=== PATIENT | female | born 1945 | race Caucasian/White ===

== ENCOUNTER → 2017-08-16 | Outpatient (CLI) | payer MEDICARE ==
--- NOTE | 2017-08-16 16:10 | RADIOLOGY REPORT (SQ) ---
EXAM DESCRIPTION: HIP LEFT AP/LATERAL COMPLETED DATE/TIME: 08/16/2017 2:58 pm REASON FOR STUDY: LEFT HIP PAIN COMPARISON: None. NUMBER OF VIEWS: Two views. TECHNIQUE: AP pelvis and additional frog-leg view of the left hip. LIMITATIONS: None. FINDINGS: MINERALIZATION: Normal. LEFT HIP: Total hip arthroplasty in good position. RIGHT HIP: Mild superior joint space narrowing. PUBIS AND ISCHIUM: No fracture. PELVIS: No fracture. SACRUM: No fracture or dislocation. No worrisome bone lesions. LOWER LUMBAR SPINE: No fracture or dislocation. No worrisome bone lesions. No significant disc disea se. SOFT TISSUES: No findings. OTHER: No other significant finding. IMPRESSION: Left total hip arthroplasty. Mild degenerative joint changes in the right hip. TECHNICAL DOCUMENTATION: JOB ID: [id number] [employer]- All Rights Reserved Reading location - IP/workstation name: [email or web address]
== END ==
LOC: OD 14:10
PROVIDERS: ATTEND Family Medicine
DX: M25.552 Pain in left hip (principal); Z96.642 Presence of left artificial hip joint

== ENCOUNTER 2018-02-26 13:58 | Emergency (ER) | payer MEDICARE ==
[2018-02-26] MEDS ORDERED: IBUPROFEN 600 MG TABLET PO ONE (14:15)
--- NOTE | 2018-02-26 14:16 | ER Document Report ---
ED Medical Screen (RME) - General Chief Complaint: Fall Stated Complaint: FALL Time Seen by Provider: 02/26/18 14:14 Mode of Arrival: Wheelchair Information source: Patient TRAVEL OUTSIDE OF THE [place] IN LAST 30 DAYS: No - HPI Patient complains to provider of: fall Onset: Other - pt. states she fell 2 days ago -- with injury to R lumbar spine - Related Data Allergies/Adverse Reactions: No Known Allergies Allergy (Verified 02/26/18 13:58) Past Medical History - Social History Chew tobacco use (# tins/day): No Frequency of alcohol use: Rare Drug Abuse: None - Past Medical History Cardiac Medical History: Reports: Hx Atrial Fibrillation, Hx Hypercholesterolemia, Hx Hypertension - contr w/ meds Denies: Hx Heart Attack Pulmonary Medical History: Reports: Hx Asthma, Hx COPD Neurological Medical History: Denies: Hx Cerebrovascular Accident, Hx Seizures Renal/ Medical History: Denies: Hx Peritoneal Dialysis GI Medical History: Denies: Hx Hepatitis, Hx Hiatal Hernia, Hx Ulcer Musculoskeltal Medical History: Psychiatric Medical History: Reports: Hx Depression - anxiety Infectious Medical History: Denies: Hx Hepatitis Past Surgical History: Reports: Hx Breast Surgery - bilateral lumpectomy, Hx Hysterectomy. Denies: Hx Mastectomy, Hx Open Heart Surgery, Hx Pacemaker - Immunizations Hx Diphtheria, Pertussis, Tetanus Vaccination: No Physical Exam - Vital signs Vitals: Temp Pulse Resp BP Pulse Ox 99.1 F 58 L 16 85/58 L 95 02/26/18 14:08 02/26/18 14:08 02/26/18 14:08 02/26/18 14:08 02/26/18 14:08 Course - Vital Signs Vital signs: Temp Pulse Resp BP Pulse Ox 99.1 F 58 L 16 85/58 L 95 02/26/18 14:08 02/26/18 14:08 02/26/18 14:08 02/26/18 14:08 02/26/18 14:08 Doctor's Discharge - Discharge Referrals: EULALIA CHASE DO [Primary Care Provider] - Follow up as needed
[2018-02-26 15:06] LABS: APPEARANCE,URINE CLOUDY; BILIRUBIN,URINE NEGATIVE (NEGATIVE); GLUCOSE, URINE NEGATIVE (NEGATIVE); KETONES,URINE NEGATIVE (NEGATIVE); LEUKOCYTE ESTERASE,URINE SMALL (NEGATIVE); NITRITE,URINE POSITIVE (NEGATIVE); PROTEIN,URINE NEGATIVE (NEGATIVE); URINE SPECIFIC GRAVITY 1.023
[2018-02-26 15:07] LABS: COLOR,URINE YELLOW
--- NOTE | 2018-02-26 15:42 | RADIOLOGY REPORT (SQ) ---
EXAM DESCRIPTION: L SPINE WHOLE COMPLETED DATE/TIME: 02/26/2018 3:22 pm REASON FOR STUDY: fall COMPARISON: None. NUMBER OF VIEWS: Four views including obliques. TECHNIQUE: AP, lateral, oblique, and sacral radiographic images acquired of the lumbar spine. LIMITATIONS: None. FINDINGS: MINERALIZATION: Normal. SEGMENTATION: Normal. No transitional anatomy. ALIGNMENT: Normal. VERTEBRAE: Maintained height. No fracture or worrisome bone lesion. DISCS: Preserved height. No significant osteophytes or end plate irregularity. POSTERIOR ELEMENTS: Pedicles and facets are intact. No pars defect or posterior arch defects. HARDWARE: None in the spine. PARASPINAL SOFT TISSUES: Normal. PELVIS: Intact as visualized. No fractures or worrisome bone lesions. SI joints intact. Status post left hip total arthroplasty, partially imaged. OTHER: Large burden of stool in the colon. Calcification of the abdominal aorta and branch vessels. IMPRESSION: No fracture or dislocation of the lumbar spine. Disc spaces and vertebral body heights are well preserved. TECHNICAL DOCUMENTATION: JOB ID: [id number] [employer]- All Rights Reserved Reading location - IP/workstation name: [email or web address]
[2018-02-26] MEDS ORDERED: NORMAL SALINE 1000 ML 500 ML IV ONE (15:49)
--- NOTE | 2018-02-26 16:16 | ER Document Report ---
ED Fall - General Chief Complaint: Fall Stated Complaint: FALL Time Seen by Provider: 02/26/18 14:14 Mode of Arrival: Wheelchair Information source: Patient Notes: Patient is a 72-year-old female who presents to the emergency department with complaints of right flank pain and shortness of breath after she fell 2 days ago. Patient reports she tripped and fell when trying to get out of her bed. She states that she has a large bruise over her kidney area. Patient reports history of a left-sided hip replacement, states no issues with this no pain in either hip. Patient denies striking her head, denies any loss of consciousness or any vomiting after the fall. Patient reports her primary care provider is Dr. [place]. She states that she takes hydrocodone for chronic pain. TRAVEL OUTSIDE OF THE [place] IN LAST 30 DAYS: No - Related data Allergies/Adverse Reactions: No Known Allergies Allergy (Verified 02/26/18 13:58) Past Medical History - General Information source: Patient - Social History Smoking Status: Current Every Day Smoker Chew tobacco use (# tins/day): No Frequency of alcohol use: Rare Drug Abuse: None Family History: Reviewed & Not Pertinent Patient has suicidal ideation: No Patient has homicidal ideation: No - Past Medical History Cardiac Medical History: Reports: Hx Atrial Fibrillation, Hx Hyperch olesterolemia, Hx Hypertension - contr w/ meds Denies: Hx Heart Attack Pulmonary Medical History: Reports: Hx Asthma, Hx COPD Neurological Medical History: Denies: Hx Cerebrovascular Accident, Hx Seizures Renal/ Medical History: Denies: Hx Peritoneal Dialysis GI Medical History: Denies: Hx Hepatitis, Hx Hiatal Hernia, Hx Ulcer Musculoskeletal Medical History: Psychiatric Medical History: Reports: Hx Depression - anxiety Infectious Medical History: Denies: Hx Hepatitis Past Surgical History: Reports: Hx Breast Surgery - bilateral lumpectomy, Hx Hysterectomy. Denies: Hx Mastectomy, Hx Open Heart Surgery, Hx Pacemaker - Immunizations Hx Diphtheria, Pertussis, Tetanus Vaccination: No Review of Systems - Review of Systems Respiratory: Hurts to breathe, Short of breath Musculoskeletal: See HPI -: Yes All other systems reviewed and negative Physical Exam - Vital signs Vitals: Temp Pulse Resp BP Pulse Ox 99.1 F 58 L 16 85/58 L 95 02/26/18 14:08 02/26/18 14:08 02/26/18 14:08 02/26/18 14:08 02/26/18 14:08 - Notes Notes: PHYSICAL EXAMINATION: GENERAL: Well-appearing, well-nourished and in no moderate distress. HEAD: Atraumatic, normocephalic. EYES: Pupils equal round and reactive to light, extraocular movements intact, c onjunctiva are normal. ENT: Nares patent, oropharynx clear without exudates. Moist mucous membranes. NECK: Normal range of motion, supple without lymphadenopathy LUNGS: Breath sounds clear to auscultation bilaterally and equal. No wheezes rales or rhonchi. HEART: Regular rate and rhythm without murmurs ABDOMEN: Soft, nontender, nondistended abdomen. No guarding, no rebound. No masses appreciated. Female : No CVA tenderness Musculoskeletal: Normal range of motion, no pitting or edema. No cyanosis. Ecchymosis noted from right flank noted extending from right flank to right scapula. No crepitus. NEUROLOGICAL: Cranial nerves grossly intact. Normal speech, normal gait. Normal sensory, motor exams PSYCH: Normal mood, normal affect. SKIN: Warm, Dry, normal turgor, no rashes or lesions noted. Course - Re-evaluation Re-evalutation: At the time of my initial assessment patient has Jasson been seen by provider in triage. CBC and comprehensive metabolic panel are unremarkable. Urinalysis shows positive nitrates, hematuria and small leukocyte esterase. Patient denies any urinary symptoms. Patient has large amount of ecchymosis to her right flank that extends up to the right scapula. Upon reviewing patient's vital signs patient was hypotensive at the time of check-in. This has now resolved. I did give patient some IV fluids as well as pain medication. X-rays are pending. X-ray of the thoracic spine as well as x-ray of the right ribs with chest are all unremarkable. Patient does have clear and equal lung sounds bilaterally. Patient is reporting she feels much better after taking a dose of hydrocodone which she usually takes at home for her chronic pain. Patient will be given an incentive spirometer due to the area of her injury although there are no rib fractures noted on x-ray. I will also place patient on antibiotics for the urinary tract infection and will place an order for urine culture. Patient's family members are at bedside to take patient home and patient is stable for discharge. - Vital Signs Vital signs: Temp Pulse Resp BP Pulse Ox 97.5 F 96 18 150/60 H 96 02/26/18 19:09 02/26/18 19:09 02/26/18 19:09 02/26/18 19:09 02/26/18 19:09 - Laboratory Result Diagrams: 02/26/18 16:57 02/26/18 16:57 Laboratory results interpreted by me: 02/26/18 02/26/18 02/26/18 14:34 16:57 16:57 RDW 14.5 H Carbon Dioxide 31 H Est GFR (Non-Af Amer) 52 L Urine Blood SMALL H Urine Nitrite POSITIVE H Urine Urobilinogen 4.0 H Ur Leukocyte Esterase SMALL H Discharge - Discharge Clinical Impression: Fall Qualifiers: Encounter type: initial encounter Qualified Code(s): W19.XXXA - Unspecified fall, initial encounter UTI (urinary tract infection) Qualifiers: Urinary tract infection type: site unspecified Hematuria presence: without hematuria Qualified Code(s): N39.0 - Urinary tract infection, site not specified Condition: Stable Disposition: HOME, SELF-CARE Additional Instructions: URINARY TRACT INFECTION: Your evaluation indicates that you have a urinary tract infection. This is due to germs growing in the bladder. This is a common problem. This infection usually responds quickly to antibiotics. Your antibiotic should be taken exactly as prescribed. Drink plenty of fluids -- three to four quarts a day. Occasionally, a bladder anesthetic will be prescribed to help stop the feeling of urgency until the antibiotic has a chance to clear the infection. This may cause your urine to be dark orange. Certain urine infections require a culture. If the doctor obtained a culture, the results will be back in two days. You should call to see if a change in treatment is needed. A repeat urinalysis after you finish treatment is often recommended. The physician will let you know if further testing is required. Call the doctor if you develop fever, chills, flank pain, inability to urinate, or blood in the urine. ANTIBIOTIC THERAPY: You have been given an antibiotic prescription. It's important that you take all the medication, unless instructed otherwise by your physician. Failure to complete the entire course can result in relapse of your condition. Common side effects of antibiotics include nausea, intestinal cramping, or diarrhea. Women may develop vaginal yeast infections, and babies can get yeast (thrush) in the mouth following the use of antibiotics. Contact your physician if you develop significant side effects from this medication. Allergy to this antibiotic can result in hives, wheezing, faintness, or itching. If symptoms of allergy occur, stop the medication and call the doctor. CEPHALEXIN: The antibiotic you've been prescribed is a member of the cephalosporin class. This type of antibiotic covers a wide variety of infections, including those of the skin, lungs, and urinary tract. It's useful for staph infections. This antibiotic is slightly similar to the penicillin family. In rare cases, a person who is allergic to penicillin will also be allergic to this medication. If you have had a severe allergic reaction to penicillin, and have not taken this antibiotic since that time, notify your doctor. Antibiotics which cover many germs ("broad spectrum" antibiotics) are more likely to cause diarrhea or "yeast" infections. Women prone to vaginal yeast problems may suffer an attack after taking this antibiotic. In infants, oral thrush (white spots "stuck" on the cheek) or yeast diaper rash may result. See your doctor if these problems occur. Call at once if you develop itching, hives, shortness of breath, or lightheadedness. Contusion Your injury has resulted in a contusion -- a crushing of the deep tissues. No injury to important structures was detected during the physician's exam. Contusions vary in the amount of pain they cause, and in the length of time required for healing. Typically, the area will become bruised, and will remain painful to touch for two or three weeks. However, most patients are back to working and playing within a few days. After the initial period of rest and cold-packs, your symptoms (together with the doctor's recommendations) will determine how rapidly you can get back to full activity. Usually this means "do what feels okay, but don't do things that hurt." If re-examination was recommended, it's important to follow up as instructed. Call the doctor or return any time if pain increases, if swelling becomes severe, if you develop numbness or weakness in an injured extremity, or if any other alarming symptoms occur. Ice Packs Apply ice packs frequently against the painful area. Many different schedules are recommended, such as "20 minutes on, 20 minutes off" or "one hour ice, two hours rest." If you need to work, you may need to go longer between ice treatments. You should plan to have the area ice packed AT LEAST one fourth of the time. The ice should be applied over the wrap, tape, or splint, or over a layer of cloth -- not directly against the skin. Some ice bags have a built-in cloth and can be put directly on the skin. FOLLOW-UP CARE: If you have been referred to a physician for follow-up care, call the physicians office for an appointment as you were instructed or within the next two days. If you experience worsening or a significant change in your symptoms, notify the physician immediately or return to the Emergency Department at any time for re-evaluation. Your your blood work today was normal. It appears that you have urinary tract infection based upon your urinalysis today. This will be sent for a culture, someone will call you in the next 48-72 hours if there are any abnormalities. I have prescribed you Keflex, take as directed, complete the entire course of antibiotics even if you are feeling better. Take ibuprofen 600 mg every 6 hours for the pain to your side. The imaging studies done of your ribs, chest and back are all normal. There are no fractures or dislocations. All of the your bruising is being caused by contusions. You may apply ice to these areas as directed above. Use the incentive spirometer exactly as the nurse showed you how. Try to use this 10 times every hour that you are awake. It is very important to make sure you are taking nice big deep breaths to allow for full lung expansion. Please follow-up with your primary care provider for a follow-up, call them to schedule an appointment. Return to the emergency department if you experience any worsening symptoms such as shortness of breath or development of fever. We will be happy to reevaluate you at any time. Prescriptions: Cephalexin [Cephalexin 500 MG Tablet] 500 mg PO Q6H #28 tablet Referrals: EULALIA MONTANA, [Primary Care Provider] - Follow up as needed
--- NOTE | 2018-02-26 16:41 | RADIOLOGY REPORT (SQ) ---
EXAM DESCRIPTION: RIBS RIGHT W/PA CHEST COMPLETED DATE/TIME: 02/26/2018 4:13 pm REASON FOR STUDY: fall, posterior rib pain with bruising COMPARISON: 03/19/2012 TECHNIQUE: Frontal view of the chest and additional views of the right ribs acquired. NUMBER OF VIEWS: Four view. LIMITATIONS: None. FINDINGS: FRONTAL CXR: No pneumothorax. No pleural effusion. No atelectasis or infiltrates. RIBS: No displaced rib fractures. No lytic or blastic bony lesions. OTHER: No other significant finding. IMPRESSION: No displaced rib fracture. No pneumothorax or pleural effusion. COMMENT: SITE OF TRAUMA/COMPLAINT MARKED/STAMP COMPLETED: YES. TECHNICAL DOCUMENTATION: JOB ID: [id number] [employer]- All Rights Reserved Reading location - IP/workstation name: [email or web address]
[2018-02-26 17:43] LABS: ABSOLUTE EOSINOPHILS # (AUTO) 0.1 10^3/uL (0.0-0.6); ABSOLUTE LYMPHOCYTES (AUTO) 1.4 10^3/uL (0.5-4.7); ABSOLUTE MONOCYTES (AUTO) 0.5 10^3/uL (0.1-1.4); ABSOLUTE NEUT (AUTO) 4.9 10^3/uL (1.7-8.2); BASOPHILS % (AUTO) 0.5 % (0-2); EOSINOPHILS % (AUTO) 1.2 % (0-6); HEMATOCRIT 38.4 % (36.0-47.0); HEMOGLOBIN 12.7 g/dL (12.0-15.5); LYMPHOCYTES % (AUTO) 19.8 % (13-45); MEAN CORPUSCULAR HEMOGLOBIN 29.1 pg (27.0-33.4); MEAN CORPUSCULAR HGB CONC 33.1 g/dL (32.0-36.0); MEAN CORPUSCULAR VOLUME 88 fl (80-97); MONOCYTES % (AUTO) 7.8 % (3-13); PLATELET COUNT 177 10^3/uL (150-450); RED BLOOD COUNT 4.37 10^6/uL (3.72-5.28); RED CELL DISTRIBUTION WIDTH 14.5 % (11.5-14.0); SEGMENTED NEUTROPHILS % (AUTO) 70.7 % (42-78); TOTAL CELLS COUNTED % (AUTO) 100 %; WHITE BLOOD COUNT 6.9 10^3/uL (4.0-10.5)
[2018-02-26] MEDS ORDERED: HYDROCODONE/ACETAMINOPHEN 5-325 MG TABLET PO ONE (17:53)
[2018-02-26 17:54] LABS: ALANINE AMINOTRANSFERASE 22 U/L (9-52); ALBUMIN 4.2 g/dL (3.5-5.0); ALKALINE PHOSPHATASE 82 U/L (38-126); ANION GAP 9 (5-19); ASPARTATE AMINO TRANSFERASE 22 U/L (14-36); BILIRUBIN,DIRECT 0.4 mg/dL (0.0-0.4); BILIRUBIN,TOTAL 0.7 mg/dL (0.2-1.3); BLOOD UREA NITROGEN 13 mg/dL (7-20); CALCIUM 9.4 mg/dL (8.4-10.2); CARBON DIOXIDE 31 mmol/L (22-30); CHLORIDE 101 mmol/L (98-107); GLUCOSE 102 mg/dL (75-110); POTASSIUM 3.9 mmol/L (3.6-5.0); SODIUM 141.4 mmol/L (137-145); TOTAL PROTEIN 7.1 g/dL (6.3-8.2)
[2018-02-26] MEDS ORDERED: HYDROCODONE/ACETAMINOPHEN 5-325 MG (6 TAB/ER DISP) PO PRN (18:29)
[2018-02-26] MEDS ORDERED: CEPHALEXIN 500 MG CAPSULE PO ONE (18:29)
[2018-02-26 19:10] VITALS: BP 150/60
== END 2018-02-26 20:11 | disposition home or self-care (01) ==
LOC: ER 13:58
DX: N39.0 Urinary tract infection, site not specified (principal); R10.9 Unspecified abdominal pain; F17.200 Nicotine dependence, unspecified, uncomplicated; W01.0XXA Fall on same level from slipping, tripping and stumbling without subsequent striking against object, initial encounter; I48.91 Unspecified atrial fibrillation; E78.00 Pure hypercholesterolemia, unspecified; I10 Essential (primary) hypertension; J44.9 Chronic obstructive pulmonary disease, unspecified; Z90.710 Acquired absence of both cervix and uterus
CPT/HCPCS: 99284; 96360; 36415; 87086; 85025; 87088; 80053; 81001; 87186; 72110; 71101; A9270 ×3; J7030

== ENCOUNTER 2018-03-08 17:30 | Inpatient (IN) | payer MEDICARE ==
--- NOTE | 2018-03-08 19:50 | ER Document Report ---
ED Medical Screen (RME) - General Chief Complaint: Breathing Difficulty Stated Complaint: TROUBLE BREATHING Time Seen by Provider: 03/08/18 19:47 Notes: Patient says that she is having difficulty breathing for the past couple of days. She was seen here on February 26, after a fall in which a pipe was sticking out and she fell against it with her right posterior thoracic rib cage. When seen here, patient had rib x-rays and a chest x-ray which were negative. She has residual bruising and tenderness in that area. Patient says she is now having difficulty breathing with an O2 sat in the low 90s and now she is coughing up lots of phlegm, but no blood seen.. Patient does continue to smoke occasionally. TRAVEL OUTSIDE OF THE [place] IN LAST 30 DAYS: No - Related Data Allergies/Adverse Reactions: No Known Allergies Allergy (Verified 02/26/18 13:58) Past Medical History - Social History Chew tobacco use (# tins/day): No Frequency of alcohol use: None Drug Abuse: None - Past Medical History Cardiac Medical History: Reports: Hx Atrial Fibrillation, Hx Hypercholesterolemia, Hx Hypertension - contr w/ meds Denies: Hx Heart Attack Pulmonary Medical History: Reports: Hx Asthma, Hx COPD Neurological Medical History: Denies: Hx Cerebrovascular Accident, Hx Seizures Renal/ Medical History: Denies: Hx Peritoneal Dialysis GI Medical History: Denies: Hx Hepatitis, Hx Hiatal Hernia, Hx Ulcer Musculoskeltal Medical History: Psychiatric Medical History: Reports: Hx Depression - anxiety Infectious Medical History: Denies: Hx Hepatitis Past Surgical History: Reports: Hx Breast Surgery - bilateral lumpectomy, Hx Hysterectomy. Denies: Hx Mastectomy, Hx Open Heart Surgery, Hx Pacemaker - Immunizations Hx Diphtheria, Pertussis, Tetanus Vaccination: No Physical Exam - Vital signs Vitals: Temp Pulse Resp BP Pulse Ox 98.9 F 69 21 H 144/54 H 92 03/08/18 18:09 03/08/18 18:03/08/18 18:03/08/18 18:03/08/18 18:09 Course - Vital Signs Vital signs: Temp Pulse Resp BP Pulse Ox 98.9 F 69 21 H 144/54 H 92 03/08/18 18:09 03/08/18 18:09 03/08/18 18:09 03/08/18 18:09 03/08/18 18:09 Doctor's Discharge - Discharge Referrals: EULALIA CHASE DO [Primary Care Provider] - Follow up as needed
--- NOTE | 2018-03-08 21:11 | RADIOLOGY REPORT (SQ) ---
XR CHEST 2 VIEWS HISTORY: Cough, congestion and phlegm production, rib co. COMPARISON: None. FINDINGS: The cardiomediastinal silhouette is unremarkable. The lungs are clear. No pleural effusion or pneumothorax is identified. The lungs are hyperexpanded consistent with emphysema. IMPRESSION: No acute cardiopulmonary abnormality. Emphysema.
--- NOTE | 2018-03-08 21:27 | ER Document Report ---
ED Respiratory Problem - General Chief Complaint: Breathing Difficulty Stated Complaint: TROUBLE BREATHING Time Seen by Provider: 03/08/18 19:47 Mode of Arrival: Wheelchair Information source: Patient Notes: Patient is a 72-year-old female with a history of COPD, hyperlipidemia, and hypertension who presents with several days of chest pain that radiates to the back and to the right lower ribs. Patient reports having a mechanical fall approximately 9 or 10 days ago, fell against a metal pole onto the right side of her back and lateral rib cage, presented to the emergency department where x- rays were negative for acute injury. Patient continues to have pain and now the pain is spreading to the chest and the back. She also is exhibiting shortness of breath and a mildly productive cough of brown sputum above her normal baseline. Patient has had intermittent nausea but no vomiting, denies fevers or chills, does report being very anxious and upset and repeatedly requests to "stay in the hospital." TRAVEL OUTSIDE OF THE [place] IN LAST 30 DAYS: No - HPI Patient complains to provider of: Chest pain, Cough, Hurts to breath Onset: Last week Duration: Worse/persistent Initiating Event: Other - Fall Quality of pain: Achy, Fullness Severity: Moderate Pain Level: 4 Context: Hx CHF, Hx COPD, Smoker Short of Breath: Moderate Chest pain/discomfort: Center, Radiates to back, Right Cough: Productive Sputum amount: Small Sputum color: Brown Associated symptoms: Anxiety, Cough, Hurts to breathe, Short of breath Similar symptoms previously: No Recently seen / treated by doctor: Yes - Related Data Allergies/Adverse Reactions: No Known Allergies Allergy (Verified 02/26/18 13:58) Past Medical History - General Information source: Patient - Social History Smoking Status: Current Every Day Smoker Chew tobacco use (# tins/day): No Frequency of alcohol use: None Drug Abuse: None Lives with: Alone Family History: Reviewed & Not Pertinent Patient has suicidal ideation: No Patient has homicidal ideation: No - Past Medical History Cardiac Medical History: Reports: Hx Atrial Fibrillation, Hx Hypercholesterolemia, Hx Hypertension - contr w/ meds Denies: Hx Heart Attack Pulmonary Medical History: Reports: Hx Asthma, Hx COPD EENT Medical History: Reports: None Neurological Medical History: Denies: Hx Cerebrovascular Accident, Hx Seizures Endocrine Medical History: Reports: None Renal/ Medical History: Reports: None. Denies: Hx Peritoneal Dialysis Malignancy Medical History: Reports: None GI Medical History: Reports: None. Denies: Hx Hepatitis, Hx Hiatal Hernia, Hx Ulcer Musculoskeletal Medical History: Reports None Skin Medical History: Reports None Psychiatric Medical History: Reports: Hx Depression - anxiety Traumatic Medical History: Reports: None Infectious Medical History: Reports: None. Denies: Hx Hepatitis Past Surgical History: Reports: Hx Breast Surgery - bilateral lumpectomy, Hx Hysterectomy. Denies: Hx Mastectomy, Hx Open Heart Surgery, Hx Pacemaker - Immunizations Immunizations up to date: Yes Hx Diphtheria, Pertussis, Tetanus Vaccination: No History of Influenza Vaccine for 12/2016 - 05/2017 Season: Unknown Review of Systems - Review of Systems Constitutional: See HPI, Weakness EENT: No symptoms reported Cardiovascular: See HPI, Chest pain, Dyspnea. denies: Palpitations Respiratory: See HPI, Cough, Hurts to breathe, Short of breath, Sputum Gastrointestinal: No symptoms reported Genitourinary: No symptoms reported Female Genitourinary: No symptoms reported Musculoskeletal: No symptoms reported Skin: No symptoms reported Hematologic/Lymphatic: No symptoms reported Neurological/Psychological: No symptoms reported -: Yes All other systems reviewed and negative Physical Exam - Vital signs Vitals: Temp Pulse Resp BP Pulse Ox 98.9 F 69 21 H 144/54 H 92 03/08/18 18:09 03/08/18 18:09 03/08/18 18:09 03/08/18 18:09 03/08/18 18:09 Interpretation: Normal - Notes Notes: Patient is frail-appearing and no acute distress - General General appearance: Appears well, Alert - HEENT Head: Normocephalic, Atraumatic Eyes: Normal Pupils: PERRL - Respiratory Respiratory status: No respiratory distress Chest status: Tender - Mild to moderate pain along the right lateral and inferior rib cage, no deformity, no crepitance, no flail segments, Pain on movement, Pain with cough, Pain with deep breathing, Splinting Breath sounds: Normal Chest palpation: Normal - Cardiovascular Rhythm: Regular Heart sounds: Normal auscultation Murmur: No - Abdominal Inspection: Normal Distension: No distension Bowel sounds: Normal Tenderness: Nontender Organomegaly: No organomegaly - Rectal Notes: Deferred - Genitourinary Notes: Deferred - Back Back: Normal, Nontender - Extremities General upper extremity: Normal inspection, Nontender, Normal color, Normal ROM, Normal temperature General lower extremity: Normal inspection, Nontender, Normal color, Normal ROM, Normal temperature, Normal weight bearing. No: Tanya's sign - Neurological Neuro grossly intact: Yes Cognition: Normal Orientation: AAOx4 Luis Carlos Coma Scale Eye Opening: Spontaneous Luis [place] Coma Scale Verbal: Oriented Luis [place] Coma Scale Motor: Obeys Commands Luis Carlos Coma Scale Total: 15 Speech: Normal Motor strength normal: LUE, RUE, LLE, RLE Sensory: Normal - Psychological Associated symptoms: Normal affect, Normal mood - Skin Skin Temperature: Warm Skin Moisture: Dry Skin Color: Normal Course - Re-evaluation Re-evalutation: 03/08/18 22:51 Despite negative x-ray findings from her initial fall, patient could have an underlying occult fracture resulting in splinting and decreased inspiratory volumes which could predispose her to pulmonary infections such as pneumonia. Could also be cardiac in etiology despite no personal history, however patient is at increased risk given her other medical conditions. Will obtain labs including troponin, obtain chest x-ray, and likely admit to the hospital. 03/09/18 02:55 Chest x-ray does not show evidence of acute consolidation, however given her presenting symptoms and the presence of hypoxia and rhonchi on physical exam, patient will be empirically treated for pneumonia with Azithromycin and Ceftriaxone. She is admitted to the hospitalist. - Vital Signs Vital signs: Temp Pulse Resp BP Pulse Ox 98.5 F 69 20 161/64 H 95 03/08/18 22:09 03/08/18 18:09 03/08/18 22:06 03/09/18 01:32 03/09/18 01:32 - Laboratory Result Diagrams: 03/08/18 22:00 03/09/18 01:10 Laboratory results interpreted by me: 03/08/18 03/08/18 03/08/18 22:00 23:18 23:47 RDW 14.6 H ABG pH 7.51 H ABG pO2 55.2 L ABG HCO3 27.8 H ABG Total CO2 28.9 H ABG O2 Saturation 91.6 L Urine Ketones TRACE H Urine Blood SMALL H Ur Leukocyte Esterase LARGE H - Diagnostic Test Radiology reviewed: Reports reviewed - EKG Interpretation by Me EKG shows normal: Sinus rhythm Rate: Normal Rhythm: NSR Matthews/QRS: No: Right axis deviation, Left axis deviation, RBBB, LBBB, IVCD, LAHB/LAFB, LPHB/LPFB, Bifasicular block P Waves: No: TYREE, LAE, Absent, AV Dissociation, Other Heart block present: No: 1st Degree, Mobitz 1, Mobitz 2, CHB (3rd degree block) When compared to previous EKG there are: No significant change - Consults Dr. Linda Time consulted: 02:41 - will admit Consulted provider: will come to ER Discharge - Discharge Clinical Impression: Hypoxemia, Shortness of breath Chest pain Qualifiers: Chest pain type: unspecified Qualified Code(s): R07.9 - Chest pain, unspecified Community acquired pneumonia Qualifiers: Laterality: unspecified laterality Qualified Code(s): J18.9 - Pneumonia, unspecified organism Condition: Stable Disposition: ADMITTED INPATIENT Admitting Provider: Hospitalist Unit Admitted: Telemetry Referrals: EULALIA CHASE DO [Primary Care Provider] - Follow up as needed
[2018-03-08 22:11] LABS: ABSOLUTE BASOPHILS # (AUTO) 0.1 10^3/uL (0.0-0.2); ABSOLUTE LYMPHOCYTES (AUTO) 1.9 10^3/uL (0.5-4.7); ABSOLUTE MONOCYTES (AUTO) 0.6 10^3/uL (0.1-1.4); ABSOLUTE NEUT (AUTO) 4.3 10^3/uL (1.7-8.2); BASOPHILS % (AUTO) 0.9 % (0-2); EOSINOPHILS % (AUTO) 0.6 % (0-6); HEMATOCRIT 40.3 % (36.0-47.0); HEMOGLOBIN 13.6 g/dL (12.0-15.5); MEAN CORPUSCULAR HEMOGLOBIN 29.3 pg (27.0-33.4); MEAN CORPUSCULAR HGB CONC 33.8 g/dL (32.0-36.0); MEAN CORPUSCULAR VOLUME 87 fl (80-97); MONOCYTES % (AUTO) 8.3 % (3-13); PLATELET COUNT 184 10^3/uL (150-450); RED BLOOD COUNT 4.65 10^6/uL (3.72-5.28); RED CELL DISTRIBUTION WIDTH 14.6 % (11.5-14.0); SEGMENTED NEUTROPHILS % (AUTO) 63.2 % (42-78); TOTAL CELLS COUNTED % (AUTO) 100 %; WHITE BLOOD COUNT 6.9 10^3/uL (4.0-10.5)
[2018-03-08] MEDS ORDERED: MORPHINE SULFATE 10 MG/ML INJ IV ONE (22:45)
[2018-03-08 23:27] LABS: ARTERIAL BLOOD BASE EXCESS 4.8 mmol/L; ARTERIAL BLOOD H2CO3 1.07 mmol/L (1.05-1.35); ARTERIAL BLOOD HCO3 27.8 mmol/L (20-24); ARTERIAL BLOOD O2 SATURATION 91.6 % (94-98); ARTERIAL BLOOD PCO2 35.6 mmHg (35-45); ARTERIAL BLOOD PH 7.51 (7.35-7.45); ARTERIAL BLOOD PO2 55.2 mmHg (80-100); ARTERIAL BLOOD TOTAL CO2 28.9 mmol/L (21-25)
[2018-03-08 23:32] LABS: ARTERIAL BLOOD FIO2 ROOM AIR
[2018-03-09 00:02] LABS: APPEARANCE,URINE SLIGHTLY-CLOUDY; BILIRUBIN,URINE NEGATIVE (NEGATIVE); COLOR,URINE YELLOW; GLUCOSE, URINE NEGATIVE (NEGATIVE); KETONES,URINE TRACE mg/dL (NEGATIVE); LEUKOCYTE ESTERASE,URINE LARGE (NEGATIVE); NITRITE,URINE NEGATIVE (NEGATIVE); PROTEIN,URINE NEGATIVE (NEGATIVE); UROBILINOGEN,URINE NEGATIVE mg/dL (<2.0)
[2018-03-09] MEDS ORDERED: LORAZEPAM INJ 2 MG/1 ML VIAL IV ONE (00:54)
[2018-03-09] MEDS ORDERED: AZITHROMYCIN INJ 500 MG VIAL IV ONE (01:30)
[2018-03-09] MEDS ORDERED: CEFTRIAXONE 1 GM/D5W RTU 1 GM/50 ML RTUPB IV ONE (01:30)
[2018-03-09 01:37] LABS: ALANINE AMINOTRANSFERASE 23 U/L (9-52); ALBUMIN 3.8 g/dL (3.5-5.0); ALKALINE PHOSPHATASE 84 U/L (38-126); ANION GAP 6 (5-19); ASPARTATE AMINO TRANSFERASE 24 U/L (14-36); BILIRUBIN,DIRECT 0.3 mg/dL (0.0-0.4); BILIRUBIN,TOTAL 0.7 mg/dL (0.2-1.3); BLOOD UREA NITROGEN 11 mg/dL (7-20); CALCIUM 8.8 mg/dL (8.4-10.2); CARBON DIOXIDE 30 mmol/L (22-30); CHLORIDE 103 mmol/L (98-107); GLUCOSE 91 mg/dL (75-110); POTASSIUM 3.6 mmol/L (3.6-5.0); SODIUM 138.8 mmol/L (137-145); TOTAL PROTEIN 6.4 g/dL (6.3-8.2)
[2018-03-09] MEDS ORDERED: ALPRAZOLAM 0.5 MG TABLET PO PRN (02:52)
[2018-03-09] MEDS ORDERED: IPRATROPIUM/ALBUTEROL 0.5-2.5 MG/3 ML AMPUL NEB PRN (02:53)
[2018-03-09] MEDS ORDERED: CHLORPHENIRAMINE MALEATE 4 MG TABLET PO ONE (02:53)
[2018-03-09] MEDS ORDERED: GUAIFENESIN SYRP 200 MG/10 ML UDC PO PRN (02:53)
[2018-03-09] MEDS ORDERED: SPIRONOLACTONE 25 MG TABLET PO ONE (03:30)
[2018-03-09] MEDS ORDERED: ATENOLOL 50 MG TABLET PO ONE (03:30)
[2018-03-09] MEDS ORDERED: FLUTICASONE NASAL SPRAY 50 MCG/SPRY 120 SPRAY/16 GM NASL ONE (03:30)
[2018-03-09] MEDS ORDERED: ALPRAZOLAM 0.5 MG TABLET PO ONE (04:07)
[2018-03-09] MEDS ORDERED: CHLORPHENIRAMINE MALEATE 4 MG TABLET ONE (04:28)
[2018-03-09] MEDS ORDERED: FLUTICASONE NASAL SPRAY 50 MCG/SPRY 120 SPRAY/16 GM ONE (04:29)
[2018-03-09] MEDS ORDERED: HEPARIN SOD (PORCINE) 5,000 UNIT/ML 1 ML SYRINGE SUBCUT SCH (06:00)
[2018-03-09] MEDS: ACETAMINOPHEN 325 MG TABLET PO PRN (06:29)
[2018-03-09] MEDS: ALPRAZOLAM 0.5 MG TABLET PO PRN ×3 (06:31→23:59)
--- NOTE | 2018-03-09 06:41 | PDOC H&P ---
History of Present Illness Admission Date/PCP: 03/09/18 03:02 EULALIA CHASE DO Patient complains of: Shortness of breath History of Present Illness: FADI LYNN is a 72 year old female with a past medical history of COPD, hypertension, dyslipidemia and anxiety. She presents with 1 week of rhinorrhea and nonproductive cough with shortness of breath and pleuritic chest pain prompting evaluation in the emergency room where she is found to have audible rhonchi but without infiltrate on chest x-ray. In the emergency room she also complains of uncontrolled anxiety and chest pain to the right side of her back and lateral rib cage after a fall 10 days ago. Imaging is negative for fracture. She started on Ativan and empiric antibiotics then referred to the hospitalist for admission. She is awake and alert, anxious pacing in the emergency department. She states her and daughter are both sick in the hospital and that she is home alone. She denies recent change of medications Past Medical History Cardiac Medical History: Reports: Atrial Fibrillation, Hyperlipidema, Hypertension - contr w/ meds Denies: Myocardial Infarction Pulmonary Medical History: Reports: Asthma, Chronic Obstructive Pulmonary Disease (COPD) EENT Medical History: Reports: None Neurological Medical History: Denies: Seizures Endocrine Medical History: Reports: None Renal/ Medical History: Reports: None Malignancy Medical History: Reports: None GI Medical History: Reports: None Denies: Hepatitis, Hiatal Hernia Musculoskeltal Medical History: Reports: None Skin Medical History: Reports: None Psychiatric Medical History: Reports: Depression - anxiety Traumatic Medical History: Reports: None Hematology: Reports: Anemia - hx during preg Denies: Sickle Cell Disease Infectious Medical History: Reports: None Past Surgical History Past Surgical History: Reports: Hysterectomy Denies: Amputation, Mastectomy, Pacemaker Social History Information Source: Patient, Emergency Med Personnel, [facility] Records Lives with: Family Smoking Status: Current Some Day Smoker Cigarettes Packs Per Day: 0.5 Frequency of Alcohol Use: None Hx Recreational Drug Use: No - Advance Directive Resuscitation Status: Full Code Family History Family History: COPD, Hypertension Parental Family History Reviewed: Yes Children Family History Reviewed: Yes Sibling(s) Family History Reviewed.: Yes Medication/Allergy Home Medications: Alprazolam [Alprazolam Odt] 2 mg PO TID 01/08/12 Atenolol [Tenormin 25 mg Tablet] 25 mg PO BID 01/08/12 Hydrocodone Bit/Acetaminophen [Hydrocodon-Acetaminophn 10-325] 1 each PO ASDIR PRN 01/08/12 Levalbuterol HCl [Xopenex Neb 0.63 mg/3 ml Ampul] 0.63 mg NEB TID 01/08/12 Simvastatin [Zocor 20 mg Tablet] 20 mg PO QHS 01/08/12 Spironolactone [Aldactone] 25 mg PO DAILY 01/08/12 Alprazolam [Xanax 2 mg Tablet] 2 mg PO TID PRN #15 tablet 03/19/12 Cephalexin [Cephalexin 500 MG Tablet] 500 mg PO Q6H #28 tablet 02/26/18 Allergies/Adverse Reactions: No Known Allergies Allergy (Verified 02/26/18 13:58) Review of Systems Constitutional: PRESENT: as per HPI, fatigue, weakness. ABSENT: fever(s), headache(s), night sweats Eyes: ABSENT: visual disturbances Ears: ABSENT: hearing changes Cardiovascular: ABSENT: chest pain, dyspnea on exertion, edema, orthropnea, palpitations Respiratory: PRESENT: as per HPI, cough, dyspnea. ABSENT: sputum Gastrointestinal: ABSENT: abdominal pain, constipation, diarrhea, hematemesis, hematochezia, nausea, vomiting Genitourinary: ABSENT: dysuria, hematuria Musculoskeletal: PRESENT: as per HPI, back pain. ABSENT: joint swelling Integumentary: ABSENT: rash, wounds Neurological: ABSENT: abnormal gait, abnormal speech, confusion, dizziness, focal weakness, syncope Psychiatric: PRESENT: anxiety, depression Endocrine: ABSENT: cold intolerance, heat intolerance, polydipsia, polyuria Hematologic/Lymphatic: ABSENT: easy bleeding, easy bruising Physical Exam Vital Signs: Temp Pulse Resp BP Pulse Ox 97.3 F 58 L 20 167/55 H 93 03/09/18 03:52 03/09/18 03:52 03/09/18 03:52 03/09/18 03:52 03/09/18 04:03 Intake & Output 03/07/18 03/08/18 03/09/18 11:59 11:59 11:59 Intake Total 50 Balance 50 Weight 77.3 kg General appearance: PRESENT: cooperative, disheveled, mild distress. ABSENT: obese, severe distress Head exam: PRESENT: atraumatic, normocephalic Eye exam: PRESENT: conjunctiva pink, EOMI, PERRLA. ABSENT: scleral icterus Ear exam: PRESENT: normal external ear exam Mouth exam: PRESENT: moist, tongue midline Neck exam: ABSENT: carotid bruit, JVD, lymphadenopathy, thyromegaly Respiratory exam: PRESENT: crackles, rhonchi, symmetrical, tachypnea Cardiovascular exam: PRESENT: RRR. ABSENT: diastolic murmur, rubs, systolic murmur Pulses: PRESENT: normal dorsalis pedis pul Vascular exam: PRESENT: normal capillary refill GI/Abdominal exam: PRESENT: normal bowel sounds, soft. ABSENT: distended, guarding, mass, organolmegaly, rebound, tenderness Rectal exam: PRESENT: deferred Extremities exam: PRESENT: full ROM. ABSENT: calf tenderness, clubbing, pedal edema Neurological exam: PRESENT: alert, awake, oriented to person, oriented to place, oriented to time, oriented to situation, CN II-XII grossly intact. ABSENT: motor sensory deficit Psychiatric exam: PRESENT: anxious, depressed Skin exam: PRESENT: dry, intact, warm. ABSENT: cyanosis, rash Results Laboratory Results: 03/08/18 22:00 03/09/18 01:10 03/08/18 03/08/18 03/08/18 20:38 22:00 22:00 WBC 6.9 RBC 4.65 Hgb 13.6 Hct 40.3 MCV 87 MCH 29.3 MCHC 33.8 RDW 14.6 H Plt Count 184 Seg Neutrophils % 63.2 Lymphocytes % 27.0 Monocytes % 8.3 Eosinophils % 0.6 Basophils % 0.9 Absolute Neutrophils 4.3 Absolute Lymphocytes 1.9 Absolute Monocytes 0.6 Absolute Eosinophils 0.0 Absolute Basophils 0.1 Carbonic Acid HCO3/H2CO3 Ratio ABG pH ABG pCO2 ABG pO2 ABG HCO3 ABG O2 Saturation ABG Base Excess FiO2 Sodium Cancelled Potassium Cancelled Chloride Cancelled Carbon Dioxide Cancelled Anion Gap Cancelled BUN Cancelled Creatinine Cancelled Est GFR ( Amer) Cancelled Est GFR (Non-Af Amer) Cancelled Glucose Cancelled Calcium Cancelled Total Bilirubin Cancelled AST Cancelled ALT Cancelled Alkaline Phosphatase Cancelled Total Protein Cancelled Albumin Cancelled Urine Color Cancelled Urine Appearance Cancelled Urine pH Cancelled Ur Specific [place] Cancelled Urine Protein Cancelled Urine Glucose (UA) Cancelled Urine Ketones Cancelled Urine Blood Cancelled Urine Nitrite Cancelled Ur Leukocyte Esterase Cancelled Urine WBC (Auto) Cancelled Urine RBC (Auto) Cancelled 03/08/18 03/08/18 03/09/18 23:18 23:47 00:21 WBC RBC Hgb Hct MCV MCH MCHC RDW Plt Count Seg Neutrophils % Lymphocytes % Monocytes % Eosinophils % Basophils % Absolute Neutrophils Absolute Lymphocytes Absolute Monocytes Absolute Eosinophils Absolute Basophils Carbonic Acid 1.07 HCO3/H2CO3 Ratio 25:1 ABG pH 7.51 H ABG pCO2 35.6 ABG pO2 55.2 L ABG HCO3 27.8 H ABG O2 Saturation 91.6 L ABG Base Excess 4.8 FiO2 ROOM AIR Sodium Cancelled Potassium Cancelled Chloride Cancelled Carbon Dioxide Cancelled Anion Gap Cancelled BUN Cancelled Creatinine Cancelled Est GFR ( Amer) Cancelled Est GFR (Non-Af Amer) Cancelled Glucose Cancelled Calcium Cancelled Total Bilirubin Cancelled AST Cancelled ALT Cancelled Alkaline Phosphatase Cancelled Total Protein Cancelled Albumin Cancelled Urine Color YELLOW Urine Appearance SLIGHTLY-CLOUDY Urine pH 7.0 Ur Specific [place] 1.010 Urine Protein NEGATIVE Urine Glucose (UA) NEGATIVE Urine Ketones TRACE H Urine Blood SMALL H Urine Nitrite NEGATIVE Ur Leukocyte Esterase LARGE H Urine WBC (Auto) 30 Urine RBC (Auto) 4 03/09/18 01:10 WBC RBC Hgb Hct MCV MCH MCHC RDW Plt Count Seg Neutrophils % Lymphocytes % Monocytes % Eosinophils % Basophils % Absolute Neutrophils Absolute Lymphocytes Absolute Monocytes Absolute Eosinophils Absolute Basophils Carbonic Acid HCO3/H2CO3 Ratio ABG pH ABG pCO2 ABG pO2 ABG HCO3 ABG O2 Saturation ABG Base Excess FiO2 Sodium 138.8 Potassium 3.6 Chloride 103 Carbon Dioxide 30 Anion Gap 6 BUN 11 Creatinine 0.76 Est GFR ( Amer) > 60 Est GFR (Non-Af Amer) > 60 Glucose 91 Calcium 8.8 Total Bilirubin 0.7 AST 24 ALT 23 Alkaline Phosphatase 84 Total Protein 6.4 Albumin 3.8 Urine Color Urine Appearance Urine pH Ur Specific [place] Urine Protein Urine Glucose (UA) Urine Ketones Urine Blood Urine Nitrite Ur Leukocyte Esterase Urine WBC (Auto) Urine RBC (Auto) 03/08/18 03/09/18 22:00 01:10 Troponin I < 0.012 NT-Pro-B Natriuret Pep 713 Impressions: Chest X-Ray 03/08/18 19:52 IMPRESSION: No acute cardiopulmonary abnormality. Emphysema. Assessment & Plan - Diagnosis (1) Upper respiratory infection Is this a current diagnosis for this admission?: Yes Plan: Maxillary sinusitis with bronchitis. Flutter valve, empiric antibiotics, Flonase and chlorpheniramine. (2) COPD with exacerbation Is this a current diagnosis for this admission?: Yes Plan: Supplemental oxygen, incentive spirometry, albuterol and Atrovent. (3) Anxiety Is this a current diagnosis for this admission?: Yes Plan: Follow-up medication reconciliation, consider benzodiazepine weaning. Trazodone ordered (4) Chest pain Qualifiers: Chest pain type: unspecified Qualified Code(s): R07.9 - Chest pain, unspecified Is this a current diagnosis for this admission?: Yes Plan: Muscle skeletal secondary to fall, optimize pain management to avoid splinting. Incentive spirometry ordered - Time Time Spent: 30 to 50 Minutes
[2018-03-09] MEDS ORDERED: TRAZODONE HCL 50 MG TABLET PO ONE ×2 (07:00→10:00)
[2018-03-09] MEDS ORDERED: METOPROLOL TARTRATE PF/INJ 5 MG/5 ML SDV IV ONE (07:58)
[2018-03-09] MEDS: IPRATROPIUM/ALBUTEROL 0.5-2.5 MG/3 ML AMPUL NEB SCH ×2 (08:30→15:31)
[2018-03-09] MEDS ORDERED: METOPROLOL TARTRATE PF/INJ 5 MG/5 ML SDV IV PRN (08:45)
[2018-03-09] MEDS ORDERED: MORPHINE SULFATE 10 MG/ML INJ IV PRN (08:54)
[2018-03-09] MEDS ORDERED: NITROGLYCERIN 0.4 MG/TAB 25 TAB/BOTTLE SL PRN (08:54)
--- NOTE | 2018-03-09 08:55 | PDOC PROGRESS REPORT ---
Subjective Progress Note for:: 03/09/17 Subjective:: 72-year-old female of COPD hypertension dyslipidemia anxiety admitted for COPD exacerbation, upper respiratory tract infection anxiety and chest pain. Nurse called me around 8:00 today to notify me that patient heart rate is in atrial fibrillation heart rate in the 120s requested to give her metoprolol 5 mg IV 1 dose went to see the patient heart rate is around 100 comfortably in the bed patient complaining of tightness of the chest during this atrial flutter episode patient still in atrial fibrillation. No complaints of chest pain now no complaints of shortness of breath patient denies any previous history of atrial fibrillation. 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 Echo and cardiology consult was requested. Reason For Visit: COPD EXACERBATION PNEUMONIA Physical Exam Vital Signs: Temp Pulse Resp BP Pulse Ox 97.3 F 124 H 18 167/55 H 96 03/09/18 03:52 03/09/18 07:00 03/09/18 06:54 03/09/18 03:52 03/09/18 06:54 Intake & Output 03/08/18 03/09/18 03/10/18 06:59 06:59 06:59 Intake Total 50 Output Total 0 Balance 50 Weight 77.3 kg General appearance: PRESENT: no acute distress Head exam: PRESENT: atraumatic Eye exam: PRESENT: PERRLA Mouth exam: PRESENT: moist Neck exam: ABSENT: carotid bruit, JVD, lymphadenopathy, thyromegaly Respiratory exam: PRESENT: decreased breath sounds, rhonchi, wheezes GI/Abdominal exam: PRESENT: normal bowel sounds, soft. ABSENT: distended, guarding, mass, organolmegaly, rebound, tenderness Neurological exam: PRESENT: alert, awake, oriented to person, oriented to place, oriented to time, oriented to situation, CN II-XII grossly intact. ABSENT: motor sensory deficit Psychiatric exam: PRESENT: appropriate affect, normal mood. ABSENT: homicidal ideation, suicidal ideation Results Laboratory Results: 03/08/18 22:00 03/09/18 01:10 03/08/18 03/08/18 03/08/18 20:38 22:00 22:00 WBC 6.9 RBC 4.65 Hgb 13.6 Hct 40.3 MCV 87 MCH 29.3 MCHC 33.8 RDW 14.6 H Plt Count 184 Seg Neutrophils % 63.2 Lymphocytes % 27.0 Monocytes % 8.3 Eosinophils % 0.6 Basophils % 0.9 Absolute Neutrophils 4.3 Absolute Lymphocytes 1.9 Absolute Monocytes 0.6 Absolute Eosinophils 0.0 Absolute Basophils 0.1 Carbonic Acid HCO3/H2CO3 Ratio ABG pH ABG pCO2 ABG pO2 ABG HCO3 ABG O2 Saturation ABG Base Excess FiO2 Sodium Cancelled Potassium Cancelled Chloride Cancelled Carbon Dioxide Cancelled Anion Gap Cancelled BUN Cancelled Creatinine Cancelled Est GFR ( Amer) Cancelled Est GFR (Non-Af Amer) Cancelled Glucose Cancelled Calcium Cancelled Total Bilirubin Cancelled AST Cancelled ALT Cancelled Alkaline Phosphatase Cancelled Total Protein Cancelled Albumin Cancelled Urine Color Cancelled Urine Appearance Cancelled Urine pH Cancelled Ur Specific [place] Cancelled Urine Protein Cancelled Urine Glucose (UA) Cancelled Urine Ketones Cancelled Urine Blood Cancelled Urine Nitrite Cancelled Ur Leukocyte Esterase Cancelled Urine WBC (Auto) Cancelled Urine RBC (Auto) Cancelled 03/08/18 03/08/18 03/09/18 23:18 23:47 00:21 WBC RBC Hgb Hct MCV MCH MCHC RDW Plt Count Seg Neutrophils % Lymphocytes % Monocytes % Eosinophils % Basophils % Absolute Neutrophils Absolute Lymphocytes Absolute Monocytes Absolute Eosinophils Absolute Basophils Carbonic Acid 1.07 HCO3/H2CO3 Ratio 25:1 ABG pH 7.51 H ABG pCO2 35.6 ABG pO2 55.2 L ABG HCO3 27.8 H ABG O2 Saturation 91.6 L ABG Base Excess 4.8 FiO2 ROOM AIR Sodium Cancelled Potassium Cancelled Chloride Cancelled Carbon Dioxide Cancelled Anion Gap Cancelled BUN Cancelled Creatinine Cancelled Est GFR ( Amer) Cancelled Est GFR (Non-Af Amer) Cancelled Glucose Cancelled Calcium Cancelled Total Bilirubin Cancelled AST Cancelled ALT Cancelled Alkaline Phosphatase Cancelled Total Protein Cancelled Albumin Cancelled Urine Color YELLOW Urine Appearance SLIGHTLY-CLOUDY Urine pH 7.0 Ur Specific [place] 1.010 Urine Protein NEGATIVE Urine Glucose (UA) NEGATIVE Urine Ketones TRACE H Urine Blood SMALL H Urine Nitrite NEGATIVE Ur Leukocyte Esterase LARGE H Urine WBC (Auto) 30 Urine RBC (Auto) 4 03/09/18 01:10 WBC RBC Hgb Hct MCV MCH MCHC RDW Plt Count Seg Neutrophils % Lymphocytes % Monocytes % Eosinophils % Basophils % Absolute Neutrophils Absolute Lymphocytes Absolute Monocytes Absolute Eosinophils Absolute Basophils Carbonic Acid HCO3/H2CO3 Ratio ABG pH ABG pCO2 ABG pO2 ABG HCO3 ABG O2 Saturation ABG Base Excess FiO2 Sodium 138.8 Potassium 3.6 Chloride 103 Carbon Dioxide 30 Anion Gap 6 BUN 11 Creatinine 0.76 Est GFR ( Amer) > 60 Est GFR (Non-Af Amer) > 60 Glucose 91 Calcium 8.8 Total Bilirubin 0.7 AST 24 ALT 23 Alkaline Phosphatase 84 Total Protein 6.4 Albumin 3.8 Urine Color Urine Appearance Urine pH Ur Specific [place] Urine Protein Urine Glucose (UA) Urine Ketones Urine Blood Urine Nitrite Ur Leukocyte Esterase Urine WBC (Auto) Urine RBC (Auto) 03/08/18 03/09/18 22:00 01:10 Troponin I < 0.012 NT-Pro-B Natriuret Pep 713 Impressions: Chest X-Ray 03/08/18 19:52 IMPRESSION: No acute cardiopulmonary abnormality. Emphysema. Assessment & Plan - Diagnosis (1) COPD with exacerbation Is this a current diagnosis for this admission?: Yes Plan: 03/09/2017 on examination chest bilateral entry was decreased bilateral wheezing is present patient says she is not on home oxygen plan is to put her on oxygen 2 L nasal cannula she is already on incentive spirometry albuterol and Intal nebulizations started on IV Solu-Medrol 40 mg every 8 hours. Patient is on azithromycin and ceftriaxone. Sputum cultures were requested. (2) Atrial fibrillation Qualifiers: Atrial fibrillation type: paroxysmal Qualified Code(s): I48.0 - Paroxysmal atrial fibrillation Is this a current diagnosis for this admission?: Yes Plan: 03/09/2017-patient has patient is in atrial fibrillation at this moment. He initially heart rate is in the 120s after giving metoprolol 5 mg IV 1 dose heart rate is 100. TSH and magnesium levels were requested. Echocardiogram was requested cardiology consult was requested. Patient is also complaining of nonspecific chest pain at the time of irregular heartbeat and cardiac enzymes x3 were requested. I am going to repeat the EKG again. Patient is on heparin 5000 units subcu every 8 hours started on aspirin 81 mg p.o. daily going to follow her closely. Toprol 5 mg IV every 6 as needed was requested for heart rate of more than 120. (3) Chest pain Qualifiers: Chest pain type: unspecified Qualified Code(s): R07.9 - Chest pain, unspecified Is this a current diagnosis for this admission?: Yes Plan: 03/09/2017-admission troponin is less than 0.012 cardiac enzymes x3 was requested. I am going to do the twelve-lead EKG now. Going to put her on morphine 2 mg IV as needed for chest pain. - Time Time Spent with patient: 15-24 minutes Medications reviewed and adjusted accordingly: Yes Anticipated discharge: Home
[2018-03-09] MEDS ORDERED: DILTIAZEM HCL/D5W 125 MG/125 ML RTUINJ IV PRN (09:31)
[2018-03-09] MEDS ORDERED: DIGOXIN INJ 0.5 MG/2 ML AMPULE ONE (09:40)
[2018-03-09] MEDS ORDERED: ALPRAZOLAM 0.5 MG TABLET PO SCH (10:00)
[2018-03-09] MEDS: ASPIRIN 81 MG TABLET, CHEWABLE PO SCH (10:27)
[2018-03-09] MEDS: TRAZODONE HCL 50 MG TABLET PO SCH ×2 (10:28→22:20)
[2018-03-09] MEDS: LEVALBUTEROL HCL NEB 0.63 MG/3 ML AMPUL NEB SCH ×3 (11:33→19:57)
[2018-03-09 11:49] LABS: CREATINE KINASE MB 1.44 ng/mL (<4.55); TROPONIN I 0.043 ng/mL
[2018-03-09] MEDS: METHYLPREDNISOLONE INJ 40 MG/1 ML SDV IV SCH ×2 (16:12→22:20)
[2018-03-09] MEDS: ENOXAPARIN SODIUM INJ 80 MG/0.8 ML DISP.SYRIN SUBCUT SCH ×2 (16:14→21:34)
--- NOTE | 2018-03-09 17:25 | EKG REPORT ---
SEVERITY:- ABNORMAL ECG - ATRIAL FIBRILLATION BORDERLINE REPOL ABNORMALITY, DIFFUSE LEADS : Confirmed by: Lindsey Meng MD 09-Mar-2018 17:24:18
--- NOTE | 2018-03-09 17:25 | EKG REPORT ---
SEVERITY:- NORMAL ECG - SINUS RHYTHM : Confirmed by: Lindsey Meng MD 09-Mar-2018 17:24:21
[2018-03-09 17:47] LABS: CREATINE KINASE MB 1.72 ng/mL (<4.55); TROPONIN I 0.09 ng/mL
[2018-03-09] MEDS ORDERED: TRAZODONE HCL 50 MG TABLET PO SCH (18:00)
[2018-03-09] MEDS ORDERED: ATENOLOL 50 MG TABLET PO SCH (18:00)
[2018-03-09] MEDS: CEFTRIAXONE 1 GM/D5W RTU 1 GM/50 ML RTUPB IV SCH (18:17)
[2018-03-09] MEDS: HYDROCODONE/ACETAMINOPHEN 10-325 MG TABLET PO PRN (20:25)
[2018-03-09] MEDS: FLUTICASONE NASAL SPRAY 50 MCG/SPRY 120 SPRAY/16 GM NASL SCH (22:19)
[2018-03-09] MEDS: AZITHROMYCIN 500 MG in DEXTROSE 5%-WATER 250 ML IV SCH (22:21)
[2018-03-09] MEDS: SIMVASTATIN 10 MG TABLET PO SCH (22:21)
--- NOTE | 2018-03-09 22:56 | PDOC CONSULTATION ---
Consultation-Blank Consultation: CARDIOLOGY CONSULTATION by Dr. Lindsey Meng on 03/09/2018. Patient seen at 9 AM on 03/09/2018. Note 60 minutes spent on this patient with more than 50% time spent on direct patient care. REASON FOR CONSULTATION: New onset atrial fibrillation the patient is a history of paroxysmal atrial fibrillation. HISTORY OF PRESENT ILLNESS: Patient is 72-year-old female with known history of COPD, is a smoker also, who also has a history of diet-controlled hypertension, and severe anxiety, and depression,` states that since a few days she has been having flulike symptoms. She also has been having cough with wheezing. Her home medications show that she has been started on Tamiflu. She came to the emergency room where she was found to have audible rhonchi and wheezing and admitted for further treatment. She also admits that she has been having some cough with scanty sputum production which is dark brown in color. There is no hemoptysis or pleuritic chest paiN. Her initial EKG shows sinus rhythm. But this morning the patient went into atrial fibrillation with fast ventricular response with a borderline blood pressure. She was given metoprolol 5 mg IV push, with no with the heart rate coming down a little bit, but her blood pressure went down to 83 systolic, but with the patient with no symptoms of hemodynamic compromise. The patient does state that she has a history of paroxysmal atrial fibrillation.. She states about 9 days ago had a mechanical fall and complains of pain in the right side of the rib cage where she hit herself. Clinically there is no fractures. She also complains of increasing shortness of breath with wheezing, but with no PND orthopnea or leg edema. Ther e is no anginal symptoms chest pains. The patient does complain of palpitations. There is no syncope or near syncope or dizziness. PAST MEDICAL HISTORY: She has a history of asthma and COPD, and is admitted with the acute exacerbation of COPD and acute wheezing. She does have a history of diet-controlled hypertension. History of severe anxiety. History of paroxysmal atrial fibrillation, not on any chronic anticoagulation therapy. No history of diabetes mellitus no history of congestive heart failure. No history of coronary artery disease [place] or anginal symptoms. No history of syncope. No history of diabetes mellitus or thyroid disease. No history of chronic kidney disease. No history of TIA CVA. PAST SURGICAL HISTORY: Bilateral lumpectomy which was benign. She has right eye surgery. 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 FAMILY HISTORY: Is positive for COPD and hypertension negative for coronary artery disease or cardiac arrhythmia. ALLERGIES: The patient has no known allergies. SOCIAL HISTORY: The patient is a smoker. There is no history of EtOH abuse. DISPOSITION: The patient is a full code. She states her and her daught er are her surrogate healthcare decision maker. Of note the is admitted to [facility] at present, and the daughter is a patient here. REVIEW SYSTEMS: CONSTITUTIONAL: Denies any fever chills or rigors. Complains of generalized fatigue and weakness. HEAD: Denies headaches or head injury. EYES: No history of amblyopia diplopia. No history of amaurosis fugax. EARS: No history of hearing loss. No history of tinnitus. No vertigo. NOSE: No history of nosebleeds. No history of nose nasal polyps. No history of hayfever. MOUTH: No history of altered taste sensation. No ulcers in the mouth. No bleeding from the gums. THROAT: No odynophagia or dysphagia. No recurrent sore throats. SKIN: No pruritus. No yellowish discoloration of the skin. No psoria sis. No history of skin cancer. NECK: No complaints of neck pain. No swelling in the neck. No goiter. LUNGS: Patient with audible rhonchi and wheezing. Recent symptoms suggestive of acute exacerbation of COPD. She does have a history of asthma and cysts and COPD. The patient is a smoker. There is no history of pulmonary embolism. She has cough which is productive of scanty dark colored sputum. There is no hemoptysis. There is no pleuritic chest pain. She is has right rib cage pain due to fall about 9 days ago. There was no loss of consciousness during the fall. It was an accidental fall. She has no history of pulmonary embolism. No history of sleep apnea. CARDIAC: Past history of paroxysmal atrial fibrillation. Patient not on chronic anticoagulation therapy. History of diet-controlled hypertension. No history of congestive heart failure. No history of coronary artery disease. History of palpitations present. No history of PND orthopnea or leg edema. No syncope. ENDOCRINE: No history of thyroid disease. No history of diabetes mellitus. No polydipsia polyuria. No history of heat or cold intolerance. No excessive sweating. No hirsutism. METABOLIC: Denies history of hyperlipidemia or gout. There is no obesity. RENAL: No history of chronic kidney disease. No symptoms a UTI. No hematuria or pyuria or dysuria. MUSCULOSKELETAL: Denies arthritis or collagen vascular disease. GI: No history of GERD. No history of peptic ulcer disease. No history of GI bleed. No history of fatty food intolerance. No history of hepatitis or jaundice. No abdominal pain. No history of altered bowel movements. PLANNING COORDINATOR: No history of TIA CVA. No history of headaches migraines or seizures. No gait imbalance. PSYCHIATRIC: History of severe anxiety and depression. No history of suicidal ideation. No history of homicidal ideation. HEMATOLOGICAL: She states she was anemic when she was which was a long time ago. There is no bleeding diathesis. There is no clotting disorders. VASCULAR: There is no history of calf or buttock claudication. There is no history of DVT. CORRECTED Beryl vASC 2 score: Is 3. Hence would recommend chronic anticoagula tion therapy in this patient. The patient has no bleeding contraindications for chronic anticoagulation. The risks benefits and alternative therapeutic options have been discussed with the patient the risk of bleeding with the Eliquis has been discussed with the patient. Also I have stressed the fact that if the patient should bleed bleed there is only supportive care that can be given, since there is no antidote to Eliquis. PHYSICAL EXAMINATION: The patient is mildly obese. She is well-groomed. She is in distress due to severe anxiety. There is no accessory muscle respiration in use. 03/09/18 03/09/18 03/09/18 08:19 09:00 10:00 Temperature 98.5 F Temperature Oral Source Pulse Rate 65 117 H Respiratory 20 Rate Respiratory Exertional SOB Effort Respiratory Normal Pattern Blood Pressure 110/54 L 83/48 L BP Location Right Arm BP Position Supine Oxygen Delivery Nasal Cannula Method ( includes room air) Oxygen Flow 3.00 5 Rate HEAD: Head is atraumatic and normocephalic. EYES: Pupils are equal round regular reactive to light accommodation. Extraocular movements are normal, there is no conjunctival pallor, and no scleral icterus. EARS: Tympanic membranes are intact external auditory canals are clear. NOSE: There is no inflammation of the nasal mucous membrane there is no deviated nasal septum. MOUTH: Mucous membranes of mouth and tongue are moist, there is no ulcers in the mouth or tongue, and no bleeding from the gums. THROAT: There is no redness of the oropharynx, no exudate seen. SKIN: There is no petechia or ecchymosis. There is no rashes or lesions. NECK: Supple. There is no JVD. Carotids are equal there is no bruit. There is no lymphadenopathy. There is no goiter. Trachea central. There is no accessory muscles of respiration in use. LUNGS: There is diminished air entry and prolonged expiration. There is bilateral rhonchi and bilateral wheezing present. There is some chest wall tenderness on pressing the right rib cag. On percussion there is hyperresonance. HEART: S1 and S2 are heard. S1 is of variable intensity, there is no S3 or S4 gallops. There is a systolic murmur the left sternal border and the apex. There is no rub. ABDOMEN: Normoactive bowel sounds, soft, nontender, no masses, no rebound, no guarding. There is no hepatosplenomegaly. EXTREMITIES: Femorals are slightly diminished. There is no femoral bruits. Leg pulses are diminished. There is no pedal edema. There is no DVT or cellulitis. There is no cyanosis or clubbing. There is no calf tenderness. NEUROLOGICAL the patient is awake alert oriented 3 with no focal deficits. PSYCHIATRIC: Although the patient is severely anxious, yet the patient's judgment and insight are intact his affect is normal. 03/08/18 03/08/18 03/09/18 22:00 23:18 01:10 WBC 6.9 RBC 4.65 Hgb 13.6 Hct 40.3 MCV 87 MCH 29.3 MCHC 33.8 RDW 14.6 H Plt Count 184 Seg Neutrophils % 63.2 Carbonic Acid 1.07 HCO3/H2CO3 Ratio 25:1 ABG pH 7.51 H ABG pCO2 35.6 ABG pO2 55.2 L ABG HCO3 27.8 H ABG Total CO2 28.9 H ABG O2 Saturation 91.6 L ABG Base Excess 4.8 FiO2 ROOM AIR Sodium 138.8 Potassium 3.6 Chloride 103 Carbon Dioxide 30 Anion Gap 6 BUN 11 Creatinine 0.76 Est GFR (Non-Af Amer) > 60 Glucose 91 Calcium 8.8 Total Bilirubin 0.7 Direct Bilirubin 0.3 Neonat Total Bilirubin Not Reportable Neonat Direct Bilirubin Not Reportable Neonat Indirect Bili Not Reportable AST 24 ALT 23 Alkaline Phosphatase 84 Creatine Kinase CK-MB (CK-2) Troponin I NT-Pro-B Natriuret Pep Total Protein 6.4 Albumin 3.8 03/09/18 03/09/18 03/09/18 01:10 10:44 10:44 WBC RBC Hgb Hct MCV MCH MCHC RDW Plt Count Seg Neutrophils % Carbonic Acid HCO3/H2CO3 Ratio ABG pH ABG pCO2 ABG pO2 ABG HCO3 ABG Total CO2 ABG O2 Saturation ABG Base Excess FiO2 Sodium Potassium Chloride Carbon Dioxide Anion Gap BUN Creatinine Est GFR (Non-Af Amer) Glucose Calcium Total Bilirubin Direct Bilirubin Neonat Total Bilirubin Neonat Direct Bilirubin Neonat Indirect Bili AST ALT Alkaline Phosphatase Creatine Kinase 28 L CK-MB (CK-2) 1.44 Troponin I 0.043 NT-Pro-B Natriuret Pep 713 Total Protein Albumin 03/09/18 03/09/18 17:00 17:00 WBC RBC Hgb Hct MCV MCH MCHC RDW Plt Count Seg Neutrophils % Carbonic Acid HCO3/H2CO3 Ratio ABG pH ABG pCO2 ABG pO2 ABG HCO3 ABG Total CO2 ABG O2 Saturation ABG Base Excess FiO2 Sodium Potassium Chloride Carbon Dioxide Anion Gap BUN Creatinine Est GFR (Non-Af Amer) Glucose Calcium Total Bilirubin Direct Bilirubin Neonat Total Bilirubin Neonat Direct Bilirubin Neonat Indirect Bili AST ALT Alkaline Phosphatase Creatine Kinase 25 L CK-MB (CK-2) 1.72 Troponin I 0.090 NT-Pro-B Natriuret Pep Total Protein Albumin Home Meds Table Hydrocodone Bit/Acetaminophen [Hydrocodon-Acetaminophn 10-325] 1 each PO Q6HP PRN 01/08/12 Cephalexin [Cephalexin 500 MG Tablet] 500 mg PO Q6H #28 tablet 02/26/18 Alprazolam [Xanax] 1 mg PO TIDP PRN 03/09/18 Oseltamivir Phosphate [Tamiflu 75 mg Capsule] 75 mg PO BID 03/09/18 Prednisone [Deltasone] 40 mg PO DAILY 03/09/18 Trazodone HCl 150 mg PO QHS 03/09/18 03/08/18 22:45 Morphine Sulfate [Morphine 10 mg/ml Inj] 2 mg IV NOW ONE 03/09/18 00:54 Lorazepam [Ativan Inj 2 mg/1 ml Vial] 2 mg IV NOW ONE 03/09/18 01:30 Azithromycin [Zithromax Inj 500 mg Vial] 500 mg IV IVBAG (ED) ONE Ceftriaxone 1 gm/D5w RTU [Rocephin RTU 1 gm/D5w 50 ml Premix] 1 gm in 50 ml IV NOW 03/09/18 02:53 Acetaminophen [Tylenol 325 mg Tablet] 650 mg PO Q4HP PRN Chlorpheniramine Maleate [Chlor-Trimeton 4 mg Tablet] 4 mg PO NOW ONE Guaifenesin [Robitussin Syrup 200 mg/10 ml Ud Cup] 200 mg PO QIDP PRN Ipratropium/Albuterol Sulfate [Duoneb 3 ml Ampul] 3 ml NEB [id number] PRN 03/09/18 03:30 Atenolol [Tenormin 50 mg Tablet] 25 mg PO NOW ONE Fluticasone Propionate [Flonase Nasal [place] 50 Mcg/[place] 16 gm] 2 spray NASL NOW ONE Spironolactone [Aldactone 25 mg Tablet] 25 mg PO NOW ONE 03/09/18 04:07 Alprazolam [Xanax 0.5 mg Tablet] 1 mg PO NOW ONE 03/09/18 04:28 Chlorpheniramine Maleate [Chlor-Trimeton 4 mg Tablet] 4 mg .ROUTE .STK-MED ONE 03/09/18 04:29 Fluticasone Propionate [Flonase Nasal [place] 50 Mcg/[place] 16 gm] 120 spray .ROUTE .STK-MED ONE 03/09/18 06:00 Normal Saline [Saline Flush 2.5 ml Monoject Prefil Syrin] 2.5 ml IV Q8 03/09/18 06:40 Flu Vacc [id number](6Mos Up)/Pf [Fluarix Adlt Quad Vac 0.5 ml Syr] 0.5 ml IM .DISCHARGE PRN 03/09/18 07:00 Trazodone HCl [Desyrel 50 mg Tablet] 25 mg PO NOW ONE 03/09/18 07:58 Metoprolol Tartrate [Lopressor Inj/Pf 5 mg/5 ml Sdv] 5 mg IV .STK-MED ONE 03/09/18 08:00 Ipratropium/Albuterol Sulfate [Duoneb 3 ml Ampul] 3 ml NEB RTQ8 03/09/18 08:33 Hydrocodone/Acetaminophen [[place] 10-325 mg Tablet] 1 tab PO Q6HP PRN 03/09/18 08:45 Metoprolol Tartrate [Lopressor Inj/Pf 5 mg/5 ml Sdv] 5 mg IV Q6HP PRN 03/09/18 08:54 Morphine Sulfate [Morphine 10 mg/ml Inj] 2 mg IV Q4HP PRN Nitroglycerin [Nitrostat 0.4 mg (1/150 Gr) Tabs 25/Bottle] 1 tab SL Q5MP PRN 03/09/18 09:40 Digoxin Inj [Lanoxin Inj 0.5 mg/2 ml Ampule] 0.5 mg .ROUTE .STK-MED ONE 03/09/18 10:00 Aspirin [Aspirin 81 mg Chewable Tablet] 81 mg PO DAILY Levalbuterol HCl [Xopenex Neb 0.63 mg/3 ml Ampul] 0.63 mg NEB RTTID Trazodone HCl [Desyrel 50 mg Tablet] 25 mg PO Q12 03/09/18 12:00 Enoxaparin Sodium [Lovenox Inj 80 mg/0.8 ml Disp.syrin] 75 mg SUBCUT Q12 03/09/18 14:00 Methylprednisolone Sod Succ/Pf [Solu-Medrol Inj/Pf 40 mg/1 ml Sdv] 40 mg IV Q8 03/09/18 18:00 Ceftriaxone 1 gm/D5w RTU [Rocephin RTU 1 gm/D5w 50 ml Premix] 1 gm in 50 ml IV QPM 03/09/18 22:00 Azithromycin [Zithromax Inj 500 mg Vial] 500 mg Dextrose 5%-Water [D5w 250 ml IV Soln] 250 ml IV QHS Fluticasone Propionate [Flonase Nasal [place] 50 Mcg/[place] 16 gm] 2 spray NASL Q12 Simvastatin [Zocor 10 mg Tablet] 20 mg PO QHS 03/10/18 10:00 Spironolactone [Aldactone 25 mg Tablet] 25 mg PO DAILY THE patient's chest x-ray: Shows emphysema, without any acute infiltrates. The patient's EKG done yesterday shows sinus rhythm. The EKG done this morning shows atrial fibrillation with rapid ventricular response. Diffuse nonspecific ST-T T changes. IMPRESSION/RECOMMENDATION: 1. Recurrent atrial fibrillation patient with a history of proximal atrial fibrillation. In view of the patient's borderline low blood pressure, will give the patient digoxin 0.25 mg IV push and 0.125 mg IV push. Subsequently we will see if we can start the patient on Cardizem drip. We will also give the patient IV fluids. In view of the patient's acute active wheezing, would avoid beta- blockers for now. Also would recommend starting the patient on Lovenox at 1 mg/kg subcutaneously every 12 hours. Also later would recommend starting the patient on Eliquis 5 mg p.o. twice daily. The risks benefits and complications especially bleeding complications have been discussed with the patient. Would get thyroid function test in the a.m., and also lipid levels. 2. Acute exacerbation of COPD. 3. Acute asthmatic bronchitis. 4. Acute infective bronchitis. 5. History of diet-controlled hypertension. 6. Severe anxiety: Would use anti-anxiolytic agents. 7. History of depression. Medications reviewed medications adjusted. Plan management plan discussed with attending physician on the case. Medical decision making is of high complexity. 60 minutes spent on this patient with more than 50% of time spent in direct patient care. Will follow with you. Thank you.
[2018-03-10 01:40] LABS: CREATINE KINASE MB 1.11 ng/mL (<4.55); TROPONIN I 0.06 ng/mL
[2018-03-10] MEDS: IPRATROPIUM/ALBUTEROL 0.5-2.5 MG/3 ML AMPUL NEB SCH ×3 (01:42→17:37)
[2018-03-10] MEDS: METHYLPREDNISOLONE INJ 40 MG/1 ML SDV IV SCH ×3 (05:47→21:42)
[2018-03-10 05:48] LABS: APPEARANCE,URINE SLIGHTLY-CLOUDY; BILIRUBIN,URINE NEGATIVE (NEGATIVE); COLOR,URINE YELLOW; GLUCOSE, URINE 50 mg/dL (NEGATIVE); KETONES,URINE NEGATIVE (NEGATIVE); LEUKOCYTE ESTERASE,URINE SMALL (NEGATIVE); NITRITE,URINE NEGATIVE (NEGATIVE); PROTEIN,URINE NEGATIVE (NEGATIVE); UROBILINOGEN,URINE NEGATIVE mg/dL (<2.0)
[2018-03-10 06:41] LABS: ABSOLUTE LYMPHOCYTES (AUTO) 0.7 10^3/uL (0.5-4.7); ABSOLUTE MONOCYTES (AUTO) 0.1 10^3/uL (0.1-1.4); ABSOLUTE NEUT (AUTO) 5.4 10^3/uL (1.7-8.2); BASOPHILS % (AUTO) 0.7 % (0-2); HEMATOCRIT 37.8 % (36.0-47.0); HEMOGLOBIN 12.8 g/dL (12.0-15.5); LYMPHOCYTES % (AUTO) 11.5 % (13-45); MEAN CORPUSCULAR HEMOGLOBIN 29.1 pg (27.0-33.4); MEAN CORPUSCULAR HGB CONC 33.8 g/dL (32.0-36.0); MEAN CORPUSCULAR VOLUME 86 fl (80-97); PLATELET COUNT 181 10^3/uL (150-450); RED BLOOD COUNT 4.39 10^6/uL (3.72-5.28); RED CELL DISTRIBUTION WIDTH 14.6 % (11.5-14.0); SEGMENTED NEUTROPHILS % (AUTO) 85.8 % (42-78); TOTAL CELLS COUNTED % (AUTO) 100 %; WHITE BLOOD COUNT 6.3 10^3/uL (4.0-10.5)
[2018-03-10 07:09] LABS: FREE T3 2.55 pg/mL (2.77-5.27); FREE T4 (FREE THYROXINE) 1.63 ng/dL (0.78-2.19)
[2018-03-10 07:16] LABS: ALANINE AMINOTRANSFERASE 22 U/L (9-52); ALBUMIN 3.4 g/dL (3.5-5.0); ALKALINE PHOSPHATASE 85 U/L (38-126); ANION GAP 6 (5-19); ASPARTATE AMINO TRANSFERASE 17 U/L (14-36); BILIRUBIN,DIRECT 0.3 mg/dL (0.0-0.4); BILIRUBIN,TOTAL 0.4 mg/dL (0.2-1.3); BLOOD UREA NITROGEN 11 mg/dL (7-20); CALCIUM 8.6 mg/dL (8.4-10.2); CARBON DIOXIDE 29 mmol/L (22-30); CHLORIDE 103 mmol/L (98-107); CHOLESTEROL 197.03 mg/dL (0-200); GLUCOSE 173 mg/dL (75-110); POTASSIUM 3.3 mmol/L (3.6-5.0); SODIUM 138.3 mmol/L (137-145); TOTAL PROTEIN 6.1 g/dL (6.3-8.2); TRIGLYCERIDES 81 mg/dL (<150)
[2018-03-10 07:22] LABS: THYROID STIMULATING HORMONE 0.38 uIU/mL (0.47-4.68)
[2018-03-10 07:27] LABS: DIRECT LDL 101 mg/dL (<100)
[2018-03-10] MEDS: LEVALBUTEROL HCL NEB 0.63 MG/3 ML AMPUL NEB SCH ×3 (07:47→19:12)
[2018-03-10] MEDS: TRAZODONE HCL 50 MG TABLET PO SCH ×2 (10:19→21:41)
[2018-03-10] MEDS: ASPIRIN 81 MG TABLET, CHEWABLE PO SCH (10:19)
[2018-03-10] MEDS: APIXABAN 5 MG TABLET PO SCH ×2 (10:20→17:29)
[2018-03-10] MEDS: FLUTICASONE NASAL SPRAY 50 MCG/SPRY 120 SPRAY/16 GM NASL SCH ×2 (10:25→21:42)
[2018-03-10] MEDS: SPIRONOLACTONE 25 MG TABLET PO SCH (10:29)
[2018-03-10] MEDS: DILTIAZEM HCL 120 MG CAP.SR.24H PO SCH (11:30)
--- NOTE | 2018-03-10 12:38 | PDOC PROGRESS REPORT ---
Subjective Progress Note for:: 03/10/18 Subjective:: Patient is new to me. This is 72 years old female patient admitted with chief complaint of pleuritic chest pain and shortness of breath. Patient has underlying COPD, hypertension, dyslipidemia, anxiety and depression and paroxysmal atrial fibrillation. Patient gave history of rhinorrhea and nonproductive cough for 1 week. But she denied any sick contacts. Yesterday at about 8 AM patient went into A. fib with RVR. She was given metoprolol and digoxin. Today her heart rate is in the lower 60s. This morning I seen patient propped up in bed. She is awake alert and oriented. She is not in distress. Patient is under tremendous social stress that her daughter and her are sick as and outlying hospital and recently her son . Reason For Visit: COPD ATRIAL FIB Physical Exam Vital Signs: Temp Pulse Resp BP Pulse Ox 98.4 F 70 16 121/54 L 95 03/10/18 08:36 03/10/18 08:36 03/10/18 08:36 03/10/18 08:36 03/10/18 08:36 Intake & Output 03/09/18 03/10/18 03/11/18 06:59 06:59 06:59 Intake Total 50 1034 Output Total 0 650 Balance 50 384 Weight 77.3 kg 78.6 kg General appearance: PRESENT: no acute distress Eye exam: PRESENT: conjunctiva pink Mouth exam: PRESENT: moist Respiratory exam: PRESENT: rhonchi, wheezes Cardiovascular exam: PRESENT: bradycardia, RRR GI/Abdominal exam: ABSENT: ascites, diminished bowel sounds, distended, firm, guarding, hernia, hyperactive bowel sounds, hypoactive bowel sounds, mass, Best's sign, normal bowel sounds, organolmegaly, rebound, rigid, soft, tenderness, other Neurological exam: PRESENT: alert, awake, oriented to time, reflexes normal Results Laboratory Results: 03/10/18 06:03 03/10/18 06:03 03/10/18 03/10/18 03/10/18 05:25 06:03 06:03 WBC 6.3 RBC 4.39 Hgb 12.8 Hct 37.8 MCV 86 MCH 29.1 MCHC 33.8 RDW 14.6 H Plt Count 181 Seg Neutrophils % 85.8 H Lymphocytes % 11.5 L Monocytes % 2.0 L Eosinophils % 0.0 Basophils % 0.7 Absolute Neutrophils 5.4 Absolute Lymphocytes 0.7 Absolute Monocytes 0.1 Absolute Eosinophils 0.0 Absolute Basophils 0.0 Sodium Potassium Chloride Carbon Dioxide Anion Gap BUN Creatinine Est GFR ( Amer) Est GFR (Non-Af Amer) Glucose Calcium Magnesium Total Bilirubin AST ALT Alkaline Phosphatase Total Protein Albumin Triglycerides Cholesterol LDL Cholesterol Direct VLDL Cholesterol HDL Cholesterol TSH 0.38 L Free T4 1.63 Free T3 pg/mL 2.55 L Urine Color YELLOW Urine Appearance SLIGHTLY-CLOUDY Urine pH 6.0 Ur Specific [place] 1.020 Urine Protein NEGATIVE Urine Glucose (UA) 50 H Urine Ketones NEGATIVE Urine Blood NEGATIVE Urine Nitrite NEGATIVE Ur Leukocyte Esterase SMALL H Urine WBC (Auto) 3 Urine RBC (Auto) 6 03/10/18 06:03 WBC RBC Hgb Hct MCV MCH MCHC RDW Plt Count Seg Neutrophils % Lymphocytes % Monocytes % Eosinophils % Basophils % Absolute Neutrophils Absolute Lymphocytes Absolute Monocytes Absolute Eosinophils Absolute Basophils Sodium 138.3 Potassium 3.3 L Chloride 103 Carbon Dioxide 29 Anion Gap 6 BUN 11 Creatinine 0.62 Est GFR ( Amer) > 60 Est GFR (Non-Af Amer) > 60 Glucose 173 H Calcium 8.6 Magnesium 1.9 Total Bilirubin 0.4 AST 17 ALT 22 Alkaline Phosphatase 85 Total Protein 6.1 L Albumin 3.4 L Triglycerides 81 Cholesterol 197.03 LDL Cholesterol Direct 101 H VLDL Cholesterol 16.0 HDL Cholesterol 78 TSH Free T4 Free T3 pg/mL Urine Color Urine Appearance Urine pH Ur Specific [place] Urine Protein Urine Glucose (UA) Urine Ketones Urine Blood Urine Nitrite Ur Leukocyte Esterase Urine WBC (Auto) Urine RBC (Auto) 03/08/18 03/09/18 03/09/18 22:00 01:10 10:44 Creatine Kinase 28 L CK-MB (CK-2) Troponin I < 0.012 NT-Pro-B Natriuret Pep 713 03/09/18 03/09/18 03/09/18 10:44 17:00 17:00 Creatine Kinase 25 L CK-MB (CK-2) 1.44 1.72 Troponin I 0.043 0.090 NT-Pro-B Natriuret Pep 03/10/18 03/10/18 01:03 01:03 Creatine Kinase < 20 L CK-MB (CK-2) 1.11 Troponin I 0.060 NT-Pro-B Natriuret Pep Impressions: Chest X-Ray 03/08/18 19:52 IMPRESSION: No acute cardiopulmonary abnormality. Emphysema. Assessment & Plan - Diagnosis (1) Atrial fibrillation with RVR Is this a current diagnosis for this admission?: Yes Plan: No her heart rate is controlled and she is in sinus rhythm. I will continue current regimen. Patient already has been started on Eliquis by Dr. Meng. (2) COPD with exacerbation Is this a current diagnosis for this admission?: Yes Plan: Continue as needed bronchodilators and supplemental oxygen. (3) Acute bronchiolitis due to other infectious organisms Is this a current diagnosis for this admission?: Yes Plan: Patient has been already started on empiric antibiotics. (4) Pleuritic chest pain Is this a current diagnosis for this admission?: Yes Plan: Has resolved. (5) Anxiety and depression Is this a current diagnosis for this admission?: Yes Plan: Continue her home medication (6) Hypertension Qualifiers: Hypertension type: essential hypertension Qualified Code(s): I10 - Essential (primary) hypertension Is this a current diagnosis for this admission?: Yes Plan: Continue her home medication (7) Hyperlipidemia Qualifiers: Hyperlipidemia type: unspecified Qualified Code(s): E78.5 - Hyperlipidemia, unspecified Is this a current diagnosis for this admission?: Yes Plan: Continue her home medications.
[2018-03-10] MEDS: ALPRAZOLAM 0.5 MG TABLET PO PRN ×2 (13:16→19:54)
[2018-03-10] MEDS: ACETAMINOPHEN 325 MG TABLET PO PRN (13:19)
--- NOTE | 2018-03-10 13:40 | EKG REPORT ---
SEVERITY:- BORDERLINE ECG - SINUS RHYTHM BORDERLINE T ABNORMALITIES, ANT-LAT LEADS : Confirmed by: Lindsey Meng MD 10-Mar-2018 13:39:34
--- NOTE | 2018-03-10 16:55 | Progress Note ---
Provider Note Provider Note: CARDIOLOGY PROGRESS NOTE by Dr. Lindsey Meng on 03/10/2018. SUBJECTIVE: The patient is very calm, and is not in any acute distress. She denies shortness of breath or PND orthopnea. But continues to have wheezing. She denies any cough or sputum production. There is no chest pain or discomfort. The patient remains in sinus rhythm. There is no recurrence of atrial fibrillation. There is no bleeding complications on Eliquis. There is no TIA CVA symptoms. There is no PND orthopnea or leg edema. In spite of her being calm today, the patient is under significant duress due to social stress, since her son recently , and her and her daughter are both both admitted to hospital. The patient now states that her is disabled, and her daughter is too sick. Hence her son hence although she remains a full code with surrogate healthcare decision maker is a granddaughter. PHYSICAL EXAMINATION: The patient is mildly obese. At present in no acute distress. She is well-groomed 03/10/18 11:58 Temperature 98.8 F Temperature Oral Source Pulse Rate 76 Respiratory 16 Rate Blood Pressure 134/47 H Blood Pressure 76 Mean BP Location Right Arm BP Position Supine O2 Sat by Pulse 90 L Oximetry Oxygen Delivery Room Air Method HEAD: Head is atraumatic and normocephalic. EYES: Pupils are equal round regular reactive to light accommodation. Extraocular movements are normal, there is no conjunctival pallor, and no scleral icterus. EARS: Tympanic membranes are intact external auditory canals are clear. NOSE: There is no inflammation of the nasal mucous membrane there is no deviated nasal septum. MOUTH: Mucous membranes of mouth and tongue are moist, there is no ulcers in the mouth or tongue, and no bleeding from the gums. THROAT: There is no redness of the oropharynx, no exudate seen. SKIN: There is no petechia or ecchymosis. Th ere is no rashes or lesions. NECK: Supple. There is no JVD. Carotids are equal there is no bruit. There is no lymphadenopathy. There is no goiter. Trachea central. There is no accessory muscles of respiration in use. LUNGS: There is diminished air entry and prolonged expiration. There is bilateral rhonchi and bilateral wheezing present. There is some chest wall tenderness on pressing the right rib cag. On percussion there is hyperresonance. HEART: S1 and S2 are heard. S1 is o normal intensity, there is no S3 or S4 gallops. There is a systolic murmur the left sternal border and the apex. There is no rub. ABDOMEN: Normoactive bowel sounds, soft, nontender, no masses, no rebound, no guarding. There is no hepatosplenomegaly. EXTREMITIES: Femorals are slightly diminished. There is no femoral bruits. Leg pulses are diminished. There is no pedal edema. There is no DVT or cellulitis. There is no cyanosis or clubbing. There is no calf tenderness. NEUROLOGICAL the patient is awake alert oriented 3 with no focal deficits. PSYCHIATRIC: Although the patient is severely anxious, yet the patient's judgment and insight are intact his affect is normal 03/10/18 03/10/18 03/10/18 06:03 06:03 06:03 WBC 6.3 Hgb 12.8 Hct 37.8 Plt Count 181 Sodium 138.3 Potassium 3.3 L Chloride 103 Carbon Dioxide 29 BUN 11 Creatinine 0.62 Est GFR (Non-Af Amer) > 60 Glucose 173 H Calcium 8.6 Magnesium 1.9 Total Bilirubin 0.4 Direct Bilirubin 0.3 Neonat Total Bilirubin Not Reportable Neonat Direct Bilirubin Not Reportable Neonat Indirect Bili Not Reportable AST 17 ALT 22 Alkaline Phosphatase 85 Total Protein 6.1 L Albumin 3.4 L Triglycerides 81 Cholesterol 197.03 LDL Cholesterol Direct 101 H VLDL Cholesterol 16.0 HDL Cholesterol 78 TSH 0.38 L Free T4 1.63 Free T3 pg/mL 2.55 L 1. Paroxysmal atrial fibrillation. Patient is in sinus rhythm. We will stop the patient's IV Cardizem infusion. We will start the patient on Cardizem CD at 120 mg p.o. daily and increase as tolerated if need arises. Note the patient's Lovenox has been discontinued, the patient started on Eliquis 5 mg p.o. twice daily. 2. Acute exacerbation of COPD. 3. Acute asthmatic bronchitis. 4. Acute infective bronchitis. 5. History of diet-controlled hypertension. 6. Severe anxiety: Would use anti-anxiolytic agents. 7. History of depression. Medications reviewed. Discussed management plan with attending physician. Hopefully the patient's wheezing will resolve, and the patient can be sent home.
[2018-03-10] MEDS: CEFTRIAXONE 1 GM/D5W RTU 1 GM/50 ML RTUPB IV SCH (17:35)
[2018-03-10] MEDS: HYDROCODONE/ACETAMINOPHEN 10-325 MG TABLET PO PRN (21:41)
[2018-03-10] MEDS: SIMVASTATIN 10 MG TABLET PO SCH (21:42)
[2018-03-10] MEDS: AZITHROMYCIN 500 MG in DEXTROSE 5%-WATER 250 ML IV SCH (21:48)
[2018-03-11] MEDS: IPRATROPIUM/ALBUTEROL 0.5-2.5 MG/3 ML AMPUL NEB SCH ×3 (00:31→09:34)
[2018-03-11 04:57] LABS: HEMATOCRIT 35.4 % (36.0-47.0); MEAN CORPUSCULAR HEMOGLOBIN 29.2 pg (27.0-33.4); MEAN CORPUSCULAR HGB CONC 33.9 g/dL (32.0-36.0); MEAN CORPUSCULAR VOLUME 86 fl (80-97); PLATELET COUNT 201 10^3/uL (150-450); RED BLOOD COUNT 4.11 10^6/uL (3.72-5.28); RED CELL DISTRIBUTION WIDTH 14.3 % (11.5-14.0)
[2018-03-11 05:06] LABS: WHITE BLOOD COUNT 15.2 10^3/uL (4.0-10.5)
[2018-03-11] MEDS: METHYLPREDNISOLONE INJ 40 MG/1 ML SDV IV SCH (05:25)
[2018-03-11 05:48] LABS: ALANINE AMINOTRANSFERASE 22 U/L (9-52); ALBUMIN 3.3 g/dL (3.5-5.0); ALKALINE PHOSPHATASE 82 U/L (38-126); ANION GAP 9 (5-19); ASPARTATE AMINO TRANSFERASE 18 U/L (14-36); BILIRUBIN,DIRECT 0.3 mg/dL (0.0-0.4); BILIRUBIN,TOTAL 0.4 mg/dL (0.2-1.3); BLOOD UREA NITROGEN 12 mg/dL (7-20); CALCIUM 8.5 mg/dL (8.4-10.2); CARBON DIOXIDE 26 mmol/L (22-30); CHLORIDE 103 mmol/L (98-107); GLUCOSE 146 mg/dL (75-110); POTASSIUM 3.5 mmol/L (3.6-5.0); SODIUM 137.6 mmol/L (137-145)
[2018-03-11] MEDS: LEVALBUTEROL HCL NEB 0.63 MG/3 ML AMPUL NEB SCH (07:47)
[2018-03-11] MEDS ORDERED: POTASSIUM CHLORIDE 10 MEQ CAPSULE.ER PO ONE (09:00)
[2018-03-11] MEDS: ASPIRIN 81 MG TABLET, CHEWABLE PO SCH (09:06)
[2018-03-11] MEDS: TRAZODONE HCL 50 MG TABLET PO SCH ×2 (09:06→21:47)
[2018-03-11] MEDS: SPIRONOLACTONE 25 MG TABLET PO SCH (09:06)
[2018-03-11] MEDS: DILTIAZEM HCL 120 MG CAP.SR.24H PO SCH (09:06)
[2018-03-11] MEDS: APIXABAN 5 MG TABLET PO SCH ×2 (09:06→18:08)
[2018-03-11] MEDS: PREDNISONE 20 MG TABLET PO SCH (09:06)
[2018-03-11] MEDS: HYDROCODONE/ACETAMINOPHEN 10-325 MG TABLET PO PRN (09:06)
[2018-03-11] MEDS: FLUTICASONE NASAL SPRAY 50 MCG/SPRY 120 SPRAY/16 GM NASL SCH ×2 (09:07→21:44)
--- NOTE | 2018-03-11 12:39 | PDOC PROGRESS REPORT ---
Subjective Progress Note for:: 03/11/18 Subjective:: I seen patient resting in bed. She is awake alert and oriented. Her bruising is improving gradually. The only concern is that her today's blood work shows leukocytosis of 15.2 and mild hypokalemia. This might be related to the steroids that she has been getting. I have replaced her potassium. I will repeat her CBC and BMP in a.m. Reason For Visit: COPD ATRIAL FIB Physical Exam Vital Signs: Temp Pulse Resp BP Pulse Ox 98.7 F 80 16 136/54 H 93 03/11/18 08:27 03/11/18 08:27 03/11/18 08:27 03/11/18 08:27 03/11/18 08:27 Intake & Output 03/10/18 03/11/18 03/12/18 06:59 06:59 06:59 Intake Total 1034 982 Output Total 650 750 Balance 384 232 Weight 78.6 kg 79.6 kg General appearance: PRESENT: no acute distress Head exam: PRESENT: atraumatic Eye exam: PRESENT: conjunctiva pink Mouth exam: PRESENT: moist Neck exam: ABSENT: carotid bruit, JVD, lymphadenopathy, thyromegaly Respiratory exam: PRESENT: clear to auscultation ojjo. ABSENT: rales, rhonchi, wheezes Cardiovascular exam: PRESENT: RRR. ABSENT: diastolic murmur, rubs, systolic murmur GI/Abdominal exam: PRESENT: normal bowel sounds, soft. ABSENT: distended, gua rding, mass, organolmegaly, rebound, tenderness Neurological exam: PRESENT: alert, awake, oriented to time, oriented to situation Results Laboratory Results: 03/11/18 04:09 03/11/18 04:09 03/11/18 03/11/18 04:09 04:09 WBC 15.2 H D RBC 4.11 Hgb 12.0 Hct 35.4 L MCV 86 MCH 29.2 MCHC 33.9 RDW 14.3 H Plt Count 201 Sodium 137.6 Potassium 3.5 L Chloride 103 Carbon Dioxide 26 Anion Gap 9 BUN 12 Creatinine 0.65 Est GFR ( Amer) > 60 Est GFR (Non-Af Amer) > 60 Glucose 146 H Calcium 8.5 Magnesium 1.9 Total Bilirubin 0.4 AST 18 ALT 22 Alkaline Phosphatase 82 Total Protein 6.0 L Albumin 3.3 L 03/08/18 03/09/18 03/09/18 22:00 01:10 10:44 Creatine Kinase 28 L CK-MB (CK-2) Troponin I < 0.012 NT-Pro-B Natriuret Pep 713 03/09/18 03/09/18 03/09/18 10:44 17:00 17:00 Creatine Kinase 25 L CK-MB (CK-2) 1.44 1.72 Troponin I 0.043 0.090 NT-Pro-B Natriuret Pep 03/10/18 03/10/18 01:03 01:03 Creatine Kinase < 20 L CK-MB (CK-2) 1.11 Troponin I 0.060 NT-Pro-B Natriuret Pep Impressions: Chest X-Ray 03/08/18 19:52 IMPRESSION: No acute cardiopulmonary abnormality. Emphysema. Assessment & Plan - Diagnosis (1) Leukocytosis Qualifiers: Leukocytosis type: unspecified Qualified Code(s): D72.829 - Elevated white blood cell count, unspecified Is this a current diagnosis for this admission?: Yes (2) Atrial fibrillation with RVR Is this a current diagnosis for this admission?: Yes Plan: Rate controlled and continue current regimen (3) COPD with exacerbation Is this a current diagnosis for this admission?: Yes Plan: Continue as needed bronchodilators and supplemental oxygen. (4) Acute bronchiolitis due to other infectious organisms Is this a current diagnosis for this admission?: Yes Plan: Patient has been already started on empiric antibiotics. (5) Pleuritic chest pain Is this a current diagnosis for this admission?: Yes Plan: Has resolved. (6) Anxiety and depression Is this a current diagnosis for this admission?: Yes Plan: Continue her home medication (7) Hypertension Qualifiers: Hypertension type: essential hypertension Qualified Code(s): I10 - Essential (primary) hypertension Is this a current diagnosis for this admission?: Yes Plan: Continue her home medication (8) Hyperlipidemia Qualifiers: Hyperlipidemia type: unspecified Qualified Code(s): E78.5 - Hyperlipidemia, unspecified Is this a current diagnosis for this admission?: Yes Plan: Continue her home medications.
[2018-03-11] MEDS ORDERED: LEVALBUTEROL HCL NEB 0.63 MG/3 ML AMPUL NEB PRN (13:07)
[2018-03-11] MEDS: ALPRAZOLAM 0.5 MG TABLET PO PRN ×2 (13:48→21:48)
[2018-03-11] MEDS: ACETAMINOPHEN 325 MG TABLET PO PRN (13:48)
[2018-03-11] MEDS: CEFTRIAXONE 1 GM/D5W RTU 1 GM/50 ML RTUPB IV SCH (18:08)
--- NOTE | 2018-03-11 18:22 | Progress Note ---
Provider Note Provider Note: CARDIOLOGY PROGRESS NOTES by Dr. Portillo has been on 03/11/2018. SUBJECTIVE: The patient states her shortness of breath has resolved although she still on examination is very faint expiratory wheeze which is minimal. She denies any orthopnea or PND. There is no chest pain or discomfort. She remains in sinus rhythm, with no recurrence of atrial fibrillation. There is no ventricular arrhythmias on the monitor. There is no dizziness, near-syncope or syncope. There is no TIA CVA symptoms there is no bleeding on Eliquis. There is no ventricular arrhythmia seen on the monitor. She denies any cough or sputum production. PHYSICAL EXAMINATION: The patient is mildly obese. She is in no acute distress. She is well-groomed. Selected Entries 03/11/18 08:27 Temperature 98.7 F Temperature Oral Source Pulse Rate 80 Respiratory 16 Rate Blood Pressure 136/54 H Blood Pressure 81 Mean BP Location Right Arm BP Position Sitting O2 Sat by Pulse 93 Oximetry Oxygen Flow 2.00 Rate Oxygen Delivery Nasal Cannula Method HEAD: Head is atraumatic and normocephalic. EYES: Pupils are equal round regular reactive to light accommodation. Extraocular movements are normal, there is no conjunctival pallor, and no scleral icterus. EARS: Tympanic membranes are intact external auditory canals are clear. NOSE: There is no inflammation of the nasal mucous membrane there is no deviated nasal septum. MOUTH: Mucous membranes of mouth and tongue are moist, there is no ulcers in the mouth or tongue, and no bleeding from the gums. THROAT: There is no redness of the oropharynx, no exudate seen. SKIN: There is no petechia or ecchymosis. There is no rashes or lesions. NECK: Supple. There is no JVD. Carotids are equal there is no bruit. There is no lymphadenopathy. There is no goiter. Trachea central. There is no accessory muscles of respiration in use. LUNGS: There is diminished air entry and prolonged expiration. There is no rhonchi or rales. There is minimal, and occasional mild end expiratory wheeze. There is some chest wall tenderness on pressing the right rib cag. On percussion there is hyperresonance. HEART: S1 and S2 are heard. S1 is o normal intensity, there is no S3 or S4 gallops. There is a systolic murmur the left sternal border and the apex. There is no rub. ABDOMEN: Normoactive bowel sounds, soft, nontender, no masses, no rebound, no guarding. There is no hepatosplenomegaly. EXTREMITIES: Femorals are slightly diminished. There is no femoral bruits. Leg pulses are diminished. There is no pedal edema. There is no DVT or cellulitis. There is no cyanosis or clubbing. There is no calf tenderness. NEUROLOGICAL the patient is awake alert oriented 3 with no focal deficits. PSYCHIATRIC: Although the patient is severely anxious, yet the patient's judgment and insight are intact his affect is normal 03/11/18 03/11/18 04:09 04:09 WBC 15.2 H D RBC 4.11 Hgb 12.0 Hct 35.4 L MCV 86 MCH 29.2 MCHC 33.9 RDW 14.3 H Plt Count 201 Sodium 137.6 Potassium 3.5 L Chloride 103 Carbon Dioxide 26 Anion Gap 9 BUN 12 Creatinine 0.65 Est GFR (Non-Af Amer) > 60 Glucose 146 H Calcium 8.5 Magnesium 1.9 Total Bilirubin 0.4 Direct Bilirubin 0.3 Neonat Total Bilirubin Not Reportable Neonat Direct Bilirubin Not Reportable Neonat Indirect Bili Not Reportable AST 18 ALT 22 Alkaline Phosphatase 82 Total Protein 6.0 L Albumin 3.3 L IMPRESSION/RECOMMENDATION: 1. Paroxysmal atrial fibrillation. Patient is in sinus rhythm. We will stop the patient's IV Cardizem infusion. Will continue t the patient on Cardizem CD at 120 mg p.o. daily . The heart rate is well controlled with this current dosage. Continue the patient on Eliquis 5 mg p.o. twice daily. 2. Acute exacerbation of COPD. Almost resolved. 3. Acute asthmatic bronchitis. Resolved. 4. Acute infective bronchitis. Resolved 5. History of diet-controlled hypertension. Blood pressure stable, and patient tolerating Cardizem CD 120 mg p.o. daily 6. Severe anxiety: Would use anti-anxiolytic agents. The patient is much less anxious. 7. History of depression. Discussed the patient's clinical progression with the patient and the patient's son-in-law. Her medications have been reviewed. Plan of care/management plan discussed with the attending physician on the case. Note medical decision making hours of moderate complexity. Will recommend that the patient have an outpatient stress test and a echocardiogram. The patient does not want to have a IV Lexiscan Cardiolite. She states she is walked on the treadmill at home, and hence wants her exercise treadmill Cardiolite stress test.. 40 minutes spent on this patient with more than 50% time spent in direct patient care. Cardiac status is stable. Will sign off, and follow the patient as outpatient thank you
[2018-03-11] MEDS: SIMVASTATIN 10 MG TABLET PO SCH (21:47)
[2018-03-11] MEDS: AZITHROMYCIN 500 MG in DEXTROSE 5%-WATER 250 ML IV SCH (21:48)
[2018-03-12] MEDS ORDERED: ONDANSETRON HCL INJ/PF 4 MG/2 ML SDV IV PRN (08:25)
[2018-03-12] MEDS ORDERED: ONDANSETRON HCL INJ/PF 4 MG/2 ML SDV ONE (08:42)
[2018-03-12] MEDS: ALPRAZOLAM 0.5 MG TABLET PO PRN (08:57)
[2018-03-12] MEDS: HYDROCODONE/ACETAMINOPHEN 10-325 MG TABLET PO PRN (08:57)
[2018-03-12] MEDS: APIXABAN 5 MG TABLET PO SCH (08:59)
[2018-03-12] MEDS: TRAZODONE HCL 50 MG TABLET PO SCH (08:59)
[2018-03-12] MEDS: SPIRONOLACTONE 25 MG TABLET PO SCH (08:59)
[2018-03-12] MEDS: FLUTICASONE NASAL SPRAY 50 MCG/SPRY 120 SPRAY/16 GM NASL SCH (09:00)
[2018-03-12] MEDS: ASPIRIN 81 MG TABLET, CHEWABLE PO SCH (09:00)
[2018-03-12] MEDS: PREDNISONE 20 MG TABLET PO SCH (09:00)
[2018-03-12] MEDS: DILTIAZEM HCL 120 MG CAP.SR.24H PO SCH (09:00)
--- NOTE | 2018-03-12 09:34 | PDOC DISCHARGE SUMMARY ---
General - Admit/Disc Date/PCP Admission Date/Primary Care Provider: 03/09/18 08:44 EULLAIA RENA, Discharge Date: 03/12/18 - Discharge Diagnosis (1) Leukocytosis Is this a current diagnosis for this admission?: Yes (2) Atrial fibrillation with RVR Is this a current diagnosis for this admission?: Yes (3) COPD with exacerbation Is this a current diagnosis for this admission?: Yes (4) Acute bronchiolitis due to other infectious organisms Is this a current diagnosis for this admission?: Yes (5) Pleuritic chest pain Is this a current diagnosis for this admission?: Yes (6) Anxiety and depression Is this a current diagnosis for this admission?: Yes (7) Hypertension Is this a current diagnosis for this admission?: Yes (8) Hyperlipidemia Is this a current diagnosis for this admission?: Yes - Additional Information Resuscitation Status: Full Code Home Medications: Hydrocodone Bit/Acetaminophen [Hydrocodon-Acetaminophn 10-325] 1 each PO Q6HP PRN 01/08/12 Cephalexin [Cephalexin 500 MG Tablet] 500 mg PO Q6H #28 tablet 02/26/18 Alprazolam [Xanax] 1 mg PO TIDP PRN 03/09/18 Oseltamivir Phosphate [Tamiflu 75 mg Capsule] 75 mg PO BID 03/09/18 Prednisone [Deltasone] 40 mg PO DAILY 03/09/18 Trazodone HCl 150 mg PO QHS 03/09/18 History of Present Illness History of Present Illness: FADI LYNN is a 72 year old female with a past medical history of COPD, hypertension, dyslipidemia and anxiety. She presents with 1 week of rhinorrhea and nonproductive cough with shortness of breath and pleuritic chest pain prompting evaluation in the emergency room where she is found to have audible rhonchi but without infiltrate on chest x-ray. In the emergency room she also complains of uncontrolled anxiety and chest pain to the right side of her back and lateral rib cage after a fall 10 days ago. Imaging is negative for fracture. She started on Ativan and empiric antibiotics then referred to the hospitalist for admission. She is awake and alert, anxious pacing in the emergency department. She states her and daughter are both sick in the hospital and that she is home alone. She denies recent change of medications Hospital Course Hospital Course: Patient is new to me. This is 72 years old female patient admitted with chief complaint of pleuritic chest pain and shortness of breath. Patient has underlying COPD, hypertension, dyslipidemia, anxiety and depression and paroxysmal atrial fibrillation. Patient gave history of rhinorrhea and nonproductive cough for 1 week. But she denied any sick contacts. Her hospital course is complicated by A. tho with RVR which was treated with metoprolol and digoxin. Now currently patient is in sinus rhythm and her heart rates controlled. During her stay patient also managed with Klor-Con for mild hypokalemia and supplemental oxygen, prednisone and bronchodilators for her COPD. This morning I seen patient resting in bed comfortably she is not in pain or any form of distress except for some nausea which is treated with Zofran. Physical Exam Vital Signs: Temp Pulse Resp BP Pulse Ox 98.2 F 59 L 18 145/54 H 93 03/12/18 07:56 03/12/18 07:56 03/12/18 07:56 03/12/18 07:56 03/12/18 07:56 Intake & Output 03/11/18 03/12/18 03/13/18 06:59 06:59 06:59 Intake Total 982 1632 Output Total 750 650 Balance 232 982 Weight 79.6 kg 79 kg General appearance: PRESENT: no acute distress Head exam: PRESENT: atraumatic Mouth exam: PRESENT: moist Neck exam: ABSENT: carotid bruit, JVD, lymphadenopathy, thyromegaly Respiratory exam: PRESENT: clear to auscultation jojo. ABSENT: rales, rhonchi, wheezes Cardiovascular exam: PRESENT: RRR. ABSENT: diastolic murmur, rubs, systolic murmur GI/Abdominal exam: PRESENT: normal bowel sounds, soft. ABSENT: distended, guarding, mass, organolmegaly, rebound, tenderness Neurological exam: PRESENT: alert, awake, oriented to time, oriented to situation Results Laboratory Results: 03/11/18 04:09 03/11/18 04:09 03/08/18 03/09/18 03/09/18 22:00 01:10 10:44 Creatine Kinase 28 L CK-MB (CK-2) Troponin I < 0.012 NT-Pro-B Natriuret Pep 713 03/09/18 03/09/18 03/09/18 10:44 17:00 17:00 Creatine Kinase 25 L CK-MB (CK-2) 1.44 1.72 Troponin I 0.043 0.090 NT-Pro-B Natriuret Pep 03/10/18 03/10/18 01:03 01:03 Creatine Kinase < 20 L CK-MB (CK-2) 1.11 Troponin I 0.060 NT-Pro-B Natriuret Pep Impressions: Chest X-Ray 03/08/18 19:52 IMPRESSION: No acute cardiopulmonary abnormality. Emphysema. Qualifiers - * PATIENT BEING DISCHARGED WITH ANY OF THE FOLLOWING DIAGNOSIS: No
[2018-03-12 10:04] VITALS: BP 127/60
== END 2018-03-12 13:12 | disposition home or self-care (01) | DRG 192 ==
LOC: ER 17:30 → EH 03-09 03:02 → INTOOBSV 03-09 03:02 → 3W 03-09 05:00 → OBSVTOIN 03-09 08:44
PROVIDERS: ADMIT Internal Medicine; ATTEND Internal Medicine
PROC: 3E0F3GC Introduction of Other Therapeutic Substance into Respiratory Tract, Percutaneous Approach (ICD-10-PCS; principal; 2018-03-09)
DX: J44.1 Chronic obstructive pulmonary disease with (acute) exacerbation (principal); I48.0 Paroxysmal atrial fibrillation; I10 Essential (primary) hypertension; E78.5 Hyperlipidemia, unspecified; F41.8 Other specified anxiety disorders; R07.81 Pleurodynia; W19.XXXA Unspecified fall, initial encounter; F32.9 Major depressive disorder, single episode, unspecified; E66.9 Obesity, unspecified; J01.00 Acute maxillary sinusitis, unspecified; J20.8 Acute bronchitis due to other specified organisms; E87.6 Hypokalemia; D72.829 Elevated white blood cell count, unspecified; F17.200 Nicotine dependence, unspecified, uncomplicated; R11.0 Nausea; Z85.89 Personal history of malignant neoplasm of other organs and systems; Z79.52 Long term (current) use of systemic steroids; Z79.01 Long term (current) use of anticoagulants; Z82.5 Family history of asthma and other chronic lower respiratory diseases; Z82.49 Family history of ischemic heart disease and other diseases of the circulatory system; Z68.30 Body mass index [BMI] 30.0-30.9, adult
CPT/HCPCS: 36415; 36600; 71046; 80053; 80061; 81001; 82550; 82553; 82803; 83735; 83880; 84439; 84443; 84481; 84484; 85025; 85027; 87040; 93005; 93010; 94640; 94799; 96374; 96375; 99285; J0456; J0696; J1160; J1644; J1650; J2060; J2270; J2405; J2920; J3490; J7060; J7512; J7614; J7620

== ENCOUNTER 2018-03-15 16:40 | Emergency (ER) | payer MEDICARE ==
[2018-03-15] MEDS ORDERED: KETOROLAC TROMETHAMINE INJ/PF 30 MG/1 ML SDV IV ONE (17:12)
[2018-03-15 17:24] LABS: ABSOLUTE LYMPHOCYTES (AUTO) 0.7 10^3/uL (0.5-4.7); ABSOLUTE MONOCYTES (AUTO) 0.5 10^3/uL (0.1-1.4); ABSOLUTE NEUT (AUTO) 11.1 10^3/uL (1.7-8.2); BASOPHILS % (AUTO) 0.2 % (0-2); HEMATOCRIT 36.7 % (36.0-47.0); HEMOGLOBIN 12.4 g/dL (12.0-15.5); LYMPHOCYTES % (AUTO) 5.8 % (13-45); MEAN CORPUSCULAR HEMOGLOBIN 29.3 pg (27.0-33.4); MEAN CORPUSCULAR HGB CONC 33.8 g/dL (32.0-36.0); MEAN CORPUSCULAR VOLUME 87 fl (80-97); PLATELET COUNT 278 10^3/uL (150-450); RED BLOOD COUNT 4.23 10^6/uL (3.72-5.28); RED CELL DISTRIBUTION WIDTH 14.6 % (11.5-14.0); TOTAL CELLS COUNTED % (AUTO) 100 %; WHITE BLOOD COUNT 12.4 10^3/uL (4.0-10.5)
[2018-03-15 17:28] LABS: ALANINE AMINOTRANSFERASE 49 U/L (9-52); ALBUMIN 3.8 g/dL (3.5-5.0); ALKALINE PHOSPHATASE 109 U/L (38-126); ANION GAP 6 (5-19); ASPARTATE AMINO TRANSFERASE 30 U/L (14-36); BILIRUBIN,DIRECT 0.2 mg/dL (0.0-0.4); BILIRUBIN,TOTAL 0.6 mg/dL (0.2-1.3); BLOOD UREA NITROGEN 18 mg/dL (7-20); CALCIUM 8.6 mg/dL (8.4-10.2); CARBON DIOXIDE 30 mmol/L (22-30); CHLORIDE 97 mmol/L (98-107); GLUCOSE 120 mg/dL (75-110); POTASSIUM 4.1 mmol/L (3.6-5.0); SODIUM 132.7 mmol/L (137-145); TOTAL PROTEIN 6.4 g/dL (6.3-8.2)
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
[2018-03-15 18:12] LABS: APPEARANCE,URINE CLEAR; BILIRUBIN,URINE NEGATIVE (NEGATIVE); COLOR,URINE YELLOW; GLUCOSE, URINE NEGATIVE (NEGATIVE); KETONES,URINE NEGATIVE (NEGATIVE); LEUKOCYTE ESTERASE,URINE NEGATIVE (NEGATIVE); NITRITE,URINE NEGATIVE (NEGATIVE); PROTEIN,URINE NEGATIVE (NEGATIVE); URINE SPECIFIC GRAVITY 1.008; UROBILINOGEN,URINE NEGATIVE mg/dL (<2.0)
--- NOTE | 2018-03-15 18:24 | RADIOLOGY REPORT (SQ) ---
EXAM DESCRIPTION: CHEST 2 VIEWS COMPLETED DATE/TIME: 03/15/2018 6:12 pm REASON FOR STUDY: cough COMPARISON: 03/08/2018 EXAM PARAMETERS: NUMBER OF VIEWS: two views TECHNIQUE: Digital Frontal and Lateral radiographic views of the chest acquired. RADIATION DOSE: NA LIMITATIONS: none FINDINGS: LUNGS AND PLEURA: No opacities, masses or pneumothorax. No pleural effusion. There is hyp erexpansion. MEDIASTINUM AND HILAR STRUCTURES: No masses or contour abnormalities. HEART AND VASCULAR STRUCTURES: Heart normal size. No evidence for failure. BONES: No acute findings. HARDWARE: None in the chest. OTHER: No other significant finding. IMPRESSION: COPD. No acute findings. TECHNICAL DOCUMENTATION: JOB ID: [id number] [employer]- All Rights Reserved Reading location - IP/workstation name: [email or web address]
--- NOTE | 2018-03-15 18:24 | RADIOLOGY REPORT (SQ) ---
EXAM DESCRIPTION: CT ABD/PELVIS WITH IV ONLY COMPLETED DATE/TIME: 03/15/2018 6:06 pm REASON FOR STUDY: Rt flank pain, plz eval L-spine if able as well COMPARISON: None. TECHNIQUE: CT scan of the abdomen and pelvis performed using helical scanning technique with dynamic intravenous contrast injection. No oral contrast. Images reviewed with lung, soft tissue, and bone windows. Reconstructed coronal and sagittal MPR images reviewed. Delayed images for evaluation of the urinary system also acquired. All images stored on PACS. All CT scanners at this facility use dose modulation, iterative reconstruction, and/or weight based d osing when appropriate to reduce radiation dose to as low as reasonably achievable (ALARA). [facility]: Dose Right [facility]: CareDose [facility]: Dose Right [facility]: Teradose 4D [facility]: [employer] CONTRAST TYPE AND DOSE: contrast/concentration: Isovue 350.00 mg/ml; Total Contrast Delivered: 83.0 ml; Total Saline Delivered: 54.0 ml RENAL FUNCTION: BUN 18 creatinine 0.92 RADIATION DOSE: CT Rad equipment meets quality standard of care and radiation dose reduction techniq ues were employed. CTDIvol: 10.8 - 14.7 mGy. DLP: 1294 mGy-cm.. LIMITATIONS: None. FINDINGS: LOWER CHEST: No significant findings. No nodules or infiltrates. LIVER: Normal size. No masses. No dilated ducts. SPLEEN: Normal size. No focal lesions. PANCREAS: No masses. No significant calcifications. No adjacent inflammation or peripancreatic fluid collections. Pancreatic duct not dilated. GALLBLADDER: Contracted. No stones. ADRENAL GLANDS: No significant masses or asymmetry. RIGHT KIDNEY AND URETER: No solid masses. No significant calcifications. No hydronephrosis or hyd roureter. LEFT KIDNEY AND URETER: No solid masses. No significant calcifications. No hydronephrosis or hydr oureter. AORTA AND VESSELS: No aneurysm. No dissection. Renal arteries, SMA, celiac without stenosis. RETROPERITONEUM: No retroperitoneal adenopathy, hemorrhage or masses. BOWEL AND PERITONEAL CAVITY: No masses or inflammatory changes. No free fluid or peritoneal masses. APPENDIX: Not identified. PELVIS: No mass. No free fluid. Normal bladder. ABDOMINAL WALL: No masses. No hernias. BONES: Left hip arthroplasty. No obvious spinal stenosis in the lumbar spine. No obvious disc protr usion. OTHER: No other significant finding. IMPRESSION: NO SIGNIFICANT OR ACUTE FINDING IN THE ABDOMEN OR PELVIS ON CT SCAN WITH IV CONTRAST. TECHNICAL DOCUMENTATION: JOB ID: [id number] Quality ID # [id number]: Final reports with documentation of one or more dose reduction techniques (e.g., Au tomated exposure control, adjustment of the mA and/or kV according to patient size, use of iterative reconstruction technique) 2010 [employer]- All Rights Reserved Reading location - IP/workstation name: [email or web address]
[2018-03-15] MEDS ORDERED: MAGNESIUM CITRATE 296 ML BOTTLE PO ONE (18:35)
[2018-03-15] MEDS ORDERED: LIDOCAINE 5% (700 MG) TRANSDERMAL ADH..PATCH TP ONE (18:49)
[2018-03-15] MEDS ORDERED: ACETAMINOPHEN 325 MG TABLET PO ONE (18:49)
[2018-03-15 19:12] VITALS: BP 166/53
== END 2018-03-15 20:45 | disposition home or self-care (01) ==
LOC: ER 16:40
DX: K59.00 Constipation, unspecified (principal); R10.9 Unspecified abdominal pain; M54.5 Low back pain; F41.9 Anxiety disorder, unspecified; M54.9 Dorsalgia, unspecified; G89.29 Other chronic pain; Z79.899 Other long term (current) drug therapy; J44.9 Chronic obstructive pulmonary disease, unspecified; I10 Essential (primary) hypertension
CPT/HCPCS: 99285; 96374; 36415; 87086; 85025; 87088; 80053; 81001; 87186; 71046; 74177; A9270; J1885

== ENCOUNTER 2018-08-25 22:47 | Emergency (ER) | payer MEDICARE, MEDICAID ==
[2018-08-26] MEDS ORDERED: HYDROCODONE/ACETAMINOPHEN 5-325 MG TABLET PO ONE (01:44)
--- NOTE | 2018-08-26 01:47 | ER Document Report ---
ED Medical Screen (RME) - General Chief Complaint: Fall Stated Complaint: FELL Time Seen by Provider: 08/26/18 01:42 Primary Care Provider: ELUALIA CHASE DO [Primary Care Provider] - Follow up as needed Notes: 72-year-old female who is anticoagulated on Eliquis for A. fib presents tonight with some old and new skin tears to her arms. Tonight she fell and hit the right side of her forehead resulting in a large hematoma to the right frontal region. States she has been dizzy since injuring her head. No syncope. No vomiting. I have treated and performed a rapid initial assessment of this patient. A comprehensive ED assessment and evaluation of the patient, analysis of test results and completion of medical decision making process will be conducted by additional ED providers. PHYSICAL EXAMINATION: GENERAL: No acute distress LUNGS: No respiratory distress HEART: Well-perfused Head: Large tender hematoma right frontal region ABDOMEN: Soft, nondistended abdomen. No guarding, no rebound. Normal bowel sounds present. No CVA tenderness bilaterally. + mild epigastric tenderness (cannot elicit thorough abd exam w/o table, however). Extremities: No cyanosis, clubbing, or edema b/l. NEUROLOGICAL: Normal speech, normal gait. PSYCH: Normal mood, normal affect. TRAVEL OUTSIDE OF THE [place] IN LAST 30 DAYS: No - Related Data Allergies/Adverse Reactions: No Known Allergies Allergy (Verified 02/26/18 13:58) Past Medical History - Past Medical History Cardiac Medical History: Reports: Hx Atrial Fibrillation, Hx Hypercholesterolemia, Hx Hypertension - contr w/ meds Denies: Hx Heart Attack Pulmonary Medical History: Reports: Hx Asthma, Hx COPD Neurological Medical History: Denies: Hx Cerebrovascular Accident, Hx Seizures Renal/ Medical History: Denies: Hx Peritoneal Dialysis GI Medical History: Denies: Hx Hepatitis, Hx Hiatal Hernia, Hx Ulcer Musculoskeltal Medical History: Psychiatric Medical History: Reports: Hx Depression - anxiety Infectious Medical History: Denies: Hx Hepatitis Past Surgical History: Reports: Hx Breast Surgery - bilateral lumpectomy, Hx Hysterectomy. Denies: Hx Mastectomy, Hx Open Heart Surgery, Hx Pacemaker - Immunizations Immunizations up to date: Yes Hx Diphtheria, Pertussis, Tetanus Vaccination: No History of Influenza Vaccine for 12/2016 - 05/2017 Season: Unknown Physical Exam - Vital signs Vitals: Temp Pulse Resp BP Pulse Ox 98.0 F 50 L 16 122/56 L 97 08/25/18 23:51 08/25/18 23:51 08/25/18 23:51 08/25/18 23:51 08/25/18 23:51 Course - Vital Signs Vital signs: Temp Pulse Resp BP Pulse Ox 98.0 F 50 L 16 122/56 L 97 08/25/18 23:51 08/25/18 23:51 08/25/18 23:51 08/25/18 23:51 08/25/18 23:51 Doctor's Discharge - Discharge Referrals: EULALIA CHASE DO [Primary Care Provider] - Follow up as needed
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
--- NOTE | 2018-08-26 02:54 | RADIOLOGY REPORT (SQ) ---
EXAM DESCRIPTION: CT CERVICAL SPINE WITHOUT IV CONTRAST COMPLETED DATE/TME: 08/26/2018 01:43 CLINICAL HISTORY: 72 years Female, head trauma Comparison: None. Technique: No contrast. Coronal and sagittal reformat. This exam was performed according to our departmental dose-optimization program, which includes automated exposure control, adjustment of the mA and/or kV according to patient size and/or use of iterative reconstruction technique.[facility]: Dose Right [facility]: CareDose [facility]: Dose Right [facility]: Teradose 4D [facility]: [employer] LIMITATIONS: None Findings: Small C5-C6 disc bulge. Mild spondylosis. Mild left C6 foraminal stenosis. Normal alignment. Normal curvature. No fracture. Normal vertebral heights. Partially imaged nuchal soft tissues, inferior cranium, and upper thorax appear otherwise grossly intact. IMPRESSION: No acute findings.
--- NOTE | 2018-08-26 03:00 | RADIOLOGY REPORT (SQ) ---
CLINICAL HISTORY: hand injury COMPARISON: None. TECHNIQUE: XR HAND 3 OR MORE VIEWS 08/26/2018 1:44 AM CDT FINDINGS: There is no fracture. There are diffuse degenerative changes of the IP joints, base of the first metacarpal as well as the carpal joints. Soft tissues are unremarkable. IMPRESSION: No acute osseous findings.
--- NOTE | 2018-08-26 05:05 | ER Document Report ---
Entered by HERIBERTO BLEVINS SCRIBE 08/26/18 0439 Acting as scribe for:BENJAMIN RAYMOND MD ED Fall - General Chief Complaint: Fall Stated Complaint: FELL Time Seen by Provider: 08/26/18 01:42 Primary Care Provider: EULALIA MONTANA DO [Primary Care Provider] - 08/29/18 Mode of Arrival: Ambulatory Information source: Patient Notes: Patient is a 72 year old female with afib (on Eliquis), HTN, HLD, COPD presents to the emergency department complaining of skin tears and a hematoma secondary a fall. Patient states she had a mechanical trip and fall 5 days ago which resulted in skin tears to her left lateral forearm. She states she proceeded to trip and fall again 4 days ago which resulted in skin tears to her right forearm. Last night, patient states she had another mechanical trip and fall and hit her right lateral upper arm and her right forehead. She denies a loss of consciousness. Patient's PCP is Dr. [place]. TRAVEL OUTSIDE OF THE [place] IN LAST 30 DAYS: No - Related data Allergies/Adverse Reactions: No Known Allergies Allergy (Verified 02/26/18 13:58) Past Medical History - General Information source: Patient - Social History Smoking Status: Never Smoker Chew tobacco use (# tins/day): No Frequency of alcohol use: None Drug Abuse: None Family History: COPD, Hypertension Patient has suicidal ideation: No Patient has homicidal ideation: No - Past Medical History Cardiac Medical History: Reports: Hx Atrial Fibrillation, Hx Hypercholesterolemia, Hx Hypertension - contr w/ meds Pulmonary Medical History: Reports: Hx Asthma, Hx COPD Musculoskeletal Medical History: Psychiatric Medical History: Reports: Hx Depression - anxiety Past Surgical History: Reports: Hx Breast Surgery - bilateral lumpectomy, Hx Hysterectomy - Immunizations Immunizations up to date: Yes Hx Diphtheria, Pertussis, Tetanus Vaccination: No Review of Systems - Review of Systems Constitutional: No symptoms reported EENT: No symptoms reported Cardiovascular: No symptoms reported Respiratory: No symptoms reported Gastrointestinal: No symptoms reported Genitourinary: No symptoms reported Female Genitourinary: No symptoms reported Musculoskeletal: See HPI Skin: See HPI Hematologic/Lymphatic: No symptoms reported Neurological/Psychological: No symptoms reported -: Yes All other systems reviewed and negative Physical Exam - Vital signs Vitals: Temp Pulse Resp BP Pulse Ox 98.0 F 50 L 16 122/56 L 97 08/25/18 23:51 08/25/18 23:51 08/25/18 23:51 08/25/18 23:51 08/25/18 23:51 - Notes Notes: GENERAL: Alert, interacts well. No acute distress. HEAD: Normocephalic. Hematoma with bruising to the right side of the forehead, tender to palpation. EYES: Pupils equal, round, and reactive to light. Extraocular movements intact. ENT: Oral mucosa moist, tongue midline. NECK: Full range of motion. Supple. Trachea midline. LUNGS: Clear to auscultation bilaterally, no wheezes, rales, or rhonchi. No respiratory distress. HEART: Regular rate and rhythm. No murmurs, gallops, or rubs. ABDOMEN: Soft, obese, non-tender. Non-distended. Bowel sounds present in all 4 quadrants. No guarding, rigidity, or rebound. EXTREMITIES: Moves all 4 extremities spontaneously. 2+ edema to the BLE, radial and dorsalis pedis pulses 2/4 bilaterally. No cyanosis. NEUROLOGICAL: Alert and oriented x3. Normal speech. PSYCH: Normal affect, normal mood. SKIN: Warm, dry. Skin tears to the left lateral forearm, right lateral forearm and right lateral upper arm. Course - Vital Signs Vital signs: Temp Pulse Resp BP Pulse Ox 98.0 F 50 L 16 122/56 L 97 08/25/18 23:51 08/25/18 23:51 08/25/18 23:51 08/25/18 23:51 08/25/18 23:51 Discharge - Discharge Clinical Impression: Multiple falls, Skin tear of right upper extremity, Skin tear of left upper extremity Contusion of forehead Qualifiers: Encounter type: initial encounter Qualified Code(s): S00.83XA - Contusion of other part of head, initial encounter Condition: Stable Disposition: HOME, SELF-CARE Additional Instructions: Contusion: Your injury has resulted in a contusion -- a crushing of the deep tissues. No injury to important structures was detected during the physician's exam. Contusions vary in the amount of pain they cause, and in the length of time required for healing. Typically, the area will become bruised, and will remain painful to touch for two or three weeks. However, most patients are back to working and playing within a few days. After the initial period of rest and cold-packs, your symptoms (together with the doctor's recommendations) will determine how rapidly you can get back to full activity. Usually this means "do what feels okay, but don't do things that hurt." If re-examination was recommended, it's important to follow up as instructed. Call the doctor or return any time if pain increases, if swelling becomes severe, if you develop numbness or weakness in an injured extremity, or if any other alarming symptoms occur. Skin Tear: Your wound is a skin tear. These wounds are difficult and sometimes impossible to suture because the skin is so fragile that it may not hold the sutures. The skin condition can be due to aging and sometimes medications. The best care for such skin tears is sometimes to not try to suture them. Rather, it is best to position the skin as closely as possible to its original location and apply a bandage that can remain in place for several days at a time and sometimes these bandages are left in place until the wound has healed. Most skin tears will heal in about two weeks. Because they are so difficult to care for, skin tears should be expected to leave some scarring. Use ice packs to the forehead hematoma to reduce swelling. Keep the skin tears clean and dressed with non-adherent type dressings. Follow-up with your primary care provider Wednesday for recheck. RETURN TO THE EMERGENCY ROOM IF ANY NEW OR WORSENING SYMPTOMS. Referrals: EULALIA MONTANA DO [Primary Care Provider] - 08/29/18 Scribe Attestation: 08/26/18 05:12 I personally performed the services described in the documentation, reviewed and edited the documentation which was dictated to the scribe in my presence, and it accurately records my words and actions. I personally performed the services described in the documentation, reviewed and edited the documentation which was dictated to the scribe in my presence, and it accurately records my words and actions.
[2018-08-26 05:43] VITALS: BP 145/56
--- NOTE | 2018-08-26 19:20 | EKG REPORT ---
SEVERITY:- NORMAL ECG - SINUS BRADYCARDIA : Confirmed by: Lindsey Meng MD 26-Aug-2018 19:19:21
== END 2018-08-26 05:20 | disposition home or self-care (01) ==
LOC: ER 22:47
DX: S51.812A Laceration without foreign body of left forearm, initial encounter (principal); S51.811A Laceration without foreign body of right forearm, initial encounter; S41.111A Laceration without foreign body of right upper arm, initial encounter; S00.83XA Contusion of other part of head, initial encounter; W01.0XXA Fall on same level from slipping, tripping and stumbling without subsequent striking against object, initial encounter; Z91.81 History of falling; Y92.009 Unspecified place in unspecified non-institutional (private) residence as the place of occurrence of the external cause; I48.91 Unspecified atrial fibrillation; E78.00 Pure hypercholesterolemia, unspecified; I10 Essential (primary) hypertension; J44.9 Chronic obstructive pulmonary disease, unspecified; Z90.710 Acquired absence of both cervix and uterus; Z79.01 Long term (current) use of anticoagulants
CPT/HCPCS: 93005; 99284; 73130; 70450; 72125; 93010; A9270

== ENCOUNTER 2018-09-02 21:35 | Emergency (ER) | payer MEDICARE, MEDICAID ==
[2018-09-02 22:04] VITALS: BP 132/51
[2018-09-03] MEDS ORDERED: CEPHALEXIN 500 MG CAPSULE PO ONE (02:10)
--- NOTE | 2018-09-03 03:37 | ER Document Report ---
Entered by HERIBERTO BLEVINS SCRIBE 09/03/18 0215 Acting as scribe for:ANA GOOD DO ED General - General Chief Complaint: Fall Stated Complaint: FALL/HEAD AND ARM PAIN Time Seen by Provider: 09/03/18 01:44 Primary Care Provider: EULALIA CHASE DO [Primary Care Provider] - Follow up as needed Mode of Arrival: Ambulatory Information source: Patient Notes: Patient is a 72 year old female with afib (on Eliquis), HLD, COPD and a history of frequent falls presents to the emergency department complaining of a rash on her bilateral upper extremities. Patient states she received multiple skin tears secondary to multiple falls on 08/25/18 and has been applying Neosporin to the skin tears. Patient states she recently developed a red itchy rash to which she has been applying hydrocortisone. She states the rash is slightly painful to touch and that the area around the skin tear is a small. She denies any recent changes in medications or new exposures. No new falls since she was evaluated last week. TRAVEL OUTSIDE OF THE [place] IN LAST 30 DAYS: No - Related Data Allergies/Adverse Reactions: No Known Allergies Allergy (Verified 02/26/18 13:58) Past Medical History - General Information source: Patient - Social History Smoking Status: Never Smoker Cigarette use (# per day): No Chew tobacco use (# tins/day): No Family History: COPD, Hypertension Patient has suicidal ideation: No Patient has homicidal ideation: No - Past Medical History Cardiac Medical History: Reports: Hx Atrial Fibrillation, Hx Hypercholesterolemia, Hx Hypertension - contr w/ meds Pulmonary Medical History: Reports: Hx Asthma, Hx COPD Musculoskeletal Medical History: Psychiatric Medical History: Reports: Hx Depression - anxiety Past Surgical History: Reports: Hx Breast Surgery - bilateral lumpectomy, Hx Hysterectomy - Immunizations Immunizations up to date: Yes Hx Diphtheria, Pertussis, Tetanus Vaccination: No Review of Systems - Review of Systems Constitutional: No symptoms reported EENT: No symptoms reported Cardiovascular: No symptoms reported Respiratory: No symptoms reported Gastrointestinal: No symptoms reported Genitourinary: No symptoms reported Female Genitourinary: No symptoms reported Musculoskeletal: See HPI Skin: See HPI, Rash Hematologic/Lymphatic: No symptoms reported Neurological/Psychological: No symptoms reported -: Yes All other systems reviewed and negative Physical Exam - Vital signs Vitals: Temp Pulse Resp BP Pulse Ox 98.6 F 65 18 132/51 H 97 09/02/18 22:01 09/02/18 22:01 09/02/18 22:01 09/02/18 22:01 09/02/18 22:01 - Notes Notes: GENERAL: Alert, interacts well. No acute distress. HEAD: Normocephalic. Significant bruising to the right forehead and right periorbital ecchymosis. No erythema,no signs of infection. EYES: Pupils equal, round, and reactive to light. Extraocular movements intact. ENT: Oral mucosa moist, tongue midline. NECK: Full range of motion. Supple. Trachea midline. LUNGS: Clear to auscultation bilaterally, no wheezes, rales, or rhonchi. No respiratory distress. HEART: Regular rate and rhythm. No murmurs, gallops, or rubs. ABDOMEN: Soft, non-tender. Non-distended. Bowel sounds present in all 4 quadrants. No guarding, rigidity, or rebound. EXTREMITIES: Moves all 4 extremities spontaneously. NEUROLOGICAL: Alert and oriented x3. Normal speech. PSYCH: Normal affect, normal mood. SKIN: Warm, dry. Multiple skin tears and abrasions to the bilateral forearms and upper half of RUE, crusting, surrounding erythema consistent with secondary bacterial infection, but no exudate or fluctuance. Multitude of ecchymoses in various stages of healing. Course - Re-evaluation Re-evalutation: 09/03/18 02:11 No new injuries, surrounding erythema and swelling is suspicious for cellulitis, no evidence of abscess, no lymphangitic streaking that would indicate a need for admission or very least blood work. Treat with Keflex by mouth and educated on wound care. Discharged home. No new falls, no need for further investigation at this time. Had a CT scan of the head when she was here previously. No new symptoms to indicate suspicion for intracranial hemorrhage that was delayed. - Vital Signs Vital signs: Temp Pulse Resp BP Pulse Ox 98.6 F 65 18 132/51 H 97 09/02/18 22:01 09/02/18 22:01 09/02/18 22:01 09/02/18 22:01 09/02/18 22:01 Discharge - Discharge Clinical Impression: Cellulitis of right upper extremity, Cellulitis of left upper extremity, Skin tear, Infected skin tear Condition: Stable Disposition: HOME, SELF-CARE Additional Instructions: Cellulitis You have an infection of your skin and underlying soft tissues called cellulitis. This is due to bacteria, which can enter through any break in the skin, or even through an irritated hair follicle. Untreated, cellulitis will usually worsen. Antibiotics are required. We are treating you with Keflex, please take 2 tablets twice a day until they are gone. Usually, warm packs or warm soaks, and elevation of the infected area are recommended. Please wash with soap and water once a day and then apply bacitracin ointment which is available [id number] and either gauze or nonstick dressings and tape. You should start getting better within 24 to 36 hours. Most infections respond quickly to the right medication. Follow-up care is important, however, to check for abscess (boil) formation, unsuspected foreign body, or resistant infection. If you develop fever, chills, or if the area of infection is becoming rapidly more swollen or painful, call the doctor at once. Prescriptions: Bacitracin [Bacitracin Oph Oint 3.5 gm] 1 applic OP DAILY #1 tube Cephalexin Monohydrate [Keflex 500 mg Capsule] 1,000 mg PO BID 7 Days capsule Referrals: EULALIA CHASE, [Primary Care Provider] - Follow up as needed I personally performed the services described in the documentation, reviewed and edited the documentation which was dictated to the scribe in my presence, and it accurately records my words and actions.
== END 2018-09-03 03:00 | disposition home or self-care (01) ==
LOC: ER 21:35
DX: L03.114 Cellulitis of left upper limb (principal); L03.113 Cellulitis of right upper limb; R51 Headache; M79.602 Pain in left arm; M79.601 Pain in right arm; I48.91 Unspecified atrial fibrillation; J44.9 Chronic obstructive pulmonary disease, unspecified; Z79.02 Long term (current) use of antithrombotics/antiplatelets; Z91.81 History of falling; Z90.710 Acquired absence of both cervix and uterus
CPT/HCPCS: 99283; A9270

== ENCOUNTER 2018-11-23 19:17 | Inpatient (IN) | payer MEDICARE, MEDICAID ==
--- NOTE | 2018-11-23 20:26 | ER Document Report ---
ED Medical Screen (RME) - General Chief Complaint: Fall Injury Stated Complaint: FALL-RIGHT HIP AND KNEE PAIN Time Seen by Provider: 11/23/18 20:21 Primary Care Provider: EULALIA CHASE DO [Primary Care Provider] - Follow up as needed TRAVEL OUTSIDE OF THE [place] IN LAST 30 DAYS: No - HPI Notes: 11/23/18 20:22 73 year old female to the ED with C/O right knee,right hip, right rib, right neck pain that began this morning at 2 am. States she was trying to ambulate to the bathroom when she fell. Family was in the home and heard her yell out for help immediately. They were able to ambulate her to the bathroom and put her back into the bed. They have been getting her up and out of the bed several times today. Patient has had progressively worsening pain since this evening. Denies hitting her head, LOC, NV, tingling. She is on Eliquis. I performed a medical screening exam on patient. Will obtain XRs and then have her evaluated by main side provider. - Related Data Allergies/Adverse Reactions: No Known Allergies Allergy (Verified 02/26/18 13:58) Past Medical History - Past Medical History Cardiac Medical History: Reports: Hx Atrial Fibrillation, Hx Hypercholesterolemia, Hx Hypertension - contr w/ meds Denies: Hx Heart Attack Pulmonary Medical History: Reports: Hx Asthma, Hx COPD Neurological Medical History: Denies: Hx Cerebrovascular Accident, Hx Seizures Renal/ Medical History: Denies: Hx Peritoneal Dialysis GI Medical History: Denies: Hx Hepatitis, Hx Hiatal Hernia, Hx Ulcer Musculoskeltal Medical History: Psychiatric Medical History: Reports: Hx Depression - anxiety Infectious Medical History: Denies: Hx Hepatitis Past Surgical History: Reports: Hx Breast Surgery - bilateral lumpectomy, Hx Hysterectomy. Denies: Hx Mastectomy, Hx Open Heart Surgery, Hx Pacemaker - Immunizations Immunizations up to date: Yes Hx Diphtheria, Pertussis, Tetanus Vaccination: No History of Influenza Vaccine for 12/2016 - 05/2017 Season: Unknown Physical Exam - Vital signs Vitals: Temp Pulse Resp BP Pulse Ox 98.8 F 122 H 20 110/86 H 92 11/23/18 19:31 11/23/18 19:31 11/23/18 19:31 11/23/18 19:31 09/18/19 19:31 Course - Vital Signs Vital signs: Temp Pulse Resp BP Pulse Ox 98.8 F 122 H 20 110/86 H 92 11/23/18 19:31 11/23/18 19:31 11/23/18 19:31 11/23/18 19:31 11/23/18 19:31 Doctor's Discharge - Discharge Referrals: EULALIA CHASE DO [Primary Care Provider] - Follow up as needed
--- NOTE | 2018-11-23 21:11 | RADIOLOGY REPORT (SQ) ---
XR KNEE 4 OR MORE VIEWS CLINICAL STATEMENT: fall, knee, hip pain COMPARISON: None FINDINGS: Bony alignment is anatomic. There is no fracture or dislocation. The soft tissues are unremarkable. Moderate tricompartmental degenerative changes. No significant joint effusion. Bones are osteopenic. IMPRESSION: No fracture.
--- NOTE | 2018-11-23 21:14 | RADIOLOGY REPORT (SQ) ---
XR RIBS BILATERAL WITH CHEST CLINICAL STATEMENT: fall, rib pain COMPARISON: 03/15/2018 FINDINGS: Heart is borderline enlarged. Aorta is within normal limits. Lungs are clear. No pleural effusions or pneumothorax. The ribs are intact. IMPRESSION: No evidence for rib fracture.
--- NOTE | 2018-11-23 21:15 | RADIOLOGY REPORT (SQ) ---
EXAM DESCRIPTION: XR HIP 2 OR MORE VIEWS COMPLETED DATE/TME: 11/23/2018 20:21 CLINICAL HISTORY: 73 years, Female, fall, knee, hip pain COMPARISON: None. NUMBER OF VIEWS: Two TECHNIQUE: Frontal and lateral radiographs of the left hip were obtained. LIMITATIONS: None. FINDINGS: Postoperative changes of left total hip arthroplasty are noted. Visualized portions of the orthopedic hardware appear well seated and intact. Moderate right hip joint osteoarthrosis is evident, designated by joint space narrowing and marginal osteophyte summation. IMPRESSION: Moderate right hip joint osteoarthrosis. No underlying acute osseous anomaly. copyright 2010 [employer]- All Rights Reserved
--- NOTE | 2018-11-23 21:53 | ER Document Report ---
ED General - General Chief Complaint: Fall Injury Stated Complaint: FALL-RIGHT HIP AND KNEE PAIN Time Seen by Provider: 11/23/18 20:21 Primary Care Provider: EULALIA CHASE DO [Primary Care Provider] - Follow up as needed TRAVEL OUTSIDE OF THE [place] IN LAST 30 DAYS: No - HPI Notes: She presents for concern of several falls over the last several weeks. She is a cane but loses her balance. She has not had any palpitations loss of consciousness or syncopal events. She has bruising on her bilateral knees and also has some tenderness to her lower right rib cage and her right lateral pelvis. She is able to walk but they were concerned of fractures so they came to the emergency department - Related Data Allergies/Adverse Reactions: No Known Allergies Allergy (Verified 02/26/18 13:58) Past Medical History - Social History Smoking Status: Current Every Day Smoker Family History: COPD, Hypertension Patient has suicidal ideation: No Patient has homicidal ideation: No - Past Medical History Cardiac Medical History: Reports: Hx Atrial Fibrillation, Hx Hypercholesterolemia, Hx Hypertension - contr w/ meds Denies: Hx Heart Attack Pulmonary Medical History: Reports: Hx Asthma, Hx COPD Neurological Medical History: Denies: Hx Cerebrovascular Accident, Hx Seizures Renal/ Medical History: Denies: Hx Peritoneal Dialysis GI Medical History: Denies: Hx Hepatitis, Hx Hiatal Hernia, Hx Ulcer Musculoskeletal Medical History: Psychiatric Medical History: Reports: Hx Depression - anxiety Infectious Medical History: Denies: Hx Hepatitis Past Surgical History: Reports: Hx Breast Surgery - bilateral lumpectomy, Hx Hysterectomy. Denies: Hx Mastectomy, Hx Open Heart Surgery, Hx Pacemaker - Immunizations Immunizations up to date: Yes Hx Diphtheria, Pertussis, Tetanus Vaccination: No Review of Systems - Review of Systems Constitutional: No symptoms reported EENT: No symptoms reported Cardiovascular: No symptoms reported Respiratory: No symptoms reported Gastrointestinal: No symptoms reported Genitourinary: No symptoms reported Female Genitourinary: No symptoms reported Musculoskeletal: See HPI Skin: No symptoms reported Hematologic/Lymphatic: No symptoms reported Neurological/Psychological: No symptoms reported Physical Exam - Vital signs Vitals: Temp Pulse Resp BP Pulse Ox 98.8 F 122 H 20 110/86 H 92 11/23/18 19:31 11/23/18 19:31 11/23/18 19:31 11/23/18 19:31 11/23/18 19:31 - General General appearance: Appears well, Alert - HEENT Head: Normocephalic, Atraumatic Eyes: Normal Conjunctiva: Normal Cornea: Normal - Respiratory Respiratory status: No respiratory distress Chest status: Nontender Breath sounds: Normal - Cardiovascular Rhythm: Regular Heart sounds: Normal auscultation Murmur: No Notes: Mild tenderness to palpation lateral lower cage with no crepitus or bruising - Abdominal Inspection: Normal Distension: No distension - Extremities General upper extremity: Normal inspection, Normal ROM General lower extremity: Other - Bruising of her bilateral knees with full range of motion. Minor pain with range of motion of right hip - Neurological Neuro grossly intact: Yes Cognition: Normal Orientation: AAOx4 Course - Re-evaluation Re-evalutation: 11/23/18 22:39 No acute findings on imaging. Discussed the need to always use cane while walking. She found to be in A. fib RVR with no history of atrial fibrillation. Work-up in progress 11/23/18 22:51 11/24/18 00:38 admit for afib RVR - Vital Signs Vital signs: Temp Pulse Resp BP Pulse Ox 98.8 F 122 H 16 110/86 H 93 11/23/18 19:31 11/23/18 19:31 11/24/18 00:00 11/23/18 19:31 11/24/18 00:00 - Laboratory Result Diagrams: 11/23/18 23:30 11/23/18 23:30 Laboratory results interpreted by me: 11/23/18 23:30 Potassium 3.3 L Discharge - Discharge Clinical Impression: Right hip pain, Atrial fibrillation with RVR Knee contusion Qualifiers: Encounter type: initial encounter Laterality: unspecified laterality Qualified Code(s): S80.00XA - Contusion of unspecified knee, initial encounter Condition: Good Disposition: ADMITTED INPATIENT Admitting Provider: Michelle (Hospitalist) Unit Admitted: IMCU Referrals: EULALIA CHASE DO [Primary Care Provider] - Follow up as needed
--- NOTE | 2018-11-23 22:29 | RADIOLOGY REPORT (SQ) ---
EXAM DESCRIPTION: CT HEAD WITHOUT IV CONTRAST COMPLETED DATE/TME: 11/23/2018 21:50 CLINICAL HISTORY: 73 years, Female, fall This exam was performed according to our departmental dose-optimization program which includes automated exposure control, adjustment of the mA and/or kVp according to patient size and/or use of iterative reconstruction technique where applicable. FINDINGS: No acute intracranial hemorrhage, mass effect or midline shift. No extra-axial fluid collections. Ventricles and subarachnoid spaces are mildly dilated consistent with cerebral atrophy. Mild patchy hypodense areas in the periventricular white matter both cerebral hemispheres consistent with chronic small vessel ischemic changes. Visualized paranasal sinuses and the mastoid air cells are clear. The skull is intact. IMPRESSION: No acute intracranial hemorrhage. Mild chronic ischemic changes.
[2018-11-23] MEDS ORDERED: NORMAL SALINE 500 ML IV ONE (22:52)
[2018-11-23] MEDS ORDERED: DILTIAZEM HCL/D5W 125 MG/125 ML RTUINJ IV PRN (22:55)
[2018-11-23] MEDS: DILTIAZEM HCL INJ 25 MG/5 ML VIAL IV ONE ×2 (23:32→23:49)
[2018-11-23 23:55] LABS: ABSOLUTE BASOPHILS # (AUTO) 0.1 10^3/uL (0.0-0.2); ABSOLUTE EOSINOPHILS # (AUTO) 0.2 10^3/uL (0.0-0.6); ABSOLUTE LYMPHOCYTES (AUTO) 1.4 10^3/uL (0.5-4.7); ABSOLUTE MONOCYTES (AUTO) 0.9 10^3/uL (0.1-1.4); ABSOLUTE NEUT (AUTO) 7.5 10^3/uL (1.7-8.2); EOSINOPHILS % (AUTO) 2.2 % (0-6); HEMATOCRIT 37.3 % (36.0-47.0); HEMOGLOBIN 12.6 g/dL (12.0-15.5); LYMPHOCYTES % (AUTO) 14.2 % (13-45); MEAN CORPUSCULAR HEMOGLOBIN 29.3 pg (27.0-33.4); MEAN CORPUSCULAR HGB CONC 33.8 g/dL (32.0-36.0); MEAN CORPUSCULAR VOLUME 87 fl (80-97); MONOCYTES % (AUTO) 8.8 % (3-13); PLATELET COUNT 162 10^3/uL (150-450); RED BLOOD COUNT 4.31 10^6/uL (3.72-5.28); RED CELL DISTRIBUTION WIDTH 13.5 % (11.5-14.0); SEGMENTED NEUTROPHILS % (AUTO) 73.8 % (42-78); TOTAL CELLS COUNTED % (AUTO) 100 %; WHITE BLOOD COUNT 10.1 10^3/uL (4.0-10.5)
--- NOTE | 2018-11-24 00:02 | RADIOLOGY REPORT (SQ) ---
EXAM DESCRIPTION: XR CHEST 1 VIEW COMPLETED DATE/TME: 11/23/2018 22:53 CLINICAL HISTORY: 73 years, Female, afib COMPARISON: Prior study from 03/15/2018 NUMBER OF VIEWS: One TECHNIQUE: Single frontal view of the chest was obtained LIMITATIONS: None. FINDINGS: Cardiac and mediastinal contours are stable. Mild bilateral perihilar opacity with vascular indistinctness is noted along with interstitial lines about the periphery of both lung bases. No pneumothorax or pleural effusion. IMPRESSION: Findings suggest mild interstitial edema. copyright 2010 [employer]- All Rights Reserved
[2018-11-24 00:11] LABS: ALBUMIN 4.1 g/dL (3.5-5.0); ALKALINE PHOSPHATASE 94 U/L (38-126); ANION GAP 11 (5-19); ASPARTATE AMINO TRANSFERASE 33 U/L (14-36); BILIRUBIN,DIRECT 0.2 mg/dL (0.0-0.4); BILIRUBIN,TOTAL 0.8 mg/dL (0.2-1.3); BLOOD UREA NITROGEN 14 mg/dL (7-20); CALCIUM 9.1 mg/dL (8.4-10.2); CARBON DIOXIDE 26 mmol/L (22-30); CHLORIDE 101 mmol/L (98-107); GLUCOSE 104 mg/dL (75-110); POTASSIUM 3.3 mmol/L (3.6-5.0); TOTAL PROTEIN 6.9 g/dL (6.3-8.2)
[2018-11-24] MEDS ORDERED: ONDANSETRON HCL INJ/PF 4 MG/2 ML SDV IV PRN (01:47)
[2018-11-24] MEDS ORDERED: MAGNESIUM HYDROXIDE SUSP 30 ML UDCUP PO PRN (01:47)
[2018-11-24] MEDS ORDERED: LEVALBUTEROL HCL NEB 0.63 MG/3 ML AMPUL NEB PRN (01:47)
[2018-11-24] MEDS ORDERED: MAG HYDROX/AL HYDROX/SIMETH SUSP 30 ML UDCUP PO PRN (01:47)
[2018-11-24] MEDS ORDERED: ACETAMINOPHEN 325 MG TABLET PO PRN (01:52)
[2018-11-24] MEDS ORDERED: NALBUPHINE HCL INJ 10 MG/1 ML AMPULE IV PRN (01:52)
[2018-11-24] MEDS ORDERED: NICOTINE 21 MG/24 HR PATCH.TD24 TD PRN (01:52)
[2018-11-24] MEDS ORDERED: DILTIAZEM HCL 60 MG TABLET PO ONE (01:56)
[2018-11-24] MEDS ORDERED: DILTIAZEM HCL/D5W 125 MG/125 ML RTUINJ IV PRN (01:59)
[2018-11-24] MEDS: ALPRAZOLAM 0.5 MG TABLET PO PRN ×2 (02:53→17:03)
[2018-11-24 03:21] LABS: FREE T3 3.97 pg/mL (2.77-5.27); FREE T4 (FREE THYROXINE) 1.55 ng/dL (0.78-2.19)
[2018-11-24 03:34] LABS: THYROID STIMULATING HORMONE 1.58 uIU/mL (0.47-4.68)
--- NOTE | 2018-11-24 06:13 | PDOC H&P ---
History of Present Illness Admission Date/PCP: 11/24/18 00:47 Sanaz BRYANT Patient complains of: Weakness History of Present Illness: FADI LYNN is a 73 year old female who presented to the emergency room with acute weakness. Patient admitted that she got up to go to the bathroom at approximately 2 AM on 11/23/2018 when due to weakness she fell as she was ambulating. Her family quickly helped her get back to bed and had been assisting her in getting out of bed during the day however she complained of progressively worsening pain in her head, chest, pelvis and knees resulting from contusions sustained as a result of her fall. She describes the pain as moderate to severe achiness worsened by movement. She denies prior similar episodes and has not identified any aggravating or ameliorating factors for her weakness. Because of her worsening pain the family brought her to the ER for evaluation. In the ER she was found to have multiple contusions with out evidence of fracture to her skull, chest, pelvis and knees. She was also noted to have an acute rapid ventricular response to her chronic atrial fibrillation, explaining her new weakness. Patient was treated with a diltiazem infusion and subsequently admitted to the hospital for further evaluation treatment. Past Medical History Cardiac Medical History: Reports: Atrial Fibrillation, Hyperlipidema, Hypertension - contr w/ meds Denies: Myocardial Infarction Pulmonary Medical History: Reports: Asthma, Chronic Obstructive Pulmonary Disease (COPD) EENT Medical History: Denies: Cataracts, Ears - Hearing aids Neurological Medical History: Denies: Hemorrhagic CVA, Ischemic CVA, Seizures Endocrine Medical History: Denies: Diabetes Mellitus Type 1, Diabetes Mellitus Type 2, Hyperthyroidism, Hypothyroidism Renal/ Medical History: Denies: Chronic Kidney Disease, Nephrolithiasis Malignancy Medical History: Reports: None GI Medical History: Denies: Cirrhosis, Crohn's Disease, Hepatitis, Hiatal Hernia, Ulcerative Colitis Musculoskeltal Medical History: Denies: Arthritis, Fibromyalgia Skin Medical History: Denies: Eczema, Psoriasis Psychiatric Medical History: Reports: Depression - anxiety, Tobacco Dependency Denies: Alcohol Dependency, Substance Abuse Traumatic Medical History: Reports: None Hematology: Reports: Anemia - hx during Denies: Bleeding Tendencies Infectious Medical History: Reports: None Past Surgical History Past Surgical History: Reports: Hysterectomy Social History Information Source: Patient Lives with: Family Smoking Status: Current Every Day Smoker Frequency of Alcohol Use: None Hx Recreational Drug Use: No Drugs: None Hx Prescription Drug Abuse: No - Advance Directive Resuscitation Status: Full Code Surrogate healthcare decision maker:: Candelario Rivas Family History Family History: CAD, COPD, DM, Hypertension, Malignancy Parental Family History Reviewed: Yes Children Family History Reviewed: No Sibling(s) Family History Reviewed.: Yes Medication/Allergy Home Medications: Hydrocodone Bit/Acetaminophen [Hydrocodon-Acetaminophn 10-325] 1 each PO Q6HP PRN 01/08/12 Alprazolam [Xanax] 1 mg PO TIDP PRN 03/09/18 Oseltamivir Phosphate [Tamiflu 75 mg Capsule] 75 mg PO BID 03/09/18 Apixaban [Eliquis 5 mg Tablet] 5 mg PO BID 30 Days #60 tablet 03/12/18 Diltiazem HCl [Cardizem Cd 120 mg Capsule] 120 mg PO DAILY 30 Days #30 cap.sr .24h 03/12/18 Ondansetron HCl [Zofran 4 mg Tablet] 1 - 2 tab PO Q4H PRN #10 tablet 03/12/18 Prednisone [Deltasone 20 mg Tablet] 40 mg PO DAILY 5 Days #10 tablet 03/12/18 Trazodone HCl 150 mg PO QHS 30 Days #30 tablet 03/12/18 Magnesium Citrate [Citrate of Magnesia 296 ml Bottle] 296 ml PO ONCE PRN #1 bottle 03/15/18 Naproxen 500 mg PO BID #6 tablet 03/15/18 Bacitracin [Bacitracin Oph Oint 3.5 gm] 1 applic OP DAILY #1 tube 09/03/18 Cephalexin Monohydrate [Keflex 500 mg Capsule] 1,000 mg PO BID 7 Days capsule 09/03/18 Allergies/Adverse Reactions: No Known Allergies Allergy (Verified 02/26/18 13:58) Review of Systems Constitutional: ABSENT: chills, fever(s) Eyes: ABSENT: visual disturbances, other - Eye pain Ears: ABSENT: hearing changes, other - Ear pain Nose, Mouth, and Throat: ABSENT: mouth pain, sore throat Cardiovascular: ABSENT: chest pain, dyspnea on exertion, edema, orthropnea, palpitations Respiratory: ABSENT: cough, dyspnea Gastrointestinal: ABSENT: abdominal pain, constipation, diarrhea, nausea, vomiting Genitourinary: ABSENT: dysuria, hematuria Integumentary: ABSENT: pruritus, rash Neurological: ABSENT: confusion, convulsions, focal weakness, memory loss, syncope Psychiatric: ABSENT: anxiety, depression Endocrine: ABSENT: cold intolerance, heat intolerance Hematologic/Lymphatic: ABSENT: easy bleeding, easy bruising Allergic/Immunologic: ABSENT: seasonal rhinorrhea Physical Exam Vital Signs: Temp Pulse Resp BP Pulse Ox 98.8 F 122 H 26 H 111/56 L 94 11/23/18 19:31 11/23/18 19:31 11/24/18 01:01 11/24/18 01:00 11/24/18 01:00 Intake & Output 11/22/18 11/23/18 11/24/18 23:59 23:59 23:59 Intake Total 508 Balance 508 Weight 74.2 kg General appearance: PRESENT: no acute distress, cooperative Head exam: PRESENT: atraumatic, normocephalic Eye exam: PRESENT: conjunctiva pink. ABSENT: conjunctival injection, scleral icterus Ear exam: PRESENT: normal external ear exam. ABSENT: bleeding, drainage Mouth exam: PRESENT: dry mucosa, neck supple Neck exam: ABSENT: JVD, thyromegaly, tracheal deviation Respiratory exam: PRESENT: clear to auscultation jojo, symmetrical, unlabored Cardiovascular exam: PRESENT: irregular rhythm. ABSENT: clicks, gallop, rubs Pulses: PRESENT: normal radial pulses, normal dorsalis pedis pul Vascular exam: PRESENT: normal capillary refill. ABSENT: pallor GI/Abdominal exam: PRESENT: normal bowel sounds, soft Rectal exam: PRESENT: deferred Extremities exam: PRESENT: tenderness - Tenderness on palpation at bilateral knees, lateral hips/pelvis, chest wall and scalp. ABSENT: joint swelling, pedal edema Musculoskeletal exam: ABSENT: deformity, dislocation Neurological exam: PRESENT: alert, oriented to person, oriented to place, oriented to time, oriented to situation, CN II-XII grossly intact. ABSENT: motor sensory deficit Psychiatric exam: PRESENT: appropriate affect, normal mood Skin exam: PRESENT: dry, intact, warm. ABSENT: jaundice, rash, urticaria Results Laboratory Results: 11/23/18 23:30 11/23/18 23:30 11/23/18 11/23/18 23:30 23:30 WBC 10.1 RBC 4.31 Hgb 12.6 Hct 37.3 MCV 87 MCH 29.3 MCHC 33.8 RDW 13.5 Plt Count 162 Seg Neutrophils % 73.8 Sodium 137.6 Potassium 3.3 L Chloride 101 Carbon Dioxide 26 Anion Gap 11 BUN 14 Creatinine 0.84 Est GFR ( Amer) > 60 Glucose 104 Calcium 9.1 Magnesium 1.9 Total Bilirubin 0.8 AST 33 Alkaline Phosphatase 94 Total Protein 6.9 Albumin 4.1 11/23/18 23:30 Troponin I 0.026 Impressions: Hip/Pelvis X-Ray 11/23/18 20:21 IMPRESSION: Moderate right hip joint osteoarthrosis. No underlying acute osseous anomaly. copyright 2010 [employer]- All Rights Reserved Knee X-Ray 11/23/18 20:21 IMPRESSION: No fracture. Ribs X-Ray 11/23/18 20:22 IMPRESSION: No evidence for rib fracture. Head CT 11/23/18 21:50 IMPRESSION: No acute intracranial hemorrhage. Mild chronic ischemic changes. Chest X-Ray 11/23/18 22:53 IMPRESSION: Findings suggest mild interstitial edema. copyright 2010 [employer]- All Rights Reserved Assessment and Plan - Diagnosis (1) Atrial fibrillation with RVR Is this a current diagnosis for this admission?: Yes Plan: Patient is admitted to [facility] and will be converted to oral diltiazem therapy as soon as possible. She will be continued on her usual treatment with Eliquis and her other usual medications for control of her atrial fibrillation. On a monitored bed throughout her hospital course. Serial cardiac enzymes will be obtained. (2) Multiple contusions Is this a current diagnosis for this admission?: Yes Plan: Patient will be treated symptomatically with ibuprofen and/or Tylenol for mild pain and Nubain 5 to 10 mg IV every 3 hours on an as needed basis for greater pain based on a sliding scale. (3) Hyperlipidemia Qualifiers: Hyperlipidemia type: unspecified Qualified Code(s): E78.5 - Hyperlipidemia, unspecified Is this a current diagnosis for this admission?: Yes Plan: Patient will be continued on her usual hyperlipidemic therapy including a cardiac diet. A lipid profile will be obtained to evaluate the efficacy of her current therapy. (4) Hypertension Qualifiers: Hypertension type: essential hypertension Qualified Code(s): I10 - Essential (primary) hypertension Is this a current diagnosis for this admission?: Yes Plan: Patient will be continued on her usual antihypertensive regiment at a cardiac diet. Her blood pressure be monitored closely throughout her hospital course. (5) Tobacco use disorder, severe, dependence Is this a current diagnosis for this admission?: Yes Plan: Smoking cessation is advised and counseled briefly at the bedside. A nicotine replacement patch is available for the patient's use. - Time Time Spent with patient: 25-34 minutes Smoking Cessation Education: 3 to 10 minutes Medications reviewed and adjusted accordingly: Yes Anticipated discharge: Home - Inpatient Certification Based on my medical assessment, after consideration of the patient's comorbidities, presenting symptoms, or acuity I expect that the services needed warrant INPATIENT care.: Yes I certify that my determination is in accordance with my understanding of Medicare's requirements for reasonable and necessary INPATIENT services [42 CFR 412.3e].: Yes Medical Necessity: Need Close Monitoring Due to Risk of Patient Decompensation, Need For Continuous Telemetry Monitoring, Need for Neurological Checks, Need for Pain Control, Risk of Complication if Not Cared For in Hospital
--- NOTE | 2018-11-24 06:43 | EKG REPORT ---
SEVERITY:- ABNORMAL ECG - ATRIAL FIBRILLATION REPOLARIZATION ABNORMALITY, PROB RATE RELATED BORDERLINE PROLONGED QT INTERVAL : Confirmed by: Nikita Dodd MD 24-Nov-2018 06:42:55
[2018-11-24 07:41] LABS: CHOLESTEROL 151.62 mg/dL (0-200); TRIGLYCERIDES 69 mg/dL (<150)
[2018-11-24 07:49] LABS: CREATINE KINASE MB 1.8 ng/mL (<4.55)
[2018-11-24 07:51] LABS: DIRECT LDL 82 mg/dL (<100)
[2018-11-24 08:03] LABS: TROPONIN I 0.085 ng/mL
[2018-11-24] MEDS: DILTIAZEM HCL 180 MG CAPSULE.CR PO SCH (09:29)
[2018-11-24] MEDS: DOCUSATE SODIUM 100 MG CAPSULE PO SCH ×2 (09:30→17:03)
[2018-11-24] MEDS: FAMOTIDINE 20 MG TABLET PO SCH ×2 (09:30→21:40)
[2018-11-24] MEDS ORDERED: APIXABAN 5 MG TABLET PO SCH (10:00)
[2018-11-24] MEDS ORDERED: ALBUTEROL SULFATE HFA (90 MCG/PUFF) 8 GM MDI (1 MDI/ER DISP) IH PRN (12:12)
[2018-11-24] MEDS ORDERED: ALBUTEROL SULFATE HFA (90 MCG/PUFF) 200 PUFF/8.5 GM MDI IH PRN (13:10)
[2018-11-24 13:12] LABS: CREATINE KINASE MB 1.64 ng/mL (<4.55); TROPONIN I 0.07 ng/mL
[2018-11-24] MEDS ORDERED: POTASSIUM CHLORIDE 20 MEQ PACKET PO ONE (13:30)
[2018-11-24 16:45] LABS: APPEARANCE,URINE CLOUDY; BILIRUBIN,URINE NEGATIVE (NEGATIVE); COLOR,URINE AMBER; GLUCOSE, URINE NEGATIVE (NEGATIVE); KETONES,URINE TRACE mg/dL (NEGATIVE); LEUKOCYTE ESTERASE,URINE MODERATE (NEGATIVE); NITRITE,URINE NEGATIVE (NEGATIVE); PROTEIN,URINE NEGATIVE (NEGATIVE); URINE SPECIFIC GRAVITY 1.016
[2018-11-24] MEDS: MONTELUKAST SODIUM 10 MG TABLET PO SCH (17:03)
[2018-11-24] MEDS: HYDROCODONE/ACETAMINOPHEN 10-325 MG TABLET PO PRN (17:03)
[2018-11-24] MEDS: SIMVASTATIN 10 MG TABLET PO SCH (17:04)
[2018-11-24] MEDS ORDERED: (PENDING PHARMACY ID) (Atenolol [Tenormin] 25 MG) PO SCH (18:00)
[2018-11-24 18:42] LABS: CREATINE KINASE MB 1.48 ng/mL (<4.55); TROPONIN I 0.072 ng/mL
[2018-11-24] MEDS: ATENOLOL 50 MG TABLET PO SCH (21:40)
[2018-11-24] MEDS: APIXABAN 5 MG TABLET PO SCH (21:40)
[2018-11-24] MEDS ORDERED: (PENDING PHARMACY ID) (Trazodone Hcl [Desyrel] 150 MG) PO SCH (22:00)
[2018-11-24] MEDS ORDERED: TRAZODONE HCL 50 MG TABLET PO SCH (22:00)
--- NOTE | 2018-11-24 22:09 | XCELERA REPORT ---
[address] [address] Transthoracic Echocardiogram Report Name: FADI LYNN Age: 73 yrs Gender: Female : 1945 Patient Status: Inpatient Patient Location: [address] [place] [address] Study Date: 11/24/2018 02:53 PM Height: 63 in Weight: 166 lb BSA: 1.8 m2 Procedure: A two-dimensional transthoracic echocardiogram with color flow and Doppler was performed. The study was technically difficult with many images being suboptimal in quality. Reason For Study: A FIB History: ATRIAL FIBRILLATION. Ordering Physician: RUPINDER OREILLY Performed By: Nereyda Valdez Interpretation Summary The left ventricle is normal in size. There is normal left ventricular wall thickness. LV EF is > than 60% The left ventricular ejection fraction is within normal limits. Doppler measurements suggest normal left ventricular diastolic function The left ventricular wall motion is normal. There is no thrombus. Cannot assess ASD ,VSD , or PFO. The right ventricle is grossly normal size. The right ventricle is not well visualized secondary to technical limitations The right atrium is normal. The left atrial size is normal. There is no evidence of mitral valve prolapse. There is no vegetation seen on the mitral valve. There is no mitral valve stenosis. There is a mild amount of mitral regurgitation There is no aortic valvular vegetation. There is no aortic valve stenosis There is no LVOT obstruction. There is a mild to moderate amount of aortic regurgitation There is no tricuspid stenosis. There is a trace amount of tricuspid regurgitation Tricuspid regurgitation jet envelope not well defined to measure RV systolic pressure accurately. There is no pulmonic valvular stenosis. There is no pulmonic valvular regurgitation. The aortic root is normal size. There is no pericardial effusion. MMode/2D Measurements & Calculations RVDd: 3.2 cm LVIDd: 4.8 cm FS: 33.1 % Ao root diam: 2.6 cm IVSd: 0.95 cm LVIDs: 3.2 cm EDV(Teich): 108.8 ml Ao root area: 5.4 cm2 LVPWd: 1.0 cm ESV(Teich): 41.8 ml LA dimension: 3.4 cm EF(Teich): 61.6 % Doppler Measurements & Calculations MV E max paulette: MV P1/2t max paulette: Ao V2 max: AI max paulette: 81.0 cm/sec 80.2 cm/sec 136.4 cm/sec 389.1 cm/sec MV A max paulette: MV P1/2t: 59.5 msec Ao max P.4 mmHgAI max P.2 cm/sec MVA(P1/2t): 3.7 cm2 60.6 mmHg MV E/A: 1.7 MV dec slope: AI dec slope: 344.9 cm/sec2 394.6 cm/sec2 AI P1/2t: MV dec time: 330.4 msec 0.18 sec LV V1 max PG: PA V2 max: AV P1/2t-pr_phl: MV P1/2t-pr_phl: 4.6 mmHg 70.6 cm/sec 330.4 msec 59.5 msec LV V1 max: PA max P.0 mmHg 107.2 cm/sec Left Ventricle The left ventricle is normal in size. There is normal left ventricular wall thickness. LV EF is > than 60%. The left ventricular ejection fraction is within normal limits. Doppler measurements suggest normal left ventricular diastolic function. The left ventricular wall motion is normal. There is no thrombus. Cannot assess ASD ,VSD , or PFO. Right Ventricle The right ventricle is grossly normal size. The right ventricle is not well visualized secondary to technical limitations. Atria The right atrium is normal. The left atrial size is normal. Mitral Valve There is no evidence of mitral valve prolapse. There is no vegetation seen on the mitral valve. There is no mitral valve stenosis. There is a mild amount of mitral regurgitation. Aortic Valve There is no aortic valvular vegetation. There is no aortic valve stenosis. There is no LVOT obstruction. There is a mild to moderate amount of aortic regurgitation. Tricuspid Valve There is no tricuspid stenosis. There is a trace amount of tricuspid regurgitation. Tricuspid regurgitation jet envelope not well defined to measure RV systolic pressure accurately. Pulmonic Valve There is no pulmonic valvular stenosis. There is no pulmonic valvular regurgitation. Great Vessels The aortic root is normal size. The inferior vena cava was not visualized. Effusions There is no pericardial effusion. : RUPINDER OREILLY Lakshmi
[2018-11-25] MEDS: HYDROCODONE/ACETAMINOPHEN 10-325 MG TABLET PO PRN ×3 (00:53→14:37)
[2018-11-25] MEDS: ALPRAZOLAM 0.5 MG TABLET PO PRN ×2 (01:03→09:06)
[2018-11-25] MEDS ORDERED: NALBUPHINE HCL INJ 10 MG/1 ML AMPULE IV PRN ×2 (08:24)
[2018-11-25] MEDS: DILTIAZEM HCL 180 MG CAPSULE.CR PO SCH (09:06)
[2018-11-25] MEDS: APIXABAN 5 MG TABLET PO SCH (09:07)
[2018-11-25] MEDS: DOCUSATE SODIUM 100 MG CAPSULE PO SCH ×2 (09:07→17:24)
[2018-11-25] MEDS: ATENOLOL 50 MG TABLET PO SCH (09:08)
[2018-11-25] MEDS: FAMOTIDINE 20 MG TABLET PO SCH (09:08)
[2018-11-25] MEDS ORDERED: FUROSEMIDE 40 MG TABLET PO SCH (10:00)
[2018-11-25] MEDS ORDERED: ESCITALOPRAM OXALATE 10 MG TABLET PO SCH (10:00)
[2018-11-25] MEDS ORDERED: (PENDING PHARMACY ID) (Linaclotide [Linzess] 72 MCG) PO SCH (10:00)
[2018-11-25] MEDS ORDERED: SPIRONOLACTONE 25 MG TABLET PO SCH (10:00)
[2018-11-25] MEDS ORDERED: VENLAFAXINE HCL 37.5 MG CAP.SR.24H PO SCH (10:00)
[2018-11-25] MEDS ORDERED: FLUTICASONE NASAL SPRAY 50 MCG/SPRY 120 SPRAY/16 GM NASL SCH (10:00)
[2018-11-25] MEDS ORDERED: CETIRIZINE 10 MG TABLET PO SCH (10:00)
[2018-11-25 10:11] LABS: HEMATOCRIT 34.9 % (36.0-47.0); HEMOGLOBIN 11.6 g/dL (12.0-15.5); MEAN CORPUSCULAR HGB CONC 33.3 g/dL (32.0-36.0); MEAN CORPUSCULAR VOLUME 87 fl (80-97); PLATELET COUNT 158 10^3/uL (150-450); RED CELL DISTRIBUTION WIDTH 13.4 % (11.5-14.0); WHITE BLOOD COUNT 6.5 10^3/uL (4.0-10.5)
[2018-11-25 10:36] LABS: ANION GAP 10 (5-19); BLOOD UREA NITROGEN 12 mg/dL (7-20); CALCIUM 8.7 mg/dL (8.4-10.2); CARBON DIOXIDE 26 mmol/L (22-30); CHLORIDE 102 mmol/L (98-107); GLUCOSE 92 mg/dL (75-110); POTASSIUM 3.2 mmol/L (3.6-5.0)
[2018-11-25] MEDS ORDERED: POTASSIUM CHLORIDE 20 MEQ PACKET PO ONE (13:18)
[2018-11-25] MEDS ORDERED: CEFTRIAXONE 1 GM/D5W RTU 1 GM/50 ML RTUPB IV SCH (13:19)
--- NOTE | 2018-11-25 14:53 | PDOC PROGRESS REPORT ---
Subjective Progress Note for:: 11/25/18 Subjective:: 11/25: Patient was seen and examined at bedside. She has improved and she converted to sinus rhythm. Cardizem drip was stopped and now she is on oral medications. She still complains of pains from her fall. She is afraid to get up and walk and is waiting for physical therapy to work with her. She complains of dysuria and her urine is positive for gram-negative rods. Reason For Visit: CHRONIC ATRIAL FIBRILATION WITH ACUTE RAPID Physical Exam Vital Signs: Temp Pulse Resp BP Pulse Ox 98.0 F 57 L 17 111/48 L 95 11/25/18 11:15 11/25/18 11:15 11/25/18 11:15 11/25/18 11:15 11/25/18 11:15 Intake & Output 11/24/18 11/25/18 11/26/18 06:59 06:59 06:59 Intake Total 644 660 220 Output Total 300 Balance 644 360 220 Weight 166 lb 7.184 oz 168 lb 13.985 oz Exam: Patient is no acute distress Alert oriented to time place person No anxiety or depression Head: atraumatic normocephalic Pupils: are equal reactive Neck: is supple and trachea is central no lymphadenopathy No pharyngeal erythema or exudates Heart: Regular rate and rhythm Lungs: clear no distress Abdomen: nontender nondistended Neurological exam: unremarkable Musculoskeletal: No joint swelling or effusion chronic lower back pain and tende rness No suicidal or homicidal ideation Results Laboratory Results: 11/25/18 09:24 11/25/18 09:24 11/24/18 11/25/18 11/25/18 16:10 09:24 09:24 WBC 6.5 RBC 4.00 Hgb 11.6 L Hct 34.9 L MCV 87 MCH 29.0 MCHC 33.3 RDW 13.4 Plt Count 158 Sodium 137.5 Potassium 3.2 L Chloride 102 Carbon Dioxide 26 Anion Gap 10 BUN 12 Creatinine 0.71 Est GFR ( Amer) > 60 Glucose 92 Calcium 8.7 Magnesium 1.9 Urine Color SHARON Urine Appearance CLOUDY Urine pH 6.0 Ur Specific Candler 1.016 Urine Protein NEGATIVE Urine Glucose (UA) NEGATIVE Urine Ketones TRACE H Urine Blood MODERATE H Urine Nitrite NEGATIVE Ur Leukocyte Esterase MODERATE H Urine WBC (Auto) 95 Urine RBC (Auto) 5 11/23/18 11/24/18 11/24/18 23:30 05:46 05:46 Creatine Kinase 126 CK-MB (CK-2) 1.80 Troponin I 0.026 0.085 11/24/18 11/24/18 11/24/18 12:24 12:24 17:36 Creatine Kinase 110 91 CK-MB (CK-2) 1.64 Troponin I 0.070 11/24/18 11/25/18 11/25/18 17:36 01:11 09:24 Creatine Kinase CK-MB (CK-2) 1.48 Troponin I 0.072 0.048 0.041 Impressions: Hip/Pelvis X-Ray 11/23/18 20:21 IMPRESSION: Moderate right hip joint osteoarthrosis. No underlying acute osseous anomaly. copyright 2010 [employer]- All Rights Reserved Knee X-Ray 11/23/18 20:21 IMPRESSION: No fracture. Ribs X-Ray 11/23/18 20:22 IMPRESSION: No evidence for rib fracture. Head CT 11/23/18 21:50 IMPRESSION: No acute intracranial hemorrhage. Mild chronic ischemic changes. Chest X-Ray 11/23/18 22:53 IMPRESSION: Findings suggest mild interstitial edema. copyright 2010 [employer]- All Rights Reserved Assessment and Plan - Diagnosis (1) Atrial fibrillation with RVR Is this a current diagnosis for this admission?: Yes Plan: 11/24: Patient is admitted to [facility] and will be converted to oral diltiazem therapy as soon as possible. She will be continued on her usual treatment with Eliquis and her other usual medications for control of her atrial fibrillation. On a monitored bed throughout her hospital course. Serial cardiac enzymes will be obtained. 11/25: Now she is on oral Cardizem. Atenolol was resumed. Now in sinus rhythm. (2) UTI (urinary tract infection) Is this a current diagnosis for this admission?: Yes Plan: Urine cultures positive for gram-negative rods. Start IV ceftriaxone emp irically. Monitor urine culture. (3) Multiple contusions Is this a current diagnosis for this admission?: Yes Plan: Patient will be treated symptomatically with ibuprofen and/or Tylenol for mild pain and Nubain 5 to 10 mg IV every 3 hours on an as needed basis for greater pain based on a sliding scale. (4) Hyperlipidemia Qualifiers: Hyperlipidemia type: unspecified Qualified Code(s): E78.5 - Hyperlipidemia, unspecified Is this a current diagnosis for this admission?: Yes Plan: Patient will be continued on her usual hyperlipidemic therapy including a cardiac diet. A lipid profile will be obtained to evaluate the efficacy of her current therapy. (5) Hypertension Qualifiers: Hypertension type: essential hypertension Qualified Code(s): I10 - Essential (primary) hypertension Is this a current diagnosis for this admission?: Yes Plan: Patient will be continued on her usual antihypertensive regiment at a cardiac diet. Her blood pressure be monitored closely throughout her hospital course. (6) Tobacco use disorder, severe, dependence Is this a current diagnosis for this admission?: Yes Plan: Smoking cessation is advised and counseled briefly at the bedside. A nicotine replacement patch is available for the patient's use.
--- NOTE | 2018-11-25 16:22 | PDOC DISCHARGE SUMMARY ---
General - Admit/Disc Date/PCP Admission Date/Primary Care Provider: 11/24/18 00:47 EULALIA NERIUMATE, Discharge Date: 11/25/18 - Discharge Diagnosis (1) Atrial fibrillation with RVR Is this a current diagnosis for this admission?: Yes (2) UTI (urinary tract infection) Is this a current diagnosis for this admission?: Yes (3) Multiple contusions Is this a current diagnosis for this admission?: Yes (4) Hyperlipidemia Is this a current diagnosis for this admission?: Yes (5) Hypertension Is this a current diagnosis for this admission?: Yes (6) Tobacco use disorder, severe, dependence Is this a current diagnosis for this admission?: Yes - Additional Information Resuscitation Status: Full Code Discharge Diet: As Tolerated Discharge Activity: Activity As Tolerated Prescriptions: Diltiazem HCl [Cardizem Cd 180 mg Capsule] 180 mg PO DAILY #30 capsule.cr Nitrofurantoin Monohyd/M-Cryst [Macrobid 100 mg Capsule] 100 mg PO BID #10 capsule Home Medications: Albuterol Sulfate [Ventolin Hfa 8 gm Mdi (1 Mdi/ER Disp)] 2 puff IH Q6HP PRN 11/24/18 Alprazolam [Xanax] 1 mg PO Q8HP PRN 11/24/18 Apixaban [Eliquis 5 mg Tablet] 5 mg PO Q12 11/24/18 Atenolol [Tenormin] 25 mg PO BID 11/24/18 Cetirizine HCl [Zyrtec 10 mg Tablet] 10 mg PO DAILY 11/24/18 Escitalopram Oxalate [Lexapro] 20 mg PO DAILY 11/24/18 Fluticasone Propionate [Flonase Nasal [place] 50 Mcg/[place] 16 gm] 2 sprays NASL DAILY 11/24/18 Furosemide [Lasix 40 mg Tablet] 40 mg PO DAILY 11/24/18 Hydrocodone/Acetaminophen [[place] 10-325 mg Tablet] 1 tab PO Q6HP PRN 11/24/18 Linaclotide [Linzess] 72 mcg PO DAILY 11/24/18 Montelukast Sodium [Singulair 10 mg Tablet] 10 mg PO QPM 11/24/18 Simvastatin [Zocor 20 mg Tablet] 20 mg PO QPM 11/24/18 Spironolactone [Aldactone 25 mg Tablet] 25 mg PO DAILY 11/24/18 Trazodone HCl [Desyrel] 150 mg PO QHS 11/24/18 Venlafaxine HCl ER [Effexor Xr 37.5 mg Cap.sr] 37.5 mg PO DAILY 11/24/18 Diltiazem HCl [Cardizem Cd 180 mg Capsule] 180 mg PO DAILY #30 capsule.cr 11/25/18 Nicotine [Nicoderm 21 mg/24 Hr Transderm Patch] 1 each TD DAILYP PRN patch.td24 11/25/18 Nitrofurantoin Monohyd/M-Cryst [Macrobid 100 mg Capsule] 100 mg PO BID #10 capsule 11/25/18 History of Present Illness History of Present Illness: FADI LYNN is a 73 year old female who presented to the emergency room with acute weakness. Patient admitted that she got up to go to the bathroom at approximately 2 AM on 11/23/2018 when due to weakness she fell as she was ambulating. Her family quickly helped her get back to bed and had been assisting her in getting out of bed during the day however she complained of progressively worsening pain in her head, chest, pelvis and knees resulting from contusions sustained as a result of her fall. She describes the pain as moderate to severe achiness worsened by movement. She denies prior similar episodes and has not identified any aggravating or ameliorating factors for her weakness. Because of her worsening pain the family brought her to the ER for evaluation. In the ER she was found to have multiple contusions with out evidence of fracture to her skull, chest, pelvis and knees. She was also noted to have an acute rapid ventricular response to her chronic atrial fibrillation, explaining her new weakness. Patient was treated with a diltiazem infusion and subsequently admitted to the hospital for further evaluation treatment. 11/25: Patient was seen and examined at bedside. She has improved and she converted to sinus rhythm. Cardizem drip was stopped and now she is on oral medications. She still complains of pains from her fall. She is afraid to get up and walk and is waiting for physical therapy to work with her. She complains of dysuria and her urine is positive for gram-negative rods. Hospital Course Hospital Course: (1) Atrial fibrillation with RVR 11/24: Patient is admitted to [facility] and will be converted to oral diltiazem therapy as soon as possible. She will be continued on her usual treatment with Eliquis and her other usual medications for control of her atrial fibrillation. On a monitored bed throughout her hospital course. Serial cardiac enzymes will be obtained. 11/25: Now she is on oral Cardizem. Atenolol was resumed. Now in sinus rhythm. (2) UTI (urinary tract infection) Urine cultures positive for gram-negative rods. Start IV ceftriaxone empirically. Monitor urine culture. Will discharge on oral Macrobid for 5 days. Follow-up with PCP. (3) Multiple contusions Patient will be treated symptomatically with ibuprofen and/or Tylenol for mild pain and Nubain 5 to 10 mg IV every 3 hours on an as needed basis for greater pain based on a sliding scale. (4) Hyperlipidemia Patient will be continued on her usual hyperlipidemic therapy including a cardiac diet. A lipid profile will be obtained to evaluate the efficacy of her current therapy. (5) Hypertension Patient will be continued on her usual antihypertensive regiment at a cardiac diet. Her blood pressure be monitored closely throughout her hospital course. (6) Tobacco use disorder, severe, dependence Smoking cessation is advised and counseled briefly at the bedside. A nicotine replacement patch is available for the patient's use. Physical Exam Vital Signs: Temp Pulse Resp BP Pulse Ox 98.1 F 52 L 16 109/46 L 96 11/25/18 15:04 11/25/18 15:04 11/25/18 15:04 11/25/18 15:04 11/25/18 15:04 Intake & Output 11/24/18 11/25/18 11/26/18 06:59 06:59 06:59 Intake Total 644 660 220 Output Total 300 Balance 644 360 220 Weight 166 lb 7.184 oz 168 lb 13.985 oz Exam: Patient is no acute distress Alert oriented to time place person No anxiety or depression Head: atraumatic normocephalic Pupils: are equal reactive Neck: is supple and trachea is central no lymphadenopathy No pharyngeal erythema or exudates Heart: Regular rate and rhythm Lungs: clear no distress Abdomen: nontender nondistended Neurological exam: unremarkable Musculoskeletal: No joint swelling or effusion chronic lower back pain and tenderness No suicidal or homicidal ideation Results Laboratory Results: 11/25/18 09:24 11/25/18 09:24 11/24/18 11/25/18 11/25/18 16:10 09:24 09:24 WBC 6.5 RBC 4.00 Hgb 11.6 L Hct 34.9 L MCV 87 MCH 29.0 MCHC 33.3 RDW 13.4 Plt Count 158 Sodium 137.5 Potassium 3.2 L Chloride 102 Carbon Dioxide 26 Anion Gap 10 BUN 12 Creatinine 0.71 Est GFR ( Amer) > 60 Glucose 92 Calcium 8.7 Magnesium 1.9 Urine Color SHARON Urine Appearance CLOUDY Urine pH 6.0 Ur Specific [place] 1.016 Urine Protein NEGATIVE Urine Glucose (UA) NEGATIVE Urine Ketones TRACE H Urine Blood MODERATE H Urine Nitrite NEGATIVE Ur Leukocyte Esterase MODERATE H Urine WBC (Auto) 95 Urine RBC (Auto) 5 11/23/18 11/24/18 11/24/18 23:30 05:46 05:46 Creatine Kinase 126 CK-MB (CK-2) 1.80 Troponin I 0.026 0.085 11/24/18 11/24/18 11/24/18 12:24 12:24 17:36 Creatine Kinase 110 91 CK-MB (CK-2) 1.64 Troponin I 0.070 11/24/18 11/25/18 11/25/18 17:36 01:11 09:24 Creatine Kinase CK-MB (CK-2) 1.48 Troponin I 0.072 0.048 0.041 Impressions: Hip/Pelvis X-Ray 11/23/18 20:21 IMPRESSION: Moderate right hip joint osteoarthrosis. No underlying acute osseous anomaly. copyright 2010 [employer]- All Rights Reserved Knee X-Ray 11/23/18 20:21 IMPRESSION: No fracture. Ribs X-Ray 11/23/18 20:22 IMPRESSION: No evidence for rib fracture. Head CT 11/23/18 21:50 IMPRESSION: No acute intracranial hemorrhage. Mild chronic ischemic changes. Chest X-Ray 11/23/18 22:53 IMPRESSION: Findings suggest mild interstitial edema. copyright 2010 [employer]- All Rights Reserved Qualifiers - * PATIENT BEING DISCHARGED WITH ANY OF THE FOLLOWING DIAGNOSIS: No Acute Heart Failure - Is this a Heart Failure Patient?: No Plan Time Spent: Greater than 30 Minutes - 35 minutes
[2018-11-25] MEDS: SIMVASTATIN 10 MG TABLET PO SCH (17:24)
[2018-11-25] MEDS: MONTELUKAST SODIUM 10 MG TABLET PO SCH (17:24)
[2018-11-25] MEDS ORDERED: NITROFURANTOIN MONOHYD/M-CRYST 100 MG CAPSULE PO SCH (18:00)
[2018-11-25 18:03] VITALS: BP 110/50
== END 2018-11-25 18:46 | disposition home or self-care (01) | DRG 309 ==
LOC: ER 19:17 → EH 11-24 00:47 → 3S 11-24 01:58
PROVIDERS: ADMIT Emergency Medicine; ATTEND Emergency Medicine
DX: I48.91 Unspecified atrial fibrillation (principal); N39.0 Urinary tract infection, site not specified; E78.00 Pure hypercholesterolemia, unspecified; I10 Essential (primary) hypertension; J44.9 Chronic obstructive pulmonary disease, unspecified; S80.02XA Contusion of left knee, initial encounter; S80.01XA Contusion of right knee, initial encounter; F41.8 Other specified anxiety disorders; F17.210 Nicotine dependence, cigarettes, uncomplicated; W18.39XA Other fall on same level, initial encounter; Y93.89 Activity, other specified; Y92.098 Other place in other non-institutional residence as the place of occurrence of the external cause; Z79.01 Long term (current) use of anticoagulants; Z79.51 Long term (current) use of inhaled steroids; Z79.899 Other long term (current) drug therapy
CPT/HCPCS: 36415; 70450; 71045; 71111; 80048; 80053; 80061; 81001; 82550; 82553; 83735; 84439; 84443; 84481; 84484; 85025; 85027; 87086; 87088; 87186; 93005; 93010; 93306; 96361; 96374; 99285; J0696; J3490; J7040; J8499

== ENCOUNTER 2019-03-10 13:33 | Emergency (ER) | payer MEDICAID, MEDICARE ==
--- NOTE | 2019-03-10 14:29 | ER Document Report ---
ED Medical Screen (RME) - General Chief Complaint: General Weakness Stated Complaint: DIZZINESS/DIARRHEA/VOMITING Time Seen by Provider: 03/10/19 14:21 Primary Care Provider: EULALIA CHASE DO [Primary Care Provider] - Follow up as needed Notes: Patient is a 73-year-old female who presents to the emergency department with a chief complaint of generalized weakness. Patient states that her and 2 family members have recently. Since then she has been "letting herself go." Patient states that she has had a cough. Denies any fever. She also states that she has had increased bruising. That she has fallen 11 times since her . Exam: Coarse breath sounds noted bilaterally. I have greeted and performed a rapid initial assessment of this patient. A comprehensive ED assessment and evaluation of the patient, analysis of test results and completion of medical decision making process will be conducted by an additional ED providers. TRAVEL OUTSIDE OF THE [place] IN LAST 30 DAYS: No - Related Data Allergies/Adverse Reactions: No Known Allergies Allergy (Verified 02/26/18 13:58) Past Medical History - Social History Frequency of alcohol use: None Drug Abuse: None - Past Medical History Cardiac Medical History: Reports: Hx Atrial Fibrillation, Hx Hypercholesterolemia, Hx Hypertension - contr w/ meds Denies: Hx Heart Attack Pulmonary Medical History: Reports: Hx Asthma, Hx COPD Neurological Medical History: Denies: Hx Cerebrovascular Accident, Hx Seizures Endocrine Medical History: Denies: Hx Diabetes Mellitus Type 1, Hx Diabetes Mellitus Type 2, Hx Hyperthyroidism, Hx Hypothyroidism Renal/ Medical History: Denies: Hx Peritoneal Dialysis GI Medical History: Denies: Hx Cirrhosis, Hx Crohn's Disease, Hx Hepatitis, Hx Hiatal Hernia, Hx Ulcer, Hx Ulcerative Colitis Musculoskeltal Medical History: Denies Hx Arthritis, Denies Hx Fibromyalgia Skin Medical History: Denies Hx Eczema, Denies Hx Psoriasis Psychiatric Medical History: Reports: Hx Depression - anxiety Infectious Medical History: Denies: Hx Hepatitis Past Surgical History: Reports: Hx Breast Surgery - bilateral lumpectomy, Hx Hysterectomy. Denies: Hx Mastectomy, Hx Open Heart Surgery, Hx Pacemaker - Immunizations Immunizations up to date: Yes Hx Diphtheria, Pertussis, Tetanus Vaccination: No Physical Exam - Vital signs Vitals: Temp Pulse Resp BP Pulse Ox 98.3 F 58 L 16 101/81 98 03/10/19 14:10 03/10/19 14:10 03/10/19 14:10 03/10/19 14:10 03/10/19 14:10 Course - Vital Signs Vital signs: Temp Pulse Resp BP Pulse Ox 98.3 F 58 L 16 101/81 98 03/10/19 14:10 03/10/19 14:10 03/10/19 14:10 03/10/19 14:10 03/10/19 14:10 Doctor's Discharge - Discharge Referrals: EULALIA CHASE DO [Primary Care Provider] - Follow up as needed
[2019-03-10 15:12] LABS: ABSOLUTE BASOPHILS # (AUTO) 0.1 10^3/uL (0.0-0.2); ABSOLUTE LYMPHOCYTES (AUTO) 1.4 10^3/uL (0.5-4.7); ABSOLUTE MONOCYTES (AUTO) 0.3 10^3/uL (0.1-1.4); ABSOLUTE NEUT (AUTO) 2.5 10^3/uL (1.7-8.2); BASOPHILS % (AUTO) 1.2 % (0-2); EOSINOPHILS % (AUTO) 1.1 % (0-6); HEMATOCRIT 38.9 % (36.0-47.0); HEMOGLOBIN 13.2 g/dL (12.0-15.5); LYMPHOCYTES % (AUTO) 32.6 % (13-45); MEAN CORPUSCULAR HEMOGLOBIN 28.8 pg (27.0-33.4); MEAN CORPUSCULAR HGB CONC 33.8 g/dL (32.0-36.0); MEAN CORPUSCULAR VOLUME 85 fl (80-97); MONOCYTES % (AUTO) 7.7 % (3-13); PLATELET COUNT 143 10^3/uL (150-450); RED BLOOD COUNT 4.56 10^6/uL (3.72-5.28); RED CELL DISTRIBUTION WIDTH 16.1 % (11.5-14.0); SEGMENTED NEUTROPHILS % (AUTO) 57.4 % (42-78); TOTAL CELLS COUNTED % (AUTO) 100 %; WHITE BLOOD COUNT 4.3 10^3/uL (4.0-10.5)
--- NOTE | 2019-03-10 15:30 | RADIOLOGY REPORT (SQ) ---
EXAM DESCRIPTION: CHEST SINGLE VIEW COMPLETED DATE/TIME: 03/10/2019 3:11 pm REASON FOR STUDY: shortness of breath COMPARISON: None. EXAM PARAMETERS: NUMBER OF VIEWS: One view. TECHNIQUE: Single frontal radiographic view of the chest acquired. RADIATION DOSE: NA LIMITATIONS: None. FINDINGS: LUNGS AND PLEURA: No opacities, masses or pneumothorax. No pleural effusion. Emphysematou s change. MEDIASTINUM AND HILAR STRUCTURES: No masses. Contour normal. HEART AND VASCULAR STRUCTURES: Heart normal in size. Normal vasculature. BONES: No acute findings. HARDWARE: None in the chest. OTHER: No other significant finding. IMPRESSION: Emphysematous change without evidence of acute cardiopulmonary process. TECHNICAL DOCUMENTATION: JOB ID: [id number] [employer]- All Rights Reserved Reading location - IP/workstation name: [email or web address]
[2019-03-10 15:31] LABS: ALBUMIN 4.1 g/dL (3.5-5.0); ALKALINE PHOSPHATASE 89 U/L (38-126); ANION GAP 9 (5-19); ASPARTATE AMINO TRANSFERASE 31 U/L (14-36); BILIRUBIN,DIRECT 0.4 mg/dL (0.0-0.4); BILIRUBIN,TOTAL 0.5 mg/dL (0.2-1.3); BLOOD UREA NITROGEN 14 mg/dL (7-20); CALCIUM 9.2 mg/dL (8.4-10.2); CARBON DIOXIDE 31 mmol/L (22-30); CHLORIDE 96 mmol/L (98-107); GLUCOSE 117 mg/dL (75-110); TOTAL PROTEIN 7.2 g/dL (6.3-8.2)
--- NOTE | 2019-03-10 15:35 | RADIOLOGY REPORT (SQ) ---
EXAM DESCRIPTION: CT HEAD WITHOUT COMPLETED DATE/TIME: 03/10/2019 3:25 pm REASON FOR STUDY: weakness COMPARISON: 11/23/2018 TECHNIQUE: Axial images acquired through the brain without intravenous contrast. Images reviewed wi th bone, brain and subdural windows. Additional sagittal and coronal reconstructions were generated. Images stored on PACS. All CT scanners at this facility use dose modulation, iterative reconstruction, and/or weight based d osing when appropriate to reduce radiation dose to as low as reasonably achievable (ALARA). [facility]: Dose Right [facility]: CareDose [facility]: Dose Right [facility]: Teradose 4D [facility]: [employer] Interactive RADIATION DOSE: CT Rad equipment meets quality standard of care and radiation dose reduction techniq ues were employed. CTDIvol: 53.2 mGy. DLP: 1044 mGy-cm. mGy. LIMITATIONS: None. FINDINGS: VENTRICLES: Appropriate for patient age. CEREBRUM: No masses. No hemorrhage. No midline shift. Minimal areas of low density in the white ma tter most likely due to chronic micro-vascular ischemic change. No evidence for acute infarction. CEREBELLUM: No masses. No hemorrhage. No alteration of density. No evidence for acute infarction. EXTRAAXIAL SPACES: Mild age-related involutional change. No fluid collections. No masses. ORBITS AND GLOBE: No intra- or extraconal masses. Normal contour of globe without masses. Bilateral cataract surgery. CALVARIUM: No fracture. PARANASAL SINUSES: No fluid or mucosal thickening. SOFT TISSUES: No mass or hematoma. OTHER: No other significant finding. IMPRESSION: Stable chronic changes without evidence of acute intracranial process. EVIDENCE OF ACUTE STROKE: NO. TECHNICAL DOCUMENTATION: JOB ID: [id number] Quality ID # [id number]: Final reports with documentation of one or more dose reduction techniques (e.g., Au tomated exposure control, adjustment of the mA and/or kV according to patient size, use of iterative reconstruction technique) 2010 [employer]- All Rights Reserved Reading location - IP/workstation name: [email or web address]
--- NOTE | 2019-03-10 18:19 | ER Document Report ---
ED Dizziness/Weakness - General Chief Complaint: General Weakness Stated Complaint: DIZZINESS/DIARRHEA/VOMITING Time Seen by Provider: 03/10/19 14:21 Primary Care Provider: EULALIA MONTANA DO [Primary Care Provider] - Follow up as needed Notes: Patient is a 73-year-old female with a history of atrial fibrillation, anxiety, chronic hip pain and leg pain who presents to the emergency department with a chief complaint of generalized weakness. Patient reports she is had generalized weakness since October. Patient reports she is also fallen 11 times within the past year. Patient reports she has not had a fall in the past few weeks. Patient reports that she does feel depressed and very lonely as she did have her earlier in 2018. Patient reports she is had a decreased appetite due to this depression. Patient reports she does not have suicidal or homicidal ideation. She states that "we are gods property and she would never hurt herself." Patient denies nausea, vomiting or diarrhea. Patient reports she is seen her primary care physician Dr. Montana multiple times for the anxiety and depression. She reports she does take Xanax for the anxiety and was placed on antidepressant a few months ago but states that she stopped taking this as it was not helping with her symptoms. Patient reports last time she saw Dr. Montana was a few weeks ago. Patient reports she is also had urinary frequency for 2 weeks. Patient reports that her primary did place her on Bactrim which did not seem to help with her symptoms. Patient reports that she smokes about 1 pack/day which did start in October. Patient reports she has had 3 close family members within the past year including her , son and sister. Patient denies fever. TRAVEL OUTSIDE OF THE [place] IN LAST 30 DAYS: No - Related Data Allergies/Adverse Reactions: No Known Allergies Allergy (Verified 02/26/18 13:58) Past Medical History - General Information source: Patient - Social History Smoking Status: Current Every Day Smoker Frequency of alcohol use: None Drug Abuse: None Lives with: Alone Family History: CAD, COPD, DM, Hypertension, Malignancy Patient has suicidal ideation: No Patient has homicidal ideation: No - Past Medical History Cardiac Medical History: Reports: Hx Atrial Fibrillation, Hx Hypercholesterolemia, Hx Hypertension - contr w/ meds Denies: Hx Heart Attack Pulmonary Medical History: Reports: Hx Asthma, Hx COPD EENT Medical History: Reports: None Neurological Medical History: Reports: None. Denies: Hx Cerebrovascular Accident, Hx Seizures Endocrine Medical History: Reports: None. Denies: Hx Diabetes Mellitus Type 1, Hx Diabetes Mellitus Type 2, Hx Hyperthyroidism, Hx Hypothyroidism Renal/ Medical History: Reports: None. Denies: Hx Peritoneal Dialysis Malignancy Medical History: Reports: None GI Medical History: Reports: None. Denies: Hx Cirrhosis, Hx Crohn's Disease, Hx Hepatitis, Hx Hiatal Hernia, Hx Ulcer, Hx Ulcerative Colitis Musculoskeletal Medical History: Reports None, Denies Hx Arthritis, Denies Hx Fibromyalgia Skin Medical History: Reports None, Denies Hx Eczema, Denies Hx Psoriasis Psychiatric Medical History: Reports: Hx Anxiety, Hx Depression - anxiety Traumatic Medical History: Reports: None Infectious Medical History: Reports: None. Denies: Hx Hepatitis Past Surgical History: Reports: Hx Breast Surgery - bilateral lumpectomy, Hx Hysterectomy. Denies: Hx Mastectomy, Hx Open Heart Surgery, Hx Pacemaker - Immunizations Immunizations up to date: Yes Hx Diphtheria, Pertussis, Tetanus Vaccination: No Review of Systems - Review of Systems Constitutional: See HPI EENT: No symptoms reported Cardiovascular: No symptoms reported Respiratory: No symptoms reported Gastrointestinal: No symptoms reported Genitourinary: See HPI Female Genitourinary: No symptoms reported Musculoskeletal: No symptoms reported Skin: No symptoms reported Hematologic/Lymphatic: No symptoms reported Neurological/Psychological: No symptoms reported Physical Exam - Vital signs Vitals: Temp Pulse Resp BP Pulse Ox 98.3 F 58 L 16 101/81 98 03/10/19 14:10 03/10/19 14:10 03/10/19 14:10 03/10/19 14:10 03/10/19 14:10 Interpretation: Normal - Notes Notes: GENERAL: Well-appearing, well-nourished and in no acute distress. HEAD: Atraumatic, normocephalic. EYES: Pupils equal round and reactive to light, extraocular movements intact, sclera anicteric, conjunctiva are normal. ENT: Nares patent, oropharynx clear without exudates. Moist mucous membranes. NECK: Normal range of motion, supple without lymphadenopathy or JVD. LUNGS: Breath sounds clear to auscultation bilaterally and equal. No wheezes or rales. Scattered rhonchi that does clear with cough. HEART: Regular rate and rhythm without murmurs, rubs or gallops. ABDOMEN: Soft, obese, nontender, normoactive bowel sounds. No guarding, no rebound. No masses appreciated. BACK: No cervical, thoracic, lumbar midline tenderness. No saddle anesthesia, normal distal neurovascular exam. GENITOURINARY: Deferred. EXTREMITIES: Normal range of motion, no pitting or edema. No clubbing or cyanosis. + Scattered ecchymosis noted to bilateral lower extremities. Patient has good flexion-extension of her bilateral feet. Palpable +2 dorsalis pedis and posterior tibial pulses. NEUROLOGICAL: Cranial nerves II through XII grossly intact. Normal speech, normal gait. PSYCH: Normal mood, normal affect. SKIN: Warm, Dry, normal turgor, no rashes or lesions noted. Course - Re-evaluation Re-evalutation: 03/10/19 18:26 On initial evaluation patient is resting comfortably on stretcher. Urinalysis was obtained via the bedpan and will be sent for analysis. Patient reports she feels like she does have a UTI as she is having urinary frequency. Patient reports she was placed on Bactrim 2 weeks ago for a UTI but her symptoms did not improve. Patient denies fever. Patient is tolerating liquids without nausea, vomiting or diarrhea. Patient reports she does feel depressed as she has had 3 close family members over the past year including her . Patient reports she does feel alone. Patient reports her daughter did bring her into the emergency department today for evaluation. Patient reports she has seen her primary care physician multiple times for the depression and anxiety. Patient reports she does take Xa nax for the anxiety and was placed on antidepressant medication a few months ago with no relief. Patient reports she does not currently take anything for her depression. 03/10/19 19:02 Patient's urinalysis was unremarkable without evidence of infection. 03/10/19 19:18 I did discuss the lab results with the patient. Patient reports she does have follow-up with Dr. Montana who is her primary care physician. I did inform her to discuss other possible antidepressant medications as she is only tried one medication a few months ago. I did offer the patient multiple referrals for outpatient therapy as she would like to talk to somebody. Patient reports she is just lonely since having her and just wants to sit down and talk to somebody. Patient reports she does not want any referrals to psychiatry or therapy that she will follow-up with Dr. Montana. Patient once ag osmar denies homicidal or suicidal ideation. We will give patient a dose of her Xanax and Bozman prior to discharge she has not had any of her medication since being here in the emergency department. - Vital Signs Vital signs: Temp Pulse Resp BP Pulse Ox 98.3 F 58 L 16 101/81 98 03/10/19 14:10 03/10/19 14:10 03/10/19 14:10 03/10/19 14:10 03/10/19 14:10 - Laboratory Result Diagrams: 03/10/19 14:58 03/10/19 14:58 Laboratory results interpreted by me: 03/10/19 03/10/19 03/10/19 14:58 14:58 14:58 RDW 16.1 H Plt Count 143 L Sodium 136.4 L Chloride 96 L Carbon Dioxide 31 H Est GFR ( Amer) 52 L Est GFR (MDRD) Non-Af 43 L Glucose 117 H NT-Pro-B Natriuret Pep 745 H Urine Blood 03/10/19 17:45 RDW Plt Count Sodium Chloride Carbon Dioxide Est GFR ( Amer) Est GFR (MDRD) Non-Af Glucose NT-Pro-B Natriuret Pep Urine Blood SMALL H 03/10/19 18:18 Patient's lab work does not show significant leukocytosis. Patient does not have alteration in her electrolytes. Patient has a slightly elevated BNP at 745. Patient did not have any indication of fluid overload or pulmonary congestion via the chest x-ray. Laboratory 03/10/19 03/10/19 03/10/19 14:58 14:58 14:58 WBC 4.3 RBC 4.56 Hgb 13.2 Hct 38.9 MCV 85 MCH 28.8 MCHC 33.8 RDW 16.1 H Plt Count 143 L Lymph % (Auto) 32.6 Crisp % (Auto) 7.7 Eos % (Auto) 1.1 Baso % (Auto) 1.2 Absolute Neuts (auto) 2.5 Absolute Lymphs (auto) 1.4 Absolute Monos (auto) 0.3 Absolute Eos (auto) 0.0 Absolute Basos (auto) 0.1 Seg Neutrophils % 57.4 Sodium 136.4 L Potassium 4.0 Chloride 96 L Carbon Dioxide 31 H Anion Gap 9 BUN 14 Creatinine 1.21 Est GFR ( Amer) 52 L Est GFR (MDRD) Non-Af 43 L Glucose 117 H Calcium 9.2 Total Bilirubin 0.5 Direct Bilirubin 0.4 Neonat Total Bilirubin Not Reportable Neonat Direct Bilirubin Not Reportable Neonat Indirect Bili Not Reportable AST 31 ALT 13 Alkaline Phosphatase 89 NT-Pro-B Natriuret Pep 745 H Total Protein 7.2 Albumin 4.1 03/10/19 18:25 - Diagnostic Test Radiology reviewed: Reports reviewed Radiology results interpreted by me: 03/10/19 18:18 Chest X-Ray 03/10/19 14:25 IMPRESSION: Emphysematous change without evidence of acute cardiopulmonary process. Head CT 03/10/19 14:28 IMPRESSION: Stable chronic changes without evidence of acute intracranial process. EVIDENCE OF ACUTE STROKE: NO. - EKG Interpretation by Me Additional EKG results interpreted by me: 03/10/19 19:27 Patient's EKG shows a sinus rhythm with a heart rate of 54. Patient's AR interv al 132, QT 48 and QTc is 463. Patient is a normal axis deviation without ST segment changes in consecutive leads. Discharge - Discharge Clinical Impression: Anxiety, Tobacco use disorder, severe, dependence, Anxiety and depression, Chronic left hip pain Depression Qualifiers: Depression Type: unspecified Qualified Code(s): F32.9 - Major depressive diso rder, single episode, unspecified Condition: Stable Disposition: HOME, SELF-CARE Additional Instructions: *Today was seen in the emergency department for weakness. We did obtain blood work which is negative for any acute abnormality. You do not have a urinary tract infection at this time. I have sent off a urine culture. You will be notified if you do require oral antibiotics. Please follow-up with Dr. Montana next week. Please make him aware that you do have continued depression which has been present for months. Please return to the emergency department if you develop any new worsening symptoms to include suicidal thoughts or homicidal thoughts. Please continue your home medication regimen as previously prescribed. *Prior to discharge you were given Xanax 1 mg by mouth for anxiety Bozman 5/325 mg by mouth for pain *These are your usual medications that have been prescribed to you by your primary care physician. Please do not take another dose when you get home tonight. Weakness We did not find a definite cause for your weakness. This may require further medical tests. Weakness can be caused by infection, physical exhaustion, rapid weight loss, dehydration, or medicine side effects. Diseases of the muscles, heart, nerves, and blood vessels can make you weak. Sometimes the problem is simply depression or lack of exercise. You should get plenty of rest. Unless the doctor tells you otherwise, it's usually best to add short periods of regular mild exercise. Eat a nutritious di et with multiple small, low-sugar meals. If symptoms continue, additional medical evaluation will be necessary. Be sure to follow up as instructed. If you become very dizzy, nauseated, or feel like you're going to faint, lie down right away. Wait until the symptoms have passed before you get up again. Stand up slowly. Call the doctor or return if you develop chest pain, abdominal pain, severe headache, irregular heartbeat or very fast pulse, confusion, vision problems, fever, muscular pain, or any other new symptom. Anxiety The physician feels that some of your health problems are being caused by anxiety. Anxiety affects your health in many ways. Anxiety alone can cause palpitations, sweats, chest pains, abdominal pains, shortness of breath, and headaches. It contributes to ulcer disease, high blood pressure, irritable bowel syndrome, and has been shown to cause flare-ups of many other diseases. Anxiety is not a simple disorder to treat. If the anxiety is due to recent life stresses, you may simply need time to "work through" the changes. If the anxiety is due to an underlying unhappiness with yourself or due to psychiatric disturbance, professional help will be needed. Your physician can refer you for further help if needed. Anti-anxiety medication is occasionally given if the stress is acute or if you are having trouble sleeping. Chronic or frequent use of these medications is not a good idea because the body becomes reliant on it, preventing you from dealing with life's normal stresses. Depression Your evaluation reveals that you have mental depression. While symptoms may be vague, they often include disturbance of sleep, fatigue, loss of appetite, and general loss of interest in life. While depression may be a side effect of drugs, or a reaction to a major change in your life, many cases have no known cause. If depression is acute, and related to a major loss in your life, you can expect it to clear completely with time. If you have been depressed a long time, are prone to repeated bouts of depression or low mood, or have been thinking of suicide, get help. Depression can be treated with anti-depressant medication and counselling. Long-term depression will often take a few weeks to clear, even with appropriate medication. Follow-up care is important. Contact your physician, the hospital emergency center, crisis line, or your counsellor if you are losing control or having self-destructive thoughts. Forms: Smoking Cessation Education Referrals: EULALIA MONTANA DO [Primary Care Provider] - Follow up as needed
[2019-03-10 18:51] LABS: APPEARANCE,URINE SLIGHTLY-CLOUDY; BILIRUBIN,URINE NEGATIVE (NEGATIVE); COLOR,URINE YELLOW; GLUCOSE, URINE NEGATIVE (NEGATIVE); KETONES,URINE NEGATIVE (NEGATIVE); LEUKOCYTE ESTERASE,URINE NEGATIVE (NEGATIVE); NITRITE,URINE NEGATIVE (NEGATIVE); PROTEIN,URINE NEGATIVE (NEGATIVE); UROBILINOGEN,URINE NEGATIVE mg/dL (<2.0)
[2019-03-10] MEDS ORDERED: HYDROCODONE/ACETAMINOPHEN 5-325 MG TABLET PO ONE (19:19)
[2019-03-10] MEDS ORDERED: ALPRAZOLAM 0.5 MG TABLET PO ONE (19:19)
--- NOTE | 2019-03-10 19:52 | EKG REPORT ---
SEVERITY:- NORMAL ECG - SINUS RHYTHM : Confirmed by: Nikita Dodd MD 10-Mar-2019 19:51:14
[2019-03-10 20:08] VITALS: BP 115/55
== END 2019-03-10 20:03 | disposition home or self-care (01) ==
LOC: ER 13:33
DX: R53.1 Weakness (principal); R19.7 Diarrhea, unspecified; R11.10 Vomiting, unspecified; R35.0 Frequency of micturition; G89.29 Other chronic pain; M25.552 Pain in left hip; F41.9 Anxiety disorder, unspecified; F32.9 Major depressive disorder, single episode, unspecified; F17.210 Nicotine dependence, cigarettes, uncomplicated; I48.91 Unspecified atrial fibrillation; E78.00 Pure hypercholesterolemia, unspecified; I10 Essential (primary) hypertension; Z90.710 Acquired absence of both cervix and uterus
CPT/HCPCS: 93005; 99284; 36415; 87086; 85025; 80053; 81001; 83880; 71045; 70450; 93010; A9270 ×2

== ENCOUNTER 2019-03-22 12:57 | Emergency (ER) | payer MEDICARE ==
[2019-03-22] MEDS ORDERED: HYDROCODONE/ACETAMINOPHEN 5-325 MG TABLET PO ONE (14:14)
--- NOTE | 2019-03-22 14:16 | ER Document Report ---
ED Medical Screen (RME) - General Chief Complaint: Fall Stated Complaint: SHOULDER PAIN/FALL INJURY Time Seen by Provider: 03/22/19 14:05 Primary Care Provider: EULALIA CHASE DO [Primary Care Provider] - Follow up as needed Mode of Arrival: Wheelchair Notes: Patient presents complaining of multiple falls. Patient states he last fell 3 days ago. Patient states that she laid in the floor for about 30 minutes before she was able to physically get up. Patient complains of low back pain, left breast pain, left rib pain, bilateral hip pain, left shoulder and upper arm pain. Patient with ecchymosis over the left clavicular area. Patient denies any headache or loss of consciousness although does take Eliquis for atrial fibrillation. Patient states that she lives alone and does not have any family who can help her. Patient states that she does take alprazolam as well as hydrocodone and is requesting for both of these at this time. Patient states she ran out of her hydrocodone. Review of prescriptions demonstrates she had a month supply filled on 02/22/2019. I have greeted and performed a rapid initial assessment of this patient. A comprehensive ED assessment and evaluation of the patient, analysis of test results and completion of the medical decision making process will be conducted by additional ED providers. TRAVEL OUTSIDE OF THE [place] IN LAST 30 DAYS: No - Related Data Allergies/Adverse Reactions: No Known Allergies Allergy (Verified 03/22/19 14:03) Past Medical History - Past Medical History Cardiac Medical History: Reports: Hx Atrial Fibrillation, Hx Hypercholesterolemia, Hx Hypertension - contr w/ meds Denies: Hx Heart Attack Pulmonary Medical History: Reports: Hx Asthma, Hx COPD Neurological Medical History: Denies: Hx Cerebrovascular Accident, Hx Seizures Endocrine Medical History: Denies: Hx Diabetes Mellitus Type 1, Hx Diabetes Mellitus Type 2, Hx Hyperthyroidism, Hx Hypothyroidism Renal/ Medical History: Denies: Hx Peritoneal Dialysis GI Medical History: Denies: Hx Cirrhosis, Hx Crohn's Disease, Hx Hepatitis, Hx Hiatal Hernia, Hx Ulcer, Hx Ulcerative Colitis Musculoskeltal Medical History: Denies Hx Arthritis, Denies Hx Fibromyalgia Skin Medical History: Denies Hx Eczema, Denies Hx Psoriasis Psychiatric Medical History: Reports: Hx Anxiety, Hx Depression - anxiety Infectious Medical History: Denies: Hx Hepatitis Past Surgical History: Reports: Hx Breast Surgery - bilateral lumpectomy, Hx Hysterectomy. Denies: Hx Mastectomy, Hx Open Heart Surgery, Hx Pacemaker - Immunizations Immunizations up to date: Yes Hx Diphtheria, Pertussis, Tetanus Vaccination: No Physical Exam - Vital signs Vitals: Temp Pulse Resp BP Pulse Ox 98.9 F 64 20 120/55 L 97 03/22/19 13:59 03/22/19 13:59 03/22/19 13:59 03/22/19 13:59 03/22/19 13:59 - General General appearance: Alert, Anxious Notes: Ecchymosis over left clavicular area, tenderness to left upper arm and left lateral rib area Course - Vital Signs Vital signs: Temp Pulse Resp BP Pulse Ox 98.9 F 64 20 120/55 L 97 03/22/19 13:59 03/22/19 13:59 03/22/19 13:59 03/22/19 13:59 03/22/19 13:59 Doctor's Discharge - Discharge Referrals: EULALIA CHASE DO [Primary Care Provider] - Follow up as needed
--- NOTE | 2019-03-22 15:08 | RADIOLOGY REPORT (SQ) ---
EXAM DESCRIPTION: CT HEAD WITHOUT COMPLETED DATE/TIME: 03/22/2019 2:55 pm REASON FOR STUDY: fall, takes eliquis COMPARISON: 03/10/2019. TECHNIQUE: Axial images acquired through the brain without intravenous contrast. Images reviewed wi th bone, brain and subdural windows. Additional sagittal and coronal reconstructions were generated. Images stored on PACS. All CT scanners at this facility use dose modulation, iterative reconstruction, and/or weight based d osing when appropriate to reduce radiation dose to as low as reasonably achievable (ALARA). [facility]: Dose Right [facility]: CareDose [facility]: Dose Right [facility]: Teradose 4D [facility]: Think Global RADIATION DOSE: CT Rad equipment meets quality standard of care and radiation dose reduction techniq ues were employed. CTDIvol: 53.2 mGy. DLP: 1070 mGy-cm.mGy. LIMITATIONS: None. FINDINGS: VENTRICLES: Prominent. CEREBRUM: No masses. No hemorrhage. No midline shift. Areas of low density in the white matter mos t likely due to chronic micro-vascular ischemic change. No evidence for acute infarction. CEREBELLUM: No masses. No hemorrhage. No alteration of density. No evidence for acute infarction. EXTRAAXIAL SPACES: Age-related involutional change. No fluid collections. No masses. ORBITS AND GLOBE: No intra- or extraconal masses. Normal contour of globe without masses. CALVARIUM: No fracture. PARANASAL SINUSES: No fluid or mucosal thickening. SOFT TISSUES: No mass or hematoma. OTHER: No other significant finding. IMPRESSION: CHRONIC CHANGES OF ATROPHY AND MICROVASCULAR ISCHEMIA. NO ACUTE PROCESS. EVIDENCE OF ACUTE STROKE: NO. TECHNICAL DOCUMENTATION: JOB ID: [id number] Quality ID # [id number]: Final reports with documentation of one or more dose reduction techniques (e.g., Au tomated exposure control, adjustment of the mA and/or kV according to patient size, use of iterative reconstruction technique) 2010 [employer]- All Rights Reserved Reading location - IP/workstation name: [email or web address]
--- NOTE | 2019-03-22 15:52 | RADIOLOGY REPORT (SQ) ---
EXAM DESCRIPTION: HUMERUS LEFT COMPLETED DATE/TIME: 03/22/2019 3:33 pm REASON FOR STUDY: fall, arm pain COMPARISON: None. NUMBER OF VIEWS: Two views. TECHNIQUE: Two radiographic images were acquired of the left humerus to include elbow and shoulder i n at least one projection. LIMITATIONS: None. FINDINGS: MINERALIZATION: Osteopenia. BONES: No acute fracture or dislocation. SOFT TISSUES: No soft tissue swelling or radiopaque foreign body. OTHER: No other finding. IMPRESSION: No acute osseous abnormality of the left humerus. TECHNICAL DOCUMENTATION: JOB ID: [id number] [employer]- All Rights Reserved Reading location - IP/workstation name: [email or web address]
--- NOTE | 2019-03-22 15:55 | RADIOLOGY REPORT (SQ) ---
EXAM DESCRIPTION: HIP BILATERAL COMPLETED DATE/TIME: 03/22/2019 3:33 pm REASON FOR STUDY: fall,hip pain COMPARISON: None. NUMBER OF VIEWS: Two views. TECHNIQUE: AP pelvis and additional frog-leg view of the right and left hips. LIMITATIONS: None. FINDINGS: MINERALIZATION: Osteopenia. RIGHT HIP: Osteoarthrosis of the femoroacetabular joint. There is no fracture or dislocation. LEFT HIP: Status post SAMUEL. The hardware is in anatomic alignment. There is no periprosthetic fractu re. PUBIS AND ISCHIUM: The ilioischial and iliopectineal lines are intact. There is no diastasis of the pubic symphysis. PELVIS: No fracture. SACRUM: The sacrum is obscured by overlying bowel. SOFT TISSUES: No findings. OTHER: No other finding. IMPRESSION: 1. No acute osseous abnormality of the right hip. 2. Uncomplicated left SAMUEL. TECHNICAL DOCUMENTATION: JOB ID: [id number] [employer]- All Rights Reserved Reading location - IP/workstation name: [email or web address]
--- NOTE | 2019-03-22 15:57 | RADIOLOGY REPORT (SQ) ---
EXAM DESCRIPTION: CHEST 2 VIEWS COMPLETED DATE/TIME: 03/22/2019 3:33 pm REASON FOR STUDY: fall COMPARISON: PA view of the chest from 03/10/2019. EXAM PARAMETERS: NUMBER OF VIEWS: two views TECHNIQUE: PA and lateral views of the chest were obtained. RADIATION DOSE: NA LIMITATIONS: none FINDINGS: LUNGS AND PLEURA: No consolidation, pleural effusion or pneumothorax. MEDIASTINUM AND HILAR STRUCTURES: No mediastinal or hilar contour abnormality. HEART AND VASCULAR STRUCTURES: The cardiac silhouette and pulmonary vasculature are within normal redding its. BONES: Acute nondisplaced fracture of the right posterolateral 9th rib. HARDWARE: None in the chest. OTHER: No other finding. IMPRESSION: Acute nondisplaced fracture of the right posterolateral 9th rib. There is no associated pneumothorax. TECHNICAL DOCUMENTATION: JOB ID: [id number] [employer]- All Rights Reserved Reading location - IP/workstation name: [email or web address]
--- NOTE | 2019-03-22 16:01 | RADIOLOGY REPORT (SQ) ---
EXAM DESCRIPTION: L SPINE WHOLE COMPLETED DATE/TIME: 03/22/2019 3:34 pm REASON FOR STUDY: fall, low back pain COMPARISON: None. NUMBER OF VIEWS: Five views including obliques. TECHNIQUE: AP, lateral, oblique, and sacral radiographic images acquired of the lumbar spine. LIMITATIONS: None. FINDINGS: MINERALIZATION: Osteopenia. SEGMENTATION: There are 5 lumbar-type vertebral bodies. There is no transitional anatomy at the lumb osacral junction. ALIGNMENT: Unchanged grade 1 anterolisthesis of L4 relative to L5. VERTEBRAE: The lumbar vertebral body heights are preserved. There is no fracture DISCS: The intervertebral disc spaces from L2-L3 to L5-S1 are narrowed. POSTERIOR ELEMENTS: Intact. HARDWARE: None in the spine. PARASPINAL SOFT TISSUES: Atherosclerotic calcification of the abdominal aorta. PELVIS: Intact. OTHER: No other finding. IMPRESSION: No acute fracture or malalignment of the lumbar spine. TECHNICAL DOCUMENTATION: JOB ID: [id number] [employer]- All Rights Reserved Reading location - IP/workstation name: [email or web address]
[2019-03-22 16:46] LABS: ABSOLUTE BASOPHILS # (AUTO) 0.1 10^3/uL (0.0-0.2); ABSOLUTE LYMPHOCYTES (AUTO) 1.6 10^3/uL (0.5-4.7); ABSOLUTE MONOCYTES (AUTO) 0.4 10^3/uL (0.1-1.4); ABSOLUTE NEUT (AUTO) 4.5 10^3/uL (1.7-8.2); BASOPHILS % (AUTO) 1.4 % (0-2); EOSINOPHILS % (AUTO) 0.6 % (0-6); HEMATOCRIT 39.4 % (36.0-47.0); HEMOGLOBIN 13.1 g/dL (12.0-15.5); LYMPHOCYTES % (AUTO) 24.1 % (13-45); MEAN CORPUSCULAR HEMOGLOBIN 28.7 pg (27.0-33.4); MEAN CORPUSCULAR HGB CONC 33.2 g/dL (32.0-36.0); MEAN CORPUSCULAR VOLUME 86 fl (80-97); MONOCYTES % (AUTO) 6.2 % (3-13); PLATELET COUNT 226 10^3/uL (150-450); RED BLOOD COUNT 4.57 10^6/uL (3.72-5.28); RED CELL DISTRIBUTION WIDTH 16.9 % (11.5-14.0); SEGMENTED NEUTROPHILS % (AUTO) 67.7 % (42-78); TOTAL CELLS COUNTED % (AUTO) 100 %; WHITE BLOOD COUNT 6.6 10^3/uL (4.0-10.5)
[2019-03-22 17:06] LABS: ALBUMIN 4.3 g/dL (3.5-5.0); ALKALINE PHOSPHATASE 78 U/L (38-126); ANION GAP 8 (5-19); ASPARTATE AMINO TRANSFERASE 22 U/L (14-36); BILIRUBIN,DIRECT 0.3 mg/dL (0.0-0.4); BILIRUBIN,TOTAL 0.7 mg/dL (0.2-1.3); BLOOD UREA NITROGEN 11 mg/dL (7-20); CALCIUM 9.4 mg/dL (8.4-10.2); CARBON DIOXIDE 26 mmol/L (22-30); CHLORIDE 104 mmol/L (98-107); CREATINE KINASE 58 U/L (30-135); GLUCOSE 98 mg/dL (75-110); POTASSIUM 4.1 mmol/L (3.6-5.0); TOTAL PROTEIN 7.5 g/dL (6.3-8.2)
--- NOTE | 2019-03-22 17:07 | ER Document Report ---
ED General - General Chief Complaint: Fall Stated Complaint: SHOULDER PAIN/FALL INJURY Time Seen by Provider: 03/22/19 14:05 Primary Care Provider: EULALIA MONTANA DO [Primary Care Provider] - Follow up tomorrow (call for an appointment for a follow up visit from your emergency department visit) Mode of Arrival: Wheelchair Information source: Patient Notes: 73-year-old female presents emergency department with history of A. fib chronic hip pain chronic, left shoulder pain, left upper arm pain post fall. She does take Eliquis for atrial fibrillation. She reports she fell a couple days ago took her 30 minutes to get up. She denies change in LOC. She reports she was alone. Patient reports her grandson is now living with her. Patient also reports that she ran out of her alprazolam as well as her hydrocodone. She reports she takes alprazolam for her nerves and the hydrocodone for her chronic hip pain. Patient reports that she dropped a couple of the pills on the floor and that is why she ran out of her alprazolam. Patient reports she has been cutting the pills in half. She denies fever vomiting diarrhea. She reports her left shoulder has hurt for a long time since she fell back in July. She has been evaluated by her primary care provider Dr. Montana. She has not followed up with orthopedic for the pain. 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 She reports she felt a pop and the next thing she knows she has a raymond in her hip. Patient reports she has been falling a lot lately. Denies dizziness at this time. Patient is very teary-eyed. Reports she has lost 3 family members this year. She reports her and she took care of him for 15 years. TRAVEL OUTSIDE OF THE [place] IN LAST 30 DAYS: No - HPI Onset: Other Onset/Duration: Persistent Quality of pain: Achy Severity: Severe Associated symptoms: None. denies: Chest pain, Headache, Nausea, Vomiting Exacerbated by: Movement Relieved by: Denies Similar symptoms previously: Yes Recently seen / treated by doctor: No - Related Data Allergies/Adverse Reactions: No Known Allergies Allergy (Verified 03/22/19 14:03) Past Medical History - General Information source: Patient - Social History Smoking Status: Current Every Day Smoker Cigarette use (# per day): Yes Frequency of alcohol use: None Drug Abuse: None Lives with: Family - Patient reports grandson living with her now Family History: CAD, COPD, DM, Hypertension, Malignancy Patient has suicidal ideation: No Patient has homicidal ideation: No - Past Medical History Cardiac Medical History: Reports: Hx Atrial Fibrillation, Hx Hypercholesterolemia, Hx Hypertension - contr w/ meds Denies: Hx Heart Attack Pulmonary Medical History: Reports: Hx Asthma, Hx COPD Neurological Medical History: Denies: Hx Cerebrovascular Accident, Hx Seizures Endocrine Medical History: Denies: Hx Diabetes Mellitus Type 1, Hx Diabetes Mellitus Type 2, Hx Hyperthyroidism, Hx Hypothyroidism Renal/ Medical History: Denies: Hx Peritoneal Dialysis GI Medical History: Denies: Hx Cirrhosis, Hx Crohn's Disease, Hx Hepatitis, Hx Hiatal Hernia, Hx Ulcer, Hx Ulcerative Colitis Musculoskeletal Medical History: Denies Hx Arthritis, Denies Hx Fibromyalgia Skin Medical History: Denies Hx Eczema, Denies Hx Psoriasis Psychiatric Medical History: Reports: Hx Anxiety, Hx Depression - anxiety Infectious Medical History: Denies: Hx Hepatitis Past Surgical History: Reports: Hx Breast Surgery - bilateral lumpectomy, Hx Hysterectomy. Denies: Hx Mastectomy, Hx Open Heart Surgery, Hx Pacemaker - Immunizations Immunizations up to date: Yes Hx Diphtheria, Pertussis, Tetanus Vaccination: No Review of Systems - Review of Systems Notes: Review HPI for review of systems., All other systems negative Physical Exam - Vital signs Vitals: Temp Pulse Resp BP Pulse Ox 98.9 F 64 20 120/55 L 97 03/22/19 13:59 03/22/19 13:59 03/22/19 13:59 03/22/19 13:59 03/22/19 13:59 - General General appearance: Alert, Anxious In distress: None - HEENT Head: Normocephalic Eyes: Normal Conjunctiva: Normal Extraocular movements intact: Yes Pupils: PERRL Neck: Normal, Supple. No: Lymphadenopathy - Respiratory Respiratory status: No respiratory distress Chest status: Tender - Complains of chest tenderness to palpation, Ecchymosis - Left clavicle Breath sounds: Normal Chest palpation: Normal - Cardiovascular Rhythm: Regular Heart sounds: Normal auscultation Murmur: No - Abdominal Inspection: Normal Tenderness: Nontender - Extremities General upper extremity: Tender - left shoulder ttp, Normal ROM General lower extremity: Normal ROM Shoulder: Tender, Limited ROM - left shoulder ttp Hand: Tender, Other - left hand skin tear noted dorsally - Neurological Neuro grossly intact: Yes Cognition: Normal Orientation: AAOx4 Luis Carlos Coma Scale Eye Opening: Spontaneous [place] Coma Scale Verbal: Oriented [place] Coma Scale Motor: Obeys Commands Luis Carlos Coma Scale Total: 15 Speech: Normal - Psychological Associated symptoms: Normal affect, Normal mood, Tearful - Skin Skin Temperature: Warm Skin Moisture: Dry Course - Re-evaluation Re-evalutation: 03/22/19 17:29 73-year-old female with history of A. fib chronic hip and shoulder pain presents emergency department post fall 3 days ago. Reports she fell took her 30 minutes to get up. She did not lose consciousness. She did not hit her head. She reports she was alone at the time. She now has her grandson living with her. Patient is very emotional very teary-eyed reports she has lost 3 family members this year. Reports she is very nervous and takes alprazolam for the nerves and also smokes. Patient seems insulted when I talked with her about the smoking. Patient also reports she takes hydrocodone for her chronic pain. She has been out of the hydrocodone since Wednesday. Son-in-law is sitting at the bedside. I discussed concerns over medications and smoking and possible connection with her falling due to the medications. Patient becomes very insulted and defensive. We discussed my concern about her living alone. She reports her grandson is with him now but she is not sure how long he will be there. I discussed community resources with her. Patient reports she lives in [facility] and she is not sure they provide anything. Patient was instructed on her fractured rib. She was instructed on the importance of cough deep breathe. She was instructed on possible pneumonia and to keep an eye on her breathing fever return for concerns. She verbalized understanding but seemed very irritated with me. Labs unremarkable. Hematuria noted. Review of previous visits notes hematuria and patient is taking Eliquis. Chest x-ray noted fractured rib. Patient was instructed on all results. Instructed again on the portance of cough and deep breathing. [place] controlled substance reporting system reviewed which shows patient has had a monthly prescription of [place] for very long time since at least 2018. Patient was prescribed [place] dispense pack. Concern over withdrawal. Her son-in-law is with her. he denied any questions. Patient's grandson will be living with her which makes me feel better because I am concerned over her safety. I did try to discuss this with patient and she became more irritated with me. instrumentation manager was consulted to follow-up with patient for social needs. Laboratory 03/22/19 03/22/19 03/22/19 15:50 15:50 15:50 WBC 6.6 RBC 4.57 Hgb 13.1 Hct 39.4 MCV 86 MCH 28.7 MCHC 33.2 RDW 16.9 H Plt Count 226 Lymph % (Auto) 24.1 [place] % (Auto) 6.2 Eos % (Auto) 0.6 Baso % (Auto) 1.4 Absolute Neuts (auto) 4.5 Absolute Lymphs (auto) 1.6 Absolute Monos (auto) 0.4 Absolute Eos (auto) 0.0 Absolute Basos (auto) 0.1 Seg Neutrophils % 67.7 Sodium 137.6 Potassium 4.1 Chloride 104 Carbon Dioxide 26 Anion Gap 8 BUN 11 Creatinine 0.95 Est GFR ( Amer) > 60 Est GFR (MDRD) Non-Af 57 L Glucose 98 Calcium 9.4 Total Bilirubin 0.7 Direct Bilirubin 0.3 Neonat Total Bilirubin Not Reportable Neonat Direct Bilirubin Not Reportable Neonat Indirect Bili Not Reportable AST 22 ALT 11 Alkaline Phosphatase 78 Creatine Kinase 58 Troponin I < 0.012 Total Protein 7.5 Albumin 4.3 Urine Color Urine Appearance Urine pH Ur Specific [place] Urine Protein Urine Glucose (UA) Urine Ketones Urine Blood Urine Nitrite Urine Bilirubin Urine Urobilinogen Ur Leukocyte Esterase Urine WBC (Auto) Urine RBC (Auto) Urine Bacteria (Auto) Squamous Epi Cells Auto Calcium Oxalate Cr Auto Urine Mucus (Auto) Urine Ascorbic Acid 03/22/19 15:50 WBC RBC Hgb Hct MCV MCH MCHC RDW Plt Count Lymph % (Auto) [place] % (Auto) Eos % (Auto) Baso % (Auto) Absolute Neuts (auto) Absolute Lymphs (auto) Absolute Monos (auto) Absolute Eos (auto) Absolute Basos (auto) Seg Neutrophils % Sodium Potassium Chloride Carbon Dioxide Anion Gap BUN Creatinine Est GFR ( Amer) Est GFR (MDRD) Non-Af Glucose Calcium Total Bilirubin Direct Bilirubin Neonat Total Bilirubin Neonat Direct Bilirubin Neonat Indirect Bili AST ALT Alkaline Phosphatase Creatine Kinase Troponin I Total Protein Albumin Urine Color SHARON Urine Appearance CLEAR Urine pH 6.0 Ur Specific [place] 1.020 Urine Protein 30 H Urine Glucose (UA) NEGATIVE Urine Ketones NEGATIVE Urine Blood MODERATE H Urine Nitrite NEGATIVE Urine Bilirubin NEGATIVE Urine Urobilinogen 2.0 H Ur Leukocyte Esterase NEGATIVE Urine WBC (Auto) 10 Urine RBC (Auto) 1 Urine Bacteria (Auto) 3+ Squamous Epi Cells Auto 2 Calcium Oxalate Cr Auto TOO NUMEROUS TO CNT Urine Mucus (Auto) OCC Urine Ascorbic Acid NEGATIVE 03/22/19 17:30 Chest X-Ray 03/22/19 14:12 IMPRESSION: Acute nondisplaced fracture of the right posterolateral 9th rib. There is no associated pneumothorax. Head CT 03/22/19 14:12 IMPRESSION: CHRONIC CHANGES OF ATROPHY AND MICROVASCULAR ISCHEMIA. NO ACUTE PROCESS. EVIDENCE OF ACUTE STROKE: NO. Hip X-Ray 03/22/19 14:13 IMPRESSION: 1. No acute osseous abnormality of the right hip. 2. Uncomplicated left SAMUEL. Humerus X-Ray 03/22/19 14:13 IMPRESSION: No acute osseous abnormality of the left humerus. Lumbar Spine X-Ray 03/22/19 14:16 IMPRESSION: No acute fracture or malalignment of the lumbar spine. 03/22/19 19:40 - Vital Signs Vital signs: Temp Pulse Resp BP Pulse Ox 98.6 F 68 18 178/63 H 95 03/22/19 17:16 03/22/19 17:16 03/22/19 17:16 03/22/19 17:16 03/22/19 17:16 - Laboratory Result Diagrams: 03/22/19 15:50 03/22/19 15:50 Laboratory results interpreted by me: 03/22/19 03/22/19 03/22/19 15:50 15:50 15:50 RDW 16.9 H Est GFR (MDRD) Non-Af 57 L Urine Protein 30 H Urine Blood MODERATE H Urine Urobilinogen 2.0 H - Diagnostic Test Radiology reviewed: Image reviewed, Reports reviewed - EKG Interpretation by Ny EKG shows normal: Sinus rhythm Rate: Normal Rhythm: NSR When compared to previous EKG there are: No significant change Additional EKG results interpreted by me: 03/22/19 17:[address] elevation no T wave inversion Discharge - Discharge Clinical Impression: Fall Qualifiers: Encounter type: initial encounter Qualified Code(s): W19.XXXA - Unspecified fall, initial encounter Fracture, rib Qualifiers: Encounter type: initial encounter Rib fracture type: single rib Fracture type: closed Laterality: right Qualified Code(s): S22.31XA - Fracture of one rib, right side, initial encounter for closed fracture Condition: Stable Disposition: HOME, SELF-CARE Instructions: Oral Narcotic Medication ([facility]), Rib Injuries and Fractures ([facility]) Additional Instructions: *You have been evaluated for fall, fractured right 9th rib *Cough and deep breathe at least once an hour *Take medication as prescribed *Follow-up with Dr. Montana tomorrow. *Return to ED for worsening condition, changes, needs Monitor your blood pressure. Your blood pressure was elevated today. This may be because you were anxious, in pain or because you need medication. It is important to follow up with your primary care provider for full evaluation. Forms: Smoking Cessation Education, Elevated Blood Pressure Referrals: EULALIA MONTANA DO [Primary Care Provider] - Follow up tomorrow (call for an appointment for a follow up visit from your emergency department visit)
[2019-03-22 17:17] VITALS: BP 178/63
[2019-03-22 17:24] LABS: CALCIUM OXALATE CRYSTALS,URINE TOO NUMEROUS TO CNT /HPF
[2019-03-22 17:25] LABS: APPEARANCE,URINE CLEAR; BILIRUBIN,URINE NEGATIVE (NEGATIVE); COLOR,URINE AMBER; GLUCOSE, URINE NEGATIVE (NEGATIVE); KETONES,URINE NEGATIVE (NEGATIVE); LEUKOCYTE ESTERASE,URINE NEGATIVE (NEGATIVE); NITRITE,URINE NEGATIVE (NEGATIVE); PROTEIN,URINE 30 mg/dL (NEGATIVE)
[2019-03-22] MEDS ORDERED: HYDROCODONE/ACETAMINOPHEN 5-325 MG (6 TAB/ER DISP) PO PRN (17:48)
--- NOTE | 2019-03-23 01:02 | EKG REPORT ---
SEVERITY:- NORMAL ECG - SINUS RHYTHM : Confirmed by: Lindsey Meng MD 23-Mar-2019 01:01:56
== END 2019-03-22 17:50 | disposition home or self-care (01) ==
LOC: ER 12:57
DX: S22.31XA Fracture of one rib, right side, initial encounter for closed fracture (principal); R07.9 Chest pain, unspecified; M25.512 Pain in left shoulder; M79.602 Pain in left arm; W19.XXXA Unspecified fall, initial encounter; Y92.009 Unspecified place in unspecified non-institutional (private) residence as the place of occurrence of the external cause; R31.9 Hematuria, unspecified; I48.91 Unspecified atrial fibrillation; G89.29 Other chronic pain; M25.559 Pain in unspecified hip; F17.210 Nicotine dependence, cigarettes, uncomplicated; E78.00 Pure hypercholesterolemia, unspecified; I10 Essential (primary) hypertension; Z91.81 History of falling; Z79.01 Long term (current) use of anticoagulants; Z90.710 Acquired absence of both cervix and uterus
CPT/HCPCS: 93005; 99284; 36415; 82550; 85025; 80053; 81001; 84484; 71046; 73060; 72110; 73522; 70450; 93010; A9270 ×2

== ENCOUNTER 2019-03-25 20:53 | Inpatient (IN) | payer MEDICARE ==
[2019-03-25] MEDS ORDERED: DILTIAZEM HCL INJ 25 MG/5 ML VIAL IV ONE (21:49)
[2019-03-25] MEDS ORDERED: NORMAL SALINE 500 ML IV ONE (21:49)
--- NOTE | 2019-03-25 21:56 | ER Document Report ---
ED General - General Chief Complaint: Suicidal Ideation Stated Complaint: SUICIDAL IDEATION Primary Care Provider: EULALIA CHASE DO [Primary Care Provider] - Follow up as needed Mode of Arrival: Stretcher Information source: Patient Notes: 3-year-old female arrives with chief complaint of having fast heart rate for the past 3 days but worse tonight. Also she has had suicidal ideation for several weeks but worse today. Her 1 year ago and she has been despondent about that but what really makes her angry is her daughter son-in-law and grandchildren that come to the house and fuss and fight in her home. Also patient fell at home 3 days ago and was seen at [facility] for a fractured left shoulder. She takes Eloquis and atenolol. 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 Patient arrives with a laceration to her right wrist which she reports she used some sewing needles to accomplish this. Patient has been a cigarette smoker 1 pack/day since she was 10 years old and has paroxysmal cough that is chronic." TRAVEL OUTSIDE OF THE [place] IN LAST 30 DAYS: No - HPI Onset: Just prior to arrival Onset/Duration: Gradual Quality of pain: Achy Severity: Mild Pain Level: 1 Associated symptoms: Nonproductive cough Exacerbated by: Coughing Relieved by: Remaining still Similar symptoms previously: Yes Recently seen / treated by doctor: Yes - Related Data Allergies/Adverse Reactions: No Known Allergies Allergy (Verified 03/22/19 14:03) Past Medical History - General Information source: Patient - Social History Smoking Status: Current Every Day Smoker Cigarette use (# per day): Yes Chew tobacco use (# tins/day): No Smoking Education Provided: Yes Frequency of alcohol use: None Drug Abuse: None Lives with: Family Family History: CAD, COPD, DM, Hypertension, Malignancy Patient has suicidal ideation: Yes Patient has homicidal ideation: No - Past Medical History Cardiac Medical History: Reports: Hx Atrial Fibrillation, Hx Hypercholesterolemia, Hx Hypertension - contr w/ meds Denies: Hx Heart Attack Pulmonary Medical History: Reports: Hx Asthma, Hx COPD Neurological Medical History: Denies: Hx Cerebrovascular Accident, Hx Seizures Endocrine Medical History: Denies: Hx Diabetes Mellitus Type 1, Hx Diabetes Mellitus Type 2, Hx Hyperthyroidism, Hx Hypothyroidism Renal/ Medical History: Denies: Hx Peritoneal Dialysis GI Medical History: Denies: Hx Cirrhosis, Hx Crohn's Disease, Hx Hepatitis, Hx Hiatal Hernia, Hx Ulcer, Hx Ulcerative Colitis Musculoskeletal Medical History: Denies Hx Arthritis, Denies Hx Fibromyalgia Skin Medical History: Denies Hx Eczema, Denies Hx Psoriasis Psychiatric Medical History: Reports: Hx Anxiety, Hx Depression - anxiety Infectious Medical History: Denies: Hx Hepatitis Past Surgical History: Reports: Hx Breast Surgery - bilateral lumpectomy, Hx Hysterectomy. Denies: Hx Mastectomy, Hx Open Heart Surgery, Hx Pacemaker - Immunizations Immunizations up to date: Yes Hx Diphtheria, Pertussis, Tetanus Vaccination: No Review of Systems - Review of Systems Constitutional: No symptoms reported EENT: No symptoms reported Cardiovascular: Chest pain, Palpitations, Heart racing, Dizziness, Lightheaded, Other - Oozing of left anterior chest left upper extremity Respiratory: Cough Gastrointestinal: No symptoms reported Genitourinary: No symptoms reported Musculoskeletal: Muscle pain, Muscle stiffness Skin: Other - Notable senile purpura and abrasions noted; reports she fell in her shower and sustained fracture of her left upper extremity 3 days ago. Physical Exam - Vital signs Vitals: Resp 14 03/25/19 21:36 Interpretation: Tachycardic - General General appearance: Appears well, Alert In distress: None - HEENT Head: Normocephalic Eyes: Pale conjunctiva Conjunctiva: Normal Cornea: Normal Extraocular movements intact: Yes Eyelashes: Normal Pupils: PERRL Pharynx: Normal Neck: Normal - Respiratory Respiratory status: No respiratory distress, Other - Speech is near understandable and full sentences - Cardiovascular Rhythm: Irregularly irregular, Tachycardia Heart sounds: Normal auscultation Murmur: Yes Friction rub: No Jona's crunch: No - Abdominal Inspection: Normal Distension: No distension - Neurological Neuro grossly intact: Yes Cognition: Normal Orientation: AAOx4 [place] Coma Scale Eye Opening: Spontaneous [place] Coma Scale Verbal: Oriented [place] Coma Scale Motor: Obeys Commands Luis Carlos Coma Scale Total: 15 Speech: Normal Cranial nerves: Normal Cerebellar coordination: Normal Additional motor exam normals: Equal manager fleet - Psychological Associated symptoms: Anxious, Depressed, Restlessness - Skin Skin Temperature: Warm Skin Color: Ecchymosis, Other - Senile purpura as well as multiple abrasions Skin irregularity: Laceration - To right dorsal wrist approximately 3 cm length; this required Dermabond and nursing care Course - Vital Signs Vital signs: Temp Pulse Resp BP Pulse Ox 20 140/53 H 95 03/26/19 05:01 03/26/19 04:46 03/26/19 05:01 - Laboratory Result Diagrams: 03/25/19 21:49 03/26/19 01:20 Laboratory results interpreted by me: 03/25/19 03/25/19 03/25/19 21:49 21:49 22:59 WBC 13.2 H RDW 16.8 H Lymph % (Auto) 10.3 L Absolute Neuts (auto) 10.5 H Seg Neutrophils % 79.9 H PT 16.3 H Carbonic Acid 0.91 L ABG pH 7.48 H ABG pCO2 30.1 L Potassium Glucose Total Protein Urine Protein Urine Ketones Urine Blood Urine Urobilinogen Ur Leukocyte Esterase Salicylates Acetaminophen 03/26/19 03/26/19 00:13 01:20 WBC RDW Lymph % (Auto) Absolute Neuts (auto) Seg Neutrophils % PT Carbonic Acid ABG pH ABG pCO2 Potassium 2.9 L* Glucose 122 H Total Protein 6.2 L Urine Protein 100 H Urine Ketones 20 H Urine Blood MODERATE H Urine Urobilinogen 2.0 H Ur Leukocyte Esterase TRACE H Salicylates < 1.0 L Acetaminophen < 10 L - Diagnostic Test Radiology reviewed: Reports reviewed - EKG Interpretation by Me EKG shows normal: Sinus rhythm Rate: Tachycardia Procedures - Laceration/Wound Repair Right Wrist Time completed: 02:00 Wound length (cm): 3 Wound's Depth, Shape: Linear Laceration pre-procedure: Other - Saline cleansing Anesthetic type: Other - None Irrigated w/ Saline (mLs): 5 Wound Repaired With: Dermabond Critical Care Note - Critical Care Note Total time excluding time spent on procedures (mins): 90 Comments: Discussed this case with Dr. Cline at 0 315 and he advised admission observation. Patient had nausea and had a troponin of 0.101 with potassium 2.9 and I discussed this case with Dr. Linda at 0 328 and he advises repeat troponin.. P troponin was similar. I again discussed this with Dr. Linda and he advised telemetry bed Discharge - Discharge Clinical Impression: Atrial fibrillation with RVR, Anxiety and depression, Suicidal ideations, Tear of skin of right wrist, Elevated troponin Condition: Fair Disposition: ADMITTED INPATIENT Admitting Provider: Alexei (Hospitalist) Unit Admitted: Telemetry Referrals: EULALIA CHASE DO [Primary Care Provider] - Follow up as needed
[2019-03-25 21:58] LABS: ABSOLUTE BASOPHILS # (AUTO) 0.1 10^3/uL (0.0-0.2); ABSOLUTE LYMPHOCYTES (AUTO) 1.4 10^3/uL (0.5-4.7); ABSOLUTE MONOCYTES (AUTO) 1.2 10^3/uL (0.1-1.4); ABSOLUTE NEUT (AUTO) 10.5 10^3/uL (1.7-8.2); BASOPHILS % (AUTO) 0.4 % (0-2); EOSINOPHILS % (AUTO) 0.1 % (0-6); HEMATOCRIT 40.5 % (36.0-47.0); HEMOGLOBIN 13.7 g/dL (12.0-15.5); LYMPHOCYTES % (AUTO) 10.3 % (13-45); MEAN CORPUSCULAR HEMOGLOBIN 28.9 pg (27.0-33.4); MEAN CORPUSCULAR HGB CONC 33.8 g/dL (32.0-36.0); MEAN CORPUSCULAR VOLUME 86 fl (80-97); MONOCYTES % (AUTO) 9.3 % (3-13); PLATELET COUNT 276 10^3/uL (150-450); RED BLOOD COUNT 4.73 10^6/uL (3.72-5.28); RED CELL DISTRIBUTION WIDTH 16.8 % (11.5-14.0); SEGMENTED NEUTROPHILS % (AUTO) 79.9 % (42-78); TOTAL CELLS COUNTED % (AUTO) 100 %; WHITE BLOOD COUNT 13.2 10^3/uL (4.0-10.5)
[2019-03-25 22:17] LABS: PROTHROMBIN TIME 16.3 SEC (11.4-15.4)
[2019-03-25] MEDS ORDERED: LABETALOL HCL INJ 20 MG/4 ML DISP.SYRIN IV ONE (22:45)
--- NOTE | 2019-03-25 22:59 | RADIOLOGY REPORT (SQ) ---
EXAM DESCRIPTION: XR CHEST 1 VIEW COMPLETED DATE/TME: 03/25/2019 21:47 CLINICAL HISTORY: 73 years, Female, tachycardia COMPARISON: March 22, 2019 NUMBER OF VIEWS: 2 TECHNIQUE: AP lateral LIMITATIONS: None. FINDINGS: Cardiomediastinal silhouette is prominent. No consolidation or edema. No effusion or pneumothorax. IMPRESSION: No active intrathoracic disease copyright 2011 [employer]- All Rights Reserved
[2019-03-25 23:11] LABS: ARTERIAL BLOOD BASE EXCESS -0.4 mmol/L; ARTERIAL BLOOD H2CO3 0.91 mmol/L (1.05-1.35); ARTERIAL BLOOD HCO3 22.1 mmol/L (20-24); ARTERIAL BLOOD O2 SATURATION 97.9 % (94-98); ARTERIAL BLOOD PCO2 30.1 mmHg (35-45); ARTERIAL BLOOD PH 7.48 (7.35-7.45); ARTERIAL BLOOD PO2 97.4 mmHg (80-100)
[2019-03-25 23:13] LABS: ARTERIAL BLOOD FIO2 ROOM AIR
[2019-03-26 00:46] LABS: APPEARANCE,URINE SLIGHTLY-CLOUDY; BILIRUBIN,URINE NEGATIVE (NEGATIVE); COLOR,URINE AMBER; GLUCOSE, URINE NEGATIVE (NEGATIVE); KETONES,URINE 20 mg/dL (NEGATIVE); LEUKOCYTE ESTERASE,URINE TRACE (NEGATIVE); NITRITE,URINE NEGATIVE (NEGATIVE); PROTEIN,URINE 100 mg/dL (NEGATIVE); URINE SPECIFIC GRAVITY 1.015
[2019-03-26 00:51] LABS: URINE AMPHETAMINES SCREEN NEGATIVE; URINE BARBITURATES SCREEN NEGATIVE; URINE COCAINE SCREEN NEGATIVE; URINE MARIJUANA (THC) SCREEN NEGATIVE; URINE METHADONE SCREEN NEGATIVE; URINE PHENCYCLIDINE SCREEN NEGATIVE
[2019-03-26 00:56] LABS: URINE BENZODIAZEPINES SCREEN UNCONFIRMED POSITIVE
[2019-03-26 02:56] LABS: ALBUMIN 3.5 g/dL (3.5-5.0); ALKALINE PHOSPHATASE 70 U/L (38-126); ANION GAP 10 (5-19); ASPARTATE AMINO TRANSFERASE 24 U/L (14-36); BILIRUBIN,DIRECT 0.3 mg/dL (0.0-0.4); BILIRUBIN,TOTAL 0.5 mg/dL (0.2-1.3); BLOOD UREA NITROGEN 13 mg/dL (7-20); CALCIUM 8.8 mg/dL (8.4-10.2); CARBON DIOXIDE 25 mmol/L (22-30); CHLORIDE 103 mmol/L (98-107); GLUCOSE 122 mg/dL (75-110); TOTAL PROTEIN 6.2 g/dL (6.3-8.2)
[2019-03-26 02:59] LABS: ACETAMINOPHEN < 10 ug/mL (10-30); ALCOHOL < 10 mg/dL (NONE DETECTED); POTASSIUM 2.9 mmol/L (3.6-5.0); SALICYLATE < 1.0 mg/dL (2.0-20.0)
[2019-03-26] MEDS ORDERED: ONDANSETRON HCL INJ/PF 4 MG/2 ML SDV IV ONE (03:23)
[2019-03-26] MEDS ORDERED: POTASSIUM CHLORIDE 10 MEQ TABLET.ER PO ONE ×2 (03:24→14:45)
[2019-03-26] MEDS ORDERED: IPRATROPIUM/ALBUTEROL 0.5-2.5 MG/3 ML AMPUL NEB PRN ×2 (05:23→13:41)
[2019-03-26] MEDS ORDERED: MAG HYDROX/AL HYDROX/SIMETH SUSP 30 ML UDCUP PO PRN (05:23)
[2019-03-26] MEDS ORDERED: NORMAL SALINE 1000 ML 1,000 ML IV PRN ×2 (05:30→13:52)
[2019-03-26] MEDS ORDERED: MIRTAZAPINE 15 MG TABLET PO ONE (06:00)
[2019-03-26] MEDS ORDERED: DILTIAZEM HCL 60 MG TABLET PO SCH (06:00)
[2019-03-26] MEDS: DIAZEPAM 2 MG TABLET PO PRN ×2 (06:10→12:48)
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
[2019-03-26] MEDS: IPRATROPIUM/ALBUTEROL 0.5-2.5 MG/3 ML AMPUL NEB SCH ×2 (09:23→09:31)
[2019-03-26] MEDS ORDERED: APIXABAN 5 MG TABLET PO SCH (10:00)
[2019-03-26] MEDS ORDERED: METOPROLOL TARTRATE 25 MG TABLET PO SCH (10:00)
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
[2019-03-26] MEDS: DOCUSATE SODIUM 100 MG CAPSULE PO SCH ×3 (12:48→18:12)
[2019-03-26] MEDS ORDERED: LORAZEPAM 1 MG TABLET PO PRN (13:55)
[2019-03-26] MEDS: HYDROXYZINE PAMOATE 25 MG CAPSULE PO SCH (15:29)
[2019-03-26] MEDS: POTASSI CL 20 MEQ/50 ML RIDER 20 MEQ/50 ML RTUPB IV SCH ×3 (15:33→22:01)
--- NOTE | 2019-03-26 18:35 | EKG REPORT ---
SEVERITY:- ABNORMAL ECG - SINUS RHYTHM : Confirmed by: Lindsey Meng MD 26-Mar-2019 18:34:39
--- NOTE | 2019-03-26 18:35 | EKG REPORT ---
SEVERITY:- ABNORMAL ECG - ATRIAL FIBRILLATION WITH RAPID V-RATE REPOLARIZATION ABNORMALITY, PROB RATE RELATED : Confirmed by: Lindsey Meng MD 26-Mar-2019 18:34:45
[2019-03-26] MEDS ORDERED: MIRTAZAPINE 15 MG TABLET PO SCH (22:00)
[2019-03-26] MEDS: ATENOLOL 50 MG TABLET PO SCH (22:05)
[2019-03-26] MEDS: APIXABAN 5 MG TABLET PO SCH (22:09)
[2019-03-26] MEDS: SIMVASTATIN 10 MG TABLET PO SCH (22:09)
[2019-03-27] MEDS ORDERED: HYDRALAZINE HCL INJ/PF 20 MG/1 ML SDV IV PRN (02:06)
[2019-03-27 05:41] LABS: HEMATOCRIT 35.4 % (36.0-47.0); HEMOGLOBIN 12.1 g/dL (12.0-15.5); MEAN CORPUSCULAR HGB CONC 34.1 g/dL (32.0-36.0); MEAN CORPUSCULAR VOLUME 85 fl (80-97); PLATELET COUNT 206 10^3/uL (150-450); RED BLOOD COUNT 4.16 10^6/uL (3.72-5.28); RED CELL DISTRIBUTION WIDTH 16.3 % (11.5-14.0)
[2019-03-27 06:00] LABS: ALBUMIN 3.3 g/dL (3.5-5.0); ALKALINE PHOSPHATASE 64 U/L (38-126); ANION GAP 9 (5-19); ASPARTATE AMINO TRANSFERASE 23 U/L (14-36); BILIRUBIN,DIRECT 0.3 mg/dL (0.0-0.4); BILIRUBIN,TOTAL 0.7 mg/dL (0.2-1.3); BLOOD UREA NITROGEN 8 mg/dL (7-20); CALCIUM 8.8 mg/dL (8.4-10.2); CARBON DIOXIDE 21 mmol/L (22-30); CHLORIDE 107 mmol/L (98-107); GLUCOSE 104 mg/dL (75-110); POTASSIUM 4.3 mmol/L (3.6-5.0)
[2019-03-27] MEDS: DOCUSATE SODIUM 100 MG CAPSULE PO SCH ×2 (09:30→17:19)
[2019-03-27] MEDS: SPIRONOLACTONE 25 MG TABLET PO SCH (09:30)
[2019-03-27] MEDS: HYDROXYZINE PAMOATE 25 MG CAPSULE PO SCH (09:30)
[2019-03-27] MEDS: FUROSEMIDE 20 MG TABLET PO SCH (09:30)
[2019-03-27] MEDS: AMLODIPINE BESYLATE 5 MG TABLET PO SCH (09:30)
[2019-03-27] MEDS: ATENOLOL 50 MG TABLET PO SCH ×2 (09:30→21:09)
[2019-03-27] MEDS: APIXABAN 5 MG TABLET PO SCH ×2 (09:30→21:08)
[2019-03-27] MEDS: FLUTICASONE NASAL SPRAY 50 MCG/SPRY 120 SPRAY/16 GM NASL SCH ×2 (09:31→09:34)
[2019-03-27] MEDS ORDERED: FUROSEMIDE 40 MG TABLET PO SCH (10:00)
--- NOTE | 2019-03-27 12:32 | PSYCHOLOGICAL NOTE ---
Psych Note - Psych Note Date seen by psych provider: 03/27/19 Time seen by psych provider: 11:30 Psych Note: Reason For Consult:Suicidal ideation, psychosis Patient asked for her daughter stating that she would like to have a visit with her. She adamantly denies any thoughts of wanting to harm herself. She confirms she did have previous thoughts however denies continued. Patient states that she had originally thought to "sacrifice" herself so her family would not have to worry about her however has come to the decision that she could not go to [facility] even if she did sacrifice herself. Patient continues to discuss concerns indicating paranoia surrounding financial i.e. people trying to steal her 's Social Security to get his money from [place]. Head CT 03/22/2019 Chronic changes of atrophy and microvascular ischemia Medication recommendations per [facility]'s contracted psychiatrist Dr. Deyanira PATE are as follows Please discontinue Lexapro and Vistaril Please decrease Ativan to 0.5 mg twice daily PRN Please add Depakote 250 mg twice daily Please add BuSpar 5 mg every morning and 10 mg nightly Attending physicians are asked to consider to avoid prescribing benzodiazepines (e.g. Ativan, Xanax, Valium, Klonopin), antipsychotics (e.g. Haldol, Geodon, Zyprexa, Seroquel), some sleep aids (e.g. Ambien, Lunesta, Sonata), narcotic pain medications, and high-dose steroids (prednisone) as these have been known to cause and/or increased symptoms of aggression, psychosis and/or paranoia in patients with neurodegenerative processes such as dementia, Alzheimer's disease, traumatic brain injury, etc. Impression\\plan: Patient is recommended for rescind of IVC and is cleared from acute psychiatric services (patient's rescinding paperwork will be put in patient's chart). Patient presents with concerns of suicidal ideation and paranoia. Patient adamantly denies thoughts of wanting to harm herself however still demonstrates paranoia. At this time it appears patient's presentation is medical in nature. Patient has a Head CT on 03/22/2019 which identifies neurodegenerative processes. In the geriatric population, a urinary tract infection can cause acute change in mental status. This can range from agitation, aggression, restlessness to withdrawing, confusion, hallucinations or delusions. There is no history of severe mental health and has only been treated for general anxiety and depression by her PCM, no outpatient mental health provider. There is concern the patient has a dependency on benzodiazepines identified by both her long perscription history and her taking her daughter's medications. Her dependency on benzodiazepines can cause and/or increased symptoms of aggression, psychosis and paranoia. Thank you for this consult; please reconsult if any new concerns arise. Dr. Roberts was consulted to care management of this patient; attending physicians in agreement with recommendations and disposition.
[2019-03-27] MEDS ORDERED: ESCITALOPRAM OXALATE 10 MG TABLET PO SCH (14:00)
[2019-03-27] MEDS ORDERED: DIVALPROEX SODIUM 250 MG TAB.SR.24H PO ONE (14:42)
[2019-03-27] MEDS ORDERED: INFLUENZA QUAD (6MOS+) 2019-20 VAC 0.5 ML SYR IM ONE (14:50)
[2019-03-27] MEDS ORDERED: ALPRAZOLAM 0.5 MG TABLET PO ONE (14:59)
--- NOTE | 2019-03-27 15:06 | PDOC PROGRESS REPORT ---
Subjective Progress Note for:: 03/27/19 Subjective:: I had an extensive conversation with patient and patient's daughter and son-in-law. They have informed me that patient has been taking Xanax 1 mg 3 or more times a day. States that she has been on Xanax been prescribed by Dr. [place] 3 times a day for several years but I was taking it frequently than prescribed in the past several weeks because anxiety worsened that she started to recollect the of her . However, she ran out of her Xanax about a week ago. Since then she has been getting more agitated, more confused and having more episodes of hallucinations. Patient's daughter denies any history of hypertension being very much uncontrolled but does endorse that she does not measure her blood pressure at home. Family concerned with possibly withdrawing from Xanax. Apparently, they took patient to [facility] a few days ago and she was started on hydroxyzine to help with withdrawal symptoms. Daughter is also concerned about possible dementia given patient's forgetfulness and increased episodes of delirium. Patient has not had neuropsychiatric evaluation for this. Reason For Visit: CP,PANIC ATTACK,AFIB Physical Exam Vital Signs: Temp Pulse Resp BP Pulse Ox 98.3 F 71 19 184/79 H 96 03/27/19 12:00 03/27/19 12:00 03/27/19 12:00 03/27/19 12:00 03/27/19 12:00 Intake & Output 03/26/19 03/27/19 03/28/19 06:59 06:59 06:59 Intake Total 500 1110 478 Balance 500 1110 478 Weight 71.214 kg 72 kg 72 kg General appearance: PRESENT: no acute distress, cooperative Head exam: PRESENT: normocephalic Neck exam: ABSENT: JVD Respiratory exam: PRESENT: clear to auscultation jojo, symmetrical, unlabored. ABSENT: tachypnea, wheezes Cardiovascular exam: PRESENT: +S1, +S2. ABSENT: bradycardia, tachycardia GI/Abdominal exam: PRESENT: normal bowel sounds, soft. ABSENT: rebound, rigid, tenderness Neurological exam: PRESENT: alert, awake, oriented to person, oriented to place, oriented to time, other - Patient seems to get very forgetful often repeating what she says, tremulous. ABSENT: oriented to situation Psychiatric exam: PRESENT: anxious. ABSENT: agitated Results Laboratory Results: 03/27/19 05:01 03/27/19 05:01 03/27/19 03/27/19 05:01 05:01 WBC 7.0 RBC 4.16 Hgb 12.1 Hct 35.4 L MCV 85 MCH 29.0 MCHC 34.1 RDW 16.3 H Plt Count 206 Sodium 136.6 L Potassium 4.3 Chloride 107 Carbon Dioxide 21 L Anion Gap 9 BUN 8 Creatinine 0.66 Est GFR ( Amer) > 60 Glucose 104 Calcium 8.8 Total Bilirubin 0.7 AST 23 Alkaline Phosphatase 64 Total Protein 6.0 L Albumin 3.3 L 03/25/19 03/26/19 03/26/19 21:49 01:20 03:50 Troponin I Cancelled 0.101 0.102 03/26/19 09:09 Troponin I 0.068 Impressions: Chest X-Ray 03/25/19 21:47 IMPRESSION: No active intrathoracic disease copyright 2011 [employer]- All Rights Reserved Assessment and Plan - Diagnosis (1) Benzodiazepine withdrawal Qualifiers: Complication of substance-induced condition: uncomplicated Qualified Code(s): F13.230 - Sedative, hypnotic or anxiolytic dependence with withdrawal, uncomplicated Is this a current diagnosis for this admission?: Yes Plan: Patient has been on Xanax 1 mg 3 times daily often taking more frequently for the past several years prescribed by PCP. Patient may be experiencing some benzodiazepine withdrawal as she has been off Xanax for about a week and family now reporting increased agitation, increased frequency of hallucinations, and BP seems elevated. Interestingly patient is not tachycardic but she is on atenolol. I will resume patient's Xanax at 1 mg twice daily--> ultimately, patient will need this very slow taper over several weeks in the outpatient setting to get off Xanax given her chronic use. CIWA monitoring every 4 hours and increase Xanax back to 3 times daily if high CIWAs (2) Anxiety and depression Is this a current diagnosis for this admission?: Yes Plan: Psychiatric consulted and recommends discontinuing Lexapro and Vistaril starting patient on buspirone and Depakote. I resume patient's Xanax at twice daily dosing given chronic benzo dependence (3) Atrial fibrillation with RVR Is this a current diagnosis for this admission?: Yes Plan: RVR has resolved. Continue atenolol and Eliquis (4) Elevated troponin Is this a current diagnosis for this admission?: Yes Plan: Likely secondary to A. fib with RVR, is otherwise asymptomatic, troponin down trended subsequently. (5) Suicidal ideations Is this a current diagnosis for this admission?: Yes Plan: Patient poking her wrist with a needle with potential suicidal ideation. Patient has been evaluated by psychiatry who is recommending resending IVC because of encephalopathy from benzo dependence/withdrawal impacting patient's actions. Patient does not have a urinary tract infection [negative nitrite, trace ketones, no urinary symptoms]. (6) Recurrent falls Is this a current diagnosis for this admission?: Yes Plan: Patient has several ecchymoses on her skin from falls. Polypharmacy likely playing a role in this however discontinuing her Xanax will have to be very slow process over several weeks given her chronic use of benzos. Have discussed risks of major bleed including brain bleed and benefits of stroke prevention while on Eliquis for A. fib in light of recurrent Falls with patient's daughter and patient and they are both opting to stay on Eliquis for now. Family also requesting patient to come home upon discharge when medically cleared and do not want her to go to a residential - Time Time Spent with patient: 25-34 minutes
[2019-03-27] MEDS ORDERED: LORAZEPAM INJ 2 MG/1 ML VIAL IV PRN ×2 (16:52→16:53)
[2019-03-27] MEDS: BUSPIRONE HCL 10 MG TABLET PO SCH (17:19)
[2019-03-27] MEDS: SIMVASTATIN 10 MG TABLET PO SCH (21:09)
[2019-03-27] MEDS: ALPRAZOLAM 0.5 MG TABLET PO SCH (21:09)
[2019-03-27] MEDS: DIVALPROEX SODIUM 250 MG TAB.SR.24H PO SCH (21:09)
[2019-03-27] MEDS ORDERED: ALPRAZOLAM 0.5 MG TABLET PO SCH (22:00)
[2019-03-28] MEDS: ACETAMINOPHEN 325 MG TABLET PO PRN (03:35)
[2019-03-28] MEDS: BUSPIRONE HCL 10 MG TABLET PO SCH ×2 (08:14→17:23)
[2019-03-28] MEDS: DIVALPROEX SODIUM 250 MG TAB.SR.24H PO SCH ×2 (10:28→21:14)
[2019-03-28] MEDS: ALPRAZOLAM 0.5 MG TABLET PO SCH ×2 (10:28→21:16)
[2019-03-28] MEDS: APIXABAN 5 MG TABLET PO SCH ×2 (10:28→21:16)
[2019-03-28] MEDS: DOCUSATE SODIUM 100 MG CAPSULE PO SCH ×2 (10:28→17:23)
[2019-03-28] MEDS: SPIRONOLACTONE 25 MG TABLET PO SCH (10:28)
[2019-03-28] MEDS: FUROSEMIDE 20 MG TABLET PO SCH (10:29)
[2019-03-28] MEDS: ATENOLOL 50 MG TABLET PO SCH ×2 (10:29→21:15)
[2019-03-28] MEDS: AMLODIPINE BESYLATE 5 MG TABLET PO SCH (10:30)
[2019-03-28] MEDS: FLUTICASONE NASAL SPRAY 50 MCG/SPRY 120 SPRAY/16 GM NASL SCH (10:32)
--- NOTE | 2019-03-28 12:40 | PDOC DISCHARGE SUMMARY ---
Impression - Admit/DC Date/PCP Admission Date/Primary Care Provider: 03/26/19 05:25 EULALIA MONTANA, DO Discharge Date: 03/28/19 - Discharge Diagnosis (1) Benzodiazepine withdrawal Is this a current diagnosis for this admission?: Yes (2) Persistent atrial fibrillation with rapid ventricular response Is this a current diagnosis for this admission?: Yes (3) Anxiety and depression Is this a current diagnosis for this admission?: Yes (4) Elevated troponin Is this a current diagnosis for this admission?: Yes (5) Suicidal ideations Is this a current diagnosis for this admission?: Yes (6) Recurrent falls Is this a current diagnosis for this admission?: Yes - Assessment Summary: Patient presented with significant anxiety and confusion. She also appeared to be very confused and somewhat delirious. She was very tachycardic and was noted on EKG to be in atrial fibrillation with rapid ventricular response in the 150s. Of note patient does have history of persistent A. fib on the rate control with atenolol. Patient also has a history of anxiety and depression. On presentation, patient had reported stabbing has self in the wrist with needle and she has been feeling very sad because of memories of her 's last spring. Patient was placed on the suicide precautions on admission and psychiatry was consulted. In terms of patient's atrial fibrillation, patient received a few IV medication with resolution of her rapid ventricular response. She was then continued on her home dose of atenolol and her heart rate remains normal. Further conversation was had with patient's daughter and son-in-law over the phone and in person in patient's home and patient's family reports that patient lives with them and that they are able to provide 24-hour supervision. Patient and family also report that patient had been taking Xanax for 30 years and takes it 3 times a day sometimes even more recently and had run out of her Xanax a week ago. They report that since then patient has been getting increasingly delirious, agitated and very anxious. There was concern for benzodiazepine withdrawal given these. Patient was placed back on her Xanax with significant improvement in her symptoms. Patient has also had multiple falls which are likely attributable to patient's heavy Xanax use. Given patient's age, frailty, it will be unsafe to subject patient to an aggressive benzodiazepine detox predisposing her to the likelihood of very bad seizures, DTs and increased risk of mortality by stopping her Xanax cold turkey. As such I have discussed with patient and the family about doing a slow taper off Xanax over several weeks given her heavy chronic use. I have told them the patient will need to ultimately get off Xanax to reduce risk of falls and a potentially bad injury. I have reduce patient's Xanax dose to 1 mg twice a day for the next couple weeks and subsequently should be reduced to daily dosing and then taken off Xanax. I have asked him to follow-up with Dr. Montana who is patient's primary provider to manage this slow wean process. Patient and family agreeable to the plan and will follow up with Dr. Montana for prescription of the Xanax and to manage to wean. I have had a psychiatric team see patient who have rescinded IVC and cleared patient on the grounds that patient's Peña act of cutting herself with a needle was likely due to either confusion/delirium from benzo use/withdrawal and underlying likely neurodegenerative disease/dementia. They have recommended discontinuing Zoloft and hydroxyzine and starting patient on buspirone and Depakote for better control of anxiety and depression. Patient has also been started on amlodipine 5 mg for hypertension while continuing her other antihypertensives. Patient appears more calm and more with it today. I do however suspect an underlying undiagnosed dementia as well. Patient has been evaluated by physical therapy who recommends SNF and I have discussed this with patient's family and patient who declined and all prefer that she comes back home on the day of care. They are agreeable to home health for assistance at home. - Additional Information Resuscitation Status: Full Code Discharge Diet: Regular Discharge Activity: Activity As Tolerated Referrals: EULALIA MONTANA DO [Primary Care Provider] - Follow up as needed Prescriptions: Buspirone HCl [Buspar 10 mg Tablet] 10 mg PO QPM #30 tablet Buspirone HCl [Buspar 10 mg Tablet] 5 mg PO QAM 30 Days tablet Divalproex Sodium [Depakote ER 250 mg Tablet] 250 mg PO Q12 30 Days tab.sr.24h Amlodipine Besylate [Norvasc 5 mg Tablet] 5 mg PO DAILY #30 tablet Home Medications: Albuterol Sulfate [Ventolin Hfa 8 gm Mdi (1 Mdi/ER Disp)] 2 puff IH Q6HP PRN 11/24/18 Apixaban [Eliquis 5 mg Tablet] 5 mg PO Q12 11/24/18 Atenolol [Tenormin] 25 mg PO Q12 11/24/18 Cetirizine HCl [Zyrtec 10 mg Tablet] 10 mg PO DAILY 11/24/18 Fluticasone Propionate [Flonase Nasal [place] 50 Mcg/[place] 16 gm] 2 sprays NASL DAILY 11/24/18 Furosemide [Lasix 40 mg Tablet] 40 mg PO DAILY 11/24/18 Hydrocodone/Acetaminophen [[place] 10-325 mg Tablet] 1 tab PO Q8HP PRN 11/24/18 Simvastatin [Zocor 20 mg Tablet] 20 mg PO QPM 11/24/18 Spironolactone [Aldactone 25 mg Tablet] 25 mg PO DAILY 11/24/18 Alprazolam [Xanax] 1 mg PO BID #0 03/28/19 Amlodipine Besylate [Norvasc 5 mg Tablet] 5 mg PO DAILY #30 tablet 03/28/19 Buspirone HCl [Buspar 10 mg Tablet] 5 mg PO QAM 30 Days tablet 03/28/19 Buspirone HCl [Buspar 10 mg Tablet] 10 mg PO QPM #30 tablet 03/28/19 Divalproex Sodium [Depakote ER 250 mg Tablet] 250 mg PO Q12 30 Days tab.sr.24h 03/28/19 History of Present Illiness History of Present Illness: FADI LYNN is a 73 year old female with a past medical history of COPD, hypertension, dyslipidemia, anxiety and grief. She presents to the emergency department with tachycardia, anxiety and fear. She describes living in a hostile environment feeling threatened by her children. She is otherwise run out of medications and fell 3 days ago resulting in contusion to the left shoulder. In the emergency department she is found with A. fib with RVR and a laceration to her right wrist admitting suicide ideation with use of sewing needles. She is also found to have respiratory alkalosis, tachypnea, hypokalemia and indeterminate troponin. She is referred to the hospitalist for admission. Physical Exam Vital Signs: Temp Pulse Resp BP Pulse Ox 98.5 F 79 16 154/63 H 97 03/28/19 08:00 03/28/19 08:00 03/28/19 08:00 03/28/19 08:00 03/28/19 08:00 Intake & Output 03/27/19 03/28/19 03/29/19 06:59 06:59 06:59 Intake Total 1110 583 Balance 1110 583 Weight 72 kg 70.1 kg General appearance: PRESENT: no acute distress, cooperative Neck exam: ABSENT: JVD Respiratory exam: PRESENT: clear to auscultation jojo Cardiovascular exam: PRESENT: +S1, +S2 Neurological exam: PRESENT: alert, awake, oriented to person, oriented to place, oriented to situation Results Laboratory Results: WBC 7.0 10^3/uL (4.0-10.5) 03/27/19 05:01 RBC 4.16 10^6/uL (3.72-5.28) 03/27/19 05:01 Hgb 12.1 g/dL (12.0-15.5) 03/27/19 05:01 Hct 35.4 % (36.0-47.0) L 03/27/19 05:01 MCV 85 fl (80-97) 03/27/19 05:01 MCH 29.0 pg (27.0-33.4) 03/27/19 05:01 MCHC 34.1 g/dL (32.0-36.0) 03/27/19 05:01 RDW 16.3 % (11.5-14.0) H 03/27/19 05:01 Plt Count 206 10^3/uL (150-450) 03/27/19 05:01 Lymph % (Auto) 10.3 % (13-45) L 03/25/19 21:49 Faulk % (Auto) 9.3 % (3-13) 03/25/19 21:49 Eos % (Auto) 0.1 % (0-6) 03/25/19 21:49 Baso % (Auto) 0.4 % (0-2) 03/25/19 21:49 Absolute Neuts (auto) 10.5 10^3/uL (1.7-8.2) H 03/25/19 21:49 Absolute Lymphs (auto) 1.4 10^3/uL (0.5-4.7) 03/25/19 21:49 Absolute Monos (auto) 1.2 10^3/uL (0.1-1.4) 03/25/19 21:49 Absolute Eos (auto) 0.0 10^3/uL (0.0-0.6) 03/25/19 21:49 Absolute Basos (auto) 0.1 10^3/uL (0.0-0.2) 03/25/19 21:49 Seg Neutrophils % 79.9 % (42-78) H 03/25/19 21:49 PT 16.3 SEC (11.4-15.4) H 03/25/19 21:49 INR 1.30 03/25/19 21:49 Carbonic Acid 0.91 mmol/L (1.05-1.35) L 03/25/19 22:59 HCO3/H2CO3 Ratio 24:1 03/25/19 22:59 ABG pH 7.48 (7.35-7.45) H 03/25/19 22:59 ABG pCO2 30.1 mmHg (35-45) L 03/25/19 22:59 ABG pO2 97.4 mmHg (80-100) 03/25/19 22:59 ABG HCO3 22.1 mmol/L (20-24) 03/25/19 22:59 ABG Total CO2 23.0 mmol/L (21-25) 03/25/19 22:59 ABG O2 Saturation 97.9 % (94-98) 03/25/19 22:59 ABG Base Excess -0.4 mmol/L 03/25/19 22:59 FiO2 ROOM AIR 03/25/19 22:59 Sodium 136.6 mmol/L (137-145) L 03/27/19 05:01 Potassium 4.3 mmol/L (3.6-5.0) 03/27/19 05:01 Chloride 107 mmol/L (98-107) 03/27/19 05:01 Carbon Dioxide 21 mmol/L (22-30) L 03/27/19 05:01 Anion Gap 9 (5-19) 03/27/19 05:01 BUN 8 mg/dL (7-20) 03/27/19 05:01 Creatinine 0.66 mg/dL (0.52-1.25) 03/27/19 05:01 Est GFR ( Amer) > 60 (>60) 03/27/19 05:01 Est GFR (Non-Af Amer) Cancelled 03/25/19 21:49 Est GFR (MDRD) Non-Af > 60 (>60) 03/27/19 05:01 Glucose 104 mg/dL (75-110) 03/27/19 05:01 Calcium 8.8 mg/dL (8.4-10.2) 03/27/19 05:01 Magnesium 1.9 mg/dL (1.6-2.3) 03/26/19 03:50 Total Bilirubin 0.7 mg/dL (0.2-1.3) 03/27/19 05:01 Direct Bilirubin 0.3 mg/dL (0.0-0.4) 03/27/19 05:01 Neonat Total Bilirubin Not Reportable 03/27/19 05:01 Neonat Direct Bilirubin Not Reportable 03/27/19 05:01 Neonat Indirect Bili Not Reportable 03/27/19 05:01 AST 23 U/L (14-36) 03/27/19 05:01 ALT 13 U/L (<35) 03/27/19 05:01 Alkaline Phosphatase 64 U/L (38-126) 03/27/19 05:01 Troponin I 0.068 ng/mL 03/26/19 09:09 Total Protein 6.0 g/dL (6.3-8.2) L 03/27/19 05:01 Albumin 3.3 g/dL (3.5-5.0) L 03/27/19 05:01 EGFR Cancelled 03/25/19 21:49 TSH 1.88 uIU/mL (0.47-4.68) 03/26/19 03:50 Urine Color SHARON 03/26/19 00:13 Urine Appearance SLIGHTLY-CLOUDY 03/26/19 00:13 Urine pH 6.0 (5.0-9.0) 03/26/19 00:13 Ur Specific [place] 1.015 03/26/19 00:13 Urine Protein 100 mg/dL (NEGATIVE) H 03/26/19 00:13 Urine Glucose (UA) NEGATIVE mg/dL (NEGATIVE) 03/26/19 00:13 Urine Ketones 20 mg/dL (NEGATIVE) H 03/26/19 00:13 Urine Blood MODERATE (NEGATIVE) H 03/26/19 00:13 Urine Nitrite NEGATIVE (NEGATIVE) 03/26/19 00:13 Urine Bilirubin NEGATIVE (NEGATIVE) 03/26/19 00:13 Urine Urobilinogen 2.0 mg/dL (<2.0) H 03/26/19 00:13 Ur Leukocyte Esterase TRACE (NEGATIVE) H 03/26/19 00:13 Urine WBC (Auto) 10 /HPF 03/26/19 00:13 Urine RBC (Auto) 4 /HPF 03/26/19 00:13 U Hyaline Cast (Auto) 11 /LPF 03/26/19 00:13 Urine Bacteria (Auto) 3+ /HPF 03/26/19 00:13 Squamous Epi Cells Auto 3 /HPF 03/26/19 00:13 Urine Mucus (Auto) MANY /LPF 03/26/19 00:13 Urine Ascorbic Acid NEGATIVE (NEGATIVE) 03/26/19 00:13 Salicylates < 1.0 mg/dL (2.0-20.0) L 03/26/19 01:20 Urine Opiates Screen NEGATIVE 03/26/19 00:13 Urine Methadone Screen NEGATIVE 03/26/19 00:13 Acetaminophen < 10 ug/mL (10-30) L 03/26/19 01:20 Ur Barbiturates Screen NEGATIVE 03/26/19 00:13 Ur Phencyclidine Scrn NEGATIVE 03/26/19 00:13 Ur Amphetamines Screen NEGATIVE 03/26/19 00:13 U Benzodiazepines Scrn UNCONFIRMED POSITIVE 03/26/19 00:13 Urine Cocaine Screen NEGATIVE 03/26/19 00:13 U Marijuana (THC) Screen NEGATIVE 03/26/19 00:13 Serum Alcohol < 10 mg/dL (NONE DETECTED) 03/26/19 01:20 03/25/19 03/26/19 03/26/19 21:49 01:20 03:50 Troponin I Cancelled 0.101 0.102 03/26/19 09:09 Troponin I 0.068 Impressions: Chest X-Ray 03/25/19 21:47 IMPRESSION: No active intrathoracic disease copyright 2011 [facility] [employer]- All Rights Reserved Plan Time Spent: Greater than 30 Minutes Stroke Is this a Stroke Patient?: No Acute Heart Failure - Is this a Heart Failure Patient?: No
--- NOTE | 2019-03-28 17:50 | Progress Note ---
Provider Note Provider Note: I discussed with patient, patient's daughter and son-in-law about patient's likely disposition as physical therapy recommended SNF placement. However yesterday, patient's daughter and son-in-law along with patient very vividly declined SNF stating that they wanted her to come back home. Today patient is cleared for discharge and discharge summary and order placed and I discussed it with patient daughter and POA as well as patient's son-in-law who do not want to take patient home at this time stating that patient's daughter Mckenna is having a hard time today today and feels very stressed out and is concerned that the mom will be a handful to take care of at this time. She states that her mom still gets confused sometimes and would like us to keep patient in the hospital for a few more days. I have discussed with both of them once again that there is a very strong likelihood that Mrs. Nixon has underlying undiagnosed dementia which is evidenced by her forgetfulness, memory lapses and occasional episodes of delirium combined with CT findings which show significant cerebral atrophy And that being in the hospital will not fix it. Of note patient has been started on Depakote and buspirone by psychiatry to help manage anxiety and occasional agitation. After multiple conversations with both of them, patient's daughter and ELDON and her are requesting patient be sent to SNF. Physical therapy does recommend SNF as well. Discharge planning made made aware for intention for SNF. Patient will require 30 days or less of rehab at snf facility. Continue current management of patient's anxiety and depression. Continue slow weaning off Xanax. Refer to today's note for further details regarding plan.
[2019-03-28] MEDS: SIMVASTATIN 10 MG TABLET PO SCH (21:16)
[2019-03-29 08:03] VITALS: BP 123/51
[2019-03-29] MEDS: BUSPIRONE HCL 10 MG TABLET PO SCH (08:51)
[2019-03-29] MEDS: APIXABAN 5 MG TABLET PO SCH (09:02)
[2019-03-29] MEDS: AMLODIPINE BESYLATE 5 MG TABLET PO SCH (09:02)
[2019-03-29] MEDS: ALPRAZOLAM 0.5 MG TABLET PO SCH (09:03)
[2019-03-29] MEDS: DOCUSATE SODIUM 100 MG CAPSULE PO SCH (09:03)
[2019-03-29] MEDS: FUROSEMIDE 20 MG TABLET PO SCH (09:03)
[2019-03-29] MEDS: ATENOLOL 50 MG TABLET PO SCH (09:03)
[2019-03-29] MEDS: SPIRONOLACTONE 25 MG TABLET PO SCH (09:03)
[2019-03-29] MEDS: DIVALPROEX SODIUM 250 MG TAB.SR.24H PO SCH (09:03)
[2019-03-29] MEDS: FLUTICASONE NASAL SPRAY 50 MCG/SPRY 120 SPRAY/16 GM NASL SCH (09:04)
--- NOTE | 2019-03-29 10:58 | PDOC PROGRESS REPORT ---
Subjective Progress Note for:: 03/29/19 Subjective:: Patient was seen and examined today. She is clinically stable. She actually wants to go home. Apparently she lives with her daughter who is refusing to take her home. Also apparently the patient was evaluated by physical therapy and she qualifies for rehab. Reason For Visit: CP,PANIC ATTACK,AFIB Physical Exam Vital Signs: Temp Pulse Resp BP Pulse Ox 98.1 F 75 18 123/51 L 96 03/29/19 08:00 03/29/19 08:00 03/29/19 08:00 03/29/19 08:00 03/29/19 08:00 Intake & Output 03/28/19 03/29/19 03/30/19 06:59 06:59 06:59 Intake Total 583 1236 Balance 583 1236 Weight 154 lb 8.705 oz 158 lb 1.143 oz Exam: Patient is no acute distress Alert oriented to time place person No anxiety or depression Head: atraumatic normocephalic Pupils: are equal reactive Neck: is supple and trachea is central no lymphadenopathy No pharyngeal erythema or exudates Heart: Regular rate and rhythm, no peripheral edema Lungs: clear no distress Abdomen: nontender nondistended Neurological exam: unremarkable Musculoskeletal: No joint swelling or effusion chronic lower back pain and tenderness No suicidal or homicidal ideation Results Laboratory Results: 03/27/19 05:01 03/27/19 05:01 03/25/19 03/26/19 03/26/19 21:49 01:20 03:50 Troponin I Cancelled 0.101 0.102 03/26/19 09:09 Troponin I 0.068 Impressions: Chest X-Ray 03/25/19 21:47 IMPRESSION: No active intrathoracic disease copyright 2011 [employer]- All Rights Reserved Assessment and Plan - Diagnosis (1) Benzodiazepine withdrawal Qualifiers: Complication of substance-induced condition: uncomplicated Qualified Code(s): F13.230 - Sedative, hypnotic or anxiolytic dependence with withdrawal, uncomplicated Is this a current diagnosis for this admission?: Yes Plan: Patient has been on Xanax 1 mg 3 times daily often taking more frequently for the past several years prescribed by PCP. Patient may be experiencing some benzodiazepine withdrawal as she has been off Xanax for about a week and family now reporting increased agitation, increased frequency of hallucinations, and BP seems elevated. Xanax 1 mg twice daily is resumed. Continue to monitor. She appears stable currently. (2) Anxiety and depression Is this a current diagnosis for this admission?: Yes Plan: Psychiatric consulted and recommends discontinuing Lexapro and Vistaril starting patient on buspirone and Depakote. Resume Xanax as above (3) Atrial fibrillation with RVR Is this a current diagnosis for this admission?: Yes Plan: RVR has resolved. Continue atenolol and Eliquis (4) Elevated troponin Is this a current diagnosis for this admission?: Yes Plan: Likely secondary to A. fib with RVR, is otherwise asymptomatic, troponin trended down subsequently. (5) Recurrent falls Is this a current diagnosis for this admission?: Yes Plan: Patient has several ecchymoses on her skin from falls. Polypharmacy likely playing a role in this however discontinuing her Xanax will have to be very slow process over several weeks given her chronic use of benzos. Dr. Giraldo discussed risks of major bleed including brain bleed and benefits of st roke prevention while on Eliquis for A. fib in light of recurrent Falls with patient's daughter and patient and they are both opting to stay on Eliquis. (6) Suicidal ideations Is this a current diagnosis for this admission?: Yes Plan: Patient poking her wrist with a needle with potential suicidal ideation. Patient has been evaluated by psychiatry who rescinded IVC because of encephalopathy from benzo dependence/withdrawal impacting patient's actions. Patient does not have a urinary tract infection [negative nitrite, trace ketones, no urinary symptoms]. - Plan Summary Summary: Medically cleared for discharge once appropriate disposition is obtained by telephonic nurse case manager and social work.
[2019-03-29] MEDS: ACETAMINOPHEN 325 MG TABLET PO PRN (14:42)
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
== END 2019-03-29 16:33 | disposition home health service (06) | DRG 896 ==
LOC: ER 20:53 → EH 03-26 05:25 → 4N 03-26 10:47
PROVIDERS: ADMIT Internal Medicine; ATTEND Internal Medicine
PROC: 0HQDXZZ Repair Right Lower Arm Skin, External Approach (ICD-10-PCS; principal; 2019-03-26)
DX: F13.230 Sedative, hypnotic or anxiolytic dependence with withdrawal, uncomplicated (principal); G92 Toxic encephalopathy; R45.851 Suicidal ideations; E87.3 Alkalosis; I48.19 Other persistent atrial fibrillation; F41.8 Other specified anxiety disorders; R79.89 Other specified abnormal findings of blood chemistry; J44.9 Chronic obstructive pulmonary disease, unspecified; I10 Essential (primary) hypertension; E78.5 Hyperlipidemia, unspecified; S40.012A Contusion of left shoulder, initial encounter; W19.XXXA Unspecified fall, initial encounter; S61.511A Laceration without foreign body of right wrist, initial encounter; X78.8XXA Intentional self-harm by other sharp object, initial encounter; R06.82 Tachypnea, not elsewhere classified; E87.6 Hypokalemia; T42.4X5A Adverse effect of benzodiazepines, initial encounter; F17.210 Nicotine dependence, cigarettes, uncomplicated; Z91.81 History of falling; Z79.01 Long term (current) use of anticoagulants; Y92.019 Unspecified place in single-family (private) house as the place of occurrence of the external cause; Z91.14 Patient's other noncompliance with medication regimen; Z83.6 Family history of other diseases of the respiratory system; Z82.49 Family history of ischemic heart disease and other diseases of the circulatory system; Z79.899 Other long term (current) drug therapy
CPT/HCPCS: 36415; 71045; 80053; 80307; 81001; 82803; 83735; 84443; 84484; 85025; 85027; 85610; 93005; 93010; 96361; 96374; 96375; 99285; J0360; J2405; J3480; J3490; J7030; J7040; J7620

== ENCOUNTER 2019-05-12 18:00 | Emergency (ER) | payer MEDICARE ==
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
[2019-05-12 19:19] LABS: ABSOLUTE BASOPHILS # (AUTO) 0.1 10^3/uL (0.0-0.2); ABSOLUTE EOSINOPHILS # (AUTO) 0.1 10^3/uL (0.0-0.6); ABSOLUTE MONOCYTES (AUTO) 0.5 10^3/uL (0.1-1.4); ABSOLUTE NEUT (AUTO) 5.6 10^3/uL (1.7-8.2); BASOPHILS % (AUTO) 0.8 % (0-2); EOSINOPHILS % (AUTO) 0.9 % (0-6); HEMATOCRIT 40.7 % (36.0-47.0); HEMOGLOBIN 13.6 g/dL (12.0-15.5); LYMPHOCYTES % (AUTO) 24.1 % (13-45); MEAN CORPUSCULAR HEMOGLOBIN 28.9 pg (27.0-33.4); MEAN CORPUSCULAR HGB CONC 33.5 g/dL (32.0-36.0); MEAN CORPUSCULAR VOLUME 86 fl (80-97); MONOCYTES % (AUTO) 6.5 % (3-13); PLATELET COUNT 266 10^3/uL (150-450); RED BLOOD COUNT 4.72 10^6/uL (3.72-5.28); RED CELL DISTRIBUTION WIDTH 14.9 % (11.5-14.0); SEGMENTED NEUTROPHILS % (AUTO) 67.7 % (42-78); TOTAL CELLS COUNTED % (AUTO) 100 %; WHITE BLOOD COUNT 8.3 10^3/uL (4.0-10.5)
--- NOTE | 2019-05-12 19:27 | RADIOLOGY REPORT (SQ) ---
EXAM DESCRIPTION: CHEST 2 VIEWS COMPLETED DATE/TIME: 05/12/2019 7:14 pm REASON FOR STUDY: anxiety COMPARISON: 03/25/2019 EXAM PARAMETERS: NUMBER OF VIEWS: two views TECHNIQUE: Digital Frontal and Lateral radiographic views of the chest acquired. RADIATION DOSE: NA LIMITATIONS: none FINDINGS: LUNGS AND PLEURA: No opacities, masses or pneumothorax. No pleural effusion. MEDIASTINUM AND HILAR STRUCTURES: No masses or contour abnormalities. HEART AND VASCULAR STRUCTURES: Heart normal size. No evidence for failure. BONES: No acute findings. HARDWARE: None in the chest. OTHER: No other significant finding. IMPRESSION: NO ACUTE RADIOGRAPHIC FINDING IN THE CHEST. TECHNICAL DOCUMENTATION: JOB ID: [id number] 2010 [employer]- All Rights Reserved Reading location - IP/workstation name: [email or web address]
[2019-05-12 19:31] LABS: ALBUMIN 4.5 g/dL (3.5-5.0); ALKALINE PHOSPHATASE 96 U/L (38-126); ANION GAP 9 (5-19); ASPARTATE AMINO TRANSFERASE 27 U/L (14-36); BILIRUBIN,DIRECT 0.1 mg/dL (0.0-0.4); BILIRUBIN,TOTAL 0.6 mg/dL (0.2-1.3); BLOOD UREA NITROGEN 8 mg/dL (7-20); CALCIUM 9.3 mg/dL (8.4-10.2); CARBON DIOXIDE 28 mmol/L (22-30); CHLORIDE 99 mmol/L (98-107); GLUCOSE 104 mg/dL (75-110); POTASSIUM 3.6 mmol/L (3.6-5.0); TOTAL PROTEIN 7.5 g/dL (6.3-8.2)
--- NOTE | 2019-05-12 22:19 | EKG REPORT ---
SEVERITY:- NORMAL ECG - SINUS RHYTHM : Confirmed by: Nikita Dodd MD 12-May-2019 22:19:10
[2019-05-12 23:22] LABS: APPEARANCE,URINE CLEAR; BILIRUBIN,URINE NEGATIVE (NEGATIVE); COLOR,URINE STRAW; GLUCOSE, URINE NEGATIVE (NEGATIVE); KETONES,URINE NEGATIVE (NEGATIVE); LEUKOCYTE ESTERASE,URINE NEGATIVE (NEGATIVE); NITRITE,URINE NEGATIVE (NEGATIVE); PROTEIN,URINE NEGATIVE (NEGATIVE); URINE SPECIFIC GRAVITY 1.004; UROBILINOGEN,URINE NEGATIVE mg/dL (<2.0)
[2019-05-12] MEDS ORDERED: LORAZEPAM 1 MG TABLET PO ONE (23:36)
--- NOTE | 2019-05-12 23:37 | ER Document Report ---
ED General - General Chief Complaint: Anxiety Stated Complaint: ANXIETY AND MED WITHDRAWL Time Seen by Provider: 05/12/19 18:39 Primary Care Provider: EULALIA MONTANA DO [Primary Care Provider] - Follow up in 3-5 days Notes: Patient is a 73-year-old female that comes to the emergency department for chief complaint of anxiety. She states that she "over took" her Xanax and ran out, she states that her provider Dr. [place] told her that he could not refill her prescription until May 17. Patient states she has had benzodiazepine withdrawals and she is scared she will get them. She also states that she is scared to be at home because she feels like she will " alone there". She states that she was living with her grandson at home but he had a dirty dog and she kicked him out. She denies SI or HI, she states she just feels like she cannot relax. She states she felt tingling in her extremities but she denies chest pain, difficulty breathing, dizziness, vomiting, passing out, fever, or any other complaints. Past medical history includes COPD, A. fib on Eliquis, hypertension, anxiety, benzodiazepine dependence. TRAVEL OUTSIDE OF THE [place] IN LAST 30 DAYS: No - Related Data Allergies/Adverse Reactions: No Known Allergies Allergy (Verified 03/22/19 14:03) Home Medications: Xanax, Amlodipine, Eliquis, Percocet, Lasix, Depakote, Simvastatin, Buspar Past Medical History - General Information source: Patient - Social History Smoking Status: Never Smoker Drug Abuse: None Lives with: Family Family History: CAD, COPD, DM, Hypertension, Malignancy Patient has suicidal ideation: No Patient has homicidal ideation: No - Past Medical History Cardiac Medical History: Reports: Hx Atrial Fibrillation, Hx Hypercholesterolemia, Hx Hypertension - contr w/ meds Denies: Hx Heart Attack Pulmonary Medical History: Reports: Hx Asthma, Hx COPD Neurological Medical History: Denies: Hx Cerebrovascular Accident, Hx Seizures Endocrine Medical History: Denies: Hx Diabetes Mellitus Type 1, Hx Diabetes Mellitus Type 2, Hx Hyperthyroidism, Hx Hypothyroidism Renal/ Medical History: Denies: Hx Peritoneal Dialysis GI Medical History: Denies: Hx Cirrhosis, Hx Crohn's Disease, Hx Hepatitis, Hx Hiatal Hernia, Hx Ulcer, Hx Ulcerative Colitis Musculoskeletal Medical History: Denies Hx Arthritis, Denies Hx Fibromyalgia Skin Medical History: Denies Hx Eczema, Denies Hx Psoriasis Psychiatric Medical History: Reports: Hx Anxiety, Hx Depression - anxiety Infectious Medical History: Denies: Hx Hepatitis Past Surgical History: Reports: Hx Breast Surgery - bilateral lumpectomy, Hx Hysterectomy. Denies: Hx Mastectomy, Hx Open Heart Surgery, Hx Pacemaker - Immunizations Immunizations up to date: Yes Hx Diphtheria, Pertussis, Tetanus Vaccination: No Review of Systems - Review of Systems Constitutional: No symptoms reported EENT: No symptoms reported Cardiovascular: No symptoms reported Respiratory: No symptoms reported Gastrointestinal: No symptoms reported Genitourinary: No symptoms reported Female Genitourinary: No symptoms reported Musculoskeletal: No symptoms reported Skin: No symptoms reported Hematologic/Lymphatic: No symptoms reported Neurological/Psychological: See HPI Physical Exam - Vital signs Vitals: Temp Pulse Resp BP Pulse Ox 99.6 F 65 20 156/73 H 97 05/12/19 18:21 05/12/19 18:21 05/12/19 18:21 05/12/19 18:21 05/12/19 18:21 - Notes Notes: GENERAL: Alert and does not appear to be in distress HEAD: Normocephalic, atraumatic. EYES: Pupils equal, round, and reactive to light. Extraocular movements intact. ENT: Oral mucosa moist, tongue midline. Oropharynx unremarkable. Airway patent. NECK: Full range of motion. Supple. Trachea midline. LUNGS: Clear to auscultation bilaterally, no wheezes, rales, or rhonchi. No respiratory distress. HEART: Regular rate and rhythm. No murmur ABDOMEN: Soft, non-tender. Non-distended. EXTREMITIES: Moves all 4 extremities spontaneously. No edema, normal radial and dorsalis pedis pulses bilaterally. No cyanosis. BACK: no cervical, thoracic, lumbar midline tenderness. No saddle anesthesia, normal distal neurovascular exam. Moves all extremities in full range of motion. NEUROLOGICAL: Alert and oriented x3. Normal speech. Cranial nerves II through XII grossly intact. PSYCH: Very talkative, speaks anxiously but does not appear to be in distress SKIN: Warm, dry, normal turgor. No rashes or lesions noted. Course - Re-evaluation Re-evalutation: Patient was extremely anxious, repeating that she did not want to go home and alone. She denies SI or HI. She denies fearing anyone in particular, she states she is afraid that she is out of her medications after she repeated this and I asked her again. Patient was given some additional Ativan pending work- up. CBC, chemistry, troponin unremarkable. Chest x-ray unremarkable, EKG unremarkable. Patient has not had chest pain, difficulty breathing, and other than the tingling in her extremities along with her anxiety she had no other complaints. She has no neurological deficits. I discussed with patient. She states that she does not want to go home, however she is not suicidal or homicidal, she does not meet criteria for admission either. Discussed options. We will provide patient with something to help her sleep and relax, she will be evaluated by the mental health team in the morning. Patient's Depakote is negative, she states she thought this was "for pain", explained that this is probably from mood/anxiety since she does not have a seizure disorder reportedly, patient states she plans to start taking this. Patient called the back of the room. She is much more calm now. She states that she does not want to stay, she wants to be discharged, she is requesting a prescription of benzodiazepines because she ran out. She requests I speak to my supervising physician and we prescribe her Xanax for similar benzodiazepine. I did discuss with Dr. Woods. After discussing the situation, reviewing LINE DIRECTOR aware, it was felt it is not in patient's best interest to refill the medication that she ran out of from taking earlier. Patient has not been exhibiting any symptoms of withdrawal here (she has not been tremulous, has normal pupils, she is not vomiting, she is not tachycardic, she is not altered, etc.). I did explain this patient, she states understanding and request to be discharged home. She states she will start taking her Depakote and she will follow-up with her provider. Patient does state appreciation. She requests her daughter to pick her up. Daughter was called and picked her up without any difficulty. - Vital Signs Vital signs: Temp Pulse Resp BP Pulse Ox 98.7 F 68 16 138/49 H 95 05/13/19 04:25 05/13/19 04:25 05/13/19 04:25 05/13/19 04:25 05/13/19 04:25 - Laboratory Result Diagrams: 05/12/19 18:50 05/12/19 18:50 Laboratory results interpreted by me: 05/12/19 05/12/19 05/12/19 18:20 18:50 18:50 RDW 14.9 H Sodium 136.2 L Est GFR (MDRD) Non-Af 57 L Urine Blood MODERATE H Valproic Acid < 10.0 L - EKG Interpretation by Me Additional EKG results interpreted by me: EKG shows sinus rhythm at a rate of 71, QTC 470, normal axis, no T wave inversions or ST segment changes in consecutive leads Discharge - Discharge Clinical Impression: Anxiety, Has run out of medications Condition: Stable Disposition: HOME, SELF-CARE Instructions: Anxiety ([facility]) Additional Instructions: Your evaluation and work-up today are reassuring. Take your Depakote, this is helpful for mood/anxiety. Follow-up with your primary care provider within the week. Return to the emergency department for any concerning symptoms including chest pain, fever, difficulty breathing, or something is not right. Referrals: EULALIA MONTANA DO [Primary Care Provider] - Follow up in 3-5 days
[2019-05-13] MEDS ORDERED: HALOPERIDOL 5 MG TABLET PO ONE (01:52)
[2019-05-13 04:30] VITALS: BP 138/49
== END 2019-05-13 04:30 | disposition home or self-care (01) ==
LOC: ER 18:00
DX: F41.9 Anxiety disorder, unspecified (principal); I48.91 Unspecified atrial fibrillation; E78.00 Pure hypercholesterolemia, unspecified; I10 Essential (primary) hypertension; Z90.710 Acquired absence of both cervix and uterus; Z79.02 Long term (current) use of antithrombotics/antiplatelets
CPT/HCPCS: 93005; 99284; 36415; 84443; 85025; 80053; 81001; 84484; 80164; 71046; 93010; A9270 ×2

== ENCOUNTER 2019-06-07 19:30 | Inpatient (IN) | payer MEDICARE ==
--- NOTE | 2019-06-07 20:39 | ER Document Report ---
ED Medical Screen (RME) - General Chief Complaint: Cough Stated Complaint: COUGH Time Seen by Provider: 06/07/19 20:37 Primary Care Provider: EULALIA CHASE DO [Primary Care Provider] - Follow up as needed Notes: Patient is a 73-year-old female who presents emergency department with a cough. Patient states that she has had a cough for the past week. Patient denies any fevers. Exam: Maintaining social distancing due to COVID 19. I have greeted and performed a rapid initial assessment of this patient. A comprehensive ED assessment and evaluation of the patient, analysis of test results and completion of medical decision making process will be conducted by an additional ED providers. TRAVEL OUTSIDE OF THE [place] IN LAST 30 DAYS: No - Related Data Allergies/Adverse Reactions: No Known Allergies Allergy (Verified 03/22/19 14:03) Past Medical History - Past Medical History Cardiac Medical History: Reports: Hx Atrial Fibrillation, Hx Hypercholesterolemia, Hx Hypertension - contr w/ meds Denies: Hx Heart Attack Pulmonary Medical History: Reports: Hx Asthma, Hx COPD Neurological Medical History: Denies: Hx Cerebrovascular Accident, Hx Seizures Endocrine Medical History: Denies: Hx Diabetes Mellitus Type 1, Hx Diabetes Mellitus Type 2, Hx Hyperthyroidism, Hx Hypothyroidism Renal/ Medical History: Denies: Hx Peritoneal Dialysis GI Medical History: Denies: Hx Cirrhosis, Hx Crohn's Disease, Hx Hepatitis, Hx Hiatal Hernia, Hx Ulcer, Hx Ulcerative Colitis Musculoskeltal Medical History: Denies Hx Arthritis, Denies Hx Fibromyalgia Skin Medical History: Denies Hx Eczema, Denies Hx Psoriasis Psychiatric Medical History: Reports: Hx Anxiety, Hx Depression - anxiety Infectious Medical History: Denies: Hx Hepatitis Past Surgical History: Reports: Hx Breast Surgery - bilateral lumpectomy, Hx Hysterectomy. Denies: Hx Mastectomy, Hx Open Heart Surgery, Hx Pacemaker - Immunizations Immunizations up to date: Yes Hx Diphtheria, Pertussis, Tetanus Vaccination: No Physical Exam - Vital signs Vitals: Temp Pulse Pulse Ox 98.6 F 73 93 06/07/19 20:31 06/07/19 20:31 06/07/19 20:31 Course - Vital Signs Vital signs: Temp Pulse Resp BP Pulse Ox 98.6 F 73 108/58 L 93 06/07/19 20:31 06/07/19 20:31 06/07/19 20:33 06/07/19 20:31 Doctor's Discharge - Discharge Referrals: EULALIA CHASE DO [Primary Care Provider] - Follow up as needed
[2019-06-07] MEDS ORDERED: NORMAL SALINE 1000 ML 1,000 ML IV ONE (20:53)
[2019-06-07 21:18] LABS: ABSOLUTE BASOPHILS # (AUTO) 0.1 10^3/uL (0.0-0.2); ABSOLUTE EOSINOPHILS # (AUTO) 0.1 10^3/uL (0.0-0.6); ABSOLUTE LYMPHOCYTES (AUTO) 1.4 10^3/uL (0.5-4.7); ABSOLUTE MONOCYTES (AUTO) 0.7 10^3/uL (0.1-1.4); ABSOLUTE NEUT (AUTO) 4.8 10^3/uL (1.7-8.2); BASOPHILS % (AUTO) 1.3 % (0-2); EOSINOPHILS % (AUTO) 0.9 % (0-6); HEMATOCRIT 37.1 % (36.0-47.0); HEMOGLOBIN 12.6 g/dL (12.0-15.5); MEAN CORPUSCULAR VOLUME 86 fl (80-97); MONOCYTES % (AUTO) 10.1 % (3-13); PLATELET COUNT 215 10^3/uL (150-450); RED BLOOD COUNT 4.33 10^6/uL (3.72-5.28); RED CELL DISTRIBUTION WIDTH 13.9 % (11.5-14.0); SEGMENTED NEUTROPHILS % (AUTO) 67.7 % (42-78); TOTAL CELLS COUNTED % (AUTO) 100 %
[2019-06-07 21:38] LABS: ALBUMIN 3.4 g/dL (3.5-5.0); ALKALINE PHOSPHATASE 82 U/L (38-126); ANION GAP 5 (5-19); ASPARTATE AMINO TRANSFERASE 21 U/L (14-36); BILIRUBIN,DIRECT 0.2 mg/dL (0.0-0.4); BILIRUBIN,TOTAL 0.5 mg/dL (0.2-1.3); BLOOD UREA NITROGEN 19 mg/dL (7-20); CALCIUM 8.7 mg/dL (8.4-10.2); CARBON DIOXIDE 34 mmol/L (22-30); CHLORIDE 98 mmol/L (98-107); GLUCOSE 98 mg/dL (75-110); POTASSIUM 3.6 mmol/L (3.6-5.0); TOTAL PROTEIN 6.5 g/dL (6.3-8.2)
--- NOTE | 2019-06-07 21:46 | RADIOLOGY REPORT (SQ) ---
EXAM DESCRIPTION: X-RAY CHEST 1 VIEW CLINICAL HISTORY: 73 years Female cough x 1 week COMPARISON: 03/25/2019 TECHNIQUE: Portable upright chest at 2051 hours on 06/07/2019. FINDINGS: EKG leads overlie the chest. The lungs are overinflated. There are increased interstitial markings in the lateral right upper lobe not definitively seen on the prior exam; however, this may be due to technique. Chronic interstitial opacities are again noted in both lower lung underwood. No focal consolidation or pleural effusions. The heart is normal in size with normal pulmonary vascularity. No acute bony abnormalities are observed. IMPRESSION: Increased interstitial markings in the lateral right upper lobe, acute versus chronic; otherwise, no significant interval change since 03/25/2019. COPD.
--- NOTE | 2019-06-07 23:01 | ER Document Report ---
ED General - General Chief Complaint: Cough Stated Complaint: COUGH Time Seen by Provider: 06/07/19 20:37 Primary Care Provider: EULALIA CHASE DO [Primary Care Provider] - Follow up as needed Mode of Arrival: Ambulatory Information source: Patient Notes: 73-year-old woman presents to the emergency department with a complaint of cough for approximately 1 week. She also notes some associated shortness of breath. She denies chest pain or palpitations. He also denies fever or GI symptoms. She has a history of atrial fibrillation and is taking Eliquis. TRAVEL OUTSIDE OF THE [place] IN LAST 30 DAYS: No - Related Data Allergies/Adverse Reactions: No Known Allergies Allergy (Verified 03/22/19 14:03) Home Medications: alprazolam, eliquis, buspirone, simvastatin, venlafaxine, zolpidem, furosemides, atenolol, amlodipine, divaproes, linsess, spirolactone, narco, Past Medical History - Social History Smoking Status: Current Some Day Smoker Family History: CAD, COPD, DM, Hypertension, Malignancy Patient has suicidal ideation: No Patient has homicidal ideation: No - Past Medical History Cardiac Medical History: Reports: Hx Atrial Fibrillation, Hx Hypercholesterolemia, Hx Hypertension - contr w/ meds Denies: Hx Heart Attack Pulmonary Medical History: Reports: Hx Asthma, Hx COPD Neurological Medical History: Denies: Hx Cerebrovascular Accident, Hx Seizures Endocrine Medical History: Denies: Hx Diabetes Mellitus Type 1, Hx Diabetes Mellitus Type 2, Hx Hyperthyroidism, Hx Hypothyroidism Renal/ Medical History: Denies: Hx Peritoneal Dialysis GI Medical History: Denies: Hx Cirrhosis, Hx Crohn's Disease, Hx Hepatitis, Hx Hiatal Hernia, Hx Ulcer, Hx Ulcerative Colitis Musculoskeletal Medical History: Denies Hx Arthritis, Denies Hx Fibromyalgia Skin Medical History: Denies Hx Eczema, Denies Hx Psoriasis Psychiatric Medical History: Reports: Hx Anxiety, Hx Depression - anxiety Infectious Medical History: Denies: Hx Hepatitis Past Surgical History: Reports: Hx Breast Surgery - bilateral lumpectomy, Hx Hysterectomy. Denies: Hx Mastectomy, Hx Open Heart Surgery, Hx Pacemaker - Immunizations Immunizations up to date: Yes Hx Diphtheria, Pertussis, Tetanus Vaccination: No Review of Systems - Review of Systems Notes: Constitutional: Negative for fever. HENT: Negative for sore throat. Eyes: Negative for visual changes. Cardiovascular: + Atrial fibrillation. Respiratory: + Cough, + shortness of breath. Gastrointestinal: Negative for abdominal pain, vomiting or diarrhea. Genitourinary: Negative for dysuria. Musculoskeletal: Negative for back pain. Skin: Negative for rash. Neurological: Negative for headaches, weakness or numbness. 10 point ROS negative except as marked above and in HPI. Physical Exam - Vital signs Vitals: Temp Pulse Pulse Ox 98.6 F 73 93 06/07/19 20:31 06/07/19 20:31 06/07/19 20:31 - Notes Notes: PHYSICAL EXAMINATION: Physical Exam: General: 73-year-old woman presents with cough and shortness of breath, mild distress. HEENT: NC/AT, pupils equal round and reactive to light, MM moist,nares clear, oropharynx clear, airway patent Neck: supple, no adenopathy, no masses. Good range of motion Lungs: clear, no wheezing, no rales no rhonchi CVS: Irregularly irregular rate and rhythm no murmur gallop or rub Abdomen: Soft, active, nontender, no masses, no hepatosplenomegaly Ext: No edema, clubbing or cyanosis. Neuro: Alert and responsive, moving all 4 extremities on command, cranial nerves intact, no focal findings Skin: Intact no open lesions, no rash PSYCH: Normal mood, normal affect. Course - Re-evaluation Re-evalutation: 06/08/19 00:34 CT a of the chest was performed, patient has no pulmonary embolus, no thoracic aneurysm, findings suggests mild diffuse interstitial edema with a small right pleural effusion. Suspect superimposed right upper lobe pneumonitis. Discussed these findings with the patient and expressed to her the need to be brought into the hospital for further evaluation and treatment. Given her symptoms a COVID- 19 evaluation will be performed. Atrial fibrillation with RVR, patient is on Eliquis. I discussed the patient with the hospitalist , he will admit the patient to the hospital for further evaluation and treatment. After some discussion we have both concluded that beginning Zithromax would be a reasonable approach to the pneumonitis. - Vital Signs Vital signs: Temp Pulse Resp BP Pulse Ox 99 F 73 16 139/65 H 93 06/07/19 22:00 06/07/19 20:31 06/07/19 22:01 06/07/19 22:00 06/07/19 21:00 - Laboratory Result Diagrams: 06/07/19 21:03 06/07/19 21:03 Laboratory results interpreted by me: 06/07/19 06/07/19 21:03 21:03 Carbon Dioxide 34 H Est GFR (MDRD) Non-Af 55 L NT-Pro-B Natriuret Pep 7380 H Albumin 3.4 L - Diagnostic Test Radiology reviewed: Image reviewed, Reports reviewed - Chest x-ray right upper lobe interstitial markings, hyperinflated, findings compatible with COPD and possible early interstitial atelectasis versus infiltrate. Discharge - Discharge Clinical Impression: Atrial fibrillation with RVR, Pneumonitis, Cough Condition: Good Disposition: ADMITTED INPATIENT Admitting Provider: Michelle (Hospitalist) Unit Admitted: Medical Floor Referrals: EULALIA CHASE DO [Primary Care Provider] - Follow up as needed
[2019-06-07] MEDS ORDERED: DILTIAZEM HCL INJ 25 MG/5 ML VIAL IV ONE (23:12)
--- NOTE | 2019-06-08 00:08 | RADIOLOGY REPORT (SQ) ---
EXAM DESCRIPTION: CT CHEST ANGIOGRAPHY WITHOUT THEN WITH IV CONTRAST COMPLETED DATE/TME: 06/07/2019 23:13 CLINICAL HISTORY: 73 years, Female, shortness of breath COMPARISON: None. TECHNIQUE: 606 Images stored on PACS. All CT scanners at this facility use dose modulation, iterative reconstruction, and/or weight based dosing when appropriate to reduce radiation dose to as low as reasonably achievable (ALARA). Axial CTA images with coronal and sagittal MIPS [facility]: Dose Right [facility]: CareDose [facility]: Dose Right [facility]: Teradose 4D [facility]: [employer] LIMITATIONS: None. FINDINGS: The mediastinal vasculature enhances normally. There is no filling defect to suggest pulmonary embolus. Mild motion artifact. Negative for thoracic aortic aneurysm or dissection. Nonenlarged mediastinal and hilar lymph nodes. Heart size is normal. Small hiatal hernia. Mild motion artifact. Limited evaluation of upper abdomen otherwise unremarkable. Osseous structures grossly intact. No pneumothorax. Small right pleural effusion with adjacent pleural thickening and subsegmental atelectasis. There is mild diffuse prominence of the pulmonary interstitium likely reflecting interstitial edema. In addition there are areas of bronchial wall thickening with minor reticulonodular change of the right upper lobe suggesting superimposed small airway inflammation/infection. IMPRESSION: Negative for pulmonary embolus, thoracic aortic aneurysm, or dissection. Findings suggestive of mild diffuse interstitial edema. Small right pleural effusion. Suspected superimposed right upper lobe pneumonitis TECHNICAL DOCUMENTATION: Quality ID # [id number]: Final reports with documentation of one or more dose reduction techniques (e.g., Automated exposure control, adjustment of the mA and/or kV according to patient size, use of iterative reconstruction technique) copyright 2011 [employer]- All Rights Reserved
[2019-06-08 00:58] LABS: APPEARANCE,URINE CLEAR; BILIRUBIN,URINE NEGATIVE (NEGATIVE); COLOR,URINE YELLOW; GLUCOSE, URINE NEGATIVE (NEGATIVE); KETONES,URINE TRACE mg/dL (NEGATIVE); LEUKOCYTE ESTERASE,URINE NEGATIVE (NEGATIVE); NITRITE,URINE NEGATIVE (NEGATIVE); PROTEIN,URINE NEGATIVE (NEGATIVE); URINE SPECIFIC GRAVITY 1.046; UROBILINOGEN,URINE NEGATIVE mg/dL (<2.0)
[2019-06-08 01:08] LABS: A TYPE INFLUENZA AG NEGATIVE (NEGATIVE); B INFLUENZA AG NEGATIVE (NEGATIVE)
[2019-06-08] MEDS ORDERED: AZITHROMYCIN 250 MG TABLET PO ONE (02:16)
[2019-06-08] MEDS ORDERED: MAGNESIUM HYDROXIDE SUSP 30 ML UDCUP PO PRN (03:09)
[2019-06-08] MEDS ORDERED: MAG HYDROX/AL HYDROX/SIMETH SUSP 30 ML UDCUP PO PRN (03:09)
[2019-06-08] MEDS ORDERED: LEVALBUTEROL HCL NEB 0.63 MG/3 ML AMPUL NEB PRN (03:09)
[2019-06-08] MEDS ORDERED: PROMETHAZINE HCL INJ 25 MG/1 ML VIAL IV PRN (03:09)
[2019-06-08] MEDS ORDERED: ACETAMINOPHEN 325 MG TABLET PO PRN (03:15)
[2019-06-08] MEDS ORDERED: GUAIFENESIN SYRP 200 MG/10 ML UDC PO PRN (03:15)
[2019-06-08] MEDS ORDERED: NICOTINE 21 MG/24 HR PATCH.TD24 TD PRN (03:15)
[2019-06-08] MEDS: METHYLPREDNISOLONE INJ 40 MG/1 ML SDV IV SCH ×3 (05:33→17:11)
--- NOTE | 2019-06-08 06:31 | PDOC H&P ---
History of Present Illness Admission Date/PCP: 06/08/19 00:53 EULALIA CHASE DO Patient complains of: Cough History of Present Illness: FADI LYNN is a 73 year old female who presented emergency room with a one- week history of cough. Her nonproductive cough has been accompanied by moderate dyspnea which is worsened with exertion. Her cough has been associated with occasional chills. She denies other accompanying or associated signs and symptoms. She admits prior similar episodes when she has had a cold. She has not identified any additional aggravating or ameliorating factors for her cough. In the emergency room she was found to have atrial fibrillation with a rapid ventricular response that required treatment with diltiazem. She was subsequently admitted to the hospital for further evaluation and treatment. A coronavirus screen was performed in the ER. Past Medical History Cardiac Medical History: Reports: Atrial Fibrillation, Hyperlipidema, Hypertension Denies: Coronary Artery Disease, Myocardial Infarction Pulmonary Medical History: Reports: Asthma, Chronic Obstructive Pulmonary Disease (COPD) EENT Medical History: Denies: Cataracts, Ears - Hearing aids Neurological Medical History: Denies: Hemorrhagic CVA, Ischemic CVA, Seizures Endocrine Medical History: Denies: Diabetes Mellitus Type 1, Diabetes Mellitus Type 2, Hyperthyroidism, Hypothyroidism Renal/ Medical History: Denies: Chronic Kidney Disease, Nephrolithiasis Malignancy Medical History: Reports: None GI Medical History: Denies: Cirrhosis, Crohn's Disease, Hepatitis, Hiatal Hernia, Ulcerative Colitis Musculoskeltal Medical History: Denies: Arthritis, Fibromyalgia Skin Medical History: Denies: Eczema, Psoriasis Psychiatric Medical History: Reports: Depression - anxiety, Tobacco Dependency Denies: Alcohol Dependency, Substance Abuse Traumatic Medical History: Reports: None Hematology: Reports: Anemia - during pregnancyremote history Denies: Sickle Cell Disease, Bleeding Tendencies Infectious Medical History: Reports: None Past Surgical History Past Surgical History: Reports: Hysterectomy Social History Information Source: Patient Lives with: Alone Smoking Status: Current Every Day Smoker Electronic Cigarette use?: No Frequency of Alcohol Use: None Hx Recreational Drug Use: No Drugs: None Hx Prescription Drug Abuse: No - Advance Directive Resuscitation Status: Full Code Surrogate healthcare decision maker:: Eulalia Rivas Family History Family History: CAD, COPD, DM, Hypertension, Malignancy Parental Family History Reviewed: Yes Children Family History Reviewed: No Sibling(s) Family History Reviewed.: Yes Medication/Allergy Home Medications: Albuterol Sulfate [Ventolin Hfa 8 gm Mdi (1 Mdi/ER Disp)] 2 puff IH Q6HP PRN 11/24/18 Apixaban [Eliquis 5 mg Tablet] 5 mg PO Q12 11/24/18 Atenolol [Tenormin] 25 mg PO Q12 11/24/18 Cetirizine HCl [Zyrtec 10 mg Tablet] 10 mg PO DAILY 11/24/18 Fluticasone Propionate [Flonase Nasal [place] 50 Mcg/[place] 16 gm] 2 sprays NASL DAILY 11/24/18 Furosemide [Lasix 40 mg Tablet] 40 mg PO DAILY 11/24/18 Hydrocodone/Acetaminophen [Shaw 10-325 mg Tablet] 1 tab PO Q8HP PRN 11/24/18 Simvastatin [Zocor 20 mg Tablet] 20 mg PO QPM 11/24/18 Spironolactone [Aldactone 25 mg Tablet] 25 mg PO DAILY 11/24/18 Alprazolam [Xanax] 1 mg PO BID #0 03/28/19 Amlodipine Besylate [Norvasc 5 mg Tablet] 5 mg PO DAILY #30 tablet 03/28/19 Buspirone HCl [Buspar 10 mg Tablet] 5 mg PO QAM #30 tablet 03/29/19 Buspirone HCl [Buspar 10 mg Tablet] 10 mg PO QPM #30 tablet 03/29/19 Divalproex Sodium [Depakote ER 250 mg Tablet] 250 mg PO Q12 #60 tab.sr.24h 03/29/19 Allergies/Adverse Reactions: No Known Allergies Allergy (Verified 03/22/19 14:03) Review of Systems Constitutional: PRESENT: as per HPI, chills. ABSENT: fever(s), headache(s) Eyes: ABSENT: visual disturbances, other - Eye pain Ears: ABSENT: hearing changes, other - Ear pain Nose, Mouth, and Throat: ABSENT: headache(s), sore throat Cardiovascular: PRESENT: as per HPI, dyspnea on exertion. ABSENT: chest pain, palpitations Respiratory: PRESENT: as per HPI, cough, dyspnea. ABSENT: hemoptysis, sputum Gastrointestinal: ABSENT: abdominal pain, constipation, diarrhea, nausea, vomiting Genitourinary: ABSENT: dysuria, hematuria Musculoskeletal: ABSENT: back pain, joint swelling Integumentary: ABSENT: pruritus, rash Neurological: ABSENT: confusion, convulsions, focal weakness, memory loss, syncope Psychiatric: ABSENT: anxiety, depression Endocrine: ABSENT: cold intolerance, heat intolerance, polydipsia, polyphagia, polyuria Hematologic/Lymphatic: ABSENT: easy bleeding, easy bruising Allergic/Immunologic: ABSENT: seasonal rhinorrhea Physical Exam Vital Signs: Temp Pulse Resp BP Pulse Ox 99 F 73 16 139/65 H 93 06/07/19 22:00 06/07/19 20:31 06/07/19 22:01 06/07/19 22:00 06/07/19 21:00 Intake & Output 06/06/19 06/07/19 06/08/19 23:59 23:59 23:59 Intake Total 1000 Balance 1000 Weight 71.214 kg General appearance: PRESENT: no acute distress, cooperative Head exam: PRESENT: atraumatic, normocephalic Eye exam: PRESENT: conjunctiva pink. ABSENT: conjunctival injection, scleral icterus Ear exam: PRESENT: normal external ear exam. ABSENT: bleeding, drainage Mouth exam: PRESENT: dry mucosa, neck supple Neck exam: ABSENT: thyromegaly, tracheal deviation Respiratory exam: PRESENT: prolonged expiratory phas - mildly prolonged expiratory phase present, symmetrical, wheezes - Mild expiratory wheezes noted Cardiovascular exam: PRESENT: irregular rhythm - Irregularly irregular rate and rhythm. ABSENT: clicks, gallop, rubs Pulses: PRESENT: normal radial pulses, normal dorsalis pedis pul Vascular exam: PRESENT: normal capillary refill. ABSENT: pallor GI/Abdominal exam: PRESENT: normal bowel sounds, soft Rectal exam: PRESENT: deferred Extremities exam: ABSENT: joint swelling, pedal edema Musculoskeletal exam: ABSENT: deformity, dislocation Neurological exam: PRESENT: alert, oriented to person, oriented to place, oriented to time, oriented to situation, CN II-XII grossly intact. ABSENT: motor sensory deficit Psychiatric exam: PRESENT: appropriate affect, normal mood Skin exam: PRESENT: dry, intact, warm. ABSENT: jaundice, rash, urticaria Results Laboratory Results: 06/07/19 21:03 06/07/19 21:03 06/07/19 06/07/19 06/07/19 21:03 21:03 21:03 WBC 7.0 RBC 4.33 Hgb 12.6 Hct 37.1 MCV 86 MCH 29.0 MCHC 34.0 RDW 13.9 Plt Count 215 Seg Neutrophils % 67.7 Sodium 137.4 Potassium 3.6 Chloride 98 Carbon Dioxide 34 H Anion Gap 5 BUN 19 Creatinine 0.99 Est GFR ( Amer) > 60 Glucose 98 Lactic Acid 1.3 Calcium 8.7 Magnesium 1.9 Total Bilirubin 0.5 AST 21 Alkaline Phosphatase 82 Total Protein 6.5 Albumin 3.4 L Urine Color Urine Appearance Urine pH Ur Specific [place] Urine Protein Urine Glucose (UA) Urine Ketones Urine Blood Urine Nitrite Ur Leukocyte Esterase Urine WBC (Auto) Urine RBC (Auto) 06/08/19 00:20 WBC RBC Hgb Hct MCV MCH MCHC RDW Plt Count Seg Neutrophils % Sodium Potassium Chloride Carbon Dioxide Anion Gap BUN Creatinine Est GFR ( Amer) Glucose Lactic Acid Calcium Magnesium Total Bilirubin AST Alkaline Phosphatase Total Protein Albumin Urine Color YELLOW Urine Appearance CLEAR Urine pH 7.0 Ur Specific [place] 1.046 Urine Protein NEGATIVE Urine Glucose (UA) NEGATIVE Urine Ketones TRACE H Urine Blood SMALL H Urine Nitrite NEGATIVE Ur Leukocyte Esterase NEGATIVE Urine WBC (Auto) 1 Urine RBC (Auto) 8 06/07/19 06/07/19 21:03 21:03 Troponin I < 0.012 NT-Pro-B Natriuret Pep 7380 H Impressions: Chest X-Ray 06/07/19 20:37 IMPRESSION: Increased interstitial markings in the lateral right upper lobe, acute versus chronic; otherwise, no significant interval change since 03/25/2019. COPD. Chest/Abdomen CTA 06/07/19 23:13 IMPRESSION: Negative for pulmonary embolus, thoracic aortic aneurysm, or dissection. Findings suggestive of mild diffuse interstitial edema. Small right pleural effusion. Suspected superimposed right upper lobe pneumonitis TECHNICAL DOCUMENTATION: Quality ID # 436: Final reports with documentation of one or more dose reduction techniques (e.g., Automated exposure control, adjustment of the mA and/or kV according to patient size, use of iterative reconstruction technique) copyright 2011 [employer]- All Rights Reserved Assessment and Plan - Diagnosis (1) Acute respiratory failure with hypoxia Is this a current diagnosis for this admission?: Yes (2) COPD with exacerbation Is this a current diagnosis for this admission?: Yes (3) Cough Is this a current diagnosis for this admission?: Yes (4) Atrial fibrillation with RVR Is this a current diagnosis for this admission?: Yes (5) Hypertension Qualifiers: Hypertension type: essential hypertension Qualified Code(s): I10 - Essential (primary) hypertension Is this a current diagnosis for this admission?: Yes (6) Tobacco use disorder, severe, dependence Is this a current diagnosis for this admission?: Yes - Plan Summary Summary: Patient is admitted to the medical floor where she will receive routine supportive and symptomatic cares. She will receive supplemental oxygen utilizing nasal cannula oxygen with possible use of noninvasive airway pressure support devices such as BiPAP if necessary to maintain an adequate oxygen saturation. She will receive an aggressive pulmonary toilet utilizing nebulized Xopenex, Atrovent and Pulmicort. Receive IV Solu-Medrol 40 mg every 6 hours x3, to complete an initial bolus set. She will use Ativan 1 mg IV every 4 hours as needed for anxiety or restlessness. An IV bolus dose of Cardizem with a subsequent Cardizem infusion was ordered while the patient was in the emergency room and will be continued for rate control once the patient gets to the floor. CBCs metabolic profiles and magnesium levels will be obtained on an as-needed basis. Venous blood gases and/or arterial blood gases will be obtained as needed. Patient will be on a cardiac diet. She will be treated with oral azithromycin which was initiated in the emergency room. Smoking cessation is advised and counseled at the bedside briefly. A nicotine replacement patch will be available for the patient's use, if required. - Time Time Spent with patient: 15-24 minutes Smoking Cessation Education: 3 to 10 minutes Medications reviewed and adjusted accordingly: Yes Anticipated discharge: Home - Inpatient Certification Based on my medical assessment, after consideration of the patient's comorbid ities, presenting symptoms, or acuity I expect that the services needed warrant INPATIENT care.: Yes I certify that my determination is in accordance with my understanding of Medicare's requirements for reasonable and necessary INPATIENT services [42 CFR 412.3e].: Yes Medical Necessity: Need Close Monitoring Due to Risk of Patient Decompensation, Need For Continuous Telemetry Monitoring, Need for Nebulizer Therapy and Monitoring of Response, Risk of Complication if Not Cared For in Hospital
[2019-06-08] MEDS ORDERED: DILTIAZEM HCL/D5W 125 MG/125 ML RTUINJ IV PRN (07:21)
[2019-06-08] MEDS ORDERED: DILTIAZEM HCL INJ 25 MG/5 ML VIAL IV ONE (07:30)
[2019-06-08] MEDS ORDERED: BUDESONIDE NEB 0.5 MG/2 ML AMPUL NEB SCH (08:00)
[2019-06-08] MEDS ORDERED: LEVALBUTEROL HCL NEB 1.25 MG/3 ML AMPUL NEB SCH (08:00)
[2019-06-08] MEDS ORDERED: IPRATROPIUM BROMIDE 0.02% NEB 0.5 MG/2.5 ML AMPUL NEB SCH (08:00)
[2019-06-08] MEDS: FUROSEMIDE INJ/PF 40 MG/4 ML SDV IV SCH ×2 (09:11→21:16)
[2019-06-08] MEDS: FAMOTIDINE 20 MG TABLET PO SCH ×2 (09:12→21:15)
[2019-06-08] MEDS: DOCUSATE SODIUM 100 MG CAPSULE PO SCH ×2 (09:12→17:11)
[2019-06-08] MEDS ORDERED: ALBUTEROL SULFATE HFA (90 MCG/PUFF) 8 GM MDI IH PRN (09:19)
--- NOTE | 2019-06-08 09:37 | EKG REPORT ---
SEVERITY:- ABNORMAL ECG - ATRIAL FIBRILLATION, V-RATE 84-181 BORDERLINE T ABNORMALITIES, ANT-LAT LEADS BORDERLINE PROLONGED QT INTERVAL : Confirmed by: Srinivas Tamez 08-Jun-2019 09:36:59
[2019-06-08] MEDS ORDERED: DIVALPROEX SODIUM 250 MG TABLET.DR PO SCH (10:00)
[2019-06-08] MEDS ORDERED: DILTIAZEM HCL 30 MG TABLET PO ONE ×2 (10:00→13:40)
[2019-06-08] MEDS: FLUTICASONE/UMECLIDIN/VILANTER 100-62.5-25 MCG/DOSE IH SCH (13:05)
[2019-06-08] MEDS ORDERED: DILTIAZEM HCL 60 MG TABLET PO SCH (14:00)
[2019-06-08] MEDS: SIMVASTATIN 10 MG TABLET PO SCH (17:12)
[2019-06-08] MEDS: BUSPIRONE HCL 10 MG TABLET PO SCH (17:12)
[2019-06-08] MEDS: DILTIAZEM HCL 60 MG TABLET PO SCH ×2 (17:12→23:59)
--- NOTE | 2019-06-08 17:29 | PDOC PROGRESS REPORT ---
Subjective Progress Note for:: 06/08/19 Subjective:: The patient is resting in bed. She has her oxygen off. She states that she was going to go to the restroom but can wait. She reports feeling better than yesterday. Reason For Visit: ACUTE EXACERBATION OF COPD,ACUTE RESPIRATORY FAILU Physical Exam Vital Signs: Temp Pulse Resp BP Pulse Ox 98.6 F 85 16 99/55 L 92 06/08/19 17:02 06/08/19 17:02 06/08/19 17:02 06/08/19 17:02 06/08/19 17:02 Intake & Output 06/07/19 06/08/19 06/09/19 06:59 06:59 06:59 Intake Total 1150 120 Balance 1150 120 Weight 67.9 kg General appearance: PRESENT: cooperative, mild distress, well-developed Head exam: PRESENT: atraumatic, normocephalic Eye exam: PRESENT: conjunctiva pink. ABSENT: scleral icterus Ear exam: PRESENT: normal external ear exam. ABSENT: bleeding, drainage Mouth exam: PRESENT: moist, tongue midline Respiratory exam: PRESENT: rales - Faint bilateral rales, symmetrical, unlabore d. ABSENT: rhonchi, tachypnea, wheezes Cardiovascular exam: PRESENT: irregular rhythm GI/Abdominal exam: PRESENT: normal bowel sounds, soft. ABSENT: distended, tenderness Rectal exam: PRESENT: deferred Gentrourinary exam: ABSENT: indwelling catheter Extremities exam: ABSENT: joint swelling, pedal edema Musculoskeletal exam: PRESENT: ambulatory, normal inspection Neurological exam: PRESENT: alert, awake, oriented to person, oriented to place, oriented to time, oriented to situation, CN II-XII grossly intact. ABSENT: a ltered, motor sensory deficit Psychiatric exam: PRESENT: appropriate affect. ABSENT: agitated, anxious Focused psych exam: ABSENT: delusional, restlessness Skin exam: PRESENT: dry, normal color, warm. ABSENT: rash Results Laboratory Results: 06/07/19 21:03 06/07/19 21:03 06/07/19 06/07/19 06/07/19 21:03 21:03 21:03 WBC 7.0 RBC 4.33 Hgb 12.6 Hct 37.1 MCV 86 MCH 29.0 MCHC 34.0 RDW 13.9 Plt Count 215 Seg Neutrophils % 67.7 Sodium 137.4 Potassium 3.6 Chloride 98 Carbon Dioxide 34 H Anion Gap 5 BUN 19 Creatinine 0.99 Est GFR ( Amer) > 60 Glucose 98 Lactic Acid 1.3 Calcium 8.7 Magnesium 1.9 Total Bilirubin 0.5 AST 21 Alkaline Phosphatase 82 Total Protein 6.5 Albumin 3.4 L Urine Color Urine Appearance Urine pH Ur Specific [place] Urine Protein Urine Glucose (UA) Urine Ketones Urine Blood Urine Nitrite Ur Leukocyte Esterase Urine WBC (Auto) Urine RBC (Auto) 06/08/19 00:20 WBC RBC Hgb Hct MCV MCH MCHC RDW Plt Count Seg Neutrophils % Sodium Potassium Chloride Carbon Dioxide Anion Gap BUN Creatinine Est GFR ( Amer) Glucose Lactic Acid Calcium Magnesium Total Bilirubin AST Alkaline Phosphatase Total Protein Albumin Urine Color YELLOW Urine Appearance CLEAR Urine pH 7.0 Ur Specific [place] 1.046 Urine Protein NEGATIVE Urine Glucose (UA) NEGATIVE Urine Ketones TRACE H Urine Blood SMALL H Urine Nitrite NEGATIVE Ur Leukocyte Esterase NEGATIVE Urine WBC (Auto) 1 Urine RBC (Auto) 8 06/07/19 06/07/19 21:03 21:03 Troponin I < 0.012 NT-Pro-B Natriuret Pep 7380 H Impressions: Chest X-Ray 06/07/19 20:37 IMPRESSION: Increased interstitial markings in the lateral right upper lobe, acute versus chronic; otherwise, no significant interval change since 03/25/2019. COPD. Chest/Abdomen CTA 06/07/19 23:13 IMPRESSION: Negative for pulmonary embolus, thoracic aortic aneurysm, or dissection. Findings suggestive of mild diffuse interstitial edema. Small right pleural effusion. Suspected superimposed right upper lobe pneumonitis TECHNICAL DOCUMENTATION: Quality ID # 436: Final reports with documentation of one or more dose reduction techniques (e.g., Automated exposure control, adjustment of the mA and/or kV according to patient size, use of iterative reconstruction technique) copyright 2011 [employer]- All Rights Reserved Assessment and Plan - Diagnosis (1) COPD with exacerbation Is this a current diagnosis for this admission?: Yes Plan: 06/08/2019 Patient received a small burst dosing of Solu-Medrol. She is on the Trelegy inhaler. We are trying to minimize aerosolization with nebulizers. She has pro-air albuterol inhaler available as needed. Currently she is breathing quite comfortably on room air. (2) Acute respiratory failure with hypoxia Is this a current diagnosis for this admission?: Yes Plan: June 08, 2019 We will monitor the patient pulse oximetry. We will try and keep saturation greater than or equal to 93. Typically for COPD patients saturations of 88-92 are adequate but with possible infection we would like to maintain saturation rates slightly higher. We will utilize oxygen if needed to maintain this threshold. (3) Atrial fibrillation with RVR Is this a current diagnosis for this admission?: Yes Plan: June 08, 2019 The patient is tachycardic. We will try to utilize oral medications to achieve adequate rate control. She was only on atenolol at home. She is not on any anticoagulation and consider instituting an oral agent. (4) Cough Is this a current diagnosis for this admission?: Yes Plan: June 08, 2019 Secondary to COPD exacerbation. Symptomatic treatment (5) Hypertension Qualifiers: Hypertension type: essential hypertension Qualified Code(s): I10 - Essential (primary) hypertension Is this a current diagnosis for this admission?: Yes Plan: June 08, 2019 Continue diltiazem and furosemide. Depending on how her blood pressure responds we can add the amlodipine. Her BNP is elevated and so I have increased the furosemide slightly. (6) Anxiety and depression Is this a current diagnosis for this admission?: Yes Plan: June 08, 2019 The patient is on multiple medications. We will continue her current regimen. (7) Tobacco use disorder, severe, dependence Is this a current diagnosis for this admission?: Yes Plan: June 08, 2019 Encourage cessation. Nicotine patch therapy. - Plan Summary Summary: Patient is admitted to the medical floor where she will receive routine supportive and symptomatic cares. She will receive supplemental oxygen utilizing nasal cannula oxygen with possible use of noninvasive airway pressure support devices such as BiPAP if necessary to maintain an adequate oxygen saturation. She will receive an aggressive pulmonary toilet utilizing nebulized Xopenex, Atrovent and Pulmicort. Receive IV Solu-Medrol 40 mg every 6 hours x3, to complete an initial bolus set. She will use Ativan 1 mg IV every 4 hours as needed for anxiety or restlessness. An IV bolus dose of Cardizem with a subsequent Cardizem infusion was ordered while the patient was in the emergency room and will be continued for rate control once the patient gets to the floor. CBCs metabolic profiles and magnesium levels will be obtained on an as-needed basis. Venous blood gases and/or arterial blood gases will be obtained as needed. Patient will be on a cardiac diet. She will be treated with oral azithromycin which was initiated in the emergency room. Smoking cessation is advised and counseled at the bedside briefly. A nicotine replacement patch will be available for the patient's use, if required. - Time Time Spent with patient: 15-24 minutes Medications reviewed and adjusted accordingly: Yes Anticipated discharge: Home
[2019-06-08] MEDS: ALPRAZOLAM 0.5 MG TABLET PO PRN (20:00)
[2019-06-08] MEDS: DIVALPROEX SODIUM 250 MG TABLET.DR PO SCH (21:15)
[2019-06-08] MEDS: ATENOLOL 50 MG TABLET PO SCH (21:16)
[2019-06-08] MEDS ORDERED: (PENDING PHARMACY ID) (Atenolol [Tenormin] 25 MG) PO SCH (22:00)
[2019-06-08] MEDS ORDERED: ZOLPIDEM TARTRATE 5 MG TABLET PO SCH (22:00)
[2019-06-09] MEDS: LORAZEPAM INJ 2 MG/1 ML VIAL IV PRN (01:17)
[2019-06-09 06:57] LABS: HEMOGLOBIN 11.3 g/dL (12.0-15.5); MEAN CORPUSCULAR HEMOGLOBIN 28.7 pg (27.0-33.4); MEAN CORPUSCULAR HGB CONC 34.1 g/dL (32.0-36.0); MEAN CORPUSCULAR VOLUME 84 fl (80-97); PLATELET COUNT 215 10^3/uL (150-450); RED BLOOD COUNT 3.92 10^6/uL (3.72-5.28); RED CELL DISTRIBUTION WIDTH 13.7 % (11.5-14.0); WHITE BLOOD COUNT 10.5 10^3/uL (4.0-10.5)
[2019-06-09] MEDS: DILTIAZEM HCL 60 MG TABLET PO SCH ×3 (07:11→17:04)
[2019-06-09 07:13] LABS: ANION GAP 6 (5-19); BLOOD UREA NITROGEN 23 mg/dL (7-20); CARBON DIOXIDE 32 mmol/L (22-30); CHLORIDE 100 mmol/L (98-107); GLUCOSE 135 mg/dL (75-110); POTASSIUM 3.3 mmol/L (3.6-5.0)
[2019-06-09] MEDS ORDERED: (PENDING PHARMACY ID) (Buspirone Hcl [Buspirone Hcl] 1 TAB) PO SCH (08:00)
[2019-06-09] MEDS: ATENOLOL 50 MG TABLET PO SCH ×2 (09:19→21:18)
[2019-06-09] MEDS: FUROSEMIDE INJ/PF 40 MG/4 ML SDV IV SCH (09:19)
[2019-06-09] MEDS: DIVALPROEX SODIUM 250 MG TABLET.DR PO SCH ×2 (09:20→21:18)
[2019-06-09] MEDS: DOCUSATE SODIUM 100 MG CAPSULE PO SCH ×2 (09:20→18:31)
[2019-06-09] MEDS: FAMOTIDINE 20 MG TABLET PO SCH ×2 (09:20→21:21)
[2019-06-09] MEDS: FLUTICASONE/UMECLIDIN/VILANTER 100-62.5-25 MCG/DOSE IH SCH (09:21)
[2019-06-09] MEDS: BUSPIRONE HCL 10 MG TABLET PO SCH ×2 (09:21→18:24)
[2019-06-09] MEDS: ALPRAZOLAM 0.5 MG TABLET PO PRN ×2 (10:46→20:10)
--- NOTE | 2019-06-09 15:52 | PDOC PROGRESS REPORT ---
Subjective Progress Note for:: 06/09/19 Subjective:: The patient is upset this morning. She states that on her first night she was in the emergency department for a long time. She then had benzodiazepine therapy to help sleep and she slept most of yesterday. She states that she did not sleep well last night. She was tearful today. She seems overwhelmed by her anxiety. This is despite the fact that she is breathing comfortably on room air. Reason For Visit: ACUTE EXACERBATION OF COPD,ACUTE RESPIRATORY FAILU Physical Exam Vital Signs: Temp Pulse Resp BP Pulse Ox 98.4 F 104 H 16 106/61 93 06/09/19 09:39 06/09/19 14:00 06/09/19 09:39 06/09/19 09:39 06/09/19 09:39 Intake & Output 06/08/19 06/09/19 06/10/19 06:59 06:59 06:59 Intake Total 1150 360 226 Balance 1150 360 226 Weight 67.9 kg 66.3 kg General appearance: PRESENT: cooperative, mild distress - Emotionally. Breathing is comfortable., well-developed Head exam: PRESENT: atraumatic, normocephalic Eye exam: PRESENT: conjunctiva pink. ABSENT: scleral icterus Ear exam: PRESENT: normal external ear exam. ABSENT: bleeding, drainage Respiratory exam: PRESENT: clear to auscultation jojo, symmetrical, unlabored. ABSENT: rales, rhonchi, tachypnea, wheezes Cardiovascular exam: PRESENT: RRR, +S1, +S2 GI/Abdominal exam: PRESENT: normal bowel sounds, soft. ABSENT: distended, guarding, tenderness Rectal exam: PRESENT: deferred Gentrourinary exam: ABSENT: indwelling catheter Extremities exam: ABSENT: pedal edema Musculoskeletal exam: PRESENT: ambulatory, normal inspection. ABSENT: deformity Neurological exam: PRESENT: alert, awake, oriented to person, oriented to place, oriented to situation, CN II-XII grossly intact. ABSENT: altered Psychiatric exam: PRESENT: anxious - Quite anxious and tearful. ABSENT: agitated Focused psych exam: ABSENT: delusional, paranoid, restlessness Skin exam: PRESENT: dry, normal color, warm. ABSENT: rash Results Laboratory Results: 06/09/19 05:57 06/09/19 05:57 06/09/19 06/09/19 05:57 05:57 WBC 10.5 RBC 3.92 Hgb 11.3 L Hct 33.0 L MCV 84 MCH 28.7 MCHC 34.1 RDW 13.7 Plt Count 215 Sodium 137.7 Potassium 3.3 L Chloride 100 Carbon Dioxide 32 H Anion Gap 6 BUN 23 H Creatinine 0.98 Est GFR ( Amer) > 60 Glucose 135 H Calcium 9.0 Magnesium 1.9 06/07/19 06/07/19 06/09/19 21:03 21:03 05:57 Troponin I < 0.012 NT-Pro-B Natriuret Pep 7380 H 7230 H Impressions: Chest X-Ray 06/07/19 20:37 IMPRESSION: Increased interstitial markings in the lateral right upper lobe, acute versus chronic; otherwise, no significant interval change since 03/25/2019. COPD. Chest/Abdomen CTA 06/07/19 23:13 IMPRESSION: Negative for pulmonary embolus, thoracic aortic aneurysm, or dissection. Findings suggestive of mild diffuse interstitial edema. Small right pleural effusion. Suspected superimposed right upper lobe pneumonitis TECHNICAL DOCUMENTATION: Quality ID # 436: Final reports with documentation of one or more dose reduction techniques (e.g., Automated exposure control, adjustment of the mA and/or kV according to patient size, use of iterative reconstruction technique) copyright 2011 [employer]- All Rights Reserved Assessment and Plan - Diagnosis (1) COPD with exacerbation Is this a current diagnosis for this admission?: Yes Plan: 06/08/2019 Patient received a small burst dosing of Solu-Medrol. She is on the Trelegy inhaler. We are trying to minimize aerosolization with nebulizers. She has pro-air albuterol inhaler available as needed. Currently she is breathing quite comfortably on room air. June 09, 2019 Remains on room air. Antibiotics on hold. Continue current inhaler therapy. (2) Acute respiratory failure with hypoxia Is this a current diagnosis for this admission?: Yes Plan: June 08, 2019 We will monitor the patient pulse oximetry. We will try and keep saturation greater than or equal to 93. Typically for COPD patients saturations of 88-92 are adequate but with possible infection we would like to maintain saturation rates slightly higher. We will utilize oxygen if needed to maintain this threshold. June 09, 2019 No oxygen required. Acute failure resolved. (3) Atrial fibrillation with RVR Is this a current diagnosis for this admission?: Yes Plan: June 08, 2019 The patient is tachycardic. We will try to utilize oral medications to achieve adequate rate control. She was only on atenolol at home. She is not on any anticoagulation and consider instituting an oral agent. June 09, 2019 The patient's heart rate fluctuates significantly. I believe a lot of this is related to anxiety. I have increased her Xanax. Intermittently the diltiazem has been held. I will start long-acting diltiazem 120 mg daily tomorrow morning. We will hold this medication if her pulse is less than 60 or systolic blood pressure less than 100. If good control continues to be an issue we can have cardiology see the patient. We may also consider digoxin as it will help control rate without dropping her blood pressure. In addition I am starting apixaban today as she is in atrial fibrillation with no anticoagulation. (4) Cough Is this a current diagnosis for this admission?: Yes Plan: June 08, 2019 Secondary to COPD exacerbation. Symptomatic treatment June 09, 2019 Improved (5) Hypertension Qualifiers: Hypertension type: essential hypertension Qualified Code(s): I10 - Essential (primary) hypertension Is this a current diagnosis for this admission?: Yes Plan: June 08, 2019 Continue diltiazem and furosemide. Depending on how her blood pressure responds we can add the amlodipine. Her BNP is elevated and so I have increased the furosemide slightly. June 09, 2019 She was initially on increased dose of furosemide. I have dropped this back to 40 mg IV once daily and may likely convert this over to p.o. This should help with her blood pressure. Her blood pressure has been marginal. We will continue the diltiazem. She has also been on amlodipine. We will see her blood pressure does with the current adjustments and then review her medications. (6) Anxiety and depression Is this a current diagnosis for this admission?: Yes Plan: June 08, 2019 The patient is on multiple medications. We will continue her current regimen. June 09, 2019 The patient is tearful. She complained of poor sleep. She states that Dr. [place] has had her on trazodone in the past. Her heightened anxiety is clearly affecting her heart rate. I will increase the availability of Xanax to every 6 hours. I have ordered trazodone as a scheduled dose at night to help her sleep. Hopefully the day night cycle will normalize. This will help her psychological state as well. I will add low-dose melatonin at night. (7) Tobacco use disorder, severe, dependence Is this a current diagnosis for this admission?: Yes Plan: June 08, 2019 Encourage cessation. Nicotine patch therapy. (8) Hypokalemia Is this a current diagnosis for this admission?: Yes Plan: June 09, 2019 Serum potassium is low today. I will initiate oral potassium chloride supplementation. Her furosemide dose is being decreased and so we will need to monitor her potassium closely to avoid hyper kalemia. (9) Encounter for observation for suspected exposure to other biological agents ruled out Is this a current diagnosis for this admission?: Yes Plan: June 09, 2019 The patient was tested for Covid-19. Results are pending. - Plan Summary Summary: Patient is admitted to the medical floor where she will receive routine supportive and symptomatic cares. She will receive supplemental oxygen utilizing nasal cannula oxygen with possible use of noninvasive airway pressure support devices such as BiPAP if necessary to maintain an adequate oxygen saturation. She will receive an aggressive pulmonary toilet utilizing nebulized Xopenex, Atrovent and Pulmicort. Receive IV Solu-Medrol 40 mg every 6 hours x3, to complete an initial bolus set. She will use Ativan 1 mg IV every 4 hours as needed for anxiety or restlessness. An IV bolus dose of Cardizem with a subsequent Cardizem infusion was ordered while the patient was in the emergency room and will be continued for rate control once the patient gets to the floor. CBCs metabolic profiles and magnesium levels will be obtained on an as-needed basis. Venous blood gases and/or arterial blood gases will be obtained as needed. Patient will be on a cardiac diet. She will be treated with oral azithromycin which was initiated in the emergency room. Smoking cessation is advised and counseled at the bedside briefly. A nicotine replacement patch will be available for the patient's use, if required. - Time Time Spent with patient: 15-24 minutes Medications reviewed and adjusted accordingly: Yes Anticipated discharge: Home
[2019-06-09] MEDS ORDERED: POTASSIUM CHLORIDE 10 MEQ TABLET.ER PO ONE (17:30)
[2019-06-09] MEDS: APIXABAN 5 MG TABLET PO SCH (18:31)
[2019-06-09] MEDS: SIMVASTATIN 10 MG TABLET PO SCH (18:32)
[2019-06-09] MEDS: POTASSIUM CHLORIDE 20 MEQ PACKET PO SCH (21:17)
[2019-06-09] MEDS: MELATONIN 3 MG TABLET PO SCH (21:21)
[2019-06-09] MEDS: TRAZODONE HCL 50 MG TABLET PO SCH (21:21)
[2019-06-10] MEDS: DILTIAZEM HCL 60 MG TABLET PO SCH ×2 (01:43→06:05)
[2019-06-10 06:05] LABS: HEMATOCRIT 34.1 % (36.0-47.0); HEMOGLOBIN 11.7 g/dL (12.0-15.5); MEAN CORPUSCULAR HEMOGLOBIN 28.9 pg (27.0-33.4); MEAN CORPUSCULAR HGB CONC 34.4 g/dL (32.0-36.0); MEAN CORPUSCULAR VOLUME 84 fl (80-97); PLATELET COUNT 231 10^3/uL (150-450); RED BLOOD COUNT 4.06 10^6/uL (3.72-5.28); RED CELL DISTRIBUTION WIDTH 13.9 % (11.5-14.0); WHITE BLOOD COUNT 9.9 10^3/uL (4.0-10.5)
[2019-06-10 06:33] LABS: ANION GAP 6 (5-19); BLOOD UREA NITROGEN 26 mg/dL (7-20); CALCIUM 8.3 mg/dL (8.4-10.2); CARBON DIOXIDE 31 mmol/L (22-30); CHLORIDE 102 mmol/L (98-107); GLUCOSE 93 mg/dL (75-110); POTASSIUM 3.3 mmol/L (3.6-5.0)
[2019-06-10] MEDS ORDERED: DILTIAZEM HCL 120 MG CAP.SR.24H PO SCH (10:00)
[2019-06-10] MEDS ORDERED: FUROSEMIDE INJ/PF 40 MG/4 ML SDV IV SCH (10:00)
[2019-06-10] MEDS: DILTIAZEM HCL 120 MG CAP.SR.24H PO SCH (12:56)
[2019-06-10] MEDS: FUROSEMIDE 40 MG TABLET PO SCH (12:57)
[2019-06-10] MEDS: POTASSIUM CHLORIDE 20 MEQ PACKET PO SCH (13:00)
[2019-06-10] MEDS: ATENOLOL 50 MG TABLET PO SCH ×2 (13:00→21:21)
[2019-06-10] MEDS: DOCUSATE SODIUM 100 MG CAPSULE PO SCH ×2 (13:01→18:03)
[2019-06-10] MEDS: APIXABAN 5 MG TABLET PO SCH ×2 (13:01→18:02)
[2019-06-10] MEDS: FAMOTIDINE 20 MG TABLET PO SCH ×2 (13:01→21:20)
[2019-06-10] MEDS: DIVALPROEX SODIUM 250 MG TABLET.DR PO SCH ×2 (13:01→21:20)
[2019-06-10] MEDS: BUSPIRONE HCL 10 MG TABLET PO SCH ×2 (13:02→18:02)
[2019-06-10] MEDS: FLUTICASONE/UMECLIDIN/VILANTER 100-62.5-25 MCG/DOSE IH SCH (13:02)
--- NOTE | 2019-06-10 13:11 | PDOC PROGRESS REPORT ---
Subjective Progress Note for:: 06/10/19 Reason For Visit: ACUTE EXACERBATION OF COPD,ACUTE RESPIRATORY FAILU 06/10/2019 Patient was admitted to the hospital through the emergency room for a one-week history of cough, chills, atrial fibrillation with RVR. Physical Exam Vital Signs: Temp Pulse Resp BP Pulse Ox 98.4 F 75 20 105/49 L 90 L 06/10/19 00:53 06/10/19 07:00 06/10/19 05:54 06/10/19 05:54 06/10/19 05:54 Intake & Output 06/09/19 06/10/19 06/11/19 06:59 06:59 06:59 Intake Total 360 906 Balance 360 906 Weight 66.3 kg 64.7 kg General appearance: PRESENT: no acute distress Respiratory exam: PRESENT: decreased breath sounds Cardiovascular exam: PRESENT: RRR. ABSENT: diastolic murmur, rubs, systolic murmur Neurological exam: PRESENT: alert, awake, oriented to person, oriented to place, oriented to time, oriented to situation, CN II-XII grossly intact. ABSENT: motor sensory deficit Psychiatric exam: PRESENT: anxious, other - Patient is not tearful today but she does appear to be anxious. States she was told she might go home today Results Laboratory Results: 06/10/19 05:46 06/10/19 05:46 06/10/19 06/10/19 05:46 05:46 WBC 9.9 RBC 4.06 Hgb 11.7 L Hct 34.1 L MCV 84 MCH 28.9 MCHC 34.4 RDW 13.9 Plt Count 231 Sodium 138.7 Potassium 3.3 L Chloride 102 Carbon Dioxide 31 H Anion Gap 6 BUN 26 H Creatinine 0.90 Est GFR ( Amer) > 60 Glucose 93 Calcium 8.3 L Magnesium 1.8 06/07/19 06/07/19 06/09/19 21:03 21:03 05:57 Troponin I < 0.012 NT-Pro-B Natriuret Pep 7380 H 7230 H Impressions: Chest X-Ray 06/07/19 20:37 IMPRESSION: Increased interstitial markings in the lateral right upper lobe, acute versus chronic; otherwise, no significant interval change since 03/25/2019. COPD. Chest/Abdomen CTA 06/07/19 23:13 IMPRESSION: Negative for pulmonary embolus, thoracic aortic aneurysm, or dissection. Findings suggestive of mild diffuse interstitial edema. Small right pleural effusion. Suspected superimposed right upper lobe pneumonitis TECHNICAL DOCUMENTATION: Quality ID # 436: Final reports with documentation of one or more dose reduction techniques (e.g., Automated exposure control, adjustment of the mA and/or kV according to patient size, use of iterative reconstruction technique) copyright 2011 [employer]- All Rights Reserved Assessment and Plan - Diagnosis (1) Atrial fibrillation with RVR Is this a current diagnosis for this admission?: Yes (2) Cough Is this a current diagnosis for this admission?: Yes (4) COPD with exacerbation Is this a current diagnosis for this admission?: Yes (5) Hypertension Qualifiers: Hypertension type: essential hypertension Qualified Code(s): I10 - Essential (primary) hypertension Is this a current diagnosis for this admission?: Yes (6) Shortness of breath Is this a current diagnosis for this admission?: Yes - Plan Summary Summary: Patient is admitted to the medical floor where she will receive routine olguin pportive and symptomatic cares. She will receive supplemental oxygen utilizing nasal cannula oxygen with possible use of noninvasive airway pressure support devices such as BiPAP if necessary to maintain an adequate oxygen saturation. She will receive an aggressive pulmonary toilet utilizing nebulized Xopenex, Atrovent and Pulmicort. Receive IV Solu-Medrol 40 mg every 6 hours x3, to complete an initial bolus set. She will use Ativan 1 mg IV every 4 hours as needed for anxiety or restlessness. An IV bolus dose of Cardizem with a subsequent Cardizem infusion was ordered while the patient was in the emergency room and will be continued for rate control once the patient gets to the floor. CBCs metabolic profiles and magnesium levels will be obtained on an as-needed basis. Venous blood gases and/or arterial blood gases will be obtained as needed. Patient will be on a cardiac diet. She will be treated with oral azithromycin which was initiated in the emergency room. Smoking cessation is advised and counseled at the bedside briefly. A nicotine replacement patch will be available for the patient's use, if required. 06/10/2019 Temperature 98.4 pulse this morning appears to be more normal, since around midnight it went from 124 down to 87 and now seems to be averaging around 80 Pressures appear to be running slightly low anywhere from 105/50 down to 87/45. Due to these lower pressures today we are going to hold the Lasix and the Cardizem but give the Tenormin. Patient was on Lasix 40 mg daily at home. Norvasc 5 mg daily at home Oxygen saturation is around 90-93 on room air B P is stable at 7230 States she still did not sleep well last night, though she appears less tearful today probably from increasing the Buspar. Trazodone 100 mg nightly and melatonin 3 mg nightly Will watch patient's blood pressure today if she stabilizes possibly discharge to home tomorrow. Increase potassium to 40 mEq every 12 hours - Time Time Spent with patient: 25-34 minutes
[2019-06-10] MEDS: SIMVASTATIN 10 MG TABLET PO SCH (18:03)
[2019-06-10] MEDS: ALPRAZOLAM 0.5 MG TABLET PO PRN (19:45)
[2019-06-10] MEDS: POTASSIUM CHLORIDE 10 MEQ TABLET.ER PO SCH (21:20)
[2019-06-10] MEDS: TRAZODONE HCL 50 MG TABLET PO SCH (21:20)
[2019-06-10] MEDS: MELATONIN 3 MG TABLET PO SCH (21:21)
[2019-06-10] MEDS: LORAZEPAM INJ 2 MG/1 ML VIAL IV PRN (21:40)
[2019-06-11 05:11] LABS: HEMATOCRIT 36.7 % (36.0-47.0); HEMOGLOBIN 12.4 g/dL (12.0-15.5); MEAN CORPUSCULAR HEMOGLOBIN 28.4 pg (27.0-33.4); MEAN CORPUSCULAR HGB CONC 33.7 g/dL (32.0-36.0); MEAN CORPUSCULAR VOLUME 84 fl (80-97); PLATELET COUNT 259 10^3/uL (150-450); RED BLOOD COUNT 4.35 10^6/uL (3.72-5.28); WHITE BLOOD COUNT 7.9 10^3/uL (4.0-10.5)
[2019-06-11] MEDS: DOCUSATE SODIUM 100 MG CAPSULE PO SCH (09:38)
[2019-06-11] MEDS: FAMOTIDINE 20 MG TABLET PO SCH (09:38)
[2019-06-11] MEDS: ATENOLOL 50 MG TABLET PO SCH (09:38)
[2019-06-11] MEDS: POTASSIUM CHLORIDE 10 MEQ TABLET.ER PO SCH (09:39)
[2019-06-11] MEDS: FUROSEMIDE 40 MG TABLET PO SCH (09:39)
[2019-06-11] MEDS: APIXABAN 5 MG TABLET PO SCH (09:39)
[2019-06-11] MEDS: BUSPIRONE HCL 10 MG TABLET PO SCH (09:39)
[2019-06-11] MEDS: DILTIAZEM HCL 120 MG CAP.SR.24H PO SCH (09:40)
[2019-06-11] MEDS: DIVALPROEX SODIUM 250 MG TABLET.DR PO SCH (09:40)
[2019-06-11] MEDS: FLUTICASONE/UMECLIDIN/VILANTER 100-62.5-25 MCG/DOSE IH SCH (09:41)
[2019-06-11 10:29] VITALS: BP 111/54
[2019-06-11] MEDS ORDERED: ONDANSETRON 4 MG TAB.RAPDIS ONE (11:23)
[2019-06-11] MEDS ORDERED: LOPERAMIDE HCL 2 MG CAPSULE PO ONE (11:30)
[2019-06-11] MEDS ORDERED: ONDANSETRON 4 MG TAB.RAPDIS PO ONE (11:30)
--- NOTE | 2019-06-12 13:54 | PDOC DISCHARGE SUMMARY ---
Impression - Admit/DC Date/PCP Admission Date/Primary Care Provider: 06/08/19 00:53 EULALIA CHASE, Discharge Date: 06/11/19 - Discharge Diagnosis (1) Atrial fibrillation with RVR Is this a current diagnosis for this admission?: Yes (2) Cough Is this a current diagnosis for this admission?: Yes (3) Anxiety Is this a current diagnosis for this admission?: Yes (4) COPD with exacerbation Is this a current diagnosis for this admission?: Yes (5) Hypertension Is this a current diagnosis for this admission?: Yes (6) Shortness of breath Is this a current diagnosis for this admission?: Yes - Assessment Summary: Patient is admitted to the medical floor where she will receive routine supportive and symptomatic cares. She will receive supplemental oxygen uti lizing nasal cannula oxygen with possible use of noninvasive airway pressure support devices such as BiPAP if necessary to maintain an adequate oxygen saturation. She will receive an aggressive pulmonary toilet utilizing nebulized Xopenex, Atrovent and Pulmicort. Receive IV Solu-Medrol 40 mg every 6 hours x3, to complete an initial bolus set. She will use Ativan 1 mg IV every 4 hours as needed for anxiety or restlessness. An IV bolus dose of Cardizem with a subsequent Cardizem infusion was ordered while the patient was in the emergency room and will be continued for rate control once the patient gets to the floor. CBCs metabolic profiles and magnesium levels will be obtained on an as-needed basis. Venous blood gases and/or arterial blood gases will be obtained as needed. Patient will be on a cardiac diet. She will be treated with oral azithromycin which was initiated in the emergency room. Smoking cessation is advised and counseled at the bedside briefly. A nicotine replacement patch will be available for the patient's use, if required. 06/10/2019 Temperature 98.4 pulse this morning appears to be more normal, since around midnight it went from 124 down to 87 and now seems to be averaging around 80 Pressures appear to be running slightly low anywhere from 105/50 down to 87/45. Due to these lower pressures today we are going to hold the Lasix and the Cardizem but give the Tenormin. Patient was on Lasix 40 mg daily at home. Norvasc 5 mg daily at home Oxygen saturation is around 90-93 on room air B P is stable at 7230 States she still did not sleep well last night, though she appears less tearful today probably from increasing the Buspar. Trazodone 100 mg nightly and melatonin 3 mg nightly Will watch patient's blood pressure today if she stabilizes possibly discharge to home tomorrow. Increase potassium to 40 mEq every 12 hours. Patient is to be discharged on 06/11/2019 She was discharged with multiple medications including potassium 20 mEq twice daily Cardizem 120 mg daily metformin 3 mg nightly methadone 100 mg nightly trilogy Zofran and mkrp-okt-obanlwg Imodium Diagnosis with COPD exacerbation, tobacco abuse, anxiety, atrial fib with RVR, hypertension, shortness of breath hypokalemia. A large part of patient's medical problems was secondary to anxiety which was addressed on multiple occasions. Patient is medically stable for discharge. Health was initiated for PT OT and usp - Additional Information Resuscitation Status: Full Code Discharge Diet: Cardiac Discharge Activity: Activity As Tolerated, Balance Activity w/Rest Referrals: [facility] [Outside] (PATIENT TO BE FOLLOWED BY HEALTH DEPT. ON SELF QUARANTINE AT HOME. ONCE THE HEALTH DEPT. RELEASES PATIENT THEN PATIENT MAY SCHEDULE A FOLLOW UP APPT. WITH PCP.) Prescriptions: Buspirone HCl 1 tab PO QAM 30 Days #30 tab Diltiazem HCl [Cardizem Cd 120 mg Capsule] 120 mg PO DAILY 30 Days #30 cap.sr.24h Apixaban [Eliquis 5 mg Tablet] 5 mg PO BID 30 Days #60 tablet Melatonin [Melatonin 3 mg Tablet] 3 mg PO QHS 30 Days #30 tablet Nicotine [Nicoderm 21 mg/24 Hr Transderm Patch] 1 each TD DAILYP PRN 30 Days #30 patch.td24 PRN Reason: Potassium Chloride 20 meq PO BID 30 Days #60 tab.er.prt Trazodone HCl 100 mg PO QHS 30 Days #30 tablet Fluticasone/Umeclidin/Vilanter [Trelegy 100-62.5-25 Mcg Ellipta 14 Dose/Dpi] 1 inh IH DAILY 14 Days #1 inhaler Ondansetron [Zofran Odt 4 mg Tablet] 4 mg PO Q6HP PRN 5 Days #20 tab.rapdis PRN Reason: Home Medications: Albuterol Sulfate [Ventolin Hfa 8 gm Mdi (1 Mdi/ER Disp)] 2 puff IH Q6HP PRN 11/24/18 Furosemide [Lasix 40 mg Tablet] 40 mg PO DAILY 11/24/18 Hydrocodone/Acetaminophen [[place] 10-325 mg Tablet] 1 tab PO Q6HP PRN 11/24/18 Simvastatin [Zocor 20 mg Tablet] 20 mg PO QPM 11/24/18 Amlodipine Besylate [Norvasc 5 mg Tablet] 5 mg PO DAILY #30 tablet 03/28/19 Buspirone HCl [Buspar 10 mg Tablet] 10 mg PO QPM #30 tablet 03/29/19 Divalproex Sodium [Depakote ER 250 mg Tablet] 250 mg PO Q12 #60 tab.sr.24h 03/29/19 Alprazolam [Xanax] 1 mg PO BIDP PRN 06/08/19 Zolpidem Tartrate [Ambien 5 mg Tablet] 5 mg PO QHS 06/08/19 Acetaminophen [Tylenol 325 mg Tablet] 650 mg PO Q4HP PRN tablet 06/11/19 Apixaban [Eliquis 5 mg Tablet] 5 mg PO BID 30 Days #60 tablet 06/11/19 Atenolol [Tenormin 50 mg Tablet] 25 mg PO Q12 tablet 06/11/19 Buspirone HCl 1 tab PO QAM 30 Days #30 tab 06/11/19 Buspirone HCl [Buspar 10 mg Tablet] 10 mg PO QPM tablet 06/11/19 Diltiazem HCl [Cardizem Cd 120 mg Capsule] 120 mg PO DAILY 30 Days #30 cap.sr.24h 06/11/19 Docusate Sodium [Colace 100 mg Capsule] 100 mg PO BID capsule 06/11/19 Famotidine [Pepcid 20 mg Tablet] 20 mg PO Q12 tablet 06/11/19 Fluticasone/Umeclidin/Vilanter [Trelegy 100-62.5-25 Mcg Ellipta 14 Dose/Dpi] 1 inh IH DAILY 14 Days #1 inhaler 06/11/19 Furosemide [Lasix 40 mg Tablet] 40 mg PO DAILY tablet 06/11/19 Mag Hydrox/Al Hydrox/Simeth [Maalox Plus Susp 30 Udcup] 30 ml PO Q6HP PRN udc 06/11/19 Magnesium Hydroxide [Milk of Magnesia 30 ml Udcup] 30 ml PO HSP PRN udc 06/11/19 Melatonin [Melatonin 3 mg Tablet] 3 mg PO QHS 30 Days #30 tablet 06/11/19 Nicotine [Nicoderm 21 mg/24 Hr Transderm Patch] 1 each TD DAILYP PRN 30 Days #30 patch.td24 06/11/19 Ondansetron [Zofran Odt 4 mg Tablet] 4 mg PO Q6HP PRN 5 Days #20 tab.rapdis 06/11/19 Potassium Chloride 20 meq PO BID 30 Days #60 tab.er.prt 06/11/19 Trazodone HCl 100 mg PO QHS 30 Days #30 tablet 06/11/19 History of Present Illiness History of Present Illness: FADI LYNN is a 73 year old female Physical Exam Vital Signs: Temp Pulse Resp BP Pulse Ox 98.6 F 79 16 111/54 L 100 06/11/19 10:26 06/11/19 10:26 06/11/19 10:26 06/11/19 10:26 06/11/19 10:26 Intake & Output 06/11/19 06/12/19 06/13/19 06:59 06:59 06:59 Intake Total 1547 120 Output Total 0 Balance 1547 120 Weight 65.8 kg Results Laboratory Results: WBC 7.9 10^3/uL (4.0-10.5) 06/11/19 04:50 RBC 4.35 10^6/uL (3.72-5.28) 06/11/19 04:50 Hgb 12.4 g/dL (12.0-15.5) 06/11/19 04:50 Hct 36.7 % (36.0-47.0) 06/11/19 04:50 MCV 84 fl (80-97) 06/11/19 04:50 MCH 28.4 pg (27.0-33.4) 06/11/19 04:50 MCHC 33.7 g/dL (32.0-36.0) 06/11/19 04:50 RDW 14.0 % (11.5-14.0) 06/11/19 04:50 Plt Count 259 10^3/uL (150-450) 06/11/19 04:50 Lymph % (Auto) 20.0 % (13-45) 06/07/19 21:03 [place] % (Auto) 10.1 % (3-13) 06/07/19 21:03 Eos % (Auto) 0.9 % (0-6) 06/07/19 21:03 Baso % (Auto) 1.3 % (0-2) 06/07/19 21:03 Absolute Neuts (auto) 4.8 10^3/uL (1.7-8.2) 06/07/19 21:03 Absolute Lymphs (auto) 1.4 10^3/uL (0.5-4.7) 06/07/19 21:03 Absolute Monos (auto) 0.7 10^3/uL (0.1-1.4) 06/07/19 21:03 Absolute Eos (auto) 0.1 10^3/uL (0.0-0.6) 06/07/19 21:03 Absolute Basos (auto) 0.1 10^3/uL (0.0-0.2) 06/07/19 21:03 Seg Neutrophils % 67.7 % (42-78) 06/07/19 21:03 Sodium 138.7 mmol/L (137-145) 06/10/19 05:46 Potassium 3.3 mmol/L (3.6-5.0) L 06/10/19 05:46 Chloride 102 mmol/L (98-107) 06/10/19 05:46 Carbon Dioxide 31 mmol/L (22-30) H 06/10/19 05:46 Anion Gap 6 (5-19) 06/10/19 05:46 BUN 26 mg/dL (7-20) H 06/10/19 05:46 Creatinine 0.90 mg/dL (0.52-1.25) 06/10/19 05:46 Est GFR ( Amer) > 60 (>60) 06/10/19 05:46 Est GFR (MDRD) Non-Af > 60 (>60) 06/10/19 05:46 Glucose 93 mg/dL (75-110) 06/10/19 05:46 Lactic Acid 1.3 mmol/L (0.7-2.1) 06/07/19 21:03 Calcium 8.3 mg/dL (8.4-10.2) L 06/10/19 05:46 Magnesium 1.8 mg/dL (1.6-2.3) 06/10/19 05:46 Total Bilirubin 0.5 mg/dL (0.2-1.3) 06/07/19 21:03 Direct Bilirubin 0.2 mg/dL (0.0-0.4) 06/07/19 21:03 Neonat Total Bilirubin Not Reportable 06/07/19 21:03 Neonat Direct Bilirubin Not Reportable 06/07/19 21:03 Neonat Indirect Bili Not Reportable 06/07/19 21:03 AST 21 U/L (14-36) 06/07/19 21:03 ALT 9 U/L (<35) 06/07/19 21:03 Alkaline Phosphatase 82 U/L (38-126) 06/07/19 21:03 Troponin I < 0.012 ng/mL 06/07/19 21:03 NT-Pro-B Natriuret Pep 7230 pg/mL (<450) H 06/09/19 05:57 Total Protein 6.5 g/dL (6.3-8.2) 06/07/19 21:03 Albumin 3.4 g/dL (3.5-5.0) L 06/07/19 21:03 Urine Color YELLOW 06/08/19 00:20 Urine Appearance CLEAR 06/08/19 00:20 Urine pH 7.0 (5.0-9.0) 06/08/19 00:20 Ur Specific [place] 1.046 06/08/19 00:20 Urine Protein NEGATIVE mg/dL (NEGATIVE) 06/08/19 00:20 Urine Glucose (UA) NEGATIVE mg/dL (NEGATIVE) 06/08/19 00:20 Urine Ketones TRACE mg/dL (NEGATIVE) H 06/08/19 00:20 Urine Blood SMALL (NEGATIVE) H 06/08/19 00:20 Urine Nitrite NEGATIVE (NEGATIVE) 06/08/19 00:20 Urine Bilirubin NEGATIVE (NEGATIVE) 06/08/19 00:20 Urine Urobilinogen NEGATIVE mg/dL (<2.0) 06/08/19 00:20 Ur Leukocyte Esterase NEGATIVE (NEGATIVE) 06/08/19 00:20 Urine WBC (Auto) 1 /HPF 06/08/19 00:20 Urine RBC (Auto) 8 /HPF 06/08/19 00:20 U Hyaline Cast (Auto) 1 /LPF 06/08/19 00:20 Squamous Epi Cells Auto 1 /HPF 06/08/19 00:20 Urine Ascorbic Acid NEGATIVE (NEGATIVE) 06/08/19 00:20 COVID-19 Source NASAL WASHING 06/08/19 00:29 COVID-19 (ARIADNA) Not Detected (Not Detect) 06/08/19 00:29 Influenza A (Rapid) NEGATIVE (NEGATIVE) 06/08/19 00:29 Influenza B (Rapid) NEGATIVE (NEGATIVE) 06/08/19 00:29 06/07/19 06/07/19 06/09/19 21:03 21:03 05:57 Troponin I < 0.012 NT-Pro-B Natriuret Pep 7380 H 7230 H Impressions: Chest X-Ray 06/07/19 20:37 IMPRESSION: Increased interstitial markings in the lateral right upper lobe, acute versus chronic; otherwise, no significant interval change since 03/25/2019. COPD. Chest/Abdomen CTA 06/07/19 23:13 IMPRESSION: Negative for pulmonary embolus, thoracic aortic aneurysm, or dissection. Findings suggestive of mild diffuse interstitial edema. Small right pleural effusion. Suspected superimposed right upper lobe pneumonitis TECHNICAL DOCUMENTATION: Quality ID # 436: Final reports with documentation of one or more dose reduction techniques (e.g., Automated exposure control, adjustment of the mA and/or kV according to patient size, use of iterative reconstruction technique) copyright 2011 [employer]- All Rights Reserved Plan Goals: RENA IS PCP Stroke Is this a Stroke Patient?: No Acute Heart Failure - Is this a Heart Failure Patient?: No
== END 2019-06-11 13:30 | disposition home health service (06) | DRG 192 ==
LOC: ER 19:30 → EH 06-08 00:53 → 5 06-08 03:49
PROVIDERS: ADMIT Emergency Medicine; ATTEND Hospitalist
DX: J44.1 Chronic obstructive pulmonary disease with (acute) exacerbation (principal); I48.91 Unspecified atrial fibrillation; Z79.01 Long term (current) use of anticoagulants; F41.8 Other specified anxiety disorders; F17.200 Nicotine dependence, unspecified, uncomplicated; E87.6 Hypokalemia; I10 Essential (primary) hypertension; E78.5 Hyperlipidemia, unspecified; Z79.899 Other long term (current) drug therapy; Z82.5 Family history of asthma and other chronic lower respiratory diseases; Z79.51 Long term (current) use of inhaled steroids; Z03.818 Encounter for observation for suspected exposure to other biological agents ruled out
CPT/HCPCS: 36415; 71045; 71275; 80048; 80053; 81001; 83605; 83735; 83880; 84484; 85025; 85027; 87635; 87804; 93005; 93010; 96361; 96374; 99285; J1940; J2060; J2550; J2920; J3490; J7030; S0119

== ENCOUNTER 2019-06-24 15:21 | Emergency (ER) | payer MEDICARE ==
--- NOTE | 2019-06-24 16:27 | ER Document Report ---
ED Medical Screen (RME) - General Chief Complaint: Fall Injury Stated Complaint: FALL/LEFT HAND PAIN,SWELLING Time Seen by Provider: 06/24/19 16:24 Primary Care Provider: EULALIA CHASE DO [Primary Care Provider] - Follow up as needed Mode of Arrival: Wheelchair Information source: Patient Notes: 73-year-old female presented to ED for fall 2 nights ago with swelling to the left hand with ecchymosis and a large skin tear to the right upper arm with swelling to the arm and hand. 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 She is mildly confused about dates. Will get x-rays of her left hand right arm and a CT of the head. I have greeted and performed a rapid initial assessment of this patient. A comprehensive ED assessment and evaluation of the patient, analysis of test results and completion of medical decision making process will be conducted by an additional ED providers. TRAVEL OUTSIDE OF THE [place] IN LAST 30 DAYS: No - Related Data Allergies/Adverse Reactions: No Known Allergies Allergy (Verified 03/22/19 14:03) Past Medical History - Past Medical History Cardiac Medical History: Reports: Hx Atrial Fibrillation, Hx Hypercholesterolemia, Hx Hypertension Denies: Hx Coronary Artery Disease, Hx Heart Attack Pulmonary Medical History: Reports: Hx Asthma, Hx COPD Neurological Medical History: Denies: Hx Cerebrovascular Accident, Hx Seizures Endocrine Medical History: Denies: Hx Diabetes Mellitus Type 1, Hx Diabetes Mellitus Type 2, Hx Hyperthyroidism, Hx Hypothyroidism Renal/ Medical History: Denies: Hx Peritoneal Dialysis GI Medical History: Denies: Hx Cirrhosis, Hx Crohn's Disease, Hx Hepatitis, Hx Hiatal Hernia, Hx Ulcer, Hx Ulcerative Colitis Musculoskeltal Medical History: Denies Hx Arthritis, Denies Hx Fibromyalgia Skin Medical History: Denies Hx Eczema, Denies Hx Psoriasis Psychiatric Medical History: Reports: Hx Anxiety, Hx Depression - anxiety Infectious Medical History: Denies: Hx Hepatitis Past Surgical History: Reports: Hx Breast Surgery - bilateral lumpectomy, Hx Hysterectomy. Denies: Hx Mastectomy, Hx Open Heart Surgery, Hx Pacemaker - Immunizations Immunizations up to date: Yes Hx Diphtheria, Pertussis, Tetanus Vaccination: No Physical Exam - Vital signs Vitals: Temp Pulse Resp BP Pulse Ox 99.1 F 99 16 105/66 95 06/24/19 15:22 06/24/19 15:22 06/24/19 15:22 06/24/19 15:22 06/24/19 15:22 Course - Vital Signs Vital signs: Temp Pulse Resp BP Pulse Ox 99.1 F 99 16 105/66 95 06/24/19 15:22 06/24/19 15:22 06/24/19 15:22 06/24/19 15:22 06/24/19 15:22 Doctor's Discharge - Discharge Referrals: EULALIA CHASE DO [Primary Care Provider] - Follow up as needed
[2019-06-24] MEDS ORDERED: ACETAMINOPHEN 325 MG TABLET PO ONE (16:32)
--- NOTE | 2019-06-24 17:15 | RADIOLOGY REPORT (SQ) ---
EXAM DESCRIPTION: HAND LEFT 3 VIEWS IMAGES COMPLETED DATE/TIME: 06/24/2019 3:51 pm REASON FOR STUDY: fall injury to left hand and right arm COMPARISON: None. EXAM PARAMETERS: NUMBER OF VIEWS: Three views. TECHNIQUE: AP, lateral and oblique radiographic images acquired of the left hand. LIMITATIONS: None. FINDINGS: MINERALIZATION: Osteopenia. BONES: There are acute mildly displaced fractures at the proximal metaphysis 2nd and 3rd digit proxim al phalanges. The 3rd digit proximal phalanx fracture extends to the metacarpophalangeal joint space . There is a cortical irregularity at the proximal base of the 5th digit proximal phalanx which may represent a nondisplaced fracture, this is seen only on the oblique view. Mild osteoarthritis at the 1st digit carpometacarpal joint and DIP joints of all digits. No erosive changes. JOINTS: No effusions. SOFT TISSUES: Soft tissue swelling over the dorsal hand. No radiopaque foreign body. OTHER: No other significant finding. IMPRESSION: 1. Acute minimally displaced fractures of the proximal metaphysis of the 2nd and 3rd digit proximal p halanxes. Possible nondisplaced fracture of the 5th digit proximal phalanx. Associated soft tissue swelling. TECHNICAL DOCUMENTATION: JOB ID: [id number] 2010 [employer]- All Rights Reserved Reading location - IP/workstation name: [email or web address]
--- NOTE | 2019-06-24 17:16 | RADIOLOGY REPORT (SQ) ---
EXAM DESCRIPTION: HUMERUS RIGHT IMAGES COMPLETED DATE/TIME: 06/24/2019 3:51 pm REASON FOR STUDY: fall injury to left hand and right arm COMPARISON: None. NUMBER OF VIEWS: Two views. TECHNIQUE: Two radiographic images were acquired of the right humerus to include elbow and shoulder in at least one projection. LIMITATIONS: None. FINDINGS: MINERALIZATION: Osteopenia. BONES: No acute fracture or dislocation. No worrisome bone lesions. SOFT TISSUES: No obvious swelling or foreign body. OTHER: No other significant finding. IMPRESSION: No acute fracture of the humerus. Diffuse osteopenia. TECHNICAL DOCUMENTATION: JOB ID: [id number] 2010 [employer]- All Rights Reserved Reading location - IP/workstation name: [email or web address]
--- NOTE | 2019-06-24 18:09 | RADIOLOGY REPORT (SQ) ---
EXAM DESCRIPTION: CT HEAD WITHOUT IMAGES COMPLETED DATE/TIME: 06/24/2019 4:48 pm REASON FOR STUDY: fall confused on blood thinner COMPARISON: 03/22/2019 TECHNIQUE: Axial images acquired through the brain without intravenous contrast. Images reviewed wi th bone, brain and subdural windows. Images stored on PACS. All CT scanners at this facility use dose modulation, iterative reconstruction, and/or weight based d osing when appropriate to reduce radiation dose to as low as reasonably achievable (ALARA). [facility]: Dose Right [facility]: CareDose [facility]: Dose Right [facility]: Teradose 4D [facility]: Smart Stevia First RADIATION DOSE: CT Rad equipment meets quality standard of care and radiation dose reduction techniq ues were employed. CTDIvol: 53.2 mGy. DLP: 858 mGy-cm. mGy. LIMITATIONS: None. FINDINGS: VENTRICLES: Normal size and contour. CEREBRUM: No masses. No hemorrhage. No midline shift. No evidence for acute infarction. Normal gra y-white matter differentiation. Mild patchy periventricular and deep white matter hypodense attenuat ion consistent with mild chronic small vessel ischemic change. There is intracranial atherosclerosis . CEREBELLUM: No masses. No hemorrhage. No alteration of density. No evidence for acute infarction. EXTRAAXIAL SPACES: No fluid collections. No masses. ORBITS AND GLOBE: No intra- or extraconal masses. Normal contour of globe without masses. CALVARIUM: No fracture. PARANASAL SINUSES: No fluid or mucosal thickening. SOFT TISSUES: No mass or hematoma. OTHER: No other significant finding. IMPRESSION: No acute intracranial hemorrhage, mass, or evidence of acute territorial infarct. Mild chronic small vessel ischemic change and intracranial atherosclerosis are stable. EVIDENCE OF ACUTE STROKE: NO. COMMENT: Quality ID # 436: Final reports with documentation of one or more dose reduction techniques (e.g., Automated exposure control, adjustment of the mA and/or kV according to patient size, use of iterative reconstruction technique) TECHNICAL DOCUMENTATION: JOB ID: [id number] 2010 [employer]- All Rights Reserved Reading location - IP/workstation name: [email or web address]
[2019-06-24] MEDS ORDERED: HYDROCODONE/ACETAMINOPHEN 5-325 MG TABLET PO ONE (18:39)
--- NOTE | 2019-06-24 18:48 | ER Document Report ---
ED Fall - General Chief Complaint: Fall Stated Complaint: FALL/LEFT HAND PAIN,SWELLING Time Seen by Provider: 06/24/19 16:24 Primary Care Provider: VAL CARLOS MD [ACTIVE STAFF] - Follow up as needed EULALIA CHASE DO [Primary Care Provider] - Follow up as needed Mode of Arrival: Wheelchair Information source: Patient Notes: CHIEF COMPLAINT: Multiple injuries from fall HPI: 73-year-old female on [facility] presenting for multiple injuries sustained in a mechanical fall 2 nights ago. Patient states she went to get up in the middle of the night to get ice cream and slipped and fell landing down on her left hand. Patient denies hitting her head. Denies neck pain chest pain hip pain abdominal pain. Patient complains of pain to the left hand and fingers as well as a skin tear to the right upper arm. ROS: See HPI - all other systems were reviewed and are otherwise negative Constitutional: no fever or recent illness Eyes: no drainage, no blurred vision ENT: no runny nose, no sore throat Cardiovascular: no chest pain Resp: no SOB, no cough GI: no vomiting, no diarrhea : no dysuria Integumentary: Positive skin tear right arm, positive bruising left hand Allergy: no hives Musculoskeletal: Positive extremity pain or swelling Neurological: no numbness/tingling, no weakness MEDICATIONS: I agree with the patient medications as charted by the RN. ALLERGIES: I agree with the allergies as charted by the RN. PAST MEDICAL HISTORY/PAST SURGICAL HISTORY: Reviewed and agree as charted by RN. SOCIAL HISTORY: Reviewed and agree as charted by RN. FAMILY HISTORY: No significant familial comorbid conditions directly related to patient complaint EXAM: Reviewed vital signs as charted by RN. CONSTITUTIONAL: Airway patent; alert and oriented and responds appropriately to questions. Well-appearing, well-nourished HEAD: Normocephalic, atraumatic EYES: PERRL; EOM intact; Conjunctivae clear, sclerae non-icteric ENT: Midface is stable without tenderness; normal nose; no bleeding; normal pharynx, normal voice, no stridor, no intraoral lacerations or dental trauma noted; no hemotympanum NECK: Trachea is midline; spine non-tender, no step-offs, good range of motion; no contusions or hematomas CARD: Normal symmetric pulses; RRR; no murmurs, no clicks, no rubs, no gallops RESP: Normal chest excursion with respiration; chest wall appears atraumatic without ecchymoses or crepitance; Breath sounds clear and equal bilaterally ABD/GI: Appears atraumatic without contusions or hematomas; non-distended, soft, non-tender, no rebound, no guarding; no palpable organomegaly or masses PELVIS: Stable, nontender BACK: The back appears atraumatic, no step-offs; spine is nontender; there is no CVA tenderness EXT: Normal ROM in all joints; there is moderate edema and bruising to the entire left hand including the fingers and wrist. There is tenderness on palpation of the base of the second third and fifth fingers. Radial and ulnar pulses are present in the left wrist, sensation is intact in the fingertips with capillary refill less than 3 seconds SKIN: Normal color for age and race; warm; dry; good turgor; reasonably well approximated skin tear right upper arm on the lateral aspect without visible erythema NEURO: Moves all extremities equally; Motor and sensory function intact PSYCH: The patient's mood and manner are appropriate. MDM: 73-year-old female who is on Eliquis with mechanical fall 2 nights ago did not hit her head. No bruising on the head. She did break the second third and fourth fingers over the proximal phalanx will place in a volar splint for comfort refer to orthopedics. She has a skin tear on the right upper arm that is reasonably well approximated. We will dressed the wound update tetanus status. She is to follow the wound with the PCP, hand with orthopedics. She does specifically request hydrocodone for pain, we did discuss balance issues of taking this medication and she indicates that she has taken this before without difficulty TRAVEL OUTSIDE OF THE [place] IN LAST 30 DAYS: No - Related data Allergies/Adverse Reactions: No Known Allergies Allergy (Verified 03/22/19 14:03) Past Medical History - General Information source: Patient - Social History Smoking Status: Current Every Day Smoker Family History: CAD, COPD, DM, Hypertension, Malignancy Patient has suicidal ideation: No Patient has homicidal ideation: No - Past Medical History Cardiac Medical History: Reports: Hx Atrial Fibrillation, Hx Hyperch olesterolemia, Hx Hypertension Denies: Hx Coronary Artery Disease, Hx Heart Attack Pulmonary Medical History: Reports: Hx Asthma, Hx COPD Neurological Medical History: Denies: Hx Cerebrovascular Accident, Hx Seizures Endocrine Medical History: Denies: Hx Diabetes Mellitus Type 1, Hx Diabetes Mellitus Type 2, Hx Hyperthyroidism, Hx Hypothyroidism Renal/ Medical History: Denies: Hx Peritoneal Dialysis GI Medical History: Denies: Hx Cirrhosis, Hx Crohn's Disease, Hx Hepatitis, Hx Hiatal Hernia, Hx Ulcer, Hx Ulcerative Colitis Musculoskeletal Medical History: Denies Hx Arthritis, Denies Hx Fibromyalgia Skin Medical History: Denies Hx Eczema, Denies Hx Psoriasis Psychiatric Medical History: Reports: Hx Anxiety, Hx Depression - anxiety Infectious Medical History: Denies: Hx Hepatitis Past Surgical History: Reports: Hx Breast Surgery - bilateral lumpectomy, Hx Hysterectomy. Denies: Hx Mastectomy, Hx Open Heart Surgery, Hx Pacemaker - Immunizations Immunizations up to date: Yes Hx Diphtheria, Pertussis, Tetanus Vaccination: No Physical Exam - Vital signs Vitals: Temp Pulse Resp BP Pulse Ox 99.1 F 99 16 105/66 95 06/24/19 15:22 06/24/19 15:22 06/24/19 15:22 06/24/19 15:22 06/24/19 15:22 Course - Vital Signs Vital signs: Temp Pulse Resp BP Pulse Ox 99.1 F 99 16 105/66 95 06/24/19 15:22 06/24/19 15:22 06/24/19 15:22 06/24/19 15:22 06/24/19 15:22 Procedures - Immobilization Left Distal Hand Pre-Proc Neuro Vasc Exam: Normal Immobilizer type: Volar splint Performed by: PCT Post-Proc Neuro Vasc Exam: Normal, Unchanged from pre-exam Alignment checked and good: No Discharge - Discharge Clinical Impression: Multiple closed fractures of phalanx of finger of left hand, Skin tear Fall Qualifiers: Encounter type: initial encounter Qualified Code(s): W19.XXXA - Unspecified fall, initial encounter Condition: Stable Disposition: HOME, SELF-CARE Instructions: Fractured Finger ([facility]) Additional Instructions: Follow-up closely with orthopedics for further evaluation and management of the finger fractures. You fractured the second third and fifth fingers of the left hand. Put ice or cool compresses over the hand 2-3 times daily for 5 to 10 minutes at a time to help with swelling and bruising and pain. Take the hydrocodone for pain as prescribed, watch for balance issues if taking narcotics for pain. Change the dressing over the skin tear daily applying a clean dry dressing to the wound area until healed. Follow-up with your primary care provider for reevaluation of the wound area in 2 to 3 days call for appointment. Prescriptions: Hydrocodone/Acetaminophen [Lodi 5-325 mg Tablet] 1 tab PO Q6H PRN #10 tablet PRN Reason: Referrals: EULALIA CHASE DO [Primary Care Provider] - Follow up as needed VAL CARLOS MD [ACTIVE STAFF] - Follow up as needed
[2019-06-24] MEDS ORDERED: DIPH/PERTUSS(ACELL)/TETANUS VAC/PF 0.5 ML SYR (>=10YO) IM ONE (18:53)
[2019-06-24 19:29] VITALS: BP 112/70
== END 2019-06-24 19:29 | disposition home or self-care (01) ==
LOC: ER 15:21
DX: S62.611A Displaced fracture of proximal phalanx of left index finger, initial encounter for closed fracture (principal); S62.613A Displaced fracture of proximal phalanx of left middle finger, initial encounter for closed fracture; S62.615A Displaced fracture of proximal phalanx of left ring finger, initial encounter for closed fracture; S41.111A Laceration without foreign body of right upper arm, initial encounter; R41.0 Disorientation, unspecified; R22.32 Localized swelling, mass and lump, left upper limb; W01.0XXA Fall on same level from slipping, tripping and stumbling without subsequent striking against object, initial encounter; I48.91 Unspecified atrial fibrillation; E78.00 Pure hypercholesterolemia, unspecified; I10 Essential (primary) hypertension; Z79.02 Long term (current) use of antithrombotics/antiplatelets; Z23 Encounter for immunization
CPT/HCPCS: 99284; 90471; 73130; 73060; 70450; 90715; 29125; A9270

== ENCOUNTER 2019-07-06 14:30 | Inpatient (IN) | payer MEDICARE ==
--- NOTE | 2019-07-06 14:46 | ER Document Report ---
ED Medical Screen (RME) - General Stated Complaint: GENERAL WEAKNESS Time Seen by Provider: 07/06/19 14:40 Primary Care Provider: EULALIA CHASE DO [Primary Care Provider] - Follow up as needed TRAVEL OUTSIDE OF THE [place] IN LAST 30 DAYS: No - HPI Notes: 07/06/19 14:44 73-year-old female with a history of A. fib on Eliquis presents to the emergency room for weakness and states she is been "sleeping all day". Patient keeps saying "please help me" patient states her son dropped her off for this reason. Denies fevers, chills, chest pain,palpitations, shortness of breath, dyspnea, nausea, vomiting, diarrhea, abdominal pain, hematuria,blurred vision, double vision, loss of vision, speech changes, LH, dizziness, syncope, headaches, wheezing, ST, URI, neck pain, weakness, bowel or bladder dysfunction, saddle anesthesia, numbness or tingling in bilateral upper or lower extremities equally, muscle paralysis, weakness in bilateral upper or lower extremities equally or rash. Patient is poor historian. I have greeted and performed a rapid initial assessment of this patient. A comprehensive ED assessment and evaluation of the patient, analysis of test results and completion of the medical decision making process will be conducted by additional ED providers. PHYSICAL EXAMINATION: GENERAL: Chronically [id number] and in no acute distress. HEAD: Atraumatic, normocephalic. EYES: Pupils equal round extraocular movements intact, conjunctiva are normal. NECK: Normal range of motion CV: s1, s2 regular LUNGS: No respiratory distress Musculoskeletal: Normal range of motion NEUROLOGICAL: Normal speech, normal gait. SKIN: Warm, Dry, normal turgor, no rashes or lesions noted. 07/06/19 14:45 07/06/19 14:45 - Related Data Allergies/Adverse Reactions: No Known Allergies Allergy (Verified 06/24/19 19:43) Past Medical History - Past Medical History Cardiac Medical History: Reports: Hx Atrial Fibrillation, Hx Hypercholesterolemia, Hx Hypertension Denies: Hx Coronary Artery Disease, Hx Heart Attack Pulmonary Medical History: Reports: Hx Asthma, Hx COPD Neurological Medical History: Denies: Hx Cerebrovascular Accident, Hx Seizures Endocrine Medical History: Denies: Hx Diabetes Mellitus Type 1, Hx Diabetes Mellitus Type 2, Hx Hyperthyroidism, Hx Hypothyroidism Renal/ Medical History: Denies: Hx Peritoneal Dialysis GI Medical History: Denies: Hx Cirrhosis, Hx Crohn's Disease, Hx Hepatitis, Hx Hiatal Hernia, Hx Ulcer, Hx Ulcerative Colitis Musculoskeltal Medical History: Denies Hx Arthritis, Denies Hx Fibromyalgia Skin Medical History: Denies Hx Eczema, Denies Hx Psoriasis Psychiatric Medical History: Reports: Hx Anxiety, Hx Depression - anxiety Infectious Medical History: Denies: Hx Hepatitis Past Surgical History: Reports: Hx Breast Surgery - bilateral lumpectomy, Hx Hysterectomy. Denies: Hx Mastectomy, Hx Open Heart Surgery, Hx Pacemaker - Immunizations Immunizations up to date: Yes Hx Diphtheria, Pertussis, Tetanus Vaccination: No Physical Exam - Vital signs Vitals: Temp Pulse Resp BP Pulse Ox 99.3 F 109 H 16 103/57 L 94 07/06/19 14:35 07/06/19 14:35 07/06/19 14:35 07/06/19 14:35 07/06/19 14:35 Course - Vital Signs Vital signs: Temp Pulse Resp BP Pulse Ox 99.3 F 109 H 16 103/57 L 94 07/06/19 14:35 07/06/19 14:35 07/06/19 14:35 07/06/19 14:35 07/06/19 14:35 Doctor's Discharge - Discharge Referrals: EULALIA CHASE DO [Primary Care Provider] - Follow up as needed
--- NOTE | 2019-07-06 15:44 | RADIOLOGY REPORT (SQ) ---
EXAM DESCRIPTION: CHEST SINGLE VIEW IMAGES COMPLETED DATE/TIME: 07/06/2019 3:34 pm REASON FOR STUDY: weakness COMPARISON: 06/07/2019 EXAM PARAMETERS: NUMBER OF VIEWS: One view. TECHNIQUE: Single frontal radiographic view of the chest acquired. RADIATION DOSE: NA LIMITATIONS: None. FINDINGS: LUNGS AND PLEURA: No opacities, masses or pneumothorax. No pleural effusion. MEDIASTINUM AND HILAR STRUCTURES: No masses. Contour normal. HEART AND VASCULAR STRUCTURES: Heart normal in size. Normal vasculature. BONES: No acute findings. HARDWARE: None in the chest. OTHER: No other significant finding. IMPRESSION: NO ACUTE RADIOGRAPHIC FINDING IN THE CHEST. TECHNICAL DOCUMENTATION: JOB ID: [id number] 2010 [employer]- All Rights Reserved Reading location - IP/workstation name: [email or web address]
[2019-07-06 15:47] LABS: ABSOLUTE EOSINOPHILS # (AUTO) 0.1 10^3/uL (0.0-0.6); ABSOLUTE LYMPHOCYTES (AUTO) 0.9 10^3/uL (0.5-4.7); ABSOLUTE MONOCYTES (AUTO) 0.4 10^3/uL (0.1-1.4); ABSOLUTE NEUT (AUTO) 2.5 10^3/uL (1.7-8.2); BASOPHILS % (AUTO) 0.7 % (0-2); EOSINOPHILS % (AUTO) 3.3 % (0-6); HEMATOCRIT 38.1 % (36.0-47.0); LYMPHOCYTES % (AUTO) 22.7 % (13-45); MEAN CORPUSCULAR HEMOGLOBIN 28.3 pg (27.0-33.4); MEAN CORPUSCULAR HGB CONC 34.2 g/dL (32.0-36.0); MEAN CORPUSCULAR VOLUME 83 fl (80-97); PLATELET COUNT 155 10^3/uL (150-450); RED BLOOD COUNT 4.62 10^6/uL (3.72-5.28); RED CELL DISTRIBUTION WIDTH 15.1 % (11.5-14.0); SEGMENTED NEUTROPHILS % (AUTO) 63.3 % (42-78); TOTAL CELLS COUNTED % (AUTO) 100 %
[2019-07-06 15:50] LABS: APPEARANCE,URINE CLEAR; BILIRUBIN,URINE NEGATIVE (NEGATIVE); COLOR,URINE STRAW; GLUCOSE, URINE NEGATIVE (NEGATIVE); KETONES,URINE NEGATIVE (NEGATIVE); LEUKOCYTE ESTERASE,URINE NEGATIVE (NEGATIVE); NITRITE,URINE NEGATIVE (NEGATIVE); PROTEIN,URINE NEGATIVE (NEGATIVE); URINE SPECIFIC GRAVITY 1.006; UROBILINOGEN,URINE NEGATIVE mg/dL (<2.0)
[2019-07-06 15:56] LABS: INTERNATIONAL RATION (INR) 1.27
[2019-07-06 15:57] LABS: PARTIAL THROMBOPLASTIN TIME 36.5 SEC (23.5-35.8)
[2019-07-06 16:06] LABS: ALBUMIN 3.7 g/dL (3.5-5.0); ALKALINE PHOSPHATASE 68 U/L (38-126); ASPARTATE AMINO TRANSFERASE 21 U/L (14-36); BILIRUBIN,TOTAL 0.5 mg/dL (0.2-1.3); BLOOD UREA NITROGEN 14 mg/dL (7-20); CALCIUM 9.1 mg/dL (8.4-10.2); CARBON DIOXIDE 36 mmol/L (22-30); GLUCOSE 136 mg/dL (75-110); POTASSIUM 3.6 mmol/L (3.6-5.0); TOTAL PROTEIN 6.7 g/dL (6.3-8.2)
[2019-07-06 16:11] LABS: ANION GAP 5 (5-19); CHLORIDE 96 mmol/L (98-107)
--- NOTE | 2019-07-06 17:37 | ER Document Report ---
ED General - General Chief Complaint: General Weakness Stated Complaint: GENERAL WEAKNESS Time Seen by Provider: 07/06/19 14:40 Primary Care Provider: EULALIA MONTANA DO [Primary Care Provider] - Follow up as needed TRAVEL OUTSIDE OF THE [place] IN LAST 30 DAYS: No - HPI Notes: Chief complaint: Weakness, recurrent falls and problems with self-care HPI: 73-year-old female followed by Dr. Montana with a history of COPD, hypertension and chronic atrial fibrillation discharged from the hospital here about 3 weeks ago after treatment for COPD exacerbation with a pneumonia now returns with very vague complaints and basically deterioration of the ability to care for self. Patient currently lives alone. She is ambulatory with a quad cane. She attempts to cook her own meals. She is not currently using oxygen. She continues to smoke occasionally. She says she is eating and drinking normally. She denies fever chills. She denies any localized pain. She has had a previous hip replacement. Says her breathing is at baseline. She denies chest pain. She says her arms and legs are generally weak and she has difficulty drinking from a cup because of difficulty holding onto the cup. She says she drops things frequently. She is noted to have a lot of bruises on her arms and legs and says that she is repeatedly fallen at home. At this point I think patient would like to be admitted to an assisted living facility. She says she has a son living in the area but he does not see her on a regular basis. Patient is a relatively poor historian. - Related Data Allergies/Adverse Reactions: No Known Allergies Allergy (Verified 06/24/19 19:43) Past Medical History - General Information source: Patient, [facility] Records - Social History Smoking Status: Current Every Day Smoker Frequency of alcohol use: None Drug Abuse: None Lives with: Alone Family History: CAD, COPD, DM, Hypertension, Malignancy Patient has homicidal ideation: No - Past Medical History Cardiac Medical History: Reports: Hx Atrial Fibrillation, Hx Hypercholesterolemia, Hx Hypertension Denies: Hx Coronary Artery Disease, Hx Heart Attack Pulmonary Medical History: Reports: Hx Asthma, Hx COPD Neurological Medical History: Denies: Hx Cerebrovascular Accident, Hx Seizures Endocrine Medical History: Denies: Hx Diabetes Mellitus Type 1, Hx Diabetes Mellitus Type 2, Hx Hyperthyroidism, Hx Hypothyroidism Renal/ Medical History: Denies: Hx Peritoneal Dialysis GI Medical History: Denies: Hx Cirrhosis, Hx Crohn's Disease, Hx Hepatitis, Hx Hiatal Hernia, Hx Ulcer, Hx Ulcerative Colitis Musculoskeletal Medical History: Denies Hx Arthritis, Denies Hx Fibromyalgia Skin Medical History: Denies Hx Eczema, Denies Hx Psoriasis Psychiatric Medical History: Reports: Hx Anxiety, Hx Depression - anxiety Infectious Medical History: Denies: Hx Hepatitis Past Surgical History: Reports: Hx Breast Surgery - bilateral lumpectomy, Hx Hysterectomy. Denies: Hx Mastectomy, Hx Open Heart Surgery, Hx Pacemaker - Immunizations Immunizations up to date: Yes Hx Diphtheria, Pertussis, Tetanus Vaccination: No Review of Systems - Review of Systems Notes: Constitutional: Negative for fever. HENT: Negative for sore throat. Eyes: Negative for visual changes. Cardiovascular: Negative for chest pain. Respiratory: Negative for shortness of breath. Gastrointestinal: Negative for abdominal pain, vomiting or diarrhea. Genitourinary: Negative for dysuria. Musculoskeletal: Negative for back pain. Skin: Negative for rash. Neurological: Negative for headaches, focal weakness or numbness. 10 point ROS negative except as marked above and in HPI. Physical Exam - Vital signs Vitals: Temp Pulse Resp BP Pulse Ox 99.3 F 109 H 16 103/57 L 94 07/06/19 14:35 07/06/19 14:35 07/06/19 14:35 07/06/19 14:35 07/06/19 14:35 - Notes Notes: GENERAL: Frail elderly female appearing in no acute distress. SKIN: Good turgor no rashes. HEAD: Normocephalic atraumatic. EYES: PERRLA. EOMI. Conjunctivae and sclerae clear. EARS: CANALS AND TMS CLEAR. NOSE: CLEAR. MOUTH: Moist mucosa. Edentulous. No stridor or edema. No drooling. NECK: Supple. No masses or thyromegaly. No adenopathy. Carotids 2+ without bruits. No JVD. BACK: Symmetrical without tenderness. CHEST: Respirations unlabored. Breath sounds clear and symmetrical. HEART: Irregularly irregular rhythm. No murmur gallop or rub. ABDOMEN: Soft nontender without masses, organomegaly or rebound. Bowel sounds normally active. No bruits. GENITALIA: Deferred. EXTREMITIES: Widespread ecchymoses of varying ages all 4 extremities. 1+ bilateral pretibial edema. Patient reports that she is on a diuretic but did not take this today because she was having trouble ambulating to the bathroom. No calf tenderness. Cap refill less than 1.5 seconds. Dorsalis pedis and posterior tibial pulses 3+ and symmetrical. NEUROLOGICAL: GCS 15. Alert and oriented x3. Mild generalized tremor. Fluent speech. Cranial nerves II through XII intact. Sensorimotor and cerebellar normal. Normal tone. PSYCHIATRIC: Flat affect. Course - Re-evaluation Re-evalutation: 07/06/19 20:23 Elderly lady with history of COPD chronic atrial fibrillation. She lives alone and is experiencing general failure to thrive and has become dehydrated. Work- up here in ED showed a normal chest x-ray and head CT showed only some atrophy. She had no focal neurologic deficit. Troponin is normal. No ST changes on EKG. She is mildly tachycardic. Chemistries are consistent with dehydration and her urinalysis does not show obvious UTI. Findings are discussed with hospitalist on-call, Dr. Gerald Martinez, who is agreed to admit. Anticipate patient will require residential placement. - Vital Signs Vital signs: Temp Pulse Resp BP Pulse Ox 99.3 F 109 H 16 112/68 96 07/06/19 14:41 07/06/19 14:35 07/06/19 20:12 07/06/19 20:12 07/06/19 16:59 - Laboratory Result Diagrams: 07/06/19 15:37 07/06/19 15:37 Laboratory results interpreted by me: 07/06/19 07/06/19 07/06/19 15:25 15:37 15:37 RDW 15.1 H PT 16.0 H APTT 36.5 H Chloride Carbon Dioxide Est GFR (MDRD) Non-Af Glucose Urine Blood SMALL H 07/06/19 15:37 RDW PT APTT Chloride 96 L Carbon Dioxide 36 H Est GFR (MDRD) Non-Af 53 L Glucose 136 H Urine Blood - Diagnostic Test Radiology reviewed: Reports reviewed - Chest x-ray per radiologist: No active disease. Noncontrast head CT per radiologist: Generalized atrophy with no acute findings. - EKG Interpretation by Me Additional EKG results interpreted by me: 07/06/19 17:38 Twelve-lead EKG from 1501 hrs. is reviewed contemporaneously by me showing atrial fibrillation with a ventricular rate of 122. QRS axis is +24 degrees. Intervals are normal. Nonspecific T wave abnormalities present. No ST shift. Discharge - Discharge Clinical Impression: Dehydration Atrial fibrillation Qualifiers: Atrial fibrillation type: longstanding persistent Qualified Code(s): I48.11 - Longstanding persistent atrial fibrillation Condition: Stable Disposition: ADMITTED INPATIENT Admitting Provider: Michelle (Hospitalist) Referrals: EULALIA MONTANA DO [Primary Care Provider] - Follow up as needed
[2019-07-06] MEDS ORDERED: NORMAL SALINE 1000 ML 1,000 ML IV ONE (17:59)
--- NOTE | 2019-07-06 18:27 | EKG REPORT ---
SEVERITY:- ABNORMAL ECG - ATRIAL FIBRILLATION NONSPECIFIC T ABNORMALITIES, LATERAL LEADS : Confirmed by: Lindsey Meng MD 06-Jul-2019 18:26:31
--- NOTE | 2019-07-06 19:20 | RADIOLOGY REPORT (SQ) ---
EXAM DESCRIPTION: CT HEAD WITHOUT IMAGES COMPLETED DATE/TIME: 07/06/2019 7:07 pm REASON FOR STUDY: difficulty swallowing/ weakness COMPARISON: 06/24/2019. TECHNIQUE: Axial images acquired through the brain without intravenous contrast. Images reviewed wi th bone, brain and subdural windows. Additional sagittal and coronal reconstructions were generated. Images stored on PACS. All CT scanners at this facility use dose modulation, iterative reconstruction, and/or weight based d osing when appropriate to reduce radiation dose to as low as reasonably achievable (ALARA). [facility]: Dose Right [facility]: CareDose [facility]: Dose Right [facility]: Teradose 4D [facility]: [employer] RADIATION DOSE: CT Rad equipment meets quality standard of care and radiation dose reduction techniq ues were employed. CTDIvol: 53.2 mGy. DLP: 1044 mGy-cm.mGy. LIMITATIONS: None. FINDINGS: VENTRICLES: Prominent. CEREBRUM: No masses. No hemorrhage. No midline shift. Areas of low density in the white matter mos t likely due to chronic micro-vascular ischemic change. No evidence for acute infarction. CEREBELLUM: No masses. No hemorrhage. No alteration of density. No evidence for acute infarction. EXTRAAXIAL SPACES: Age-related involutional change. No fluid collections. No masses. ORBITS AND GLOBE: No intra- or extraconal masses. Normal contour of globe without masses. CALVARIUM: No fracture. PARANASAL SINUSES: No fluid or mucosal thickening. SOFT TISSUES: No mass or hematoma. OTHER: No other significant finding. IMPRESSION: CHRONIC CHANGES OF ATROPHY AND MICROVASCULAR ISCHEMIA. NO ACUTE PROCESS. EVIDENCE OF ACUTE STROKE: NO. TECHNICAL DOCUMENTATION: JOB ID: [id number] Quality ID # [id number]: Final reports with documentation of one or more dose reduction techniques (e.g., Au tomated exposure control, adjustment of the mA and/or kV according to patient size, use of iterative reconstruction technique) 2010 [employer]- All Rights Reserved Reading location - IP/workstation name: [email or web address]
[2019-07-06] MEDS ORDERED: PROMETHAZINE HCL INJ 25 MG/1 ML VIAL IV PRN (20:49)
[2019-07-06] MEDS ORDERED: DEXTROSE 5%-LACTATED RINGERS 1,000 ML IV PRN (20:49)
[2019-07-06] MEDS ORDERED: LEVALBUTEROL HCL NEB 0.63 MG/3 ML AMPUL NEB PRN (20:49)
[2019-07-06] MEDS ORDERED: MAG HYDROX/AL HYDROX/SIMETH SUSP 30 ML UDCUP PO PRN (20:49)
[2019-07-06] MEDS ORDERED: MAGNESIUM HYDROXIDE SUSP 30 ML UDCUP PO PRN (20:49)
[2019-07-06] MEDS ORDERED: NICOTINE 21 MG/24 HR PATCH.TD24 TD PRN (20:55)
[2019-07-06] MEDS ORDERED: ACETAMINOPHEN 325 MG TABLET PO PRN (20:55)
[2019-07-06] MEDS: HEPARIN SOD (PORCINE) 5,000 UNIT/ML 1 ML VIAL SUBCUT SCH (22:30)
[2019-07-06] MEDS: FAMOTIDINE 20 MG TABLET PO SCH (22:30)
--- NOTE | 2019-07-06 23:27 | PDOC H&P ---
History of Present Illness Admission Date/PCP: 07/06/2019 20:20 EULALIA CHASE DO Patient complains of: Weakness History of Present Illness: FADI LYNN is a 73 year old female who presents the emergency room with a 3-week history of weakness. She admits aggressively worsening generalized weakness since the time of her hospital discharge 3 weeks ago. She lives alone and has become less able to ambulate with her quad cane and this has affected her ability to continue her current medications as it is difficult for her to get up to go to the bathroom and therefore she is not taking her diuretics. She has developed difficulty holding a cup well enough to drink. She has suffered several falls at home, 1 resulting in a left finger fracture 1 week ago. Due to her decreased ambulatory ability she is less able to prepare meals and provide fluid intake for herself. She has not identified any additional accompanying or associated signs and symptoms. She denies prior similar episodes. She has not identified any aggravating or ameliorating factors for her weakness. In the emergency room she was noted to have an unremarkable evaluation but appeared to be clinically dehydrated. She was subsequently admitted to the hospital for further evaluation and treatment with licensed master social worker consultation for probable skilled facility with transition to assisted living facility placement post hospital. Past Medical History Cardiac Medical History: Reports: Atrial Fibrillation, Hyperlipidema, Hypertension Denies: Coronary Artery Disease, Myocardial Infarction Pulmonary Medical History: Reports: Asthma, Bronchitis, Chronic Obstructive Pulmonary Disease (COPD), Pneumonia, Respiratory Failure EENT Medical History: Denies: Cataracts, Ears - Hearing aids Neurological Medical History: Denies: Hemorrhagic CVA, Ischemic CVA, Seizures Endocrine Medical History: Denies: Diabetes Mellitus Type 1, Diabetes Mellitus Type 2, Hyperthyroidism, Hypothyroidism Renal/ Medical History: Denies: Chronic Kidney Disease, Nephrolithiasis Malignancy Medical History: Reports: None GI Medical History: Denies: Cirrhosis, Crohn's Disease, Gastroesophageal Reflux Disease, He patitis, Hiatal Hernia, Peptic Ulcer Disease, Ulcerative Colitis Musculoskeltal Medical History: Denies: Arthritis, Fibromyalgia Skin Medical History: Denies: Eczema, Psoriasis Psychiatric Medical History: Reports: Depression, General Anxiety Disorder, Tobacco Dependency Denies: Alcohol Dependency, Substance Abuse Traumatic Medical History: Reports: None Hematology: Reports: Anemia - during pregnancyremote history Denies: Bleeding Tendencies Infectious Medical History: Reports: None Past Surgical History Past Surgical History: Reports: Hysterectomy Social History Information Source: Patient Lives with: Alone Smoking Status: Current Every Day Smoker Electronic Cigarette use?: No Frequency of Alcohol Use: None Hx Recreational Drug Use: No Drugs: None Hx Prescription Drug Abuse: No - Advance Directive Resuscitation Status: Full Code Surrogate healthcare decision maker:: Eulalia Rivas Family History Family History: CAD, COPD, DM, Hypertension, Malignancy Parental Family History Reviewed: Yes Children Family History Reviewed: No Sibling(s) Family History Reviewed.: Yes Medication/Allergy Home Medications: Albuterol Sulfate [Ventolin Hfa 8 gm Mdi (1 Mdi/ER Disp)] 2 puff IH Q6HP PRN 11/24/18 Furosemide [Lasix 40 mg Tablet] 40 mg PO DAILY 11/24/18 Hydrocodone/Acetaminophen [[place] 10-325 mg Tablet] 1 tab PO Q6HP PRN 11/24/18 Simvastatin [Zocor 20 mg Tablet] 20 mg PO QPM 11/24/18 Amlodipine Besylate [Norvasc 5 mg Tablet] 5 mg PO DAILY #30 tablet 03/28/19 Buspirone HCl [Buspar 10 mg Tablet] 10 mg PO QPM #30 tablet 03/29/19 Divalproex Sodium [Depakote ER 250 mg Tablet] 250 mg PO Q12 #60 tab.sr.24h 03/29/19 Alprazolam [Xanax] 1 mg PO BIDP PRN 06/08/19 Zolpidem Tartrate [Ambien 5 mg Tablet] 5 mg PO QHS 06/08/19 Acetaminophen [Tylenol 325 mg Tablet] 650 mg PO Q4HP PRN tablet 06/11/19 Apixaban [Eliquis 5 mg Tablet] 5 mg PO BID 30 Days #60 tablet 06/11/19 Atenolol [Tenormin 50 mg Tablet] 25 mg PO Q12 tablet 06/11/19 Buspirone HCl 1 tab PO QAM 30 Days #30 tab 06/11/19 Buspirone HCl [Buspar 10 mg Tablet] 10 mg PO QPM tablet 06/11/19 Diltiazem HCl [Cardizem Cd 120 mg Capsule] 120 mg PO DAILY 30 Days #30 cap.sr.24h 06/11/19 Docusate Sodium [Colace 100 mg Capsule] 100 mg PO BID capsule 06/11/19 Famotidine [Pepcid 20 mg Tablet] 20 mg PO Q12 tablet 06/11/19 Fluticasone/Umeclidin/Vilanter [Trelegy 100-62.5-25 Mcg Ellipta 14 Dose/Dpi] 1 inh IH DAILY 14 Days #1 inhaler 06/11/19 Furosemide [Lasix 40 mg Tablet] 40 mg PO DAILY tablet 06/11/19 Mag Hydrox/Al Hydrox/Simeth [Maalox Plus Susp 30 Udcup] 30 ml PO Q6HP PRN udc 06/11/19 Magnesium Hydroxide [Milk of Magnesia 30 ml Udcup] 30 ml PO HSP PRN udc 06/11/19 Melatonin [Melatonin 3 mg Tablet] 3 mg PO QHS 30 Days #30 tablet 06/11/19 Nicotine [Nicoderm 21 mg/24 Hr Transderm Patch] 1 each TD DAILYP PRN 30 Days #30 patch.td24 06/11/19 Ondansetron [Zofran Odt 4 mg Tablet] 4 mg PO Q6HP PRN 5 Days #20 tab.rapdis 06/11/19 Potassium Chloride 20 meq PO BID 30 Days #60 tab.er.prt 06/11/19 Trazodone HCl 100 mg PO QHS 30 Days #30 tablet 06/11/19 Hydrocodone/Acetaminophen [[place] 5-325 mg Tablet] 1 tab PO Q6H PRN #10 tablet 06/24/19 Allergies/Adverse Reactions: No Known Allergies Allergy (Verified 06/24/19 19:43) Review of Systems Constitutional: PRESENT: as per HPI, weakness. ABSENT: chills, fever(s) Eyes: ABSENT: visual disturbances, other - Eye pain Ears: ABSENT: hearing changes, other - Ear pain Nose, Mouth, and Throat: ABSENT: headache(s), sore throat Cardiovascular: ABSENT: chest pain, palpitations Respiratory: ABSENT: cough, dyspnea Gastrointestinal: ABSENT: abdominal pain, constipation, diarrhea, nausea, vomiting Genitourinary: ABSENT: difficulty urinating, dysuria, hematuria Musculoskeletal: PRESENT: other - Fracture left finger. ABSENT: back pain, joint swelling Integumentary: ABSENT: diaphoresis, pruritus, rash Neurological: PRESENT: as per HPI, frequent falls. ABSENT: confusion, convulsions, focal weakness, memory loss, syncope Psychiatric: ABSENT: anxiety, depression Endocrine: ABSENT: cold intolerance, heat intolerance, polydipsia, polyphagia, polyuria Hematologic/Lymphatic: PRESENT: easy bruising - On Eliquis. ABSENT: easy bleeding Allergic/Immunologic: ABSENT: seasonal rhinorrhea Physical Exam Vital Signs: Temp Pulse Resp BP Pulse Ox 99.3 F 109 H 16 112/68 96 07/06/19 14:41 07/06/19 14:35 07/06/19 20:12 07/06/19 20:12 07/06/19 16:59 Intake & Output 07/04/19 07/05/19 07/06/19 23:59 23:59 23:59 Weight 75.7 kg General appearance: PRESENT: no acute distress, cooperative Head exam: PRESENT: atraumatic, normocephalic Eye exam: PRESENT: conjunctiva pink. ABSENT: conjunctival injection, scleral icterus Ear exam: PRESENT: normal external ear exam. ABSENT: bleeding, drainage Mouth exam: PRESENT: dry mucosa, neck supple Neck exam: ABSENT: thyromegaly, tracheal deviation Respiratory exam: PRESENT: decreased breath sounds - Minimally decreased breath sounds throughout all underwood, prolonged expiratory phas - Mildly prolonged expiratory phase noted throughout all underwood, symmetrical, unlabored. ABSENT: wheezes Cardiovascular exam: PRESENT: irregular rhythm. ABSENT: clicks, gallop, rubs Pulses: PRESENT: normal radial pulses, normal dorsalis pedis pul Vascular exam: PRESENT: normal capillary refill. ABSENT: pallor GI/Abdominal exam: PRESENT: normal bowel sounds, soft Rectal exam: PRESENT: deferred Extremities exam: ABSENT: joint swelling, pedal edema Musculoskeletal exam: PRESENT: other - Left second and third fingers alcira taped together with a protective aluminum splint. ABSENT: deformity, dislocation Neurological exam: PRESENT: alert, oriented to person, oriented to place, oriented to time, oriented to situation, CN II-XII grossly intact. ABSENT: motor sensory deficit Psychiatric exam: PRESENT: appropriate affect, normal mood Skin exam: PRESENT: dry, intact, warm, other - Multiple ecchymoses and superficial contusions of the extremities are noted.. ABSENT: jaundice, rash, urticaria Results Laboratory Results: 07/06/19 15:37 07/06/19 15:37 07/06/19 07/06/19 07/06/19 15:25 15:37 15:37 WBC 4.0 RBC 4.62 Hgb 13.0 Hct 38.1 MCV 83 MCH 28.3 MCHC 34.2 RDW 15.1 H Plt Count 155 Seg Neutrophils % 63.3 Sodium 137.0 Potassium 3.6 Chloride 96 L Carbon Dioxide 36 H Anion Gap 5 BUN 14 Creatinine 1.02 Est GFR ( Amer) > 60 Glucose 136 H Calcium 9.1 Total Bilirubin 0.5 AST 21 Alkaline Phosphatase 68 Total Protein 6.7 Albumin 3.7 Urine Color STRAW Urine Appearance CLEAR Urine pH 7.0 Ur Specific [place] 1.006 Urine Protein NEGATIVE Urine Glucose (UA) NEGATIVE Urine Ketones NEGATIVE Urine Blood SMALL H Urine Nitrite NEGATIVE Ur Leukocyte Esterase NEGATIVE Urine WBC (Auto) 2 Urine RBC (Auto) 5 07/06/19 15:37 Troponin I < 0.012 Impressions: Chest X-Ray 07/06/19 14:43 IMPRESSION: NO ACUTE RADIOGRAPHIC FINDING IN THE CHEST. Head CT 07/06/19 17:30 IMPRESSION: CHRONIC CHANGES OF ATROPHY AND MICROVASCULAR ISCHEMIA. NO ACUTE PROCESS. EVIDENCE OF ACUTE STROKE: NO. Assessment and Plan - Diagnosis (1) Generalized weakness Is this a current diagnosis for this admission?: Yes (2) Multiple contusions Is this a current diagnosis for this admission?: Yes (3) Recurrent falls Is this a current diagnosis for this admission?: Yes (4) Chronic atrial fibrillation, unspecified Is this a current diagnosis for this admission?: Yes (5) Chronic obstructive pulmonary disease Qualifiers: COPD type: unspecified COPD Qualified Code(s): J44.9 - Chronic obstructive pulmonary disease, unspecified Is this a current diagnosis for this admission?: Yes (6) Hypertension Qualifiers: Hypertension type: essential hypertension Qualified Code(s): I10 - Essen tial (primary) hypertension Is this a current diagnosis for this admission?: Yes (7) Hyperlipidemia Qualifiers: Hyperlipidemia type: unspecified Qualified Code(s): E78.5 - Hyperlipidemia, unspecified Is this a current diagnosis for this admission?: Yes (8) Anxiety and depression Is this a current diagnosis for this admission?: Yes (9) Tobacco use disorder, severe, dependence Is this a current diagnosis for this admission?: Yes - Plan Summary Summary: Patient will be admitted to the medical floor where she will receive routine supportive and symptomatic cares. bibliographic services specialist consultation will be obtained to evaluate the patient for possible correction facility/assisted living facility post hospital placement. Patient will receive IV fluids using lactated Ringer's at 83 mL/h. She will use Ativan 1 mg IV every 4 hours as needed for anxiety or restlessness. She will be continued on her usual home medications as soon as her medication list has been verified and reconciled. CBCs, metabolic profiles and magnesium levels will be obtained as needed. Patient will be placed on a cardiac diet. Smoking cessation is advised and counseled briefly at the bedside. A nicotine replacement patch will be available for the patient's use, if desired. - Time Time Spent with patient: Less than 15 minutes Smoking Cessation Education: 3 to 10 minutes Medications reviewed and adjusted accordingly: Yes Anticipated discharge: SNF - Inpatient Certification Based on my medical assessment, after consideration of the patient's comorbidities, presenting symptoms, or acuity I expect that the services needed warrant INPATIENT care.: Yes I certify that my determination is in accordance with my understanding of Medicare's requirements for reasonable and necessary INPATIENT services [42 CFR 412.3e].: Yes Medical Necessity: Significant Comorbidiites Make Outpatient Treatment Too Risky, Need Close Monitoring Due to Risk of Patient Decompensation, Need for Neurological Checks, Risk of Complication if Not Cared For in Hospital
[2019-07-07] MEDS: LEVALBUTEROL HCL NEB 1.25 MG/3 ML AMPUL NEB SCH ×3 (00:12→16:12)
[2019-07-07] MEDS: IPRATROPIUM BROMIDE 0.02% NEB 0.5 MG/2.5 ML AMPUL NEB SCH ×3 (00:12→16:12)
[2019-07-07] MEDS: LORAZEPAM INJ 2 MG/1 ML VIAL IV PRN ×2 (03:38→15:04)
[2019-07-07 05:20] LABS: MEAN CORPUSCULAR HEMOGLOBIN 28.3 pg (27.0-33.4); MEAN CORPUSCULAR HGB CONC 34.4 g/dL (32.0-36.0); MEAN CORPUSCULAR VOLUME 82 fl (80-97); PLATELET COUNT 110 10^3/uL (150-450); RED BLOOD COUNT 3.78 10^6/uL (3.72-5.28); RED CELL DISTRIBUTION WIDTH 15.2 % (11.5-14.0); WHITE BLOOD COUNT 3.5 10^3/uL (4.0-10.5)
[2019-07-07 05:35] LABS: ANION GAP 6 (5-19); BLOOD UREA NITROGEN 12 mg/dL (7-20); CALCIUM 8.6 mg/dL (8.4-10.2); CARBON DIOXIDE 31 mmol/L (22-30); CHLORIDE 100 mmol/L (98-107); CHOLESTEROL 133.53 mg/dL (0-200); GLUCOSE 93 mg/dL (75-110); HEMOGLOBIN 10.7 g/dL (12.0-15.5); TRIGLYCERIDES 69 mg/dL (<150)
[2019-07-07] MEDS: HEPARIN SOD (PORCINE) 5,000 UNIT/ML 1 ML VIAL SUBCUT SCH ×2 (05:39→14:43)
[2019-07-07 05:46] LABS: DIRECT LDL 62 mg/dL (<100)
[2019-07-07 06:06] LABS: THYROID STIMULATING HORMONE 1.49 uIU/mL (0.47-4.68)
[2019-07-07 06:19] LABS: FREE T3 3.65 pg/mL (2.77-5.27)
[2019-07-07] MEDS ORDERED: POTASSIUM CHLORIDE 20 MEQ/50 ML RTU IV ONE (06:30)
[2019-07-07] MEDS ORDERED: BUDESONIDE NEB 0.5 MG/2 ML AMPUL NEB SCH (08:00)
[2019-07-07] MEDS: POTASSIUM CHLORIDE 10 MEQ TABLET.ER PO SCH ×3 (08:12→18:43)
[2019-07-07] MEDS: DOCUSATE SODIUM 100 MG CAPSULE PO SCH ×2 (10:00→17:05)
[2019-07-07] MEDS: FAMOTIDINE 20 MG TABLET PO SCH ×2 (10:00→21:17)
[2019-07-07] MEDS ORDERED: ALBUTEROL SULFATE HFA (90 MCG/PUFF) 8 GM MDI (1 MDI/ER DISP) IH PRN (16:41)
[2019-07-07] MEDS ORDERED: ATENOLOL 50 MG TABLET PO SCH ×4 (17:15→22:00)
[2019-07-07] MEDS ORDERED: POTASSIUM CHLORIDE 20 MEQ PACKET PO ONE (17:27)
[2019-07-07] MEDS ORDERED: DOCUSATE SODIUM 100 MG CAPSULE PO SCH (18:00)
[2019-07-07] MEDS ORDERED: ALBUTEROL SULFATE HFA (90 MCG/PUFF) 8 GM MDI IH PRN (18:37)
[2019-07-07] MEDS: BUSPIRONE HCL 10 MG TABLET PO SCH (18:43)
[2019-07-07] MEDS: APIXABAN 5 MG TABLET PO SCH (18:45)
--- NOTE | 2019-07-07 18:48 | PDOC PROGRESS REPORT ---
Subjective Progress Note for:: 07/07/19 Subjective:: Patient admitted for severe generalized fatigue and weakness, hypotension, hypokalemia, multiple falls at home. She will need placement in rehab facility or long-term nursing. Valproate level was noted to be low. UA did not show infection. Throughout the day today patient is noted to have heart rate climbing up to the 120s and 140s though her blood pressure systolic has been in the 90s to low 100s which complicates treatment of her heart rate. She is started on midodrine and her atenolol has been restarted for later tonight assuming her blood pressure rises appropriately. Reason For Visit: GENERALIZED WEAKNESS,REPEATED FALLS Physical Exam Vital Signs: Temp Pulse Resp BP Pulse Ox 98.9 F 112 H 18 92/56 L 96 07/07/19 15:02 07/07/19 16:12 07/07/19 16:12 07/07/19 17:26 07/07/19 16:12 Intake & Output 07/06/19 07/07/19 07/08/19 06:59 06:59 06:59 Intake Total 1200 170 Output Total 300 Balance 900 170 Weight 77.5 kg General appearance: PRESENT: no acute distress, well-developed, well-nourished Head exam: PRESENT: atraumatic, normocephalic Eye exam: PRESENT: conjunctiva pink Mouth exam: PRESENT: moist Respiratory exam: PRESENT: clear to auscultation jojo. ABSENT: rales, rhonchi, wheezes Cardiovascular exam: PRESENT: RRR. ABSENT: diastolic murmur, rubs, systolic murmur GI/Abdominal exam: PRESENT: normal bowel sounds, soft. ABSENT: distended, guarding, mass, organolmegaly, rebound, tenderness Rectal exam: PRESENT: deferred Neurological exam: PRESENT: alert, awake, oriented to person Psychiatric exam: PRESENT: appropriate affect, normal mood Skin exam: PRESENT: dry, intact, warm Results Laboratory Results: 07/07/19 04:44 07/07/19 04:44 07/07/19 07/07/19 07/07/19 04:44 04:44 04:44 WBC 3.5 L RBC 3.78 Hgb 10.7 L D Hct 31.0 L MCV 82 MCH 28.3 MCHC 34.4 RDW 15.2 H Plt Count 110 L Sodium 136.6 L Potassium 3.0 L* Chloride 100 Carbon Dioxide 31 H Anion Gap 6 BUN 12 Creatinine 0.86 Est GFR ( Amer) > 60 Glucose 93 Calcium 8.6 Magnesium 1.7 Triglycerides 69 Cholesterol 133.53 LDL Cholesterol Direct 62 VLDL Cholesterol 14.0 HDL Cholesterol 70 TSH 1.49 Free T3 pg/mL 3.65 07/06/19 07/07/19 15:37 04:44 Troponin I < 0.012 NT-Pro-B Natriuret Pep 3920 H Impressions: Chest X-Ray 07/06/19 14:43 IMPRESSION: NO ACUTE RADIOGRAPHIC FINDING IN THE CHEST. Head CT 07/06/19 17:30 IMPRESSION: CHRONIC CHANGES OF ATROPHY AND MICROVASCULAR ISCHEMIA. NO ACUTE PROCESS. EVIDENCE OF ACUTE STROKE: NO. Assessment and Plan - Diagnosis (1) Chronic atrial fibrillation, unspecified Is this a current diagnosis for this admission?: Yes Plan: Heart rate in the 120s 140s on admission, low BP complicated treatment at this Restart home atenolol, confirmed with pharmacy patient does not take diltiazem and has not filled this medication in a very long time, discontinued this medication Eliquis continued Telemetry Added midodrine to allow for up titration of rate control meds (2) Chronic obstructive pulmonary disease Qualifiers: COPD type: unspecified COPD Qualified Code(s): J44.9 - Chronic obstructive pulmonary disease, unspecified Is this a current diagnosis for this admission?: Yes Plan: Not in exacerbation Smoking cessation Inhalers restarted (3) Generalized weakness Is this a current diagnosis for this admission?: Yes Plan: Severe debility and frequent falls Needs nursing facility placement (4) Anxiety and depression Is this a current diagnosis for this admission?: Yes Plan: As needed Ativan (5) Hyperlipidemia Qualifiers: Hyperlipidemia type: unspecified Qualified Code(s): E78.5 - Hyperlipidemia, unspecified Is this a current diagnosis for this admission?: Yes Plan: Statin (6) Hypertension Qualifiers: Hypertension type: essential hypertension Qualified Code(s): I10 - Essential (primary) hypertension Is this a current diagnosis for this admission?: Yes Plan: Hypotension on admission, amlodipine discontinued (8) Recurrent falls Is this a current diagnosis for this admission?: Yes - Plan Summary Summary: Patient will be admitted to the medical floor where she will receive routine supportive and symptomatic cares. administrative services coordinator consultation will be obtained to evaluate the patient for possible [facility] facility/assisted living facility post hospital placement. Patient will receive IV fluids using lactated Ringer's at 83 mL/h. She will use Ativan 1 mg IV every 4 hours as needed for an xiety or restlessness. She will be continued on her usual home medications as soon as her medication list has been verified and reconciled. CBCs, metabolic profiles and magnesium levels will be obtained as needed. Patient will be placed on a cardiac diet. Smoking cessation is advised and counseled briefly at the bedside. A nicotine replacement patch will be available for the patient's use, if desired. - Time Time Spent with patient: 25-34 minutes Anticipated discharge: SNF Within: within 72 hours - Inpatient Certification Based on my medical assessment, after consideration of the patient's comorbidities, presenting symptoms, or acuity I expect that the services needed warrant INPATIENT care.: Yes I certify that my determination is in accordance with my understanding of Medicare's requirements for reasonable and necessary INPATIENT services [42 CFR 412.3e].: Yes Medical Necessity: Significant Comorbidiites Make Outpatient Treatment Too Risky, Need Close Monitoring Due to Risk of Patient Decompensation, Risk of Complication if Not Cared For in Hospital, Risk of Diagnosis Which Will Require Inpatient Eval/Care/Monitoring
[2019-07-07] MEDS ORDERED: POTASSIUM CHLORIDE 10 MEQ TABLET.ER PO ONE (19:00)
[2019-07-07] MEDS ORDERED: MIDODRINE HCL 5 MG TABLET PO ONE (19:00)
[2019-07-07] MEDS ORDERED: FLUTICASONE/UMECLIDIN/VILANTER 100-62.5-25 MCG/DOSE IH ONE (20:00)
[2019-07-07] MEDS: MELATONIN 3 MG TABLET PO SCH (21:17)
[2019-07-07] MEDS ORDERED: DIVALPROEX SODIUM 250 MG TAB.SR.24H PO SCH (22:00)
[2019-07-07] MEDS ORDERED: FAMOTIDINE 20 MG TABLET PO SCH (22:00)
[2019-07-07] MEDS: METOPROLOL TARTRATE PF/INJ 5 MG/5 ML SDV IV PRN (23:30)
[2019-07-08] MEDS: LORAZEPAM INJ 2 MG/1 ML VIAL IV PRN ×2 (04:36→14:06)
[2019-07-08] MEDS: METOPROLOL TARTRATE PF/INJ 5 MG/5 ML SDV IV PRN ×2 (08:43→17:41)
[2019-07-08] MEDS: POTASSIUM CHLORIDE 10 MEQ TABLET.ER PO SCH (08:46)
[2019-07-08] MEDS ORDERED: ALPRAZOLAM 0.5 MG TABLET PO PRN (08:59)
[2019-07-08] MEDS: FAMOTIDINE 20 MG TABLET PO SCH ×2 (09:07→21:24)
[2019-07-08] MEDS: APIXABAN 5 MG TABLET PO SCH ×2 (09:07→19:45)
[2019-07-08] MEDS: ATENOLOL 50 MG TABLET PO SCH ×2 (09:10→21:25)
[2019-07-08] MEDS ORDERED: DILTIAZEM HCL 120 MG CAP.SR.24H PO SCH (10:00)
[2019-07-08] MEDS: FLUTICASONE/UMECLIDIN/VILANTER 100-62.5-25 MCG/DOSE IH SCH (10:03)
--- NOTE | 2019-07-08 10:04 | RADIOLOGY REPORT (SQ) ---
EXAM DESCRIPTION: CHEST SINGLE VIEW IMAGES COMPLETED DATE/TIME: 07/08/2019 9:54 am REASON FOR STUDY: volume overload COMPARISON: 07/06/2019 FINDINGS: Single-view chest AP portable upright. Mild central vascular prominence. Increased interstitial markings particularly in the lung bases. L ikely related to mild interstitial edema. Lungs otherwise clear. TECHNICAL DOCUMENTATION: JOB ID: [id number] Reading location - IP/workstation name: [email or web address]
[2019-07-08 10:05] LABS: ABSOLUTE BASOPHILS # (AUTO) 0.1 10^3/uL (0.0-0.2); ABSOLUTE EOSINOPHILS # (AUTO) 0.1 10^3/uL (0.0-0.6); ABSOLUTE LYMPHOCYTES (AUTO) 1.6 10^3/uL (0.5-4.7); ABSOLUTE MONOCYTES (AUTO) 0.6 10^3/uL (0.1-1.4); BASOPHILS % (AUTO) 0.7 % (0-2); EOSINOPHILS % (AUTO) 1.9 % (0-6); HEMATOCRIT 37.9 % (36.0-47.0); HEMOGLOBIN 12.7 g/dL (12.0-15.5); MEAN CORPUSCULAR HGB CONC 33.5 g/dL (32.0-36.0); MEAN CORPUSCULAR VOLUME 84 fl (80-97); MONOCYTES % (AUTO) 8.4 % (3-13); PLATELET COUNT 167 10^3/uL (150-450); RED BLOOD COUNT 4.52 10^6/uL (3.72-5.28); RED CELL DISTRIBUTION WIDTH 15.6 % (11.5-14.0); TOTAL CELLS COUNTED % (AUTO) 100 %
[2019-07-08 10:07] LABS: WHITE BLOOD COUNT 7.5 10^3/uL (4.0-10.5)
[2019-07-08 10:15] LABS: ANION GAP 6 (5-19); BLOOD UREA NITROGEN 13 mg/dL (7-20); CALCIUM 9.1 mg/dL (8.4-10.2); CARBON DIOXIDE 25 mmol/L (22-30); CHLORIDE 107 mmol/L (98-107); GLUCOSE 121 mg/dL (75-110); POTASSIUM 4.2 mmol/L (3.6-5.0)
[2019-07-08] MEDS: MIDODRINE HCL 5 MG TABLET PO SCH ×3 (10:17→18:00)
[2019-07-08] MEDS: DOCUSATE SODIUM 100 MG CAPSULE PO SCH ×2 (10:18→18:00)
[2019-07-08] MEDS: POTASSIUM CHLORIDE 20 MEQ PACKET PO SCH ×4 (10:19→21:32)
[2019-07-08] MEDS: FUROSEMIDE 20 MG TABLET PO SCH (11:42)
--- NOTE | 2019-07-08 11:46 | PDOC PROGRESS REPORT ---
Subjective Progress Note for:: 07/08/19 Subjective:: 07/07/2019 Patient admitted for severe generalized fatigue and weakness, hypotension, hypokalemia, multiple falls at home. She will need placement in rehab facility or long-term nursing. Valproate level was noted to be low. UA did not show infection. Throughout the day today patient is noted to have heart rate climbing up to the 120s and 140s though her blood pressure systolic has been in the 90s to low 100s which complicates treatment of her heart rate. She is started on midodrine and her atenolol has been restarted for later tonight assuming her blood pressure rises appropriately. 07/08/2019 Patient having some more difficulty breathing today. Resume reason, she was put on a nonrebreather at 100% oxygen despite her history of COPD. I discussed with nursing that this is not beneficial in chronic COPD and can actually cause CO2 retention. We took the oxygen off the patient and she become much more alert almost immediately. Her lungs have a few wet crackles at the bases but are otherwise clear. Suspect she has some volume overload given that her home Lasix was not restarted on admission. I added midodrine which seems to be effective in keeping her blood pressure up high enough to get her cardiac medications. Her heart rate is ranging in the 110s to 130s. Increased her dose of atenolol. May need to start diltiazem if her blood pressure permits. If it does not permit, we will increase the midodrine and then add diltiazem. Chest x-ray ordered and reviewed by me which shows some interstitial edema in the lower lung underwood. Speech therapy ordered since she seems to be coughing a bit after drinking water though she may just need to slow down when drinking/eating. I will try to contact the family today to discuss CODE STATUS and possibility of hospice. I believe the patient cannot effectively swallow her food, meds, and drink and given she is obviously severely demented, she should be considered for hospice and should certainly be made DNR/DNI. Reason For Visit: GENERALIZED WEAKNESS,REPEATED FALLS Physical Exam Vital Signs: Temp Pulse Resp BP Pulse Ox 97.5 F 95 20 123/85 96 07/08/19 07:21 07/08/19 07:21 07/08/19 07:21 07/08/19 07:21 07/08/19 07:21 Intake & Output 07/07/19 07/08/19 07/09/19 06:59 06:59 06:59 Intake Total 1200 1886 Output Total 300 Balance 900 1886 Weight 77.5 kg 78.3 kg General appearance: PRESENT: no acute distress, well-developed, well-nourished Head exam: PRESENT: atraumatic, normocephalic Eye exam: PRESENT: conjunctiva pink Mouth exam: PRESENT: moist Respiratory exam: PRESENT: crackles - Very mild bilateral basilar crackles. ABSENT: rales, rhonchi, wheezes Cardiovascular exam: PRESENT: irregular rhythm, tachycardia. ABSENT: diastolic murmur, rubs, systolic murmur GI/Abdominal exam: PRESENT: normal bowel sounds, soft. ABSENT: distended, guarding, mass, organolmegaly, rebound, tenderness Neurological exam: PRESENT: alert, awake, oriented to person, oriented to place, oriented to time, oriented to situation Psychiatric exam: PRESENT: anxious, normal mood Skin exam: PRESENT: dry, intact, warm Results Laboratory Results: 07/08/19 09:36 07/08/19 09:36 07/08/19 07/08/19 09:36 09:36 WBC 7.5 D RBC 4.52 Hgb 12.7 Hct 37.9 MCV 84 MCH 28.0 MCHC 33.5 RDW 15.6 H Plt Count 167 Seg Neutrophils % 67.0 Sodium 137.5 Potassium 4.2 Chloride 107 Carbon Dioxide 25 Anion Gap 6 BUN 13 Creatinine 0.78 Est GFR ( Amer) > 60 Glucose 121 H Calcium 9.1 07/06/19 07/07/19 15:37 04:44 Troponin I < 0.012 NT-Pro-B Natriuret Pep 3920 H Impressions: Head CT 07/06/19 17:30 IMPRESSION: CHRONIC CHANGES OF ATROPHY AND MICROVASCULAR ISCHEMIA. NO ACUTE PROCESS. EVIDENCE OF ACUTE STROKE: NO. Assessment and Plan - Diagnosis (1) Chronic atrial fibrillation, unspecified Is this a current diagnosis for this admission?: Yes Plan: Heart rate in the 120s 140s on admission, low BP complicated treatment at this Restart home atenolol, confirmed with pharmacy patient does not take diltiazem and has not filled this medication in a very long time, discontinued this medication Eliquis continued Telemetry Added midodrine to allow for up titration of rate control meds 07/08/2019 Heart rate still uncontrolled, increased atenolol. Continued midodrine Heart rate is still uncontrolled this afternoon we will add diltiazem and possibly increase midodrine dose (2) Chronic obstructive pulmonary disease Qualifiers: COPD type: unspecified COPD Qualified Code(s): J44.9 - Chronic obstructive pulmonary disease, unspecified Is this a current diagnosis for this admission?: Yes Plan: Not in exacerbation Smoking cessation Inhalers restarted 07/08/2019 Trilogy inhaler given Nebs as needed (3) Generalized weakness Is this a current diagnosis for this admission?: Yes (4) Anxiety and depression Is this a current diagnosis for this admission?: Yes Plan: As needed Ativan Added back home dose Xanax as needed (5) Hyperlipidemia Qualifiers: Hyperlipidemia type: unspecified Qualified Code(s): E78.5 - Hyperlipidemia, unspecified Is this a current diagnosis for this admission?: Yes (6) Hypertension Qualifiers: Hypertension type: essential hypertension Qualified Code(s): I10 - Essential (primary) hypertension Is this a current diagnosis for this admission?: Yes Plan: Hypotension on admission, amlodipine discontinued (8) Recurrent falls Is this a current diagnosis for this admission?: Yes - Plan Summary Summary: Patient will be admitted to the medical floor where she will receive routine supportive and symptomatic cares. coordinator of library services consultation will be obtained to evaluate the patient for possible senior care facility/assisted living facility post hospital placement. Patient will receive IV fluids using lactated Ringer's at 83 mL/h. She will use Ativan 1 mg IV every 4 hours as needed for anxiety or restlessness. She will be continued on her usual home medications as soon as her medication list has been verified and reconciled. CBCs, metabolic profiles and magnesium levels will be obtained as needed. Patient will be placed on a cardiac diet. Smoking cessation is advised and counseled briefly at the bedside. A nicotine replacement patch will be available for the patient's use, if desired. - Time Time Spent with patient: 25-34 minutes Medications reviewed and adjusted accordingly: Yes Anticipated discharge: SNF Within: within 72 hours - Inpatient Certification Based on my medical assessment, after consideration of the patient's comorbidities, presenting symptoms, or acuity I expect that the services needed warrant INPATIENT care.: Yes I certify that my determination is in accordance with my understanding of Medicare's requirements for reasonable and necessary INPATIENT services [42 CFR 412.3e].: Yes Medical Necessity: Significant Comorbidiites Make Outpatient Treatment Too Risky, Need Close Monitoring Due to Risk of Patient Decompensation, Risk of Complication if Not Cared For in Hospital, Risk of Diagnosis Which Will Require Inpatient Eval/Care/Monitoring
[2019-07-08 13:03] LABS: ARTERIAL BLOOD BASE EXCESS 1.4 mmol/L; ARTERIAL BLOOD H2CO3 1.16 mmol/L (1.05-1.35); ARTERIAL BLOOD HCO3 25.5 mmol/L (20-24); ARTERIAL BLOOD O2 SATURATION 91.5 % (94-98); ARTERIAL BLOOD PCO2 38.4 mmHg (35-45); ARTERIAL BLOOD PH 7.44 (7.35-7.45); ARTERIAL BLOOD PO2 58.8 mmHg (80-100); ARTERIAL BLOOD TOTAL CO2 26.7 mmol/L (21-25)
[2019-07-08 13:04] LABS: ARTERIAL BLOOD FIO2 1L
[2019-07-08] MEDS: DILTIAZEM HCL 30 MG TABLET PO SCH ×2 (14:03→21:24)
[2019-07-08] MEDS: IPRATROPIUM/ALBUTEROL 0.5-2.5 MG/3 ML AMPUL NEB SCH ×2 (16:08→20:19)
[2019-07-08] MEDS: BUSPIRONE HCL 10 MG TABLET PO SCH (18:00)
[2019-07-08] MEDS ORDERED: DIGOXIN INJ 0.5 MG/2 ML AMPULE IV ONE (20:30)
[2019-07-08] MEDS ORDERED: ENOXAPARIN SODIUM INJ 80 MG/0.8 ML DISP.SYRIN SUBCUT ONE (20:30)
[2019-07-08] MEDS ORDERED: NORMAL SALINE 500 ML IV ONE (21:00)
[2019-07-08] MEDS ORDERED: NORMAL SALINE 1000 ML 500 ML IV ONE (21:00)
[2019-07-08] MEDS: MELATONIN 3 MG TABLET PO SCH (21:25)
[2019-07-09] MEDS: IPRATROPIUM/ALBUTEROL 0.5-2.5 MG/3 ML AMPUL NEB SCH ×4 (00:23→12:48)
--- NOTE | 2019-07-09 01:22 | RADIOLOGY REPORT (SQ) ---
EXAM DESCRIPTION: CT CHEST WITH IV CONTRAST COMPLETED DATE/TME: 07/08/2019 00:00 CLINICAL HISTORY: 73 years, Female, resp failure, possible PNA COMPARISON: 06/07/2019 CT TECHNIQUE: 302 Images stored on PACS. All CT scanners at this facility use dose modulation, iterative reconstruction, and/or weight based dosing when appropriate to reduce radiation dose to as low as reasonably achievable (ALARA). [facility]: Dose Right [facility]: CareDose [facility]: Dose Right [facility]: Teradose 4D [facility]: [employer] LIMITATIONS: None. FINDINGS: The mediastinal vasculature enhances normally. No adenopathy. The heart size is stable. Limited evaluation of the upper abdomen shows a small amount of ascites. Hypodensity in the right hepatic lobe measuring 1.5 cm. This is nonspecific. Compared with the prior exam there has been significant interval worsening in what are now moderate to large bilateral pleural effusions and adjacent consolidative change. No pneumothorax. Diffuse interstitial prominence. Reticulonodular changes in the upper lobes bilaterally may reflect superimposed acute pneumonitis. IMPRESSION: Significant worsening of what are now moderate to large bilateral pleural effusions with adjacent consolidative change. Diffuse interstitial prominence may reflect interstitial edema. Superimposed reticulonodular changes consistent with pneumonitis. Small amount of ascites in the upper abdomen TECHNICAL DOCUMENTATION: Quality ID # 436: Final reports with documentation of one or more dose reduction techniques (e.g., Automated exposure control, adjustment of the mA and/or kV according to patient size, use of iterative reconstruction technique) copyright 2011 [employer]- All Rights Reserved
[2019-07-09] MEDS: POTASSIUM CHLORIDE 20 MEQ PACKET PO SCH ×3 (05:59→21:34)
[2019-07-09] MEDS: DILTIAZEM HCL 30 MG TABLET PO SCH ×3 (05:59→21:34)
[2019-07-09] MEDS: DOCUSATE SODIUM 100 MG CAPSULE PO SCH ×2 (10:00→17:03)
[2019-07-09] MEDS ORDERED: APIXABAN 5 MG TABLET PO SCH (10:00)
[2019-07-09] MEDS: ATENOLOL 50 MG TABLET PO SCH ×2 (10:01→21:34)
[2019-07-09] MEDS: FUROSEMIDE 20 MG TABLET PO SCH (10:02)
[2019-07-09] MEDS: FAMOTIDINE 20 MG TABLET PO SCH ×2 (10:02→21:33)
[2019-07-09] MEDS: MIDODRINE HCL 5 MG TABLET PO SCH ×3 (10:03→17:21)
[2019-07-09] MEDS: FLUTICASONE/UMECLIDIN/VILANTER 100-62.5-25 MCG/DOSE IH SCH (10:04)
[2019-07-09 11:49] LABS: INTERNATIONAL RATION (INR) 1.55; PROTHROMBIN TIME 18.7 SEC (11.4-15.4)
[2019-07-09 11:50] LABS: PARTIAL THROMBOPLASTIN TIME 39.3 SEC (23.5-35.8)
[2019-07-09 12:00] LABS: TOTAL PROTEIN 6.4 g/dL (6.3-8.2)
[2019-07-09] MEDS ORDERED: IPRATROPIUM/ALBUTEROL 0.5-2.5 MG/3 ML AMPUL NEB SCH (16:00)
[2019-07-09] MEDS: BUSPIRONE HCL 10 MG TABLET PO SCH (17:25)
[2019-07-09] MEDS ORDERED: IPRATROPIUM/ALBUTEROL 0.5-2.5 MG/3 ML AMPUL NEB PRN (18:26)
--- NOTE | 2019-07-09 18:29 | PDOC PROGRESS REPORT ---
Subjective Progress Note for:: 07/09/19 Subjective:: 07/07/2019 Patient admitted for severe generalized fatigue and weakness, hypotension, hypokalemia, multiple falls at home. She will need placement in rehab facility or long-term nursing. Valproate level was noted to be low. UA did not show infection. Throughout the day today patient is noted to have heart rate climbing up to the 120s and 140s though her blood pressure systolic has been in the 90s to low 100s which complicates treatment of her heart rate. She is started on midodrine and her atenolol has been restarted for later tonight assuming her blood pressure rises appropriately. 07/08/2019 Patient having some more difficulty breathing today. Resume reason, she was put on a nonrebreather at 100% oxygen despite her history of COPD. I discussed with nursing that this is not beneficial in chronic COPD and can actually cause CO2 retention. We took the oxygen off the patient and she become much more alert almost immediately. Her lungs have a few wet crackles at the bases but are otherwise clear. Suspect she has some volume overload given that her home Lasix was not restarted on admission. I added midodrine which seems to be effective in keeping her blood pressure up high enough to get her cardiac medications. Her heart rate is ranging in the 110s to 130s. Increased her dose of atenolol. May need to start diltiazem if her blood pressure permits. If it does not permit, we will increase the midodrine and then add diltiazem. Chest x-ray ordered and reviewed by me which shows some interstitial edema in the lower lung underwood. Speech therapy ordered since she seems to be coughing a bit after drinking water though she may just need to slow down when drinking/eating. I will try to contact the family today to discuss CODE STATUS and possibility of hospice. I believe the patient cannot effectively swallow her food, meds, and drink and given she is obviously severely demented, she should be considered for hospice and should certainly be made DNR/DNI. 07/09/2019 I had extensive conversation with the patient's daughter and son-in-law on the phone today. I described in great detail all of the patient's many health problems and how they all complicate 1 another in the treatment of each 1. In particular, there has been quite challenging to control the patient's high heart rate, low blood pressure, and pleural effusions with medications alone. I ordered a thoracentesis to be done tomorrow and the patient's Eliquis has been h eld. The patient was very adamant that we not do any procedures on her when I discussed this with her today but she is quite confused and the patient's family who is her medical power of [place] attorney, her daughter, stated that she wanted this procedure to be at least attempted and requested the patient be given some Ativan to calm her for the procedure. I stated we can try this, but if the patient endangered herself by becoming combative during the procedure, we will not proceed and it will be canceled. I have stopped her oral Lasix and added IV Bumex 1 mg twice daily now that we have her blood pressure higher on the midodrine. Patient was much more awake and alert today during our encounter, actually quite opinionated when I asked her about the thoracentesis. She was happily eating a tuna sandwich while we were talking. Certainly a substantial improvement over yesterday, likely due to the BiPAP she had been on for several hours. Patient has no specific complaints other than generalized fatigue and weakness today. I also discussed CODE STATUS with the family and despite going into great detail, I do not believe they have a good understanding of what this entails and they do not seem to be able to make a solid decision at this time. They would like the patient to remain full code for the time being while they discuss CODE STATUS further. Reason For Visit: GENERALIZED WEAKNESS,REPEATED FALLS Physical Exam Vital Signs: Temp Pulse Resp BP Pulse Ox 99.7 F 91 16 131/82 H 98 07/09/19 16:21 07/09/19 16:21 07/09/19 16:21 07/09/19 16:21 07/09/19 16:21 Intake & Output 07/08/19 07/09/19 07/10/19 06:59 06:59 06:59 Intake Total 1886 1300 240 Output Total 0 Balance 1886 1300 240 Weight 78.3 kg 76.4 kg General appearance: PRESENT: no acute distress, well-developed, well-nourished Head exam: PRESENT: atraumatic, normocephalic Eye exam: PRESENT: conjunctiva pink Mouth exam: PRESENT: moist Respiratory exam: PRESENT: crackles - Bilateral primarily at the bases, unlabored. ABSENT: accessory muscle use, tachypnea, wheezes Cardiovascular exam: PRESENT: irregular rhythm. ABSENT: diastolic murmur, rubs, systolic murmur GI/Abdominal exam: PRESENT: normal bowel sounds, soft. ABSENT: distended, guarding, mass, organolmegaly, rebound, tenderness Extremities exam: PRESENT: pedal edema, +2 edema Neurological exam: PRESENT: alert, altered, awake, oriented to person, oriented to place Psychiatric exam: PRESENT: appropriate affect, normal mood Skin exam: PRESENT: dry, intact, warm Results Laboratory Results: 07/08/19 09:36 07/08/19 09:36 07/09/19 11:20 Total Protein 6.4 07/06/19 07/07/19 15:37 04:44 Troponin I < 0.012 NT-Pro-B Natriuret Pep 3920 H Impressions: Head CT 07/06/19 17:30 IMPRESSION: CHRONIC CHANGES OF ATROPHY AND MICROVASCULAR ISCHEMIA. NO ACUTE PROCESS. EVIDENCE OF ACUTE STROKE: NO. Chest CT 07/08/19 00:00 IMPRESSION: Significant worsening of what are now moderate to large bilateral pleural effusions with adjacent consolidative change. Diffuse interstitial prominence may reflect interstitial edema. Superimposed reticulonodular changes consistent with pneumonitis. Small amount of ascites in the upper abdomen TECHNICAL DOCUMENTATION: Quality ID # 436: Final reports with documentation of one or more dose reduction techniques (e.g., Automated exposure control, adjustment of the mA and/or kV according to patient size, use of iterative reconstruction technique) copyright 2011 [employer]- All Rights Reserved Assessment and Plan - Diagnosis (1) Chronic atrial fibrillation, unspecified Is this a current diagnosis for this admission?: Yes (2) Pleural effusion, bilateral Is this a current diagnosis for this admission?: Yes Plan: Unclear etiology as previous echocardiogram 11/2018 showed normal LV and RV function; possible she has developed CHF since then or this is a result of uncontrolled A. fib; it is also quite possible the patient has underlying lung cancer that is causing a malignant effusion given that the patient heavily/constantly smokes 1 cigarette after another at home per her daughter Moderate to large bilateral pleural effusions seen on CT chest with interstitial edema IV Bumex 1 mg twice daily, watch blood pressure closely, may need to increase midodrine if BP is running low Thoracentesis ordered, patient refusing that she is confused; discussed with M XANDERA daughter who states she wants this procedure to be attempted after the patient is given some IV Ativan to calm her We will attempt thoracentesis but will discontinue the procedure if the patient endangered herself by becoming combative Follow-up thoracentesis fluid cultures and cytology as ordered (3) Chronic obstructive pulmonary disease Qualifiers: COPD type: unspecified COPD Qualified Code(s): J44.9 - Chronic obstructive pulmonary disease, unspecified Is this a current diagnosis for this admission?: Yes (4) Generalized weakness Is this a current diagnosis for this admission?: Yes (5) Anxiety and depression Is this a current diagnosis for this admission?: Yes (6) Hyperlipidemia Qualifiers: Hyperlipidemia type: unspecified Qualified Code(s): E78.5 - Hyperlipidemia, unspecified Is this a current diagnosis for this admission?: Yes (7) Hypertension Qualifiers: Hypertension type: essential hypertension Qualified Code(s): I10 - Essential (primary) hypertension Is this a current diagnosis for this admission?: Yes (8) Hypokalemia Is this a current diagnosis for this admission?: Yes (9) Recurrent falls Is this a current diagnosis for this admission?: Yes - Plan Summary Summary: Patient will be admitted to the medical floor where she will receive routine supportive and symptomatic cares. access services assistant consultation will be obtained to evaluate the patient for possible half-way facility/assisted living facility post hospital placement. Patient will receive IV fluids using lactated Ringer's at 83 mL/h. She will use Ativan 1 mg IV every 4 hours as needed for anxiety or restlessness. She will be continued on her usual home medications as soon as her medication list has been verified and reconciled. CBCs, metabolic profiles and magnesium levels will be obtained as needed. Patient will be placed on a cardiac diet. Smoking cessation is advised and counseled briefly at the bedside. A nicotine replacement patch will be available for the patient's use, if desired. - Time Time Spent with patient: 35 or more minutes Medications reviewed and adjusted accordingly: Yes Anticipated discharge: Home with Homehealth - Inpatient Certification Based on my medical assessment, after consideration of the patient's comorbidities, presenting symptoms, or acuity I expect that the services needed warrant INPATIENT care.: Yes I certify that my determination is in accordance with my understanding of Medicare's requirements for reasonable and necessary INPATIENT services [42 CFR 412.3e].: Yes Medical Necessity: Significant Comorbidiites Make Outpatient Treatment Too Risky, Need Close Monitoring Due to Risk of Patient Decompensation, Risk of Complication if Not Cared For in Hospital, Risk of Diagnosis Which Will Require Inpatient Eval/Care/Monitoring
--- NOTE | 2019-07-09 18:30 | ADVANCED CARE ---
- Diagnosis (1) Chronic atrial fibrillation, unspecified Diagnosis Current: Yes (2) Pleural effusion, bilateral Diagnosis Current: Yes (3) Chronic obstructive pulmonary disease Diagnosis Current: Yes (4) Generalized weakness Diagnosis Current: Yes (5) Anxiety and depression Diagnosis Current: Yes (6) Hyperlipidemia Diagnosis Current: Yes (7) Hypertension Diagnosis Current: Yes (8) Hypokalemia Diagnosis Current: Yes (9) Recurrent falls Diagnosis Current: Yes Attendance: Medical power of insurance defense attorney daughter and son-in-law Resuscitation Status: Full Code Discussion: All aspects of code status discussed with patient/POA including cardioversion, chest compressions, and intubation and the patient/POA indicated they wish to be full code. [facility] is designated as: Mckenna Rivas [phone] Time Spent: 17 minutes
[2019-07-09] MEDS: BUMETANIDE INJ/PF 1 MG/4 ML SDV IV SCH (18:45)
[2019-07-09] MEDS: ALPRAZOLAM 0.5 MG TABLET PO PRN (18:58)
[2019-07-09 19:42] LABS: C DIFFICILE GDH NEGATIVE (NEGATIVE)
[2019-07-09] MEDS: MELATONIN 3 MG TABLET PO SCH (21:32)
[2019-07-10] MEDS: LORAZEPAM INJ 2 MG/1 ML VIAL IV PRN ×4 (00:07→22:05)
[2019-07-10] MEDS: IPRATROPIUM BROMIDE 0.02% NEB 0.5 MG/2.5 ML AMPUL NEB SCH ×3 (00:08→15:58)
[2019-07-10] MEDS: POTASSIUM CHLORIDE 20 MEQ PACKET PO SCH ×3 (05:54→22:08)
[2019-07-10] MEDS: DILTIAZEM HCL 30 MG TABLET PO SCH ×3 (05:59→22:04)
[2019-07-10 08:43] LABS: ABSOLUTE BASOPHILS # (AUTO) 0.1 10^3/uL (0.0-0.2); ABSOLUTE EOSINOPHILS # (AUTO) 0.2 10^3/uL (0.0-0.6); ABSOLUTE LYMPHOCYTES (AUTO) 1.5 10^3/uL (0.5-4.7); ABSOLUTE MONOCYTES (AUTO) 0.7 10^3/uL (0.1-1.4); EOSINOPHILS % (AUTO) 3.3 % (0-6); HEMATOCRIT 34.8 % (36.0-47.0); HEMOGLOBIN 11.9 g/dL (12.0-15.5); MEAN CORPUSCULAR HGB CONC 34.2 g/dL (32.0-36.0); MEAN CORPUSCULAR VOLUME 82 fl (80-97); MONOCYTES % (AUTO) 10.8 % (3-13); PLATELET COUNT 157 10^3/uL (150-450); RED BLOOD COUNT 4.26 10^6/uL (3.72-5.28); RED CELL DISTRIBUTION WIDTH 15.7 % (11.5-14.0); SEGMENTED NEUTROPHILS % (AUTO) 61.9 % (42-78); TOTAL CELLS COUNTED % (AUTO) 100 %; WHITE BLOOD COUNT 6.4 10^3/uL (4.0-10.5)
[2019-07-10 09:04] LABS: ANION GAP 5 (5-19); BLOOD UREA NITROGEN 14 mg/dL (7-20); CALCIUM 8.8 mg/dL (8.4-10.2); CARBON DIOXIDE 26 mmol/L (22-30); CHLORIDE 104 mmol/L (98-107); GLUCOSE 112 mg/dL (75-110); POTASSIUM 4.1 mmol/L (3.6-5.0)
[2019-07-10 09:21] LABS: INTERNATIONAL RATION (INR) 1.18; PROTHROMBIN TIME 15.1 SEC (11.4-15.4)
[2019-07-10] MEDS: DOCUSATE SODIUM 100 MG CAPSULE PO SCH ×2 (10:10→19:37)
[2019-07-10] MEDS: ATENOLOL 50 MG TABLET PO SCH ×2 (10:10→22:04)
[2019-07-10] MEDS: FAMOTIDINE 20 MG TABLET PO SCH ×2 (10:11→22:04)
[2019-07-10] MEDS: BUMETANIDE INJ/PF 1 MG/4 ML SDV IV SCH ×2 (10:11→19:02)
[2019-07-10] MEDS: MIDODRINE HCL 5 MG TABLET PO SCH ×3 (10:24→19:01)
[2019-07-10] MEDS: FLUTICASONE/UMECLIDIN/VILANTER 100-62.5-25 MCG/DOSE IH SCH (10:24)
[2019-07-10] MEDS: ALPRAZOLAM 0.5 MG TABLET PO PRN ×2 (11:33→19:01)
[2019-07-10] MEDS: PROMETHAZINE HCL INJ 25 MG/1 ML VIAL IV PRN ×2 (11:34→22:05)
--- NOTE | 2019-07-10 14:34 | PDOC PROGRESS REPORT ---
Subjective Progress Note for:: 07/10/19 Subjective:: 07/07/2019 Patient admitted for severe generalized fatigue and weakness, hypotension, hypokalemia, multiple falls at home. She will need placement in rehab facility or long-term nursing. Valproate level was noted to be low. UA did not show infection. Throughout the day today patient is noted to have heart rate climbing up to the 120s and 140s though her blood pressure systolic has been in the 90s to low 100s which complicates treatment of her heart rate. She is started on midodrine and her atenolol has been restarted for later tonight assuming her blood pressure rises appropriately. 07/08/2019 Patient having some more difficulty breathing today. Resume reason, she was put on a nonrebreather at 100% oxygen despite her history of COPD. I discussed with nursing that this is not beneficial in chronic COPD and can actually cause CO2 retention. We took the oxygen off the patient and she become much more alert almost immediately. Her lungs have a few wet crackles at the bases but are otherwise clear. Suspect she has some volume overload given that her home Lasix was not restarted on admission. I added midodrine which seems to be effective in keeping her blood pressure up high enough to get her cardiac medications. Her heart rate is ranging in the 110s to 130s. Increased her dose of atenolol. May need to start diltiazem if her blood pressure permits. If it does not permit, we will increase the midodrine and then add diltiazem. Chest x-ray ordered and reviewed by me which shows some interstitial edema in the lower lung underwood. Speech therapy ordered since she seems to be coughing a bit after drinking water though she may just need to slow down when drinking/eating. I will try to contact the family today to discuss CODE STATUS and possibility of hospice. I believe the patient cannot effectively swallow her food, meds, and drink and given she is obviously severely demented, she should be considered for hospice and should certainly be made DNR/DNI. 07/09/2019 I had extensive conversation with the patient's daughter and son-in-law on the phone today. I described in great detail all of the patient's many health problems and how they all complicate 1 another in the treatment of each 1. In particular, there has been quite challenging to control the patient's high heart rate, low blood pressure, and pleural effusions with medications alone. I ordered a thoracentesis to be done tomorrow and the patient's Eliquis has been h eld. The patient was very adamant that we not do any procedures on her when I discussed this with her today but she is quite confused and the patient's family who is her medical power of estate attorney, her daughter, stated that she wanted this procedure to be at least attempted and requested the patient be given some Ativan to calm her for the procedure. I stated we can try this, but if the patient endangered herself by becoming combative during the procedure, we will not proceed and it will be canceled. I have stopped her oral Lasix and added IV Bumex 1 mg twice daily now that we have her blood pressure higher on the midodrine. Patient was much more awake and alert today during our encounter, actually quite opinionated when I asked her about the thoracentesis. She was happily eating a tuna sandwich while we were talking. Certainly a substantial improvement over yesterday, likely due to the BiPAP she had been on for several hours. Patient has no specific complaints other than generalized fatigue and weakness today. I also discussed CODE STATUS with the family and despite going into great detail, I do not believe they have a good understanding of what this entails and they do not seem to be able to make a solid decision at this time. They would like the patient to remain full code for the time being while they discuss CODE STATUS further. 07/10/2019 Patient seems to be doing quite well today and is rather talkative. She seems rather agreeable with the idea of doing a thoracentesis and then when I talk about other aspects of her care she intermittently expresses anger though I am speaking about a very general benign aspects of her care including the fact that she was quite sick when she arrived at the hospital. I think this strange behavior is probably due to her underlying dementia. Thoracentesis has been scheduled for today but was told by nursing the fluoroscopy department wanted to delay this because her INR was 1.55. Her Eliquis has been stopped for 24 hours which is appropriate for a relatively low bleeding risk procedure. I rechecked her INR and it was significantly lower and certainly at what ever goal the radiology department has for INR to perform a thoracentesis. I asked nursing to follow-up with them to ensure this procedure we get done today given the patient is actually agreeing to it now. This is an important procedure for both therape utic and diagnostic purposes. We need to avoid delaying this if possible. Patient has no specific complaints today other than generalized fatigue and weakness. Reason For Visit: GENERALIZED WEAKNESS,REPEATED FALLS Physical Exam Vital Signs: Temp Pulse Resp BP Pulse Ox 97.6 F 78 16 124/62 95 07/10/19 07:29 07/10/19 07:50 07/10/19 07:50 07/10/19 07:29 07/10/19 07:50 Intake & Output 07/09/19 07/10/19 07/11/19 06:59 06:59 06:59 Intake Total 1300 1040 240 Output Total 0 Balance 1300 1040 240 Weight 76.4 kg 76.8 kg General appearance: PRESENT: no acute distress, well-developed, well-nourished Head exam: PRESENT: atraumatic, normocephalic Eye exam: PRESENT: conjunctiva pink Mouth exam: PRESENT: moist Respiratory exam: PRESENT: crackles, unlabored. ABSENT: rales, rhonchi, tachypnea, wheezes Cardiovascular exam: PRESENT: irregular rhythm. ABSENT: diastolic murmur, rubs, systolic murmur GI/Abdominal exam: PRESENT: normal bowel sounds, soft. ABSENT: distended, guarding, mass, organolmegaly, rebound, tenderness Extremities exam: PRESENT: pedal edema Neurological exam: PRESENT: alert, awake, oriented to person, oriented to place Psychiatric exam: PRESENT: appropriate affect, normal mood Skin exam: PRESENT: dry, intact, warm Results Laboratory Results: 07/10/19 08:36 07/10/19 08:36 07/10/19 07/10/19 08:36 08:36 WBC 6.4 RBC 4.26 Hgb 11.9 L Hct 34.8 L MCV 82 MCH 28.0 MCHC 34.2 RDW 15.7 H Plt Count 157 Seg Neutrophils % 61.9 Sodium 135.1 L Potassium 4.1 Chloride 104 Carbon Dioxide 26 Anion Gap 5 BUN 14 Creatinine 0.85 Est GFR ( Amer) > 60 Glucose 112 H Calcium 8.8 07/06/19 07/07/19 15:37 04:44 Troponin I < 0.012 NT-Pro-B Natriuret Pep 3920 H Impressions: Head CT 07/06/19 17:30 IMPRESSION: CHRONIC CHANGES OF ATROPHY AND MICROVASCULAR ISCHEMIA. NO ACUTE PROCESS. EVIDENCE OF ACUTE STROKE: NO. Chest CT 07/08/19 00:00 IMPRESSION: Significant worsening of what are now moderate to large bilateral pleural effusions with adjacent consolidative change. Diffuse interstitial prominence may reflect interstitial edema. Superimposed reticulonodular changes consistent with pneumonitis. Small amount of ascites in the upper abdomen TECHNICAL DOCUMENTATION: Quality ID # [id number]: Final reports with documentation of one or more dose reduction techniques (e.g., Automated exposure control, adjustment of the mA and/or kV according to patient size, use of iterative reconstruction technique) copyright 2010 [employer]- All Rights Reserved Assessment and Plan - Diagnosis (1) Chronic atrial fibrillation, unspecified Is this a current diagnosis for this admission?: Yes Plan: Heart rate in the 120s 140s on admission, low BP complicated treatment at this Restart home atenolol, confirmed with pharmacy patient does not take diltiazem and has not filled this medication in a very long time, discontinued this medication Eliquis continued Telemetry Added midodrine to allow for up titration of rate control meds 07/08/2019 Heart rate still uncontrolled, increased atenolol. Continued midodrine Heart rate is still uncontrolled this afternoon we will add diltiazem and possibly increase midodrine dose 07/10/2019 Heart rate is much better controlled and blood pressure is also stabilized. She does have intermittent periods of elevated heart rate but this seems to resolve when she calms down. May consider cardiology consult if heart rate is persistently uncontrolled. Expect her heart rate to improve substantially after thoracentesis removes the fluid from her lungs. (2) Pleural effusion, bilateral Is this a current diagnosis for this admission?: Yes Plan: Unclear etiology as previous echocardiogram 11/2018 showed normal LV and RV function; possible she has developed CHF since then or this is a result of uncontrolled A. fib; it is also quite possible the patient has underlying lung cancer that is causing a malignant effusion given that the patient heavily/constantly smokes 1 cigarette after another at home per her daughter Moderate to large bilateral pleural effusions seen on CT chest with interstitial edema IV Bumex 1 mg twice daily, watch blood pressure closely, may need to increase midodrine if BP is running low Thoracentesis ordered, patient refusing that she is confused; discussed with Carl TERRELLA daughter who states she wants this procedure to be attempted after the patient is given some IV Ativan to calm her We will attempt thoracentesis but will discontinue the procedure if the patient endangered herself by becoming combative Follow-up thoracentesis fluid cultures and cytology as ordered 07/10/2019 Thoracentesis to be done today. Procedure has been delayed due to radiology department wanting the patient to have a lower INR. Recheck INR today showed much lower value which is certainly at or below the standards set forth by radiology for this relatively low bleeding risk procedure. Eliquis has been stopped for over 24 hours as is appropriate. Can proceed with this procedure today if they still want to do it. Patient is agreeable to this procedure today. Many studies on pleural fluid have been ordered, follow-up results (3) Chronic obstructive pulmonary disease Qualifiers: COPD type: unspecified COPD Qualified Code(s): J44.9 - Chronic obstructive pulmonary disease, unspecified Is this a current diagnosis for this admission?: Yes (4) Generalized weakness Is this a current diagnosis for this admission?: Yes (5) Anxiety and depression Is this a current diagnosis for this admission?: Yes (6) Hyperlipidemia Qualifiers: Hyperlipidemia type: unspecified Qualified Code(s): E78.5 - Hyperlipidemia, unspecified Is this a current diagnosis for this admission?: Yes (7) Hypertension Qualifiers: Hypertension type: essential hypertension Qualified Code(s): I10 - Essential (primary) hypertension Is this a current diagnosis for this admission?: Yes (8) Hypokalemia Is this a current diagnosis for this admission?: Yes (9) Recurrent falls Is this a current diagnosis for this admission?: Yes - Plan Summary Summary: Patient will be admitted to the medical floor where she will receive routine supportive and symptomatic cares. account services manager consultation will be obtained to evaluate the patient for possible [facility] facility/assisted living facility post hospital placement. Patient will receive IV fluids using lactated Ringer's at 83 mL/h. She will use Ativan 1 mg IV every 4 hours as needed for anxiety or restlessness. She will be continued on her usual home medications as soon as her medication list has been verified and reconciled. CBCs, metabolic profiles and magnesium levels will be obtained as needed. Patient will be placed on a cardiac diet. Smoking cessation is advised and counseled briefly at the bedside. A nicotine replacement patch will be available for the patient's use, if desired. - Time Time Spent with patient: 25-34 minutes Medications reviewed and adjusted accordingly: Yes Anticipated discharge: SNF - Inpatient Certification Based on my medical assessment, after consideration of the patient's comorbidities, presenting symptoms, or acuity I expect that the services needed warrant INPATIENT care.: Yes I certify that my determination is in accordance with my understanding of Medicare's requirements for reasonable and necessary INPATIENT services [42 CFR 412.3e].: Yes Medical Necessity: Significant Comorbidiites Make Outpatient Treatment Too Risk y, Need Close Monitoring Due to Risk of Patient Decompensation, Risk of Complication if Not Cared For in Hospital, Risk of Diagnosis Which Will Require Inpatient Eval/Care/Monitoring
[2019-07-10] MEDS: APIXABAN 5 MG TABLET PO SCH (18:56)
[2019-07-10] MEDS: BUSPIRONE HCL 10 MG TABLET PO SCH (19:01)
[2019-07-10] MEDS: MELATONIN 3 MG TABLET PO SCH (22:04)
[2019-07-11] MEDS: IPRATROPIUM BROMIDE 0.02% NEB 0.5 MG/2.5 ML AMPUL NEB SCH ×3 (00:31→15:55)
[2019-07-11] MEDS: ALPRAZOLAM 0.5 MG TABLET PO PRN ×3 (01:06→20:04)
[2019-07-11] MEDS: DILTIAZEM HCL 30 MG TABLET PO SCH ×3 (06:52→21:28)
[2019-07-11] MEDS: POTASSIUM CHLORIDE 20 MEQ PACKET PO SCH ×3 (06:52→21:28)
[2019-07-11] MEDS: APIXABAN 5 MG TABLET PO SCH ×2 (09:20→18:22)
[2019-07-11] MEDS: MIDODRINE HCL 5 MG TABLET PO SCH ×3 (09:30→17:09)
[2019-07-11] MEDS: FAMOTIDINE 20 MG TABLET PO SCH ×2 (09:30→21:28)
[2019-07-11] MEDS: ATENOLOL 50 MG TABLET PO SCH ×2 (09:30→21:28)
[2019-07-11] MEDS: FLUTICASONE/UMECLIDIN/VILANTER 100-62.5-25 MCG/DOSE IH SCH (09:31)
[2019-07-11] MEDS: DOCUSATE SODIUM 100 MG CAPSULE PO SCH ×3 (09:31→17:11)
[2019-07-11] MEDS: BUMETANIDE INJ/PF 1 MG/4 ML SDV IV SCH ×2 (09:31→17:09)
[2019-07-11] MEDS: LORAZEPAM INJ 2 MG/1 ML VIAL IV PRN ×3 (11:25→23:06)
--- NOTE | 2019-07-11 13:11 | RADIOLOGY REPORT (SQ) ---
EXAM DESCRIPTION: CHEST SINGLE VIEW IMAGES COMPLETED DATE/TIME: 07/11/2019 12:47 pm REASON FOR STUDY: post right thoracentesis COMPARISON: AP view of the chest from 07/08/2019. EXAM PARAMETERS: NUMBER OF VIEWS: One view. TECHNIQUE: An AP view of the chest was obtained. RADIATION DOSE: NA LIMITATIONS: None. FINDINGS: LUNGS AND PLEURA: Status post right thoracentesis. The aeration of the inferior right hem ithorax is improved. The hazy opacities in the inferior left hemithorax persist. There is no postpr ocedural pneumothorax. MEDIASTINUM AND HILAR STRUCTURES: Stable mediastinal and hilar contours. HEART AND VASCULAR STRUCTURES: Stable cardiac silhouette. BONES: No acute findings. HARDWARE: None in the chest. OTHER: No other finding. IMPRESSION: No postprocedural pneumothorax. TECHNICAL DOCUMENTATION: JOB ID: [id number] 2010 [employer]- All Rights Reserved Reading location - IP/workstation name: [email or web address]
--- NOTE | 2019-07-11 13:40 | PDOC PROGRESS REPORT ---
Subjective Progress Note for:: 07/11/19 Subjective:: 07/07/2019 Patient admitted for severe generalized fatigue and weakness, hypotension, hypokalemia, multiple falls at home. She will need placement in rehab facility or long-term nursing. Valproate level was noted to be low. UA did not show infection. Throughout the day today patient is noted to have heart rate climbing up to the 120s and 140s though her blood pressure systolic has been in the 90s to low 100s which complicates treatment of her heart rate. She is started on midodrine and her atenolol has been restarted for later tonight assuming her blood pressure rises appropriately. 07/08/2019 Patient having some more difficulty breathing today. Resume reason, she was put on a nonrebreather at 100% oxygen despite her history of COPD. I discussed with nursing that this is not beneficial in chronic COPD and can actually cause CO2 retention. We took the oxygen off the patient and she become much more alert almost immediately. Her lungs have a few wet crackles at the bases but are otherwise clear. Suspect she has some volume overload given that her home Lasix was not restarted on admission. I added midodrine which seems to be effective in keeping her blood pressure up high enough to get her cardiac medications. Her heart rate is ranging in the 110s to 130s. Increased her dose of atenolol. May need to start diltiazem if her blood pressure permits. If it does not permit, we will increase the midodrine and then add diltiazem. Chest x-ray ordered and reviewed by me which shows some interstitial edema in the lower lung underwood. Speech therapy ordered since she seems to be coughing a bit after drinking water though she may just need to slow down when drinking/eating. I will try to contact the family today to discuss CODE STATUS and possibility of hospice. I believe the patient cannot effectively swallow her food, meds, and drink and given she is obviously severely demented, she should be considered for hospice and should certainly be made DNR/DNI. 07/09/2019 I had extensive conversation with the patient's daughter and son-in-law on the phone today. I described in great detail all of the patient's many health problems and how they all complicate 1 another in the treatment of each 1. In particular, there has been quite challenging to control the patient's high heart rate, low blood pressure, and pleural effusions with medications alone. I ordered a thoracentesis to be done tomorrow and the patient's Eliquis has been h eld. The patient was very adamant that we not do any procedures on her when I discussed this with her today but she is quite confused and the patient's family who is her medical power of certification technician, her daughter, stated that she wanted this procedure to be at least attempted and requested the patient be given some Ativan to calm her for the procedure. I stated we can try this, but if the patient endangered herself by becoming combative during the procedure, we will not proceed and it will be canceled. I have stopped her oral Lasix and added IV Bumex 1 mg twice daily now that we have her blood pressure higher on the midodrine. Patient was much more awake and alert today during our encounter, actually quite opinionated when I asked her about the thoracentesis. She was happily eating a tuna sandwich while we were talking. Certainly a substantial improvement over yesterday, likely due to the BiPAP she had been on for several hours. Patient has no specific complaints other than generalized fatigue and weakness today. I also discussed CODE STATUS with the family and despite going into great detail, I do not believe they have a good understanding of what this entails and they do not seem to be able to make a solid decision at this time. They would like the patient to remain full code for the time being while they discuss CODE STATUS further. 07/10/2019 Patient seems to be doing quite well today and is rather talkative. She seems rather agreeable with the idea of doing a thoracentesis and then when I talk about other aspects of her care she intermittently expresses anger though I am speaking about a very general benign aspects of her care including the fact that she was quite sick when she arrived at the hospital. I think this strange behavior is probably due to her underlying dementia. Thoracentesis has been scheduled for today but was told by nursing the fluoroscopy department wanted to delay this because her INR was 1.55. Her Eliquis has been stopped for 24 hours which is appropriate for a relatively low bleeding risk procedure. I rechecked her INR and it was significantly lower and certainly at what ever goal the radiology department has for INR to perform a thoracentesis. I asked nursing to follow-up with them to ensure this procedure we get done today given the patient is actually agreeing to it now. This is an important procedure for both therape utic and diagnostic purposes. We need to avoid delaying this if possible. Patient has no specific complaints today other than generalized fatigue and weakness. 07/11/2019 Patient continues to improve and is still doing very well today. She is scheduled for a thoracentesis today admission as this was delayed from yesterday and then delayed from this morning. Her EKG showed a QTC of 451 and A. fib which is chronic. Her labs and vitals appear to be stable. She is down to requiring 1 to 2 L nasal cannula oxygen. Follow-up thoracentesis fluid analysis which is pending after the procedure today. Patient has no specific complaints other than generalized fatigue and weakness. Reason For Visit: GENERALIZED WEAKNESS,REPEATED FALLS Physical Exam Vital Signs: Temp Pulse Resp BP Pulse Ox 98.9 F 91 16 113/65 94 07/11/19 11:18 07/11/19 11:18 07/11/19 11:18 07/11/19 11:18 07/11/19 11:18 Intake & Output 07/10/19 07/11/19 07/12/19 06:59 06:59 06:59 Intake Total 1040 440 Balance 1040 440 Weight 76.8 kg General appearance: PRESENT: no acute distress, well-developed, well-nourished Head exam: PRESENT: atraumatic, normocephalic Eye exam: PRESENT: conjunctiva pink Mouth exam: PRESENT: moist Respiratory exam: PRESENT: crackles - Bilateral bases. ABSENT: rales, rhonchi, wheezes Cardiovascular exam: PRESENT: irregular rhythm. ABSENT: diastolic murmur, rubs, systolic murmur GI/Abdominal exam: PRESENT: normal bowel sounds, soft. ABSENT: distended, guarding, mass, organolmegaly, rebound, tenderness Extremities exam: PRESENT: pedal edema, +2 edema Neurological exam: PRESENT: alert, awake, oriented to person, oriented to place Psychiatric exam: PRESENT: appropriate affect, normal mood Skin exam: PRESENT: dry, intact, warm Results Laboratory Results: 07/10/19 08:36 07/10/19 08:36 07/06/19 07/07/19 15:37 04:44 Troponin I < 0.012 NT-Pro-B Natriuret Pep 3920 H Impressions: Head CT 07/06/19 17:30 IMPRESSION: CHRONIC CHANGES OF ATROPHY AND MICROVASCULAR ISCHEMIA. NO ACUTE PROCESS. EVIDENCE OF ACUTE STROKE: NO. Chest CT 07/08/19 00:00 IMPRESSION: Significant worsening of what are now moderate to large bilateral pleural effusions with adjacent consolidative change. Diffuse interstitial prominence may reflect interstitial edema. Superimposed reticulonodular changes consistent with pneumonitis. Small amount of ascites in the upper abdomen TECHNICAL DOCUMENTATION: Quality ID # [id number]: Final reports with documentation of one or more dose reduction techniques (e.g., Automated exposure control, adjustment of the mA and/or kV according to patient size, use of iterative reconstruction technique) copyright 2011 [employer]- All Rights Reserved Chest X-Ray 07/11/19 00:00 IMPRESSION: No postprocedural pneumothorax. Assessment and Plan - Diagnosis (1) Chronic atrial fibrillation, unspecified Is this a current diagnosis for this admission?: Yes Plan: Heart rate in the 120s 140s on admission, low BP complicated treatment at this Restart home atenolol, confirmed with pharmacy patient does not take diltiazem and has not filled this medication in a very long time, discontinued this medication Elifitois continued Telemetry Added midodrine to allow for up titration of rate control meds 07/08/2019 Heart rate still uncontrolled, increased atenolol. Continued midodrine Heart rate is still uncontrolled this afternoon we will add diltiazem and possibly increase midodrine dose 07/10/2019 Heart rate is much better controlled and blood pressure is also stabilized. She does have intermittent periods of elevated heart rate but this seems to resolve when she calms down. May consider cardiology consult if heart rate is persistently uncontrolled. Expect her heart rate to improve substantially after thoracentesis removes the fluid from her lungs. 07/11/2019 Rate controlled, BP stabilized; expect continued improvement after thoracentesis removes the fluid from her lungs (2) Pleural effusion, bilateral Is this a current diagnosis for this admission?: Yes Plan: Unclear etiology as previous echocardiogram 11/2018 showed normal LV and RV function; possible she has developed CHF since then or this is a result of [place] ontrolled A. fib; it is also quite possible the patient has underlying lung cancer that is causing a malignant effusion given that the patient heavily/constantly smokes 1 cigarette after another at home per her daughter Moderate to large bilateral pleural effusions seen on CT chest with interstitia l edema IV Bumex 1 mg twice daily, watch blood pressure closely, may need to increase midodrine if BP is running low Thoracentesis ordered, patient refusing that she is confused; discussed with Carl COLÓN daughter who states she wants this procedure to be attempted after the patient is given some IV Ativan to calm her We will attempt thoracentesis but will discontinue the procedure if the patient endangered herself by becoming combative Follow-up thoracentesis fluid cultures and cytology as ordered 07/10/2019 Thoracentesis to be done today. Procedure has been delayed due to radiology department wanting the patient to have a lower INR. Recheck INR today showed much lower value which is certainly at or below the standards set forth by radiology for this relatively low bleeding risk procedure. Eliquis has been stopped for over 24 hours as is appropriate. Can proceed with this procedure t ann marie if they still want to do it. Patient is agreeable to this procedure today. Many studies on pleural fluid have been ordered, follow-up results 07/11/2019 Thoracentesis today, follow-up fluid analysis IV Bumex continues, good diuresis so far with significant improvement in breathing (3) Chronic obstructive pulmonary disease Qualifiers: COPD type: unspecified COPD Qualified Code(s): J44.9 - Chronic obstructive pulmonary disease, unspecified Is this a current diagnosis for this admission?: Yes (4) Generalized weakness Is this a current diagnosis for this admission?: Yes (5) Anxiety and depression Is this a current diagnosis for this admission?: Yes (6) Hyperlipidemia Qualifiers: Hyperlipidemia type: unspecified Qualified Code(s): E78.5 - Hyperlipidemia, unspecified Is this a current diagnosis for this admission?: Yes (7) Hypertension Qualifiers: Hypertension type: essential hypertension Qualified Code(s): I10 - Essential (primary) hypertension Is this a current diagnosis for this admission?: Yes (8) Hypokalemia Is this a current diagnosis for this admission?: Yes (9) Recurrent falls Is this a current diagnosis for this admission?: Yes - Plan Summary Summary: Patient will be admitted to the medical floor where she will receive routine supportive and symptomatic cares. field services analyst consultation will be obtained to evaluate the patient for possible long-term facility/assisted living facility post hospital placement. Patient will receive IV fluids using lactated Ringer's at 83 mL/h. She will use Ativan 1 mg IV every 4 hours as needed for anxiety or restlessness. She will be continued on her usual home medications as soon as her medication list has been verified and reconciled. CBCs, metabolic profiles and magnesium levels will be obtained as needed. Patient will be placed on a cardiac diet. Smoking cessation is advised and counseled briefly at the bedside. A nicotine replacement patch will be available for the patient's use, if desired. - Time Time Spent with patient: 25-34 minutes Medications reviewed and adjusted accordingly: Yes Anticipated discharge: SNF - Inpatient Certification Based on my medical assessment, after consideration of the patient's comorbidities, presenting symptoms, or acuity I expect that the services needed warrant INPATIENT care.: Yes I certify that my determination is in accordance with my understanding of Medicare's requirements for reasonable and necessary INPATIENT services [42 CFR 412.3e].: Yes Medical Necessity: Significant Comorbidiites Make Outpatient Treatment Too Risky, Need Close Monitoring Due to Risk of Patient Decompensation, Risk of Complication if Not Cared For in Hospital, Risk of Diagnosis Which Will Require Inpatient Eval/Care/Monitoring
[2019-07-11 13:49] LABS: FLUID APPEARANCE SLIGHTLY HAZY; FLUID COLOR YELLOW; FLUID SOURCE LUNG; FLUID TYPE PLEURAL; FLUID VISCOSITY LIQUID
--- NOTE | 2019-07-11 14:56 | RADIOLOGY REPORT (SQ) ---
EXAM DESCRIPTION: CHEST SINGLE VIEW IMAGES COMPLETED DATE/TIME: 07/11/2019 2:47 pm REASON FOR STUDY: 2 hour post right thoracentesis COMPARISON: AP view of the chest from 07/11/2019 at 1241 hours. EXAM PARAMETERS: NUMBER OF VIEWS: One view. TECHNIQUE: An AP view of the chest was obtained. RADIATION DOSE: NA LIMITATIONS: None. FINDINGS: LUNGS AND PLEURA: Unchanged radiographic appearance of the lungs and pleura. There is no postprocedural pneumothorax. MEDIASTINUM AND HILAR STRUCTURES: Stable mediastinal and hilar contours. HEART AND VASCULAR STRUCTURES: Stable cardiac silhouette. BONES: No acute findings. HARDWARE: None in the chest. OTHER: No other finding. IMPRESSION: No postprocedural pneumothorax. TECHNICAL DOCUMENTATION: JOB ID: [id number] 2010 [employer]- All Rights Reserved Reading location - IP/workstation name: [email or web address]
--- NOTE | 2019-07-11 15:30 | RADIOLOGY REPORT (SQ) ---
EXAM DESCRIPTION: U/S THORACENTESIS WITH IMAGING IMAGES COMPLETED DATE/TIME: 07/11/2019 1:01 pm REASON FOR STUDY: large pleural effusion, resp failure COMPARISON: CT of the chest with contrast from 07/09/2019. RADIATION DOSE: None. LIMITATIONS: None. PROCEDURE: The procedure, risks, benefits, and alternatives were discussed with the patient and the patient's family who then gave written consent. The right chest wall was then marked utilizing sonog raphic guidance and a time-out was performed to document correct marking verification. The area around the selected percutaneous access site was then prepped and draped with 2% chlorhexidi ne utilizing standard sterile technique. After that, the selected access site was infiltrated with 5 ml of 1% lidocaine. A 5 Fr [id number] catheter was then introduced into the pleural space and the fluid was aspirated. After the fluid was aspirated, the catheter was removed and the entry site w as covered with a sterile bandage. No immediate complications were noted. Images acquired during the procedure were stored on PACS. The patient tolerated the procedure with local anesthesia. At the end of the procedure the patient's condition was unchanged from the preprocedural baseline. Documentation of [id number] time the proceduralist spent monitoring the patient: 15 minutes. FINDINGS: ENTRY SITE: Posterior right chest. FLUID VOLUME: 650 mL. FLUID ANALYSIS: Straw-colored. OTHER: Fluid was collected for analysis. IMPRESSION: Successful ultrasound-guided right-sided thoracentesis. COMMENT: Patient medication list reviewed: Yes- Quality ID# [id number]:Eligible professional attests to doc umenting in the medical record they obtained, updated, or reviewed the patient's current medications. TECHNICAL DOCUMENTATION: JOB ID: [id number] 2010 [employer]- All Rights Reserved Reading location - IP/workstation name: [email or web address]
[2019-07-11] MEDS: BUSPIRONE HCL 10 MG TABLET PO SCH (17:09)
[2019-07-11] MEDS: MELATONIN 3 MG TABLET PO SCH (21:28)
[2019-07-11] MEDS: PROMETHAZINE HCL INJ 25 MG/1 ML VIAL IV PRN (23:06)
[2019-07-12] MEDS: IPRATROPIUM BROMIDE 0.02% NEB 0.5 MG/2.5 ML AMPUL NEB SCH ×2 (00:56→08:19)
[2019-07-12] MEDS: ALPRAZOLAM 0.5 MG TABLET PO PRN ×2 (02:10→09:38)
[2019-07-12] MEDS: DILTIAZEM HCL 30 MG TABLET PO SCH (07:22)
[2019-07-12] MEDS: POTASSIUM CHLORIDE 20 MEQ PACKET PO SCH (07:23)
[2019-07-12] MEDS: DOCUSATE SODIUM 100 MG CAPSULE PO SCH (09:32)
[2019-07-12] MEDS: BUMETANIDE INJ/PF 1 MG/4 ML SDV IV SCH (09:37)
[2019-07-12] MEDS: FAMOTIDINE 20 MG TABLET PO SCH (09:38)
[2019-07-12] MEDS: ATENOLOL 50 MG TABLET PO SCH (09:38)
[2019-07-12] MEDS: APIXABAN 5 MG TABLET PO SCH (09:38)
[2019-07-12] MEDS: MIDODRINE HCL 5 MG TABLET PO SCH (09:39)
[2019-07-12] MEDS: FLUTICASONE/UMECLIDIN/VILANTER 100-62.5-25 MCG/DOSE IH SCH (09:42)
[2019-07-12 09:54] LABS: ABSOLUTE BASOPHILS # (AUTO) 0.1 10^3/uL (0.0-0.2); ABSOLUTE EOSINOPHILS # (AUTO) 0.3 10^3/uL (0.0-0.6); ABSOLUTE LYMPHOCYTES (AUTO) 1.8 10^3/uL (0.5-4.7); ABSOLUTE NEUT (AUTO) 5.6 10^3/uL (1.7-8.2); BASOPHILS % (AUTO) 0.7 % (0-2); EOSINOPHILS % (AUTO) 3.3 % (0-6); HEMOGLOBIN 13.5 g/dL (12.0-15.5); LYMPHOCYTES % (AUTO) 20.8 % (13-45); MEAN CORPUSCULAR HEMOGLOBIN 27.8 pg (27.0-33.4); MEAN CORPUSCULAR HGB CONC 33.8 g/dL (32.0-36.0); MEAN CORPUSCULAR VOLUME 82 fl (80-97); MONOCYTES % (AUTO) 11.7 % (3-13); PLATELET COUNT 233 10^3/uL (150-450); RED BLOOD COUNT 4.87 10^6/uL (3.72-5.28); RED CELL DISTRIBUTION WIDTH 15.3 % (11.5-14.0); SEGMENTED NEUTROPHILS % (AUTO) 63.5 % (42-78); TOTAL CELLS COUNTED % (AUTO) 100 %; WHITE BLOOD COUNT 8.8 10^3/uL (4.0-10.5)
[2019-07-12 10:02] LABS: ANION GAP 10 (5-19); BLOOD UREA NITROGEN 25 mg/dL (7-20); CALCIUM 9.4 mg/dL (8.4-10.2); CARBON DIOXIDE 24 mmol/L (22-30); CHLORIDE 103 mmol/L (98-107); GLUCOSE 102 mg/dL (75-110); POTASSIUM 4.2 mmol/L (3.6-5.0)
[2019-07-12 11:45] VITALS: BP 99/44
--- NOTE | 2019-07-12 11:47 | PDOC DISCHARGE SUMMARY ---
Impression - Admit/DC Date/PCP Admission Date/Primary Care Provider: 07/06/19 21:19 EULALIA CHASE DO Discharge Date: 07/12/19 - Discharge Diagnosis (1) Chronic atrial fibrillation, unspecified Is this a current diagnosis for this admission?: Yes (2) Pleural effusion, bilateral Is this a current diagnosis for this admission?: Yes (3) Chronic obstructive pulmonary disease Is this a current diagnosis for this admission?: Yes (4) Generalized weakness Is this a current diagnosis for this admission?: Yes (5) Anxiety and depression Is this a current diagnosis for this admission?: Yes (6) Hyperlipidemia Is this a current diagnosis for this admission?: Yes (7) Hypertension Is this a current diagnosis for this admission?: Yes (8) Hypokalemia Is this a current diagnosis for this admission?: Yes (9) Recurrent falls Is this a current diagnosis for this admission?: Yes - Assessment Summary: Patient will be admitted to the medical floor where she will receive routine supportive and symptomatic cares. community services officer consultation will be obtained to evaluate the patient for possible alf facility/assisted living facility post hospital placement. Patient will receive IV fluids using lactated Ringer's at 83 mL/h. She will use Ativan 1 mg IV every 4 hours as needed for anxiety or restlessness. She will be continued on her usual home medications as soon as her medication list has been verified and reconciled. CBCs, metabolic profiles and magnesium levels will be obtained as needed. Patient will be placed on a cardiac diet. Smoking cessation is advised and counseled briefly at the bedside. A nicotine replacement patch will be available for the patient's use, if desired. - Additional Information Resuscitation Status: Full Code Discharge Diet: As Tolerated, Cardiac Discharge Activity: Activity As Tolerated Referrals: EULALIA CHASE DO [Primary Care Provider] - Follow up as needed Prescriptions: Bumetanide [Bumex 1 mg Tablet] 1 tab PO BID #60 tab Diltiazem HCl [Cardizem 30 mg Tablet] 30 mg PO Q8 #90 tablet Potassium Chloride [Potassium Chloride 20 Meq Packet] 20 meq PO Q8 #90 packet Midodrine HCl [Proamatine 5 mg Tablet] 2.5 mg PO TID #90 tablet Atenolol [Tenormin 50 mg Tablet] 50 mg PO Q12 #60 tablet Home Medications: Albuterol Sulfate [Ventolin Hfa 8 gm Mdi (1 Mdi/ER Disp)] 2 puff IH Q6HP PRN 11/24/18 Divalproex Sodium [Depakote ER 250 mg Tablet] 250 mg PO Q12 #60 tab.sr.24h 03/29/19 Alprazolam [Xanax] 1 mg PO BIDP PRN 06/08/19 Zolpidem Tartrate [Ambien 5 mg Tablet] 5 mg PO QHS 06/08/19 Acetaminophen [Tylenol 325 mg Tablet] 650 mg PO Q4HP PRN tablet 06/11/19 Apixaban [Eliquis 5 mg Tablet] 5 mg PO BID 30 Days #60 tablet 06/11/19 Buspirone HCl [Buspar 10 mg Tablet] 10 mg PO QPM tablet 06/11/19 Docusate Sodium [Colace 100 mg Capsule] 100 mg PO BID capsule 06/11/19 Fluticasone/Umeclidin/Vilanter [Trelegy 100-62.5-25 Mcg Ellipta 14 Dose/Dpi] 1 inh IH DAILY 14 Days #1 inhaler 06/11/19 Mag Hydrox/Al Hydrox/Simeth [Maalox Plus Susp 30 Udcup] 30 ml PO Q6HP PRN udc 06/11/19 Magnesium Hydroxide [Milk of Magnesia 30 ml Udcup] 30 ml PO HSP PRN udc 06/11/19 Melatonin [Melatonin 3 mg Tablet] 3 mg PO QHS 30 Days #30 tablet 06/11/19 Nicotine [Nicoderm 21 mg/24 Hr Transderm Patch] 1 each TD DAILYP PRN 30 Days #30 patch.td24 06/11/19 Ondansetron [Zofran Odt 4 mg Tablet] 4 mg PO Q6HP PRN 5 Days #20 tab.rapdis 06/11/19 Atenolol [Tenormin 50 mg Tablet] 50 mg PO Q12 #60 tablet 07/12/19 Bumetanide [Bumex 1 mg Tablet] 1 tab PO BID #60 tab 07/12/19 Diltiazem HCl [Cardizem 30 mg Tablet] 30 mg PO Q8 #90 tablet 07/12/19 Midodrine HCl [Proamatine 5 mg Tablet] 2.5 mg PO TID #90 tablet 07/12/19 Potassium Chloride [Potassium Chloride 20 Meq Packet] 20 meq PO Q8 #90 packet 07/12/19 History of Present Illiness History of Present Illness: Per admitting physician: "FADI LYNN is a 73 year old female who presents the emergency room with a 3-week history of weakness. She admits aggressively worsening generalized weakness since the time of her hospital discharge 3 weeks ago. She lives alone and has become less able to ambulate with her quad cane and this has affected her ability to continue her current medications as it is difficult for her to get up to go to the bathroom and therefore she is not taking her diuretics. She has developed difficulty holding a cup well enough to drink. She has suffered several falls at home, 1 resulting in a left finger fracture 1 week ago. Due to her decreased ambulatory ability she is less able to prepare meals and provide fluid intake for herself. She has not identified any additional accompanying or associated signs and symptoms. She denies prior similar episodes. She has not identified any aggravating or ameliorating factors for her weakness. In the emergency room she was noted to have an unremarkable evaluation but appeared to be clinically dehydrated. She was subsequently admitted to the hospital for further evaluation and treatment with social sciences professor consultation for probable skilled facility with transition to assisted living facility placement post hospital." Hospital Course Hospital Course: Patient admitted for respiratory failure due to acute CHF with volume overload due to uncontrolled A. fib with RVR. Heart rate gradually controlled but this was quite challenging due to patient's low BP. Midodrine has been added and this can be uptitrated along with her diltiazem to achieve target heart rate. She needs follow-up with cardiology and should also follow-up with a clinical reimbursement specialist to have pulmonary function testing done given that she has smoked for many years and continues to smoke daily. Thoracentesis was ordered for a large pleural effusion and patient had a great deal of significant improvement after this was done. She was also started on oral Bumex instead of her home Lasix and she had a great deal of diuresis from this change. Her Eliquis for her A. fib was restarted after thoracentesis was done. Family states that they can provide 24/7 care for patient at home and they would like her to come home instead of going to rehab. Patient is quite angry at the thought of going to rehab and she adamantly refuses to even discuss this possibility. Patient is off all supplemental oxygen and walking around her room independently for the most part, although she does require some assistance while ambulating. 07/07/2019 Patient admitted for severe generalized fatigue and weakness, hypotension, hypokalemia, multiple falls at home. She will need placement in rehab facility or long-term nursing. Valproate level was noted to be low. UA did not show infection. Throughout the day today patient is noted to have heart rate climbing up to the 120s and 140s though her blood pressure systolic has been in the 90s to low 100s which complicates treatment of her heart rate. She is started on midodrine and her atenolol has been restarted for later tonight assuming her blood pressure rises appropriately. 07/08/2019 Patient having some more difficulty breathing today. Resume reason, she was put on a nonrebreather at 100% oxygen despite her history of COPD. I discussed with nursing that this is not beneficial in chronic COPD and can actually cause CO2 retention. We took the oxygen off the patient and she become much more alert almost immediately. Her lungs have a few wet crackles at the bases but are otherwise clear. Suspect she has some volume overload given that her home Lasix was not restarted on admission. I added midodrine which seems to be effective in keeping her blood pressure up high enough to get her cardiac medications. Her heart rate is ranging in the 110s to 130s. Increased her dose of atenolol. May need to start diltiazem if her blood pressure permits. If it does not permit, we will increase the midodrine and then add diltiazem. Chest x-ray ordered and reviewed by me which shows some interstitial edema in the lower lung underwood. Speech therapy ordered since she seems to be coughing a bit after drinking water though she may just need to slow down when drinking/eating. I will try to contact the family today to discuss CODE STATUS and possibility of hospice. I believe the patient cannot effectively swallow her food, meds, and drink and given she is obviously severely demented, she should be considered for hospice and should certainly be made DNR/DNI. 07/09/2019 I had extensive conversation with the patient's daughter and son-in-law on the phone today. I described in great detail all of the patient's many health problems and how they all complicate 1 another in the treatment of each 1. In particular, there has been quite challenging to control the patient's high heart rate, low blood pressure, and pleural effusions with medications alone. I ordered a thoracentesis to be done tomorrow and the patient's Eliquis has been held. The patient was very adamant that we not do any procedures on her when I discussed this with her today but she is quite confused and the patient's family who is her medical power of corporate attorney, her daughter, stated that she wanted this procedure to be at least attempted and requested the patient be given some Ativan to calm her for the procedure. I stated we can try this, but if the patient endangered herself by becoming combative during the procedure, we will not proceed and it will be canceled. I have stopped her oral Lasix and added IV Bumex 1 mg twice daily now that we have her blood pressure higher on the midodrine. Patient was much more awake and alert today during our encounter, actually quite opinionated when I asked her about the thoracentesis. She was happily eating a tuna sandwich while we were talking. Certainly a substantial improvement over yesterday, likely due to the BiPAP she had been on for several hours. Patient has no specific complaints other than generalized fatigue and weakness today. I also discussed CODE STATUS with the family and despite going into great detail, I do not believe they have a good understanding of what this entails and they do not seem to be able to make a solid decision at this time. They would like the patient to remain full code for the time being while they discuss CODE STATUS further. 07/10/2019 Patient seems to be doing quite well today and is rather talkative. She seems rather agreeable with the idea of doing a thoracentesis and then when I talk about other aspects of her care she intermittently expresses anger though I am speaking about a very general benign aspects of her care including the fact that she was quite sick when she arrived at the hospital. I think this strange behavior is probably due to her underlying dementia. Thoracentesis has been scheduled for today but was told by nursing the fluoroscopy department wanted to delay this because her INR was 1.55. Her Eliquis has been stopped for 24 hours which is appropriate for a relatively low bleeding risk procedure. I rechecked her INR and it was significantly lower and certainly at what ever goal the radiology department has for INR to perform a thoracentesis. I asked nursing to follow-up with them to ensure this procedure we get done today given the patient is actually agreeing to it now. This is an important procedure for both therapeutic and diagnostic purposes. We need to avoid delaying this if possible. Patient has no specific complaints today other than generalized fatigue and weakness. 07/11/2019 Patient continues to improve and is still doing very well today. She is scheduled for a thoracentesis today admission as this was delayed from yesterday and then delayed from this morning. Her EKG showed a QTC of 451 and A. fib which is chronic. Her labs and vitals appear to be stable. She is down to requiring 1 to 2 L nasal cannula oxygen. Follow-up thoracentesis fluid analysis which is pending after the procedure today. Patient has no specific complaints other than generalized fatigue and weakness. (1) Chronic atrial fibrillation, unspecified Is this a current diagnosis for this admission?: Yes Plan: Heart rate in the 120s 140s on admission, low BP complicated treatment at this Restart home atenolol, confirmed with pharmacy patient does not take diltiazem and has not filled this medication in a very long time, discontinued this medication Eliquis continued Telemetry Added midodrine to allow for up titration of rate control meds 07/08/2019 Heart rate still uncontrolled, increased atenolol. Continued midodrine Heart rate is still uncontrolled this afternoon we will add diltiazem and possibly increase midodrine dose 07/10/2019 Heart rate is much better controlled and blood pressure is also stabilized. She does have intermittent periods of elevated heart rate but this seems to resolve when she calms down. May consider cardiology consult if heart rate is persistently uncontrolled. Expect her heart rate to improve substantially after thoracentesis removes the fluid from her lungs. 07/11/2019 Rate controlled, BP stabilized; expect continued improvement after thoracentesis removes the fluid from her lungs (2) Pleural effusion, bilateral Is this a current diagnosis for this admission?: Yes Plan: Unclear etiology as previous echocardiogram 11/2018 showed normal LV and RV function; possible she has developed CHF since then or this is a result of uncontrolled A. fib; it is also quite possible the patient has underlying lung cancer that is causing a malignant effusion given that the patient heavily/constantly smokes 1 cigarette after another at home per her daughter Moderate to large bilateral pleural effusions seen on CT chest with interstitial edema IV Bumex 1 mg twice daily, watch blood pressure closely, may need to increase midodrine if BP is running low Thoracentesis ordered, patient refusing that she is confused; discussed with M XANDERA daughter who states she wants this procedure to be attempted after the patient is given some IV Ativan to calm her We will attempt thoracentesis but will discontinue the procedure if the patient endangered herself by becoming combative Follow-up thoracentesis fluid cultures and cytology as ordered 07/10/2019 Thoracentesis to be done today. Procedure has been delayed due to radiology department wanting the patient to have a lower INR. Recheck INR today showed much lower value which is certainly at or below the standards set forth by radiology for this relatively low bleeding risk procedure. Eliquis has been stopped for over 24 hours as is appropriate. Can proceed with this procedure today if they still want to do it. Patient is agreeable to this procedure today. Many studies on pleural fluid have been ordered, follow-up results 07/11/2019 Thoracentesis today, follow-up fluid analysis IV Bumex continues, good diuresis so far with significant improvement in breathing 07/12/2019 Thoracentesis done with 650 mL removed from her right thorax Thoracentesis fluid analysis shows transudate and Gram stain shows no bacteria, preliminary cultures are negative, do not suspect infection etiology Cytology is still pending and this will need to be followed up by the patient's PCP and/or clinical reimbursement specialist Fungal cultures are still pending but patient is significantly improving without any antifungal treatment and she is rather low risk for such an infection to occur. Bumex has been exceptionally effective in reducing her overall edema and this will be continued in oral form at discharge (3) Chronic obstructive pulmonary disease Qualifiers: COPD type: unspecified COPD Qualified Code(s): J44.9 - Chronic obstructive pulmonary disease, unspecified Is this a current diagnosis for this admission?: Yes (4) Generalized weakness Is this a current diagnosis for this admission?: Yes Patient adamantly and angrily refuses to even discuss going to a rehab facility. Family states that she has 24/7 care at home and that they are willing and able to care for her. Home physical therapy has been ordered. (5) Anxiety and depression Is this a current diagnosis for this admission?: Yes (6) Hyperlipidemia Qualifiers: Hyperlipidemia type: unspecified Qualified Code(s): E78.5 - Hyperlipidemia, unspecified Is this a current diagnosis for this admission?: Yes (7) Hypertension Qualifiers: Hypertension type: essential hypertension Qualified Code(s): I10 - [place] al (primary) hypertension Is this a current diagnosis for this admission?: Yes (8) Hypokalemia Is this a current diagnosis for this admission?: Yes (9) Recurrent falls Is this a current diagnosis for this admission?: Yes Physical Exam Vital Signs: Temp Pulse Resp BP Pulse Ox 98.6 F 75 20 116/58 L 95 07/11/19 23:34 07/12/19 08:25 07/12/19 08:25 07/11/19 23:34 07/12/19 08:25 Intake & Output 07/11/19 07/12/19 07/13/19 06:59 06:59 06:59 Intake Total 440 1360 Balance 440 1360 Weight 77.2 kg General appearance: PRESENT: no acute distress, well-developed, well-nourished Head exam: PRESENT: atraumatic, normocephalic Eye exam: PRESENT: conjunctiva pink Mouth exam: PRESENT: moist Respiratory exam: PRESENT: clear to auscultation jojo. ABSENT: rales, rhonchi, wheezes Cardiovascular exam: PRESENT: irregular rhythm. ABSENT: diastolic murmur, rubs, systolic murmur GI/Abdominal exam: PRESENT: normal bowel sounds, soft. ABSENT: distended, guarding, mass, organolmegaly, rebound, tenderness Neurological exam: PRESENT: alert, awake, oriented to person, oriented to place, oriented to time, oriented to situation Psychiatric exam: PRESENT: appropriate affect, normal mood Skin exam: PRESENT: dry, intact, warm Results Laboratory Results: WBC 8.8 10^3/uL (4.0-10.5) 07/12/19 09:37 RBC 4.87 10^6/uL (3.72-5.28) 07/12/19 09:37 Hgb 13.5 g/dL (12.0-15.5) 07/12/19 09:37 Hct 40.0 % (36.0-47.0) 07/12/19 09:37 MCV 82 fl (80-97) 07/12/19 09:37 MCH 27.8 pg (27.0-33.4) 07/12/19 09:37 MCHC 33.8 g/dL (32.0-36.0) 07/12/19 09:37 RDW 15.3 % (11.5-14.0) H 07/12/19 09:37 Plt Count 233 10^3/uL (150-450) 07/12/19 09:37 Lymph % (Auto) 20.8 % (13-45) 07/12/19 09:37 [place] % (Auto) 11.7 % (3-13) 07/12/19 09:37 Eos % (Auto) 3.3 % (0-6) 07/12/19 09:37 Baso % (Auto) 0.7 % (0-2) 07/12/19 09:37 Absolute Neuts (auto) 5.6 10^3/uL (1.7-8.2) 07/12/19 09:37 Absolute Lymphs (auto) 1.8 10^3/uL (0.5-4.7) 07/12/19 09:37 Absolute Monos (auto) 1.0 10^3/uL (0.1-1.4) 07/12/19 09:37 Absolute Eos (auto) 0.3 10^3/uL (0.0-0.6) 07/12/19 09:37 Absolute Basos (auto) 0.1 10^3/uL (0.0-0.2) 07/12/19 09:37 Seg Neutrophils % 63.5 % (42-78) 07/12/19 09:37 PT 15.1 SEC (11.4-15.4) 07/10/19 09:05 INR 1.18 07/10/19 09:05 APTT 39.3 SEC (23.5-35.8) H 07/09/19 11:26 Carbonic Acid 1.16 mmol/L (1.05-1.35) 07/08/19 12:30 HCO3/H2CO3 Ratio 21:1 07/08/19 12:30 ABG pH 7.44 (7.35-7.45) 07/08/19 12:30 ABG pCO2 38.4 mmHg (35-45) 07/08/19 12:30 ABG pO2 58.8 mmHg (80-100) L 07/08/19 12:30 ABG HCO3 25.5 mmol/L (20-24) H 07/08/19 12:30 ABG Total CO2 26.7 mmol/L (21-25) H 07/08/19 12:30 ABG O2 Saturation 91.5 % (94-98) L 07/08/19 12:30 ABG Base Excess 1.4 mmol/L 07/08/19 12:30 FiO2 1L 07/08/19 12:30 Sodium 137.3 mmol/L (137-145) 07/12/19 09:37 Potassium 4.2 mmol/L (3.6-5.0) 07/12/19 09:37 Chloride 103 mmol/L (98-107) 07/12/19 09:37 Carbon Dioxide 24 mmol/L (22-30) 07/12/19 09:37 Anion Gap 10 (5-19) 07/12/19 09:37 BUN 25 mg/dL (7-20) H 07/12/19 09:37 Creatinine 1.20 mg/dL (0.52-1.25) 07/12/19 09:37 Est GFR ( Amer) 53 (>60) L 07/12/19 09:37 Est GFR (MDRD) Non-Af 44 (>60) L 07/12/19 09:37 Glucose 102 mg/dL (75-110) 07/12/19 09:37 Calcium 9.4 mg/dL (8.4-10.2) 07/12/19 09:37 Magnesium 1.7 mg/dL (1.6-2.3) 07/07/19 04:44 Total Bilirubin 0.5 mg/dL (0.2-1.3) 07/06/19 15:37 Direct Bilirubin 0.0 mg/dL (0.0-0.4) 07/06/19 15:37 Neonat Total Bilirubin Not Reportable 07/06/19 15:37 Neonat Direct Bilirubin Not Reportable 07/06/19 15:37 Neonat Indirect Bili Not Reportable 07/06/19 15:37 AST 21 U/L (14-36) 07/06/19 15:37 ALT 8 U/L (<35) 07/06/19 15:37 Alkaline Phosphatase 68 U/L (38-126) 07/06/19 15:37 Lactate Dehydrogenase 208 U/L (120-246) 07/09/19 11:20 Troponin I < 0.012 ng/mL 07/06/19 15:37 NT-Pro-B Natriuret Pep 3920 pg/mL (<450) H 07/07/19 04:44 Total Protein 6.4 g/dL (6.3-8.2) 07/09/19 11:20 Albumin 3.7 g/dL (3.5-5.0) 07/06/19 15:37 Triglycerides 69 mg/dL (<150) 07/07/19 04:44 Cholesterol 133.53 mg/dL (0-200) 07/07/19 04:44 LDL Cholesterol Direct 62 mg/dL (<100) 07/07/19 04:44 VLDL Cholesterol 14.0 mg/dL (10-31) 07/07/19 04:44 HDL Cholesterol 70 mg/dL (>40) 07/07/19 04:44 TSH 1.49 uIU/mL (0.47-4.68) 07/07/19 04:44 Free T3 pg/mL 3.65 pg/mL (2.77-5.27) 07/07/19 04:44 Urine Color STRAW 07/06/19 15:25 Urine Appearance CLEAR 07/06/19 15:25 Urine pH 7.0 (5.0-9.0) 07/06/19 15:25 Ur Specific [place] 1.006 07/06/19 15:25 Urine Protein NEGATIVE mg/dL (NEGATIVE) 07/06/19 15:25 Urine Glucose (UA) NEGATIVE mg/dL (NEGATIVE) 07/06/19 15:25 Urine Ketones NEGATIVE mg/dL (NEGATIVE) 07/06/19 15:25 Urine Blood SMALL (NEGATIVE) H 07/06/19 15:25 Urine Nitrite NEGATIVE (NEGATIVE) 07/06/19 15:25 Urine Bilirubin NEGATIVE (NEGATIVE) 07/06/19 15:25 Urine Urobilinogen NEGATIVE mg/dL (<2.0) 07/06/19 15:25 Ur Leukocyte Esterase NEGATIVE (NEGATIVE) 07/06/19 15:25 Urine WBC (Auto) 2 /HPF 07/06/19 15:25 Urine RBC (Auto) 5 /HPF 07/06/19 15:25 U Hyaline Cast (Auto) 8 /LPF 07/06/19 15:25 Urine Ascorbic Acid NEGATIVE (NEGATIVE) 07/06/19 15:25 Fluid Type PLEURAL 07/11/19 12:30 Fluid Source LUNG 07/11/19 12:30 Fluid Color YELLOW 07/11/19 12:30 Fluid Appearance SLIGHTLY HAZY 07/11/19 12:30 Fluid Viscosity LIQUID 07/11/19 12:30 Fluid WBC 539 /uL 07/11/19 12:30 Fluid RBC 450 /uL 07/11/19 12:30 Fluid Seg Neutrophils 22 % 07/11/19 12:30 Fluid Lymphocytes 72 % 07/11/19 12:30 Fluid Monocytes 5 % 07/11/19 12:30 Fluid Eosinophils 0 % 07/11/19 12:30 Fluid Basophils 1 % 07/11/19 12:30 Fluid Total Protein 2.5 g/dL (.) 07/11/19 12:30 Fluid LDH 124 IU/L (.) 07/11/19 12:30 Stl C. Difficile GDH Ag NEGATIVE (NEGATIVE) 07/09/19 18:40 Stl C.difficile Tox A&B NEGATIVE (NEGATIVE) 07/09/19 18:40 Valproic Acid 34.2 ug/mL (50.0-120.0) L 07/06/19 15:37 07/06/19 07/07/19 15:37 04:44 Troponin I < 0.012 NT-Pro-B Natriuret Pep 3920 H Impressions: Chest X-Ray 07/06/19 14:43 IMPRESSION: NO ACUTE RADIOGRAPHIC FINDING IN THE CHEST. Head CT 07/06/19 17:30 IMPRESSION: CHRONIC CHANGES OF ATROPHY AND MICROVASCULAR ISCHEMIA. NO ACUTE PROCESS. EVIDENCE OF ACUTE STROKE: NO. Chest CT 07/08/19 00:00 IMPRESSION: Significant worsening of what are now moderate to large bilateral pleural effusions with adjacent consolidative change. Diffuse interstitial prominence may reflect interstitial edema. Superimposed reticulonodular changes consistent with pneumonitis. Small amount of ascites in the upper abdomen TECHNICAL DOCUMENTATION: Quality ID # [id number]: Final reports with documentation of one or more dose reduction techniques (e.g., Automated exposure control, adjustment of the mA and/or kV according to patient size, use of iterative reconstruction technique) copyright 2011 [employer]- All Rights Reserved Chest X-Ray 07/11/19 00:00 IMPRESSION: No postprocedural pneumothorax. Thoracentesis Ultrasound 07/11/19 00:00 IMPRESSION: Successful ultrasound-guided right-sided thoracentesis. Chest X-Ray 07/11/19 14:30 IMPRESSION: No postprocedural pneumothorax. Plan Time Spent: Greater than 30 Minutes Stroke Is this a Stroke Patient?: No Acute Heart Failure - Is this a Heart Failure Patient?: Yes Documentation of LVEF assessment?: Yes LVEF < 40%?: No- if no continue to question #3 3. Anticoagulant therapy for permanect/persistent/paraoxysmal Afib or Aflutter: Yes Follow-up Appointment scheduled within 7 days?: Yes
[2019-07-12] MEDS ORDERED: LOPERAMIDE HCL 2 MG CAPSULE PO ONE (12:30)
== END 2019-07-12 13:30 | disposition home health service (06) | DRG 292 ==
LOC: ER 14:30 → EH 21:19 → 4N 22:00
PROVIDERS: ADMIT Emergency Medicine; ATTEND Internal Medicine
PROC: 0W993ZX Drainage of Right Pleural Cavity, Percutaneous Approach, Diagnostic (ICD-10-PCS; principal; 2019-07-11)
DX: I11.0 Hypertensive heart disease with heart failure (principal); I48.11 Longstanding persistent atrial fibrillation; J91.8 Pleural effusion in other conditions classified elsewhere; E86.0 Dehydration; J44.9 Chronic obstructive pulmonary disease, unspecified; F17.200 Nicotine dependence, unspecified, uncomplicated; I50.9 Heart failure, unspecified; Z82.49 Family history of ischemic heart disease and other diseases of the circulatory system; Z83.3 Family history of diabetes mellitus; R62.7 Adult failure to thrive; Z60.2 Problems related to living alone; E78.5 Hyperlipidemia, unspecified; Z79.51 Long term (current) use of inhaled steroids; I95.9 Hypotension, unspecified; Z79.899 Other long term (current) drug therapy; S80.12XA Contusion of left lower leg, initial encounter; S80.11XA Contusion of right lower leg, initial encounter; W19.XXXA Unspecified fall, initial encounter; Y92.009 Unspecified place in unspecified non-institutional (private) residence as the place of occurrence of the external cause; F41.9 Anxiety disorder, unspecified; F32.9 Major depressive disorder, single episode, unspecified; E87.6 Hypokalemia; Z79.01 Long term (current) use of anticoagulants; S62.609D Fracture of unspecified phalanx of unspecified finger, subsequent encounter for fracture with routine healing; Z91.81 History of falling
CPT/HCPCS: 32555; 36415; 36600; 70450; 71045; 71260; 80048; 80053; 80061; 80164; 81001; 82803; 83615; 83735; 83880; 84155; 84157; 84443; 84481; 84484; 85025; 85027; 85610; 85730; 87015; 87070; 87075; 87101; 87116; 87205; 87206; 87324; 87449; 89050; 93005; 93010; 94640; 94660; 96360; 96361; 99285; J1160; J1644; J2060; J2550; J3480; J3490; J7030; J7040; J7121; J7620

== ENCOUNTER 2019-08-11 15:14 | Inpatient (IN) | payer MEDICARE ==
--- NOTE | 2019-08-11 15:39 | ER Document Report ---
ED Medical Screen (RME) - General Chief Complaint: Fall Injury Stated Complaint: FALL/GROIN PAIN Time Seen by Provider: 08/11/19 15:37 Primary Care Provider: EULALIA CHASE DO [Primary Care Provider] - Follow up as needed Information source: Patient Notes: Patient presents to the emergency room because she fell and she has pain to the left groin. However the circumstances around her fall are questionable she does not recall the fall was just standing up and found herself on the ground she is a smoker she saturating at 87% she has a heart rate of 120 atrial fibrillation and probably needs an evaluation for syncope as well as the groin pain. I greeted and performed a rapid initial assessment of this patient. Comprehensive ED assessment and evaluation of the patient, analysis of test results and completion of the medical decision making process will be conducted by additional ED providers. TRAVEL OUTSIDE OF THE [place] IN LAST 30 DAYS: No - Related Data Allergies/Adverse Reactions: No Known Allergies Allergy (Verified 06/24/19 19:43) Past Medical History - Past Medical History Cardiac Medical History: Reports: Hx Atrial Fibrillation, Hx Hypercholesterolemia, Hx Hypertension Denies: Hx Coronary Artery Disease, Hx Heart Attack Pulmonary Medical History: Reports: Hx Asthma, Hx Bronchitis, Hx COPD, Hx Pneumonia, Hx Respiratory Failure Neurological Medical History: Denies: Hx Cerebrovascular Accident, Hx Seizures Endocrine Medical History: Denies: Hx Diabetes Mellitus Type 1, Hx Diabetes Mellitus Type 2, Hx Hyperthyroidism, Hx Hypothyroidism Renal/ Medical History: Denies: Hx Peritoneal Dialysis GI Medical History: Denies: Hx Cirrhosis, Hx Crohn's Disease, Hx Gastroesophageal Reflux Disease, Hx Hepatitis, Hx Hiatal Hernia, Hx Ulcer, Hx Ulcerative Colitis Musculoskeltal Medical History: Denies Hx Arthritis, Denies Hx Fibromyalgia Skin Medical History: Denies Hx Eczema, Denies Hx Psoriasis Psychiatric Medical History: Reports: Hx Anxiety, Hx Depression Infectious Medical History: Denies: Hx Hepatitis Past Surgical History: Reports: Hx Breast Surgery - bilateral lumpectomy, Hx Hysterectomy. Denies: Hx Mastectomy, Hx Open Heart Surgery, Hx Pacemaker - Immunizations Immunizations up to date: Yes Hx Diphtheria, Pertussis, Tetanus Vaccination: No Doctor's Discharge - Discharge Referrals: EULALIA CHASE DO [Primary Care Provider] - Follow up as needed
[2019-08-11 16:31] LABS: ABSOLUTE EOSINOPHILS # (AUTO) 0.1 10^3/uL (0.0-0.6); ABSOLUTE LYMPHOCYTES (AUTO) 2.1 10^3/uL (0.5-4.7); ABSOLUTE MONOCYTES (AUTO) 0.6 10^3/uL (0.1-1.4); ABSOLUTE NEUT (AUTO) 5.1 10^3/uL (1.7-8.2); BASOPHILS % (AUTO) 0.5 % (0-2); EOSINOPHILS % (AUTO) 1.6 % (0-6); HEMATOCRIT 37.3 % (36.0-47.0); HEMOGLOBIN 12.2 g/dL (12.0-15.5); LYMPHOCYTES % (AUTO) 26.5 % (13-45); MEAN CORPUSCULAR HEMOGLOBIN 26.7 pg (27.0-33.4); MEAN CORPUSCULAR HGB CONC 32.8 g/dL (32.0-36.0); MEAN CORPUSCULAR VOLUME 81 fl (80-97); MONOCYTES % (AUTO) 7.4 % (3-13); PLATELET COUNT 186 10^3/uL (150-450); RED BLOOD COUNT 4.58 10^6/uL (3.72-5.28); RED CELL DISTRIBUTION WIDTH 15.4 % (11.5-14.0); TOTAL CELLS COUNTED % (AUTO) 100 %; WHITE BLOOD COUNT 7.9 10^3/uL (4.0-10.5)
--- NOTE | 2019-08-11 16:50 | RADIOLOGY REPORT (SQ) ---
EXAM DESCRIPTION: HIP LEFT AP/LATERAL IMAGES COMPLETED DATE/TIME: 08/11/2019 4:31 pm REASON FOR STUDY: fall COMPARISON: AP and lateral views of the hips from 03/22/2019. NUMBER OF VIEWS: Two views. TECHNIQUE: AP pelvis and additional frog-leg view of the left hip. LIMITATIONS: None. FINDINGS: MINERALIZATION: Osteopenia. LEFT HIP: Status post SAMUEL ; the hardware is in anatomic alignment. There is no periprosthetic fractu re. RIGHT HIP: Osteoarthrosis of the femoroacetabular joint. There is no fracture or dislocation. PUBIS AND ISCHIUM: Findings of osteitis pubis and fracture of the left superior pubic ramus. PELVIS: No fracture. SACRUM: The sacrum is obscured by overlying bowel. LOWER LUMBAR SPINE: Excluded from the [id number]. SOFT TISSUES: No findings. OTHER: No other finding. IMPRESSION: Fracture of the left superior pubic ramus. The left SAMUEL hardware is in anatomic alignme nt. There is no periprosthetic fracture. There is osteoarthrosis of the right femoroacetabular join t. TECHNICAL DOCUMENTATION: JOB ID: [id number] [employer]- All Rights Reserved Reading location - IP/workstation name: [email or web address]
[2019-08-11 16:52] LABS: ALKALINE PHOSPHATASE 94 U/L (38-126); ANION GAP 6 (5-19); ASPARTATE AMINO TRANSFERASE 29 U/L (14-36); BILIRUBIN,TOTAL 0.5 mg/dL (0.2-1.3); BLOOD UREA NITROGEN 18 mg/dL (7-20); CALCIUM 9.1 mg/dL (8.4-10.2); CARBON DIOXIDE 30 mmol/L (22-30); CHLORIDE 100 mmol/L (98-107); GLUCOSE 98 mg/dL (75-110); POTASSIUM 4.1 mmol/L (3.6-5.0); TOTAL PROTEIN 7.1 g/dL (6.3-8.2)
[2019-08-11] MEDS ORDERED: MORPHINE SULFATE 10 MG/ML INJ IV ONE (17:19)
[2019-08-11 17:29] LABS: AMORPHOUS SEDIMENT,URINE TRACE /HPF; APPEARANCE,URINE SLIGHTLY-CLOUDY; BILIRUBIN,URINE SMALL (NEGATIVE); COLOR,URINE AMBER; GLUCOSE, URINE NEGATIVE (NEGATIVE); KETONES,URINE TRACE mg/dL (NEGATIVE); LEUKOCYTE ESTERASE,URINE NEGATIVE (NEGATIVE); NITRITE,URINE NEGATIVE (NEGATIVE); PROTEIN,URINE 30 mg/dL (NEGATIVE); URINE SPECIFIC GRAVITY 1.024
[2019-08-11] MEDS ORDERED: NORMAL SALINE 500 ML IV ONE (18:32)
[2019-08-11] MEDS ORDERED: NORMAL SALINE 1000 ML 1,000 ML IV ONE (18:37)
--- NOTE | 2019-08-11 18:45 | ER Document Report ---
ED General - General Chief Complaint: Urinary Problem Stated Complaint: FALL/GROIN PAIN Time Seen by Provider: 08/11/19 15:37 Primary Care Provider: EULALIA CHASE DO [Primary Care Provider] - Follow up as needed TRAVEL OUTSIDE OF THE [place] IN LAST 30 DAYS: No - HPI Notes: Chief complaint: Fall HPI: Frail 73-year-old female followed up [facility] seen today for a fall with potential injury to left hip. Patient has had a previous left hip replacement and has chronic gait instability with use of a quad cane. She is living by herself. She had been in the hospital here less than 1 month ago because of dehydration and general failure to thrive with difficulty ambulating and r ecurrent falls. She has chronic atrial fib and her rate control has been an issue during that hospitalization as well as COPD and presence of a left pleural effusion. She was intermittently hypotensive during the previous hospitalization. Today she was getting out of a car driven by her son-in-law. She started to walk across a grassy area with her cane she lost her balance and fell. She denies head trauma or loss of consciousness. Primary complaint was left-sided hip discomfort with inability to bear weight. The patient is chronically on Eliquis. - Related Data Allergies/Adverse Reactions: No Known Allergies Allergy (Verified 08/11/19 17:27) Past Medical History - General Information source: Patient, [facility] Records - Social History Smoking Status: Current Every Day Smoker Chew tobacco use (# tins/day): No Frequency of alcohol use: None Drug Abuse: None Family History: CAD, COPD, DM, Hypertension, Malignancy Patient has homicidal ideation: No - Past Medical History Cardiac Medical History: Reports: Hx Atrial Fibrillation, Hx Hypercholesterolemia, Hx Hypertension Denies: Hx Coronary Artery Disease, Hx Heart Attack Pulmonary Medical History: Reports: Hx Asthma, Hx Bronchitis, Hx COPD, Hx Pneumonia, Hx Respiratory Failure Neurological Medical History: Denies: Hx Cerebrovascular Accident, Hx Seizures Endocrine Medical History: Denies: Hx Diabetes Mellitus Type 1, Hx Diabetes Mellitus Type 2, Hx Hyperthyroidism, Hx Hypothyroidism Renal/ Medical History: Denies: Hx Peritoneal Dialysis GI Medical History: Denies: Hx Cirrhosis, Hx Crohn's Disease, Hx Gastroesophageal Reflux Disease, Hx Hepatitis, Hx Hiatal Hernia, Hx Ulcer, Hx Ulcerative Colitis Musculoskeletal Medical History: Denies Hx Arthritis, Denies Hx Fibromyalgia Skin Medical History: Denies Hx Eczema, Denies Hx Psoriasis Psychiatric Medical History: Reports: Hx Anxiety, Hx Depression Infectious Medical History: Denies: Hx Hepatitis Past Surgical History: Reports: Hx Breast Surgery - bilateral lumpectomy, Hx Hysterectomy. Denies: Hx Mastectomy, Hx Open Heart Surgery, Hx Pacemaker - Immunizations Immunizations up to date: Yes Hx Diphtheria, Pertussis, Tetanus Vaccination: No Review of Systems - Review of Systems Notes: Constitutional: Negative for fever. HENT: Negative for sore throat. Eyes: Negative for visual changes. Cardiovascular: Negative for chest pain. Respiratory: Negative for shortness of breath. Gastrointestinal: Negative for abdominal pain, vomiting or diarrhea. Genitourinary: Negative for dysuria. Musculoskeletal: As per HPI. Skin: Negative for rash. Neurological: Negative for headaches, weakness or numbness. 10 point ROS negative except as marked above and in HPI. Physical Exam - Vital signs Vitals: Temp Pulse BP Pulse Ox 98.8 F 109 H 88/54 L 92 08/11/19 15:26 08/11/19 15:26 08/11/19 15:26 08/11/19 15:26 - Notes Notes: GENERAL: Frail elderly female complaining of mild left hip discomfort. SKIN: Good turgor no rashes. HEAD: Normocephalic atraumatic. EYES: PERRLA. EOMI. Conjunctivae and sclerae clear. EARS: CANALS AND TMS CLEAR. NOSE: CLEAR. MOUTH: Moist mucosa. Edentulous. No stridor or edema. No drooling. NECK: Supple. No masses or thyromegaly. No adenopathy. Carotids 2+ without bruits. No JVD. BACK: Symmetrical without tenderness. CHEST: Respirations unlabored. Breath sounds clear and symmetrical. HEART: Tachycardic irregularly irregular rhythm. No murmur gallop or rub. ABDOMEN: Soft nontender without masses, organomegaly or rebound. Bowel sounds normally active. No bruits. GENITALIA: Deferred. EXTREMITIES: Mild tenderness left hip area. No shortening or abnormal rotation. No edema. No calf tenderness. Cap refill less than 1.5 seconds. Dorsalis pedis and posterior tibial pulses 3+ and symmetrical. NEUROLOGICAL: GCS 15. Alert and oriented x3. Normal gait. Fluent speech. Patient is moving all 4 extremities symmetrically and sensation is intact. PSYCHIATRIC: Appropriate affect. Course - Re-evaluation Re-evalutation: 08/11/19 21:57 Patient has a closed fracture left superior pubic ramus. No surgical intervention indicated. She looked mildly dehydrated and her heart rate was elevated. We gave her some IV hydration and this normalized. Blood pressures currently 99/67 which looks to be chronic state for this patient. Troponin is normal. EKG did not show any acute changes aside from her elevated right. BNP is consistent with previous baseline. Findings have been discussed with hospitalist on-call Dr. Jesus Linda who will admit to telemetry observation. - Vital Signs Vital signs: Temp Pulse Resp BP Pulse Ox 98.8 F 94 13 105/60 98 08/11/19 15:34 08/11/19 15:40 08/11/19 20:52 08/11/19 20:52 08/11/19 20:52 - Laboratory Result Diagrams: 08/11/19 16:09 08/11/19 16:09 Laboratory results interpreted by me: 08/11/19 08/11/19 08/11/19 16:09 16:09 17:07 MCH 26.7 L RDW 15.4 H Sodium 136.2 L Est GFR (MDRD) Non-Af 49 L NT-Pro-B Natriuret Pep Urine Protein 30 H Urine Ketones TRACE H Urine Blood SMALL H Urine Bilirubin SMALL H Urine Urobilinogen 4.0 H 08/11/19 19:06 MCH RDW Sodium Est GFR (MDRD) Non-Af NT-Pro-B Natriuret Pep 3420 H Urine Protein Urine Ketones Urine Blood Urine Bilirubin Urine Urobilinogen - Diagnostic Test Radiology reviewed: Reports reviewed - No acute findings on head CT. Degenerative changes only on C-spine CT. Chest CT shows resolving small right pleural effusion with no acute traumatic changes appreciated - EKG Interpretation by Me Additional EKG results interpreted by me: 08/11/19 19:07 Twelve-lead EKG from 1532 hrs. is reviewed contemporaneously by me showing atrial fibrillation with ventricular rate of 121 and a normal QRS axis of +34 degrees. Intervals are normal. Nonspecific T wave abnormalities noted in anterolateral leads. No acute ST elevations or depressions were demonstrated. No old tracing was presented for comparison. Discharge - Discharge Clinical Impression: Pubic ramus fracture Qualifiers: Encounter type: initial encounter Fracture type: closed Laterality: left Qualified Code(s): S32.592A - Other specified fracture of left pubis, initial encounter for closed fracture Atrial fibrillation Qualifiers: Atrial fibrillation type: longstanding persistent Qualified Code(s): I48.11 - Longstanding persistent atrial fibrillation Fall Qualifiers: Encounter type: initial encounter Qualified Code(s): W19.XXXA - Unspecified fall, initial encounter Condition: Fair Disposition: ADMITTED OBSERVATION Admitting Provider: Alexei (Hospitalist) Unit Admitted: Telemetry Referrals: EULALIA CHASE DO [Primary Care Provider] - Follow up as needed
--- NOTE | 2019-08-11 19:14 | RADIOLOGY REPORT (SQ) ---
EXAM DESCRIPTION: CT HEAD WITHOUT IMAGES COMPLETED DATE/TIME: 08/11/2019 7:03 pm REASON FOR STUDY: trauma COMPARISON: 07/06/2019 TECHNIQUE: Axial images acquired through the brain without intravenous contrast. Images reviewed wi th bone, brain and subdural windows. Additional sagittal and coronal reconstructions were generated. Images stored on PACS. All CT scanners at this facility use dose modulation, iterative reconstruction, and/or weight based d osing when appropriate to reduce radiation dose to as low as reasonably achievable (ALARA). [facility]: Dose Right [facility]: CareDose [facility]: Dose Right [facility]: Teradose 4D [facility]: [employer] RADIATION DOSE: CT Rad equipment meets quality standard of care and radiation dose reduction techniq ues were employed. CTDIvol: 53.2 mGy. DLP: 1044 mGy-cm. mGy. LIMITATIONS: None. FINDINGS: VENTRICLES: Prominent ventricles secondary to involutional atrophy. CEREBRUM: Mild cortical atrophy. No masses. No hemorrhage. No midline shift. No evidence for acut e infarction. Areas of low density in the white matter most likely chronic small vessel ischemic rivas ges. CEREBELLUM: No masses. No hemorrhage. No alteration of density. No evidence for acute infarction. EXTRAAXIAL SPACES: No fluid collections. No masses. ORBITS AND GLOBE: No intra- or extraconal masses. Normal contour of globe without masses. CALVARIUM: No fracture. PARANASAL SINUSES: No fluid or mucosal thickening. SOFT TISSUES: No mass or hematoma. OTHER: No other significant finding. IMPRESSION: Involutional changes with chronic microvascular ischemia. No acute intracranial imaging findings. EVIDENCE OF ACUTE STROKE: NO. COMMENT: Quality ID # [id number]: Final reports with documentation of one or more dose reduction techniques (e.g., Automated exposure control, adjustment of the mA and/or kV according to patient size, use of iterative reconstruction technique) TECHNICAL DOCUMENTATION: JOB ID: [id number] 2010 [employer]- All Rights Reserved Reading location - IP/workstation name: [email or web address]
--- NOTE | 2019-08-11 19:17 | RADIOLOGY REPORT (SQ) ---
EXAM DESCRIPTION: CT CERVICAL SPINE WITHOUT IMAGES COMPLETED DATE/TIME: 08/11/2019 7:03 pm REASON FOR STUDY: trauma COMPARISON: 08/26/2018 TECHNIQUE: Axial images acquired through the cervical spine without intravenous contrast. Images re viewed with lung, soft tissue and bone windows. Reconstructed coronal and sagittal MPR images review ed. Images stored on PACS. All CT scanners at this facility use dose modulation, iterative reconstruction, and/or weight based d osing when appropriate to reduce radiation dose to as low as reasonably achievable (ALARA). [facility]: Dose Right [facility]: CareDose [facility]: Dose Right [facility]: Teradose 4D [facility]: [employer] RADIATION DOSE: CT Rad equipment meets quality standard of care and radiation dose reduction techniq ues were employed. CTDIvol: 20.0 mGy. DLP: 374 mGy-cm. mGy. LIMITATIONS: None. FINDINGS: ALIGNMENT: Anatomic. MINERALIZATION: Normal. VERTEBRAL BODIES: No fractures or dislocation. DISCS: Disc space at C5-6 is narrowed with marginal osteophytes. FACETS, LATERAL MASSES, POSTERIOR ELEMENTS: Mild hypertrophic facet changes. HARDWARE: None in the spine. VISUALIZED RIBS: No fractures. LUNG APICES AND SOFT TISSUES: No significant or acute findings. OTHER: No other significant finding. IMPRESSION: Degenerative disc disease with spondylosis. Mild facet arthropathy. No acute finding. TECHNICAL DOCUMENTATION: JOB ID: [id number] Quality ID # [id number]: Final reports with documentation of one or more dose reduction techniques (e.g., Au tomated exposure control, adjustment of the mA and/or kV according to patient size, use of iterative reconstruction technique) 2010 [employer]- All Rights Reserved Reading location - IP/workstation name: [email or web address]
--- NOTE | 2019-08-11 19:17 | RADIOLOGY REPORT (SQ) ---
EXAM DESCRIPTION: CHEST SINGLE VIEW IMAGES COMPLETED DATE/TIME: 08/11/2019 7:07 pm REASON FOR STUDY: trauma COMPARISON: 07/11/2019 EXAM PARAMETERS: NUMBER OF VIEWS: One view. TECHNIQUE: Single frontal radiographic view of the chest acquired. RADIATION DOSE: NA LIMITATIONS: None. FINDINGS: LUNGS AND PLEURA: New opacity at the left lung base, may represent pulmonary contusion in view of the history of trauma. Interval resolution of the airspace disease in the left lower lung s emilia the prior examination. No evidence of pneumothorax. MEDIASTINUM AND HILAR STRUCTURES: Stable. HEART AND VASCULAR STRUCTURES: Stable. BONES: No acute findings. HARDWARE: None in the chest. OTHER: No other significant finding. IMPRESSION: 1. Since the prior examination dated 07/11/2027, new finding of right lung base opacity, may be on the basis of pulmonary contusion in view of the given history. Correlation suggested. 2. No evidence of pneumothorax. TECHNICAL DOCUMENTATION: JOB ID: [id number] 2010 [employer]- All Rights Reserved Reading location - IP/workstation name: [email or web address]
[2019-08-11 19:36] LABS: INTERNATIONAL RATION (INR) 1.08; PARTIAL THROMBOPLASTIN TIME 32.4 SEC (23.5-35.8)
[2019-08-11 19:56] LABS: NT PRO BNP 3420 pg/mL (<450)
[2019-08-11 19:59] LABS: TROPONIN I < 0.012 ng/mL
--- NOTE | 2019-08-11 21:42 | RADIOLOGY REPORT (SQ) ---
CLINICAL INDICATION: abn cxr p fall. . TECHNIQUE: Contrast-enhanced spiral axial CT imaging was obtained of the chest with multiplanar reconstructions. This exam was performed according to our departmental dose-optimization program, which includes automated exposure control, adjustment of the mA and/or kV according to patient size and/or use of iterative reconstruction techniques. COMPARISON: July 09, 2019. CORRELATION: Plain radiography today. FINDINGS: The heart is prominent but stable. No pericardial effusion. No bulky mediastinal adenopathy. Thyroid is homogeneous The lungs demonstrate a moderate right pleural effusion, smaller than it was in July. The left pleural effusion is essentially resolved. Mild residual airspace disease right lung base, mostly atelectasis. No pneumothorax. Mild diffuse chronic interstitial changes are seen, bilaterally. These are similar to prior.. Visualized abdominal contents are unremarkable. A small simple appearing cyst right lobe of the liver is again seen. Visualized bones are unremarkable. Mild wedging superior endplate of T11, similar to prior IMPRESSION: Artifact the patient's arms. Right pleural effusion, smaller than prior. Adjacent airspace disease. The left pleural effusion is resolved. Chronic changes, no adverse change. No acute bony injury is appreciated..
[2019-08-11] MEDS ORDERED: MAG HYDROX/AL HYDROX/SIMETH SUSP 30 ML UDCUP PO PRN (21:58)
[2019-08-11] MEDS ORDERED: ZOLPIDEM TARTRATE 5 MG TABLET PO PRN (21:58)
[2019-08-11] MEDS ORDERED: NORMAL SALINE 1000 ML 1,000 ML IV PRN (22:00)
[2019-08-12] MEDS: KETOROLAC TROMETHAMINE INJ/PF 30 MG/1 ML SDV IV PRN ×4 (01:10→23:22)
[2019-08-12] MEDS: DILTIAZEM HCL 30 MG TABLET PO SCH ×5 (01:11→23:22)
--- NOTE | 2019-08-12 03:18 | PDOC H&P ---
History of Present Illness Admission Date/PCP: 08/11/19 22:35 EULALIA CHASE DO Patient complains of: Fall and left groin pain History of Present Illness: FADI LYNN is a 73 year old female with a past medical history of atrial fibrillation on Eliquis, recurrent bilateral pleural effusion, COPD, anxiety depression, benzodiazepine dependence, obesity, deconditioning and recurrent falls. She presents after a fall to the floor despite the use of a quad cane denying head trauma or loss of consciousness. She is however unable to bear weight with pain to the left groin. She denies chest pain nausea vomiting shortness of breath she denies recent change in medication regiment. She resides alone has exceptional difficulty with transfer from bed to chair or bed to toilet and admits to recurrent falls. In the emergency department she is found to be in A. fib with RVR in the 130s and a nondisplaced left-sided pelvic fracture with intolerable, intractable pain Past Medical History Cardiac Medical History: Reports: Atrial Fibrillation, Hyperlipidema, Hypertension Denies: Coronary Artery Disease, Myocardial Infarction Pulmonary Medical History: Reports: Asthma, Bronchitis, Chronic Obstructive Pulmonary Disease (COPD), Pneumonia, Respiratory Failure Neurological Medical History: Denies: Seizures Endocrine Medical History: Denies: Diabetes Mellitus Type 1, Diabetes Mellitus Type 2, Hyperthyroidism, Hypothyroidism GI Medical History: Denies: Cirrhosis, Crohn's Disease, Gastroesophageal Reflux Disease, Hepatitis, Hiatal Hernia, Ulcerative Colitis Musculoskeltal Medical History: Denies: Arthritis, Fibromyalgia Skin Medical History: Denies: Eczema, Psoriasis Psychiatric Medical History: Reports: Depression Hematology: Reports: Anemia - during pregnancyremote history Denies: Sickle Cell Disease, Bleeding Tendencies Past Surgical History Past Surgical History: Reports: Hysterectomy Denies: Amputation, Mastectomy, Pacemaker Social History Information Source: Patient, [facility] Records Lives with: Alone Smoking Status: Current Every Day Smoker Electronic Cigarette use?: No Number of Years Smokin Frequency of Alcohol Use: None Hx Recreational Drug Use: No Drugs: None Hx Prescription Drug Abuse: No - Advance Directive Resuscitation Status: Full Code Family History Family History: CAD, COPD, DM, Hypertension, Malignancy Parental Family History Reviewed: Yes Children Family History Reviewed: Yes Sibling(s) Family History Reviewed.: Yes Medication/Allergy Home Medications: Albuterol Sulfate [Ventolin Hfa 8 gm Mdi (1 Mdi/ER Disp)] 2 puff IH Q6HP PRN 11/24/18 Divalproex Sodium [Depakote ER 250 mg Tablet] 250 mg PO Q12 #60 tab.sr.24h 03/29/19 Alprazolam [Xanax] 1 mg PO BIDP PRN 06/08/19 Zolpidem Tartrate [Ambien 5 mg Tablet] 5 mg PO QHS 06/08/19 Acetaminophen [Tylenol 325 mg Tablet] 650 mg PO Q4HP PRN tablet 06/11/19 Apixaban [Eliquis 5 mg Tablet] 5 mg PO BID 30 Days #60 tablet 06/11/19 Buspirone HCl [Buspar 10 mg Tablet] 10 mg PO QPM tablet 06/11/19 Fluticasone/Umeclidin/Vilanter [Trelegy 100-62.5-25 Mcg Ellipta 14 Dose/Dpi] 1 inh IH DAILY 14 Days #1 inhaler 06/11/19 Mag Hydrox/Al Hydrox/Simeth [Maalox Plus Susp 30 Udcup] 30 ml PO Q6HP PRN udc 06/11/19 Magnesium Hydroxide [Milk of Magnesia 30 ml Udcup] 30 ml PO HSP PRN udc 06/11/19 Melatonin [Melatonin 3 mg Tablet] 3 mg PO QHS 30 Days #30 tablet 06/11/19 Nicotine [Nicoderm 21 mg/24 Hr Transderm Patch] 1 each TD DAILYP PRN 30 Days #30 patch.td24 06/11/19 Ondansetron [Zofran Odt 4 mg Tablet] 4 mg PO Q6HP PRN 5 Days #20 tab.rapdis 06/11/19 Atenolol [Tenormin 50 mg Tablet] 50 mg PO Q12 #60 tablet 07/12/19 Bumetanide [Bumex 1 mg Tablet] 1 tab PO BID #60 tab 07/12/19 Diltiazem HCl [Cardizem 30 mg Tablet] 30 mg PO Q8 #90 tablet 07/12/19 Midodrine HCl [Proamatine 5 mg Tablet] 2.5 mg PO TID #90 tablet 07/12/19 Potassium Chloride [Potassium Chloride 20 Meq Packet] 20 meq PO Q8 #90 packet 07/12/19 Allergies/Adverse Reactions: No Known Allergies Allergy (Verified 08/11/19 17:27) Review of Systems Constitutional: PRESENT: as per HPI, fatigue, weakness Eyes: ABSENT: visual disturbances Ears: ABSENT: hearing changes Cardiovascular: ABSENT: chest pain, dyspnea on exertion, edema, orthropnea, palpitations Respiratory: PRESENT: cough, dyspnea. ABSENT: hemoptysis, sputum Gastrointestinal: ABSENT: abdominal pain, constipation, diarrhea, hematemesis, hematochezia, nausea, vomiting Genitourinary: ABSENT: dysuria, hematuria Musculoskeletal: PRESENT: muscle weakness. ABSENT: joint swelling Integumentary: ABSENT: rash, wounds Neurological: PRESENT: frequent falls. ABSENT: abnormal gait, abnormal speech, confusion, dizziness, focal weakness, syncope Psychiatric: PRESENT: anxiety. ABSENT: depression, homidical ideation, suicidal ideation Endocrine: ABSENT: cold intolerance, heat intolerance, polydipsia, polyuria Hematologic/Lymphatic: ABSENT: easy bleeding, easy bruising Physical Exam Vital Signs: Temp Pulse Resp BP Pulse Ox 98.6 F 119 H 19 110/69 98 08/12/19 01:21 08/12/19 01:21 08/12/19 01:21 08/12/19 01:21 08/12/19 01:21 Intake & Output 08/10/19 08/11/19 08/12/19 11:59 11:59 11:59 Intake Total 1500 Balance 1500 Weight 74.3 kg General appearance: PRESENT: cooperative, disheveled, morbidly obese, well- developed, well-nourished Head exam: PRESENT: atraumatic, normocephalic Eye exam: PRESENT: conjunctiva pink, EOMI, PERRLA. ABSENT: scleral icterus Ear exam: PRESENT: normal external ear exam Mouth exam: PRESENT: moist, tongue midline Neck exam: ABSENT: carotid bruit, JVD, lymphadenopathy, thyromegaly Respiratory exam: PRESENT: crackles, tachypnea. ABSENT: rales, rhonchi, wheezes Cardiovascular exam: PRESENT: irregular rhythm, tachycardia. ABSENT: diastolic murmur, rubs, systolic murmur Pulses: PRESENT: normal dorsalis pedis pul Vascular exam: PRESENT: normal capillary refill GI/Abdominal exam: PRESENT: normal bowel sounds, soft. ABSENT: distended, guarding, mass, organolmegaly, rebound, tenderness Rectal exam: PRESENT: deferred Extremities exam: PRESENT: full ROM. ABSENT: calf tenderness, clubbing, pedal edema Results Laboratory Results: 08/11/19 16:09 08/11/19 16:09 08/11/19 08/11/19 08/11/19 16:09 16:09 16:09 WBC 7.9 RBC 4.58 Hgb 12.2 Hct 37.3 MCV 81 MCH 26.7 L MCHC 32.8 RDW 15.4 H Plt Count 186 Seg Neutrophils % 64.0 Sodium 136.2 L Potassium 4.1 Chloride 100 Carbon Dioxide 30 Anion Gap 6 BUN 18 Creatinine 1.08 Est GFR ( Amer) > 60 Glucose 98 Calcium 9.1 Magnesium 2.3 Total Bilirubin 0.5 AST 29 Alkaline Phosphatase 94 Total Protein 7.1 Albumin 4.0 Urine Color Urine Appearance Urine pH Ur Specific [place] Urine Protein Urine Glucose (UA) Urine Ketones Urine Blood Urine Nitrite Ur Leukocyte Esterase Urine WBC (Auto) Urine RBC (Auto) 08/11/19 17:07 WBC RBC Hgb Hct MCV MCH MCHC RDW Plt Count Seg Neutrophils % Sodium Potassium Chloride Carbon Dioxide Anion Gap BUN Creatinine Est GFR ( Amer) Glucose Calcium Magnesium Total Bilirubin AST Alkaline Phosphatase Total Protein Albumin Urine Color SHARON Urine Appearance SLIGHTLY-CLOUDY Urine pH 6.0 Ur Specific [place] 1.024 Urine Protein 30 H Urine Glucose (UA) NEGATIVE Urine Ketones TRACE H Urine Blood SMALL H Urine Nitrite NEGATIVE Ur Leukocyte Esterase NEGATIVE Urine WBC (Auto) 5 Urine RBC (Auto) 7 08/11/19 08/11/19 08/12/19 16:04 19:06 01:31 Troponin I < 0.012 < 0.012 < 0.012 NT-Pro-B Natriuret Pep 3420 H Impressions: Hip X-Ray 08/11/19 15:49 IMPRESSION: Fracture of the left superior pubic ramus. The left SAMUEL hardware is in anatomic alignment. There is no periprosthetic fracture. 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 Cervical Spine CT 08/11/19 18:35 IMPRESSION: Degenerative disc disease with spondylosis. Mild facet arthropathy. No acute finding. Chest X-Ray 08/11/19 18:35 IMPRESSION: 1. Since the prior examination dated 07/11/2027, new finding of right lung base opacity, may be on the basis of pulmonary contusion in view of the given history. Correlation suggested. 2. No evidence of pneumothorax. Head CT 08/11/19 18:35 IMPRESSION: Involutional changes with chronic microvascular ischemia. No acute intracranial imaging findings. EVIDENCE OF ACUTE STROKE: NO. Chest CT 08/11/19 20:09 IMPRESSION: Artifact the patient's arms. Right pleural effusion, smaller than prior. Adjacent airspace disease. The left pleural effusion is resolved. Chronic changes, no adverse change. No acute bony injury is appreciated.. Assessment and Plan - Diagnosis (1) Atrial fibrillation Qualifiers: Atrial fibrillation type: longstanding persistent Qualified Code(s): I48.11 - Longstanding persistent atrial fibrillation Is this a current diagnosis for this admission?: Yes Plan: Continue Eliquis and Cardizem, follow-up cardiac enzymes and TSH (2) Fall Qualifiers: Encounter type: initial encounter Qualified Code(s): W19.XXXA - Unspecified fall, initial encounter Is this a current diagnosis for this admission?: Yes Plan: Physical therapy evaluation and discharge planning for half-way placement (3) Pubic ramus fracture Qualifiers: Encounter type: initial encounter Fracture type: closed Laterality: left Qualified Code(s): S32.592A - Other specified fracture of left pubis, initial encounter for closed fracture Is this a current diagnosis for this admission?: Yes Plan: Symptomatic management (4) Anxiety Is this a current diagnosis for this admission?: Yes Plan: Anticipate benzodiazepine withdrawal, Xanax 0.125 p.o. daily as needed - Time Time Spent with patient: 25-34 minutes - Inpatient Certification Medical Necessity: Need Close Monitoring Due to Risk of Patient Decompensation
[2019-08-12] MEDS: ACETAMINOPHEN 325 MG TABLET PO PRN (05:58)
[2019-08-12 07:50] LABS: ABSOLUTE BASOPHILS # (AUTO) 0.1 10^3/uL (0.0-0.2); ABSOLUTE EOSINOPHILS # (AUTO) 0.3 10^3/uL (0.0-0.6); ABSOLUTE MONOCYTES (AUTO) 0.5 10^3/uL (0.1-1.4); ABSOLUTE NEUT (AUTO) 3.5 10^3/uL (1.7-8.2); EOSINOPHILS % (AUTO) 5.8 % (0-6); HEMATOCRIT 34.1 % (36.0-47.0); HEMOGLOBIN 11.2 g/dL (12.0-15.5); LYMPHOCYTES % (AUTO) 18.5 % (13-45); MEAN CORPUSCULAR HEMOGLOBIN 26.5 pg (27.0-33.4); MEAN CORPUSCULAR HGB CONC 32.7 g/dL (32.0-36.0); MEAN CORPUSCULAR VOLUME 81 fl (80-97); MONOCYTES % (AUTO) 8.9 % (3-13); PLATELET COUNT 132 10^3/uL (150-450); RED BLOOD COUNT 4.21 10^6/uL (3.72-5.28); RED CELL DISTRIBUTION WIDTH 15.3 % (11.5-14.0); SEGMENTED NEUTROPHILS % (AUTO) 65.8 % (42-78); TOTAL CELLS COUNTED % (AUTO) 100 %; WHITE BLOOD COUNT 5.4 10^3/uL (4.0-10.5)
[2019-08-12] MEDS: ALPRAZOLAM 0.25 MG TABLET PO PRN (08:02)
[2019-08-12 08:03] LABS: BLOOD UREA NITROGEN 17 mg/dL (7-20); CALCIUM 8.5 mg/dL (8.4-10.2); GLUCOSE 89 mg/dL (75-110); POTASSIUM 4.3 mmol/L (3.6-5.0)
[2019-08-12 08:13] LABS: CARBON DIOXIDE 26 mmol/L (22-30); CHLORIDE 104 mmol/L (98-107)
[2019-08-12 08:15] LABS: ANION GAP 6 (5-19)
[2019-08-12] MEDS ORDERED: GLUCAGON,HUMAN RECOMB 1 MG INJ SUBCUT PRN (08:17)
[2019-08-12] MEDS ORDERED: DEXTROSE 50%-WATER 25 GM/50 ML DISP.SYRIN IV PRN ×2 (08:17)
[2019-08-12] MEDS ORDERED: DEXTROSE 40% GEL 15 GM TUBE PO PRN ×2 (08:17)
--- NOTE | 2019-08-12 09:56 | PDOC CONSULTATION ---
Consultation Consult Date: 08/12/19 Attending physician:: ZAK GO Provider Consulted: ELLIOT DIAZ Consult reason:: Left pubic ramus fracture History of Present Illness Admission Date/PCP: 08/11/19 22:35 EULALIA CHASE DO Patient complains of: Left groin pain and inability to ambulate post fall History of Present Illness: FADI LYNN is a 73 year old female with a past medical history of atrial fibrillation, recurrent pleural effusion, depression, and gait instability. She was admitted to the hospitalist service following a fall in a parking lot yesterday. She has been unable to ambulate following the fall. Radiographic examination demonstrates a fracture of the left pubic ramus. Past Medical History Cardiac Medical History: Reports: Atrial Fibrillation, Hyperlipidema, Hypertension Denies: Coronary Artery Disease, Myocardial Infarction Pulmonary Medical History: Reports: Asthma, Bronchitis, Chronic Obstructive Pulmonary Disease (COPD), Pneumonia, Respiratory Failure Neurological Medical History: Denies: Seizures Endocrine Medical History: Denies: Diabetes Mellitus Type 1, Diabetes Mellitus Type 2, Hyperthyroidism, Hypothyroidism GI Medical History: Denies: Cirrhosis, Crohn's Disease, Gastroesophageal Reflux Disease, Hepatitis, Hiatal Hernia, Ulcerative Colitis Musculoskeltal Medical History: Denies: Arthritis, Fibromyalgia Skin Medical History: Denies: Eczema, Psoriasis Psychiatric Medical History: Reports: Depression Hematology: Reports: Anemia - during pregnancyremote history Denies: Sickle Cell Disease, Bleeding Tendencies Past Surgical History Past Surgical History: Reports: Hysterectomy, Orthopedic Surgery - Left total hip arthroplasty, Dr. Campbell Denies: Amputation, Mastectomy, Pacemaker Social History Lives with: Alone Smoking Status: Current Every Day Smoker Electronic Cigarette use?: No Number of Years Smokin Frequency of Alcohol Use: None Hx Recreational Drug Use: No Drugs: None Hx Prescription Drug Abuse: No - Advance Directive Resuscitation Status: Full Code Family History Family History: CAD, COPD, DM, Hypertension, Malignancy Parental Family History Reviewed: Yes Children Family History Reviewed: No Sibling(s) Family History Reviewed.: Yes Medication/Allergy Home Medications: Albuterol Sulfate [Ventolin Hfa 8 gm Mdi (1 Mdi/ER Disp)] 2 puff IH Q6HP PRN 11/24/18 Divalproex Sodium [Depakote ER 250 mg Tablet] 250 mg PO Q12 #60 tab.sr.24h 03/29/19 Alprazolam [Xanax] 1 mg PO BIDP PRN 06/08/19 Zolpidem Tartrate [Ambien 5 mg Tablet] 5 mg PO QHS 06/08/19 Acetaminophen [Tylenol 325 mg Tablet] 650 mg PO Q4HP PRN tablet 06/11/19 Apixaban [Eliquis 5 mg Tablet] 5 mg PO BID 30 Days #60 tablet 06/11/19 Buspirone HCl [Buspar 10 mg Tablet] 10 mg PO QPM tablet 06/11/19 Fluticasone/Umeclidin/Vilanter [Trelegy 100-62.5-25 Mcg Ellipta 14 Dose/Dpi] 1 inh IH DAILY 14 Days #1 inhaler 06/11/19 Mag Hydrox/Al Hydrox/Simeth [Maalox Plus Susp 30 Udcup] 30 ml PO Q6HP PRN udc 06/11/19 Magnesium Hydroxide [Milk of Magnesia 30 ml Udcup] 30 ml PO HSP PRN udc 06/11/19 Melatonin [Melatonin 3 mg Tablet] 3 mg PO QHS 30 Days #30 tablet 06/11/19 Nicotine [Nicoderm 21 mg/24 Hr Transderm Patch] 1 each TD DAILYP PRN 30 Days #30 patch.td24 06/11/19 Ondansetron [Zofran Odt 4 mg Tablet] 4 mg PO Q6HP PRN 5 Days #20 tab.rapdis 06/11/19 Atenolol [Tenormin 50 mg Tablet] 50 mg PO Q12 #60 tablet 07/12/19 Bumetanide [Bumex 1 mg Tablet] 1 tab PO BID #60 tab 07/12/19 Diltiazem HCl [Cardizem 30 mg Tablet] 30 mg PO Q8 #90 tablet 07/12/19 Midodrine HCl [Proamatine 5 mg Tablet] 2.5 mg PO TID #90 tablet 07/12/19 Potassium Chloride [Potassium Chloride 20 Meq Packet] 20 meq PO Q8 #90 packet 07/12/19 Allergies/Adverse Reactions: No Known Allergies Allergy (Verified 08/11/19 17:27) Review of Systems All systems: reviewed and no additional remarkable complaints except as stated - As per HPI Physical Exam Vital Signs: Temp Pulse Resp BP Pulse Ox 98.4 F 81 20 90/50 L 95 08/12/19 08:00 08/12/19 08:00 08/12/19 08:00 08/12/19 08:00 08/12/19 08:00 Intake & Output 08/11/19 08/12/19 08/13/19 06:59 06:59 06:59 Intake Total 1500 Output Total 300 Balance 1200 Weight 74.3 kg General appearance: PRESENT: no acute distress Head exam: PRESENT: atraumatic, normocephalic Eye exam: PRESENT: conjunctiva pink, EOMI, PERRLA Mouth exam: PRESENT: moist, tongue midline Neck exam: PRESENT: full ROM Respiratory exam: PRESENT: unlabored GI/Abdominal exam: PRESENT: normal bowel sounds, soft Rectal exam: PRESENT: deferred Musculoskeletal exam: PRESENT: other - Examination of the left lower extremity: There is normal alignment of the left leg. There is no discomfort with internal or external rotation of the hip. There is normal active range of motion of the knee ankle and foot. There is discomfort with direct palpation of the superior pubic ramus on the left. Patient has normal sensation and 2+ dorsalis pedis and posterior tibial pulses. Results Laboratory Results: 08/12/19 07:17 08/12/19 07:17 08/11/19 08/11/19 08/11/19 16:09 16:09 16:09 WBC 7.9 RBC 4.58 Hgb 12.2 Hct 37.3 MCV 81 MCH 26.7 L MCHC 32.8 RDW 15.4 H Plt Count 186 Seg Neutrophils % 64.0 Sodium 136.2 L Potassium 4.1 Chloride 100 Carbon Dioxide 30 Anion Gap 6 BUN 18 Creatinine 1.08 Est GFR ( Amer) > 60 Glucose 98 Calcium 9.1 Magnesium 2.3 Total Bilirubin 0.5 AST 29 Alkaline Phosphatase 94 Total Protein 7.1 Albumin 4.0 Urine Color Urine Appearance Urine pH Ur Specific [place] Urine Protein Urine Glucose (UA) Urine Ketones Urine Blood Urine Nitrite Ur Leukocyte Esterase Urine WBC (Auto) Urine RBC (Auto) 08/11/19 08/12/19 08/12/19 17:07 07:17 07:17 WBC 5.4 RBC 4.21 Hgb 11.2 L Hct 34.1 L MCV 81 MCH 26.5 L MCHC 32.7 RDW 15.3 H Plt Count 132 L Seg Neutrophils % 65.8 Sodium 135.8 L Potassium 4.3 Chloride 104 Carbon Dioxide 26 Anion Gap 6 BUN 17 Creatinine 0.92 Est GFR ( Amer) > 60 Glucose 89 Calcium 8.5 Magnesium Total Bilirubin AST Alkaline Phosphatase Total Protein Albumin Urine Color SHARON Urine Appearance SLIGHTLY-CLOUDY Urine pH 6.0 Ur Specific [place] 1.024 Urine Protein 30 H Urine Glucose (UA) NEGATIVE Urine Ketones TRACE H Urine Blood SMALL H Urine Nitrite NEGATIVE Ur Leukocyte Esterase NEGATIVE Urine WBC (Auto) 5 Urine RBC (Auto) 7 08/11/19 08/11/19 08/12/19 16:04 19:06 01:31 Troponin I < 0.012 < 0.012 < 0.012 NT-Pro-B Natriuret Pep 3420 H 08/12/19 07:17 Troponin I < 0.012 NT-Pro-B Natriuret Pep Impressions: Hip X-Ray 08/11/19 15:49 IMPRESSION: Fracture of the left superior pubic ramus. The left SAMUEL hardware is in anatomic alignment. There is no periprosthetic fracture. 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 Cervical Spine CT 08/11/19 18:35 IMPRESSION: Degenerative disc disease with spondylosis. Mild facet arthropathy. No acute finding. Chest X-Ray 08/11/19 18:35 IMPRESSION: 1. Since the prior examination dated 07/11/2027, new finding of rig ht lung base opacity, may be on the basis of pulmonary contusion in view of the given history. Correlation suggested. 2. No evidence of pneumothorax. Head CT 08/11/19 18:35 IMPRESSION: Involutional changes with chronic microvascular ischemia. No acute intracranial imaging findings. EVIDENCE OF ACUTE STROKE: NO. Chest CT 08/11/19 20:09 IMPRESSION: Artifact the patient's arms. Right pleural effusion, smaller than prior. Adjacent airspace disease. The left pleural effusion is resolved. Chronic changes, no adverse change. No acute bony injury is appreciated.. Assessment & Plan - Diagnosis (1) Pubic ramus fracture Qualifiers: Encounter type: initial encounter Fracture type: closed Laterality: left Qualified Code(s): S32.592A - Other specified fracture of left pubis, initial encounter for closed fracture Is this a current diagnosis for this admission?: Yes - Time Time Spent: 30 to 50 Minutes Anticipated discharge: SNF - Plan Summary Plan Summary: The patient has sustained a minimally displaced fracture of the left pubic ramus. She may be weightbearing as tolerated with assist device. I have discussed this with the patient and I have discussed with the patient that this fracture will heal without surgical intervention. I have recommended physical therapy for ambulation training with assist device.
[2019-08-12] MEDS: MIDODRINE HCL 5 MG TABLET PO SCH ×3 (11:23→17:24)
[2019-08-12] MEDS: ATENOLOL 50 MG TABLET PO SCH ×2 (11:25→22:05)
[2019-08-12] MEDS: POTASSIUM CHLORIDE 10 MEQ TABLET.ER PO SCH ×2 (14:36→22:04)
--- NOTE | 2019-08-12 15:27 | PDOC PROGRESS REPORT ---
Subjective Progress Note for:: 08/12/19 Subjective:: Patient complains of pain in the left hip. States that she has had multiple falls. States that she lives alone and that she has no family members in the region. She states that her children are in [place] and starts crying that noone wants anything to do with her. Reason For Visit: AFIB FALL PELVIC FX INTRACTABLE PAIN Physical Exam Vital Signs: Temp Pulse Resp BP Pulse Ox 99.2 F 82 20 94/40 L 92 08/12/19 11:11 08/12/19 11:11 08/12/19 11:11 08/12/19 11:11 08/12/19 11:11 Intake & Output 08/11/19 08/12/19 08/13/19 06:59 06:59 06:59 Intake Total 1500 222 Output Total 300 Balance 1200 222 Weight 74.3 kg General appearance: PRESENT: no acute distress, cooperative Neck exam: ABSENT: JVD Respiratory exam: PRESENT: clear to auscultation jojo, unlabored. ABSENT: tachypnea, wheezes Cardiovascular exam: PRESENT: RRR, +S1, +S2. ABSENT: tachycardia GI/Abdominal exam: PRESENT: soft. ABSENT: rebound, rigid, tenderness Extremities exam: PRESENT: joint swelling, other - Tender over left hip Neurological exam: PRESENT: alert, awake, oriented to person, oriented to place, oriented to time Results Laboratory Results: 08/12/19 07:17 08/12/19 07:17 08/11/19 08/11/19 08/11/19 16:09 16:09 16:09 WBC 7.9 RBC 4.58 Hgb 12.2 Hct 37.3 MCV 81 MCH 26.7 L MCHC 32.8 RDW 15.4 H Plt Count 186 Seg Neutrophils % 64.0 Sodium 136.2 L Potassium 4.1 Chloride 100 Carbon Dioxide 30 Anion Gap 6 BUN 18 Creatinine 1.08 Est GFR ( Amer) > 60 Glucose 98 Calcium 9.1 Magnesium 2.3 Total Bilirubin 0.5 AST 29 Alkaline Phosphatase 94 Total Protein 7.1 Albumin 4.0 Urine Color Urine Appearance Urine pH Ur Specific [place] Urine Protein Urine Glucose (UA) Urine Ketones Urine Blood Urine Nitrite Ur Leukocyte Esterase Urine WBC (Auto) Urine RBC (Auto) 08/11/19 08/12/19 08/12/19 17:07 07:17 07:17 WBC 5.4 RBC 4.21 Hgb 11.2 L Hct 34.1 L MCV 81 MCH 26.5 L MCHC 32.7 RDW 15.3 H Plt Count 132 L Seg Neutrophils % 65.8 Sodium 135.8 L Potassium 4.3 Chloride 104 Carbon Dioxide 26 Anion Gap 6 BUN 17 Creatinine 0.92 Est GFR ( Amer) > 60 Glucose 89 Calcium 8.5 Magnesium Total Bilirubin AST Alkaline Phosphatase Total Protein Albumin Urine Color SHARON Urine Appearance SLIGHTLY-CLOUDY Urine pH 6.0 Ur Specific [place] 1.024 Urine Protein 30 H Urine Glucose (UA) NEGATIVE Urine Ketones TRACE H Urine Blood SMALL H Urine Nitrite NEGATIVE Ur Leukocyte Esterase NEGATIVE Urine WBC (Auto) 5 Urine RBC (Auto) 7 08/11/19 08/11/19 08/12/19 16:04 19:06 01:31 Troponin I < 0.012 < 0.012 < 0.012 NT-Pro-B Natriuret Pep 3420 H 08/12/19 08/12/19 07:17 12:34 Troponin I < 0.012 < 0.012 NT-Pro-B Natriuret Pep Impressions: Hip X-Ray 08/11/19 15:49 IMPRESSION: Fracture of the left superior pubic ramus. The left SAMUEL hardware is in anatomic alignment. There is no periprosthetic fracture. 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 Cervical Spine CT 08/11/19 18:35 IMPRESSION: Degenerative disc disease with spondylosis. Mild facet arthropathy. No acute finding. Chest X-Ray 08/11/19 18:35 IMPRESSION: 1. Since the prior examination dated 07/11/2027, new finding of right lung base opacity, may be on the basis of pulmonary contusion in view of the given history. Correlation suggested. 2. No evidence of pneumothorax. Head CT 08/11/19 18:35 IMPRESSION: Involutional changes with chronic microvascular ischemia. No acute intracranial imaging findings. EVIDENCE OF ACUTE STROKE: NO. Chest CT 08/11/19 20:09 IMPRESSION: Artifact the patient's arms. Right pleural effusion, smaller than prior. Adjacent airspace disease. The left pleural effusion is resolved. Chronic changes, no adverse change. No acute bony injury is appreciated.. Assessment and Plan - Diagnosis (1) Chronic atrial fibrillation with rapid ventricular response Is this a current diagnosis for this admission?: Yes Plan: Initially in RVR on presentation. Currently improved and heart rate is more controlled at this time. I will resume diltiazem IR but now every 6 hour dosing. Resume atenolol and Eliquis. Monitor on telemetry. (2) Pubic ramus fracture Qualifiers: Encounter type: initial encounter Fracture type: closed Laterality: left Qualified Code(s): S32.592A - Other specified fracture of left pubis, initial encounter for closed fracture Is this a current diagnosis for this admission?: Yes Plan: Evaluated by Dr. Soares recommend symptomatic management. Pain control. PT OT. (3) Recurrent falls Is this a current diagnosis for this admission?: Yes Plan: Has had several falls culminating in pubic ramus fracture. This is likely complicated by patient's narcotic and benzodiazepine use. Patient is also living alone. I have de-escalated while continuing some of her medications and I reduced the dose of her [place], trazodone, Ambien and Xanax. Patient will need a lot of physical therapy and discharge planning has been consulted for placement at SNF. (4) Chronic pain Is this a current diagnosis for this admission?: Yes Plan: Cautious with pain control (5) Anxiety Is this a current diagnosis for this admission?: Yes Plan: Anticipate benzodiazepine withdrawal, Xanax 0.125 p.o. daily as needed. Venlafaxine and buspirone. - Time Time Spent with patient: Less than 15 minutes
[2019-08-12] MEDS: APIXABAN 5 MG TABLET PO SCH (17:18)
[2019-08-12] MEDS: BUSPIRONE HCL 10 MG TABLET PO SCH (17:19)
[2019-08-12] MEDS: FLUTICASONE/UMECLIDIN/VILANTER 100-62.5-25 MCG/DOSE IH SCH (17:19)
[2019-08-12] MEDS: DIVALPROEX SODIUM 250 MG TAB.SR.24H PO SCH ×2 (17:25→22:04)
[2019-08-12] MEDS: HYDROCODONE/ACETAMINOPHEN 10-325 MG TABLET PO PRN (17:28)
--- NOTE | 2019-08-12 20:54 | EKG REPORT ---
SEVERITY:- ABNORMAL ECG - ATRIAL FIBRILLATION BORDERLINE T ABNORMALITIES, ANT-LAT LEADS : Confirmed by: Srinivas Tamez 12-Aug-2019 20:54:02
[2019-08-12] MEDS ORDERED: ZOLPIDEM TARTRATE 5 MG TABLET PO SCH (22:00)
[2019-08-12] MEDS: TRAZODONE HCL 50 MG TABLET PO SCH (22:05)
[2019-08-12] MEDS: MELATONIN 5 MG TABLET PO SCH (22:05)
[2019-08-12] MEDS: ZOLPIDEM TARTRATE 5 MG TABLET PO PRN (23:22)
[2019-08-13] MEDS: HYDROCODONE/ACETAMINOPHEN 10-325 MG TABLET PO PRN ×2 (01:22→18:52)
[2019-08-13] MEDS: KETOROLAC TROMETHAMINE INJ/PF 30 MG/1 ML SDV IV PRN (06:30)
[2019-08-13] MEDS: DILTIAZEM HCL 30 MG TABLET PO SCH ×3 (06:31→18:29)
[2019-08-13] MEDS: BUSPIRONE HCL 10 MG TABLET PO SCH ×2 (10:09→18:29)
[2019-08-13] MEDS: POTASSIUM CHLORIDE 10 MEQ TABLET.ER PO SCH ×2 (10:09→22:46)
[2019-08-13] MEDS: DIVALPROEX SODIUM 250 MG TAB.SR.24H PO SCH ×2 (10:09→22:45)
[2019-08-13] MEDS: APIXABAN 5 MG TABLET PO SCH ×2 (10:11→18:28)
[2019-08-13] MEDS: VENLAFAXINE HCL 37.5 MG CAP.SR.24H PO SCH (10:11)
[2019-08-13] MEDS: MIDODRINE HCL 5 MG TABLET PO SCH ×3 (10:19→18:29)
[2019-08-13] MEDS: FLUTICASONE/UMECLIDIN/VILANTER 100-62.5-25 MCG/DOSE IH SCH (10:23)
[2019-08-13] MEDS: ALPRAZOLAM 0.25 MG TABLET PO PRN (14:06)
[2019-08-13] MEDS: FUROSEMIDE 40 MG TABLET PO SCH (14:06)
[2019-08-13] MEDS: ATENOLOL 50 MG TABLET PO SCH ×2 (14:06→22:48)
--- NOTE | 2019-08-13 14:39 | PDOC PROGRESS REPORT ---
Subjective Progress Note for:: 08/13/19 Subjective:: Patient is doing well today. She has no complaints at this time. And some pain but well controlled with medications. Reason For Visit: AFIB FALL PELVIC FX INTRACTABLE PAIN Physical Exam Vital Signs: Temp Pulse Resp BP Pulse Ox 98.4 F 68 16 98/50 L 94 08/13/19 12:00 08/13/19 12:00 08/13/19 12:00 08/13/19 12:00 08/13/19 12:00 Intake & Output 08/12/19 08/13/19 08/14/19 06:59 06:59 06:59 Intake Total 1500 688 620 Output Total 300 Balance 1200 688 620 Weight 74.3 kg 77.5 kg General appearance: PRESENT: no acute distress, cooperative Respiratory exam: PRESENT: unlabored. ABSENT: accessory muscle use, retraction Cardiovascular exam: ABSENT: tachycardia GI/Abdominal exam: PRESENT: soft. ABSENT: tenderness Neurological exam: PRESENT: alert, awake Psychiatric exam: ABSENT: agitated, anxious Skin exam: ABSENT: jaundice Results Laboratory Results: 08/12/19 07:17 08/12/19 07:17 08/11/19 08/11/19 08/12/19 16:04 19:06 01:31 Troponin I < 0.012 < 0.012 < 0.012 NT-Pro-B Natriuret Pep 3420 H 08/12/19 08/12/19 07:17 12:34 Troponin I < 0.012 < 0.012 NT-Pro-B Natriuret Pep Impressions: Hip X-Ray 08/11/19 15:49 IMPRESSION: Fracture of the left superior pubic ramus. The left SAMUEL hardware is in anatomic alignment. There is no periprosthetic fracture. 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 Cervical Spine CT 08/11/19 18:35 IMPRESSION: Degenerative disc disease with spondylosis. Mild facet arthr opathy. No acute finding. Chest X-Ray 08/11/19 18:35 IMPRESSION: 1. Since the prior examination dated 07/11/2027, new finding of right lung base opacity, may be on the basis of pulmonary contusion in view of the given history. Correlation suggested. 2. No evidence of pneumothorax. Head CT 08/11/19 18:35 IMPRESSION: Involutional changes with chronic microvascular ischemia. No acute intracranial imaging findings. EVIDENCE OF ACUTE STROKE: NO. Chest CT 08/11/19 20:09 IMPRESSION: Artifact the patient's arms. Right pleural effusion, smaller than prior. Adjacent airspace disease. The left pleural effusion is resolved. Chronic changes, no adverse change. No acute bony injury is appreciated.. Assessment and Plan - Diagnosis (1) Chronic atrial fibrillation with rapid ventricular response Is this a current diagnosis for this admission?: Yes Plan: Initially in RVR on presentation. Currently improved and heart rate is more controlled at this time. Continue diltiazem IR but now every 6 hour dosing to midnight today and start on 120 mg CD tomorrow. Continue atenolol and Eliquis. (2) Pubic ramus fracture Qualifiers: Encounter type: initial encounter Fracture type: closed Laterality: left Qualified Code(s): S32.592A - Other specified fracture of left pubis, initial encounter for closed fracture Is this a current diagnosis for this admission?: Yes Plan: Evaluated by Dr. Soares recommend symptomatic nonoperative management. Pain control. PT OT. Discharge planning consulted for placement at SNF. (3) Recurrent falls Is this a current diagnosis for this admission?: Yes Plan: Has had several falls culminating in pubic ramus fracture. This is likely complicated by patient's narcotic and benzodiazepine use. Patient is also living alone. I have de-escalated while continuing some of her medications and I reduced the dose of her [place], trazodone, Ambien and Xanax. Patient will need a lot of physical therapy and discharge planning has been consulted for placement at SNF. (4) Chronic pain Is this a current diagnosis for this admission?: Yes (5) Anxiety Is this a current diagnosis for this admission?: Yes - Time Time Spent with patient: Less than 15 minutes
[2019-08-13] MEDS: MELATONIN 5 MG TABLET PO SCH (22:45)
[2019-08-13] MEDS: TRAZODONE HCL 50 MG TABLET PO SCH (22:47)
[2019-08-14 06:07] LABS: BLOOD UREA NITROGEN 24 mg/dL (7-20); CALCIUM 8.5 mg/dL (8.4-10.2); GLUCOSE 90 mg/dL (75-110); POTASSIUM 4.6 mmol/L (3.6-5.0)
[2019-08-14 06:12] LABS: CARBON DIOXIDE 28 mmol/L (22-30); CHLORIDE 103 mmol/L (98-107)
[2019-08-14 06:26] LABS: ANION GAP 3 (5-19)
[2019-08-14] MEDS: FUROSEMIDE 40 MG TABLET PO SCH (08:07)
[2019-08-14] MEDS: BUSPIRONE HCL 10 MG TABLET PO SCH ×2 (08:09→18:46)
[2019-08-14] MEDS: HYDROCODONE/ACETAMINOPHEN 10-325 MG TABLET PO PRN ×2 (08:09→18:52)
[2019-08-14] MEDS: DILTIAZEM HCL 120 MG CAP.SR.24H PO SCH (10:59)
[2019-08-14] MEDS: FLUTICASONE/UMECLIDIN/VILANTER 100-62.5-25 MCG/DOSE IH SCH (11:00)
[2019-08-14] MEDS: ATENOLOL 50 MG TABLET PO SCH (11:00)
[2019-08-14] MEDS: APIXABAN 5 MG TABLET PO SCH ×2 (11:00→18:47)
[2019-08-14] MEDS: DIVALPROEX SODIUM 250 MG TAB.SR.24H PO SCH (11:00)
[2019-08-14] MEDS: POTASSIUM CHLORIDE 10 MEQ TABLET.ER PO SCH (11:00)
[2019-08-14] MEDS: KETOROLAC TROMETHAMINE INJ/PF 30 MG/1 ML SDV IV PRN ×2 (11:00→18:54)
[2019-08-14] MEDS: VENLAFAXINE HCL 37.5 MG CAP.SR.24H PO SCH (11:03)
[2019-08-14] MEDS: MIDODRINE HCL 5 MG TABLET PO SCH ×3 (11:06→18:46)
--- NOTE | 2019-08-14 14:30 | PDOC PROGRESS REPORT ---
Subjective Progress Note for:: 08/14/19 Subjective:: c/o pain in hip Reason For Visit: AFIB FALL PELVIC FX INTRACTABLE PAIN Physical Exam Vital Signs: Temp Pulse Resp BP Pulse Ox 97.3 F 135 H 16 105/61 94 08/14/19 11:23 08/14/19 11:23 08/14/19 11:23 08/14/19 11:23 08/14/19 11:23 Intake & Output 08/13/19 08/14/19 08/15/19 06:59 06:59 06:59 Intake Total 688 620 120 Output Total 300 Balance 688 620 -180 Weight 77.5 kg 81.6 kg General appearance: PRESENT: no acute distress, cooperative Respiratory exam: PRESENT: unlabored. ABSENT: wheezes Neurological exam: PRESENT: alert, awake Psychiatric exam: PRESENT: anxious. ABSENT: agitated Focused psych exam: ABSENT: pressured speech Results Laboratory Results: 08/12/19 07:17 08/14/19 04:55 08/14/19 04:55 Sodium 134.0 L Potassium 4.6 Chloride 103 Carbon Dioxide 28 Anion Gap 3 L BUN 24 H Creatinine 1.04 Est GFR ( Amer) > 60 Glucose 90 Calcium 8.5 Magnesium 1.9 08/11/19 08/11/19 08/12/19 16:04 19:06 01:31 Troponin I < 0.012 < 0.012 < 0.012 NT-Pro-B Natriuret Pep 3420 H 08/12/19 08/12/19 07:17 12:34 Troponin I < 0.012 < 0.012 NT-Pro-B Natriuret Pep Impressions: Hip X-Ray 08/11/19 15:49 IMPRESSION: Fracture of the left superior pubic ramus. The left SAMUEL hardware is in anatomic alignment. There is no periprosthetic fracture. 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 Cervical Spine CT 08/11/19 18:35 IMPRESSION: Degenerative disc disease with spondylosis. Mild facet a rthropathy. No acute finding. Chest X-Ray 08/11/19 18:35 IMPRESSION: 1. Since the prior examination dated 07/11/2027, new finding of right lung base opacity, may be on the basis of pulmonary contusion in view of the given history. Correlation suggested. 2. No evidence of pneumothorax. Head CT 08/11/19 18:35 IMPRESSION: Involutional changes with chronic microvascular ischemia. No acute intracranial imaging findings. EVIDENCE OF ACUTE STROKE: NO. Chest CT 08/11/19 20:09 IMPRESSION: Artifact the patient's arms. Right pleural effusion, smaller than prior. Adjacent airspace disease. The left pleural effusion is resolved. Chronic changes, no adverse change. No acute bony injury is appreciated.. Assessment and Plan - Diagnosis (1) Chronic atrial fibrillation with rapid ventricular response Is this a current diagnosis for this admission?: Yes Plan: Initially in RVR on presentation. Currently improved and heart rate is more controlled at this time. Cardizem 120 mg CD and continue atenolol and Eliquis. (2) Pubic ramus fracture Qualifiers: Encounter type: initial encounter Fracture type: closed Laterality: left Qualified Code(s): S32.592A - Other specified fracture of left pubis, initial encounter for closed fracture Is this a current diagnosis for this admission?: Yes Plan: Evaluated by Dr. Soares recommend symptomatic nonoperative management. Pain control. PT OT. Discharge planning working on placement at SNF. COVID screen result pending. (3) Recurrent falls Is this a current diagnosis for this admission?: Yes Plan: Rehab at snf (4) Chronic pain Is this a current diagnosis for this admission?: Yes Plan: Cautious with pain control meds given multiple falls. (5) Anxiety Is this a current diagnosis for this admission?: Yes Plan: Xanax prn dose reduced in light of multiple falls. Continue Venlafaxine and buspirone. (6) Recurrent right pleural effusion Is this a current diagnosis for this admission?: Yes Plan: Stable when compared to prior imaging. Notably, patient had thoracentesis few months ago which revealed transudative fluid. Patient is not short of breath. No need for repeat thoracentesis. We will continue with Lasix daily. Continue home regimen on Midodrine as she has chronically soft blood pressures. - Time Time Spent with patient: Less than 15 minutes
[2019-08-14] MEDS: ALPRAZOLAM 0.25 MG TABLET PO PRN (19:44)
[2019-08-15] MEDS: TRAZODONE HCL 50 MG TABLET PO SCH ×2 (01:07→21:14)
[2019-08-15] MEDS: MELATONIN 5 MG TABLET PO SCH ×2 (01:07→21:15)
[2019-08-15] MEDS: POTASSIUM CHLORIDE 10 MEQ TABLET.ER PO SCH ×3 (01:07→21:14)
[2019-08-15] MEDS: ATENOLOL 50 MG TABLET PO SCH ×3 (01:08→21:19)
[2019-08-15] MEDS: DIVALPROEX SODIUM 250 MG TAB.SR.24H PO SCH ×3 (03:10→21:14)
[2019-08-15] MEDS: HYDROCODONE/ACETAMINOPHEN 10-325 MG TABLET PO PRN (05:01)
[2019-08-15] MEDS: KETOROLAC TROMETHAMINE INJ/PF 30 MG/1 ML SDV IV PRN ×2 (05:02→17:33)
[2019-08-15] MEDS: BUSPIRONE HCL 10 MG TABLET PO SCH ×2 (07:54→17:33)
[2019-08-15] MEDS: FUROSEMIDE 40 MG TABLET PO SCH (07:55)
[2019-08-15] MEDS: MIDODRINE HCL 5 MG TABLET PO SCH ×3 (10:40→17:33)
[2019-08-15] MEDS: APIXABAN 5 MG TABLET PO SCH ×2 (10:40→17:33)
[2019-08-15] MEDS: DILTIAZEM HCL 120 MG CAP.SR.24H PO SCH (10:42)
[2019-08-15] MEDS: FLUTICASONE/UMECLIDIN/VILANTER 100-62.5-25 MCG/DOSE IH SCH (10:43)
[2019-08-15] MEDS: VENLAFAXINE HCL 37.5 MG CAP.SR.24H PO SCH (10:43)
[2019-08-15] MEDS: ALPRAZOLAM 0.25 MG TABLET PO PRN ×2 (10:50→17:38)
--- NOTE | 2019-08-15 13:20 | PDOC PROGRESS REPORT ---
Subjective Progress Note for:: 08/15/19 Subjective:: Patient unaware of plans for rehab. Per physical therapy she would benefit from ongoing rehab. She is still unsteady on her feet. It is high risk for her to be home even though her daughter is staying with her. She needs more physical therapy. Reason For Visit: AFIB FALL PELVIC FX INTRACTABLE PAIN Physical Exam Vital Signs: Temp Pulse Resp BP Pulse Ox 97.7 F 84 16 103/58 L 95 08/15/19 11:27 08/15/19 11:27 08/15/19 11:27 08/15/19 11:27 08/15/19 11:27 Intake & Output 08/14/19 08/15/19 08/16/19 06:59 06:59 06:59 Intake Total 620 720 180 Output Total 1100 800 Balance 620 -380 -620 Weight 81.6 kg 81.6 kg General appearance: PRESENT: cooperative, mild distress, well-developed Respiratory exam: PRESENT: clear to auscultation jojo, symmetrical, unlabored. ABSENT: accessory muscle use, rales, rhonchi, tachypnea, wheezes Cardiovascular exam: PRESENT: RRR, +S1, +S2. ABSENT: diastolic murmur, irregular rhythm, systolic murmur GI/Abdominal exam: PRESENT: normal bowel sounds, soft. ABSENT: distended, guarding, tenderness Rectal exam: PRESENT: deferred Extremities exam: ABSENT: pedal edema Musculoskeletal exam: ABSENT: ambulatory - Very limited. See physical therapy notes. Neurological exam: PRESENT: alert, awake, oriented to person, oriented to place, oriented to situation Psychiatric exam: PRESENT: flat affect. ABSENT: agitated, anxious Focused psych exam: ABSENT: delusional, paranoid, restlessness Results Laboratory Results: 08/12/19 07:17 08/14/19 04:55 08/11/19 08/11/19 08/12/19 16:04 19:06 01:31 Troponin I < 0.012 < 0.012 < 0.012 NT-Pro-B Natriuret Pep 3420 H 08/12/19 08/12/19 07:17 12:34 Troponin I < 0.012 < 0.012 NT-Pro-B Natriuret Pep Impressions: Hip X-Ray 08/11/19 15:49 IMPRESSION: Fracture of the left superior pubic ramus. The left SAMUEL hardware is in anatomic alignment. There is no periprosthetic fracture. 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 Cervical Spine CT 08/11/19 18:35 IMPRESSION: Degenerative disc disease with spondylosis. Mild facet arthropathy. No acute finding. Chest X-Ray 08/11/19 18:35 IMPRESSION: 1. Since the prior examination dated 07/11/2027, new finding of right lung base opacity, may be on the basis of pulmonary contusion in view of the given history. Correlation suggested. 2. No evidence of pneumothorax. Head CT 08/11/19 18:35 IMPRESSION: Involutional changes with chronic microvascular ischemia. No acute intracranial imaging findings. EVIDENCE OF ACUTE STROKE: NO. Chest CT 08/11/19 20:09 IMPRESSION: Artifact the patient's arms. Right pleural effusion, smaller than prior. Adjacent airspace disease. The left pleural effusion is resolved. Chronic changes, no adverse change. No acute bony injury is appreciated.. Assessment and Plan - Diagnosis (1) Chronic atrial fibrillation with rapid ventricular response Is this a current diagnosis for this admission?: Yes Plan: Initially in RVR on presentation. Currently improved and heart rate is more controlled at this time. Cardizem 120 mg CD and continue atenolol and Eliquis. 08/15/2019 Continue current regimen. Continue anticoagulation. (2) Pubic ramus fracture Qualifiers: Encounter type: initial encounter Fracture type: closed Laterality: left Qualified Code(s): S32.592A - Other specified fracture of left pubis, initial encounter for closed fracture Is this a current diagnosis for this admission?: Yes Plan: Evaluated by Dr. Soares recommend symptomatic nonoperative management. Pain control. PT OT. Discharge planning working on placement at SNF. COVID screen result pending. 08/15/2019 Nonoperable. Continue PT, OT and pain management. I spoke to the patient's daughter. Their first choice is [facility] which is closest to their home. They refused to go to [facility] due to a bad experience with the patient's in the past. (3) Recurrent falls Is this a current diagnosis for this admission?: Yes Plan: Rehab at [facility] 08/15/2019 longterm facility for short-term rehab (4) Chronic pain Qualifiers: Chronic pain type: other chronic pain Qualified Code(s): G89.29 - Other chronic pain Is this a current diagnosis for this admission?: Yes Plan: Cautious with pain control meds given multiple falls. 08/15/2019 Continue current regimen (5) Anxiety Is this a current diagnosis for this admission?: Yes Plan: Xanax prn dose reduced in light of multiple falls. Continue Venlafaxine and buspirone. 08/15/2019 Multiple medications. The patient angers easily. This is likely due to frustration with her current situation. Hopefully as she feels better this will improve. (6) Recurrent right pleural effusion Is this a current diagnosis for this admission?: Yes Plan: Stable when compared to prior imaging. Notably, patient had thoracentesis few months ago which revealed transudative fluid. Patient is not short of breath. No need for repeat thoracentesis. We will continue with Lasix daily. Continue home regimen on Midodrine as she has chronically soft blood pressures. 08/15/2019 As above. Patient was angry and used profanity because she feels that when she has the thoracentesis all of the fluid should be drawn. I used a diagram on her white board to show her that fluid in the recesses of the pulmonary cavity are not easily accessible and anytime anyone has a thoracentesis it is impossible. To get all of the fluid. For now we will continue her current regimen. The exact etiology of the pleural effusion is not known at this time. It is a transudate based on previous studies. - Plan Summary Summary: 08/15/2019 I spoke to the patient's daughter. We reviewed the need for SNF as the patient is limited by pain but she is working with physical therapy. She will benefit from more aggressive therapy. - Time Time Spent with patient: 25-34 minutes - Most of this was spent educating the patient about her comorbidities as noted above. It also included a phone call to the patient's daughter as visitation is restricted due to COVID.
[2019-08-16] MEDS: ALPRAZOLAM 0.25 MG TABLET PO PRN ×2 (07:04→16:28)
[2019-08-16] MEDS: HYDROCODONE/ACETAMINOPHEN 10-325 MG TABLET PO PRN ×2 (07:04→16:28)
[2019-08-16] MEDS: MIDODRINE HCL 5 MG TABLET PO SCH ×3 (09:42→17:35)
[2019-08-16] MEDS: VENLAFAXINE HCL 37.5 MG CAP.SR.24H PO SCH (09:42)
[2019-08-16] MEDS: FLUTICASONE/UMECLIDIN/VILANTER 100-62.5-25 MCG/DOSE IH SCH (09:42)
[2019-08-16] MEDS: BUSPIRONE HCL 10 MG TABLET PO SCH ×2 (09:43→17:35)
[2019-08-16] MEDS: DIVALPROEX SODIUM 250 MG TAB.SR.24H PO SCH ×2 (09:43→21:04)
[2019-08-16] MEDS: DILTIAZEM HCL 120 MG CAP.SR.24H PO SCH (09:43)
[2019-08-16] MEDS: ATENOLOL 50 MG TABLET PO SCH ×2 (09:43→21:12)
[2019-08-16] MEDS: FUROSEMIDE 40 MG TABLET PO SCH (09:43)
[2019-08-16] MEDS: APIXABAN 5 MG TABLET PO SCH ×2 (09:43→17:35)
[2019-08-16] MEDS: POTASSIUM CHLORIDE 10 MEQ TABLET.ER PO SCH ×2 (09:44→21:03)
--- NOTE | 2019-08-16 13:44 | PDOC TRANSFER SUMMARY ---
Impression - Admit/DC Date/PCP Admission Date/Primary Care Provider: 08/11/19 22:35 EULALIA CHASE DO Discharge Date: 08/16/19 - Discharge Diagnosis (1) Chronic atrial fibrillation with rapid ventricular response Is this a current diagnosis for this admission?: Yes (2) Pubic ramus fracture Is this a current diagnosis for this admission?: Yes (3) Recurrent falls Is this a current diagnosis for this admission?: Yes (4) Chronic pain Is this a current diagnosis for this admission?: Yes (5) Anxiety Is this a current diagnosis for this admission?: Yes (6) Recurrent right pleural effusion Is this a current diagnosis for this admission?: Yes - Assessment Summary: 08/15/2019 I spoke to the patient's daughter. We reviewed the need for SNF as the patient is limited by pain but she is working with physical therapy. She will benefit from more aggressive therapy. - Additional Information Resuscitation Status: Full Code Discharge Diet: Cardiac Discharge Activity: Activity As Tolerated, Other - Advance per physical therapy Referrals: EULALIA CHASE DO [Primary Care Provider] - Follow up as needed Home Medications: Divalproex Sodium [Depakote ER 250 mg Tablet] 250 mg PO Q12 #60 tab.sr.24h 03/29/19 Alprazolam [Xanax] 1 mg PO BIDP PRN 06/08/19 Zolpidem Tartrate [Ambien 5 mg Tablet] 5 mg PO QHS 06/08/19 Buspirone HCl [Buspar 10 mg Tablet] 10 mg PO QPM tablet 06/11/19 Fluticasone/Umeclidin/Vilanter [Trelegy 100-62.5-25 Mcg Ellipta 14 Dose/Dpi] 1 inh IH DAILY 14 Days #1 inhaler 06/11/19 Atenolol [Tenormin 50 mg Tablet] 50 mg PO Q12 #60 tablet 07/12/19 Midodrine HCl [Proamatine 5 mg Tablet] 2.5 mg PO TID #90 tablet 07/12/19 Buspirone HCl [Buspar 10 mg Tablet] 5 mg PO QAM 08/12/19 Diclofenac Sodium 4 gm TP 6XD 08/12/19 Furosemide [Lasix 40 mg Tablet] 40 mg PO QAM 08/12/19 Hydrocodone/Acetaminophen [[place] 10-325 mg Tablet] 1 tab PO TID 08/12/19 Melatonin 5 mg PO QHS 08/12/19 Potassium Chloride 20 meq PO Q8 08/12/19 Trazodone HCl 100 mg PO DAILY 08/12/19 Venlafaxine HCl ER [Effexor Xr 37.5 mg Cap.sr] 37.5 mg PO DAILY 08/12/19 Acetaminophen [Tylenol 325 mg Tablet] 650 mg PO Q4HP PRN tablet 08/16/19 Alprazolam [Xanax 0.25 mg Tablet] 0.25 mg PO BIDP PRN tablet 08/16/19 Apixaban [Eliquis 5 mg Tablet] 5 mg PO BID tablet 08/16/19 Atenolol [Tenormin 50 mg Tablet] 50 mg PO Q12 tablet 08/16/19 Diltiazem HCl [Cardizem Cd 120 mg Capsule] 120 mg PO DAILY cap.sr.24h 08/16/19 Mag Hydrox/Al Hydrox/Simeth [Maalox Plus Susp 30 Udcup] 30 ml PO Q6HP PRN udc 08/16/19 Midodrine HCl [Proamatine 5 mg Tablet] 2.5 mg PO TID tablet 08/16/19 Zolpidem Tartrate [Ambien 5 mg Tablet] 2.5 mg PO HSP PRN tablet 08/16/19 History of Present Illiness History of Present Illness: FADI LYNN is a 73 year old female with a past medical history of atrial fibrillation on Eliquis, recurrent bilateral pleural effusion, COPD, anxiety depression, benzodiazepine dependence, obesity, deconditioning and recurrent falls. She presents after a fall to the floor despite the use of a quad cane denying head trauma or loss of consciousness. She is however unable to bear weight with pain to the left groin. She denies chest pain nausea vomiting shortness of breath she denies recent change in medication regiment. She resides alone has exceptional difficulty with transfer from bed to chair or bed to toilet and admits to recurrent falls. In the emergency department she is found to be in A. fib with RVR in the 130s and a nondisplaced left-sided pelvic fracture with intolerable, intractable pain Hospital Course Hospital Course: (1) Chronic atrial fibrillation with rapid ventricular response Is this a current diagnosis for this admission?: Yes Plan: Initially in RVR on presentation. Currently improved and heart rate is more controlled at this time. Cardizem 120 mg CD and continue atenolol and Eliquis. 08/15/2019 Continue current regimen. Continue anticoagulation. 08/16/2019 Continue current medication regimen (2) Pubic ramus fracture Qualifiers: Encounter type: initial encounter Fracture type: closed Laterality: left Qualified Code(s): S32.592A - Other specified fracture of left pubis, initial encounter for closed fracture Is this a current diagnosis for this admission?: Yes Plan: Evaluated by Dr. Soares recommend symptomatic nonoperative management. Pain con trol. PT OT. Discharge planning working on placement at [facility]. COVID screen result pending. 08/15/2019 Nonoperable. Continue PT, OT and pain management. I spoke to the patient's daughter. Their first choice is [facility] which is closest to their home. They refused to go to [place] due to a bad experience with the patient's in the past. 08/16/2019 Patient is transferring to [facility] for short-term rehab to include aggressive physical therapy to maximize recovery from her pelvic fracture (3) Recurrent falls Is this a current diagnosis for this admission?: Yes Plan: Rehab at [facility] 08/15/2019 [facility] facility for short-term rehab (4) Chronic pain Qualifiers: Chronic pain type: other chronic pain Qualified Code(s): G89.29 - Other chronic pain Is this a current diagnosis for this admission?: Yes Plan: Cautious with pain control meds given multiple falls. 08/15/2019 Continue current regimen (5) Anxiety Is this a current diagnosis for this admission?: Yes Plan: Xanax prn dose reduced in light of multiple falls. Continue Venlafaxine and buspirone. 08/15/2019 Multiple medications. The patient angers easily. This is likely due to frustration with her current situation. Hopefully as she feels better this will improve. (6) Recurrent right pleural effusion Is this a current diagnosis for this admission?: Yes Plan: Stable when compared to prior imaging. Notably, patient had thoracentesis few months ago which revealed transudative fluid. Patient is not short of breath. No need for repeat thoracentesis. We will continue with Lasix daily. Continue home regimen on Midodrine as she has chronically soft blood pressures. 08/15/2019 As above. Patient was angry and used profanity because she feels that when she has the thoracentesis all of the fluid should be drawn. I used a diagram on her white board to show her that fluid in the recesses of the pulmonary cavity are not easily accessible and anytime anyone has a thoracentesis it is impossible. To get all of the fluid. For now we will continue her current regimen. The exact etiology of the pleural effusion is not known at this time. It is a transudate based on previous studies. Physical Exam Vital Signs: Temp Pulse Resp BP Pulse Ox 98.4 F 85 12 117/56 L 91 L 08/16/19 07:29 08/16/19 07:29 08/16/19 07:29 08/16/19 07:29 08/16/19 07:29 Intake & Output 08/15/19 08/16/19 08/17/19 06:59 06:59 06:59 Intake Total 720 780 Output Total 1100 1450 Balance -380 -670 Weight 81.6 kg 81.6 kg General appearance: PRESENT: no acute distress, cooperative, well-developed Head exam: PRESENT: atraumatic, normocephalic Ear exam: PRESENT: normal external ear exam. ABSENT: bleeding, drainage Mouth exam: PRESENT: moist, tongue midline Respiratory exam: PRESENT: clear to auscultation jojo, symmetrical, unlabored. ABSENT: prolonged expiratory phas, rales, rhonchi, tachypnea, wheezes Cardiovascular exam: PRESENT: RRR, +S1, +S2 GI/Abdominal exam: PRESENT: normal bowel sounds, soft. ABSENT: distended, guarding, tenderness Rectal exam: PRESENT: deferred Extremities exam: ABSENT: pedal edema Neurological exam: PRESENT: alert, awake, oriented to person, oriented to place, oriented to situation, CN II-XII grossly intact. ABSENT: altered Psychiatric exam: PRESENT: flat affect. ABSENT: agitated, anxious Focused psych exam: ABSENT: delusional, paranoid, restlessness Skin exam: PRESENT: dry, normal color, warm. ABSENT: rash Results Laboratory Results: WBC 5.4 10^3/uL (4.0-10.5) 08/12/19 07:17 RBC 4.21 10^6/uL (3.72-5.28) 08/12/19 07:17 Hgb 11.2 g/dL (12.0-15.5) L 08/12/19 07:17 Hct 34.1 % (36.0-47.0) L 08/12/19 07:17 MCV 81 fl (80-97) 08/12/19 07:17 MCH 26.5 pg (27.0-33.4) L 08/12/19 07:17 MCHC 32.7 g/dL (32.0-36.0) 08/12/19 07:17 RDW 15.3 % (11.5-14.0) H 08/12/19 07:17 Plt Count 132 10^3/uL (150-450) L 08/12/19 07:17 Lymph % (Auto) 18.5 % (13-45) 08/12/19 07:17 [place] % (Auto) 8.9 % (3-13) 08/12/19 07:17 Eos % (Auto) 5.8 % (0-6) 08/12/19 07:17 Baso % (Auto) 1.0 % (0-2) 08/12/19 07:17 Absolute Neuts (auto) 3.5 10^3/uL (1.7-8.2) 08/12/19 07:17 Absolute Lymphs (auto) 1.0 10^3/uL (0.5-4.7) 08/12/19 07:17 Absolute Monos (auto) 0.5 10^3/uL (0.1-1.4) 08/12/19 07:17 Absolute Eos (auto) 0.3 10^3/uL (0.0-0.6) 08/12/19 07:17 Absolute Basos (auto) 0.1 10^3/uL (0.0-0.2) 08/12/19 07:17 Seg Neutrophils % 65.8 % (42-78) 08/12/19 07:17 PT 14.0 SEC (11.4-15.4) 08/11/19 19:06 INR 1.08 08/11/19 19:06 APTT 32.4 SEC (23.5-35.8) 08/11/19 19:06 Sodium 134.0 mmol/L (137-145) L 08/14/19 04:55 Potassium 4.6 mmol/L (3.6-5.0) 08/14/19 04:55 Chloride 103 mmol/L (98-107) 08/14/19 04:55 Carbon Dioxide 28 mmol/L (22-30) 08/14/19 04:55 Anion Gap 3 (5-19) L 08/14/19 04:55 BUN 24 mg/dL (7-20) H 08/14/19 04:55 Creatinine 1.04 mg/dL (0.52-1.25) 08/14/19 04:55 Est GFR ( Amer) > 60 (>60) 08/14/19 04:55 Est GFR (MDRD) Non-Af 52 (>60) L 08/14/19 04:55 Glucose 90 mg/dL (75-110) 08/14/19 04:55 Calcium 8.5 mg/dL (8.4-10.2) 08/14/19 04:55 Magnesium 1.9 mg/dL (1.6-2.3) 08/14/19 04:55 Total Bilirubin 0.5 mg/dL (0.2-1.3) 08/11/19 16:09 Direct Bilirubin 0.0 mg/dL (0.0-0.4) 08/11/19 16:09 Neonat Total Bilirubin Not Reportable 08/11/19 16:09 Neonat Direct Bilirubin Not Reportable 08/11/19 16:09 Neonat Indirect Bili Not Reportable 08/11/19 16:09 AST 29 U/L (14-36) 08/11/19 16:09 ALT 17 U/L (<35) 08/11/19 16:09 Alkaline Phosphatase 94 U/L (38-126) 08/11/19 16:09 Troponin I < 0.012 ng/mL 08/12/19 12:34 NT-Pro-B Natriuret Pep 3420 pg/mL (<450) H 08/11/19 19:06 Total Protein 7.1 g/dL (6.3-8.2) 08/11/19 16:09 Albumin 4.0 g/dL (3.5-5.0) 08/11/19 16:09 Urine Color SHARON 08/11/19 17:07 Urine Appearance SLIGHTLY-CLOUDY 08/11/19 17:07 Urine pH 6.0 (5.0-9.0) 08/11/19 17:07 Ur Specific [place] 1.024 08/11/19 17:07 Urine Protein 30 mg/dL (NEGATIVE) H 08/11/19 17:07 Urine Glucose (UA) NEGATIVE mg/dL (NEGATIVE) 08/11/19 17:07 Urine Ketones TRACE mg/dL (NEGATIVE) H 08/11/19 17:07 Urine Blood SMALL (NEGATIVE) H 08/11/19 17:07 Urine Nitrite NEGATIVE (NEGATIVE) 08/11/19 17:07 Urine Bilirubin SMALL (NEGATIVE) H 08/11/19 17:07 Urine Urobilinogen 4.0 mg/dL (<2.0) H 08/11/19 17:07 Ur Leukocyte Esterase NEGATIVE (NEGATIVE) 08/11/19 17:07 Urine WBC (Auto) 5 /HPF 08/11/19 17:07 Urine RBC (Auto) 7 /HPF 08/11/19 17:07 U Hyaline Cast (Auto) 4 /LPF 08/11/19 17:07 Squamous Epi Cells Auto 13 /HPF 08/11/19 17:07 Amorphous Sediment Auto TRACE /HPF 08/11/19 17:07 Urine Mucus (Auto) RARE /LPF 08/11/19 17:07 Urine Ascorbic Acid NEGATIVE (NEGATIVE) 08/11/19 17:07 COVID-19 Source NASOPHARYNGEAL 08/12/19 23:20 COVID-19 (ARIADNA) NOT DETECTED 08/12/19 23:20 08/11/19 08/11/19 08/12/19 16:04 19:06 01:31 Troponin I < 0.012 < 0.012 < 0.012 NT-Pro-B Natriuret Pep 3420 H 08/12/19 08/12/19 07:17 12:34 Troponin I < 0.012 < 0.012 NT-Pro-B Natriuret Pep Impressions: Hip X-Ray 08/11/19 15:49 IMPRESSION: Fracture of the left superior pubic ramus. The left SAMUEL hardware is in anatomic alignment. There is no periprosthetic fracture. 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 Cervical Spine CT 08/11/19 18:35 IMPRESSION: Degenerative disc disease with spondylosis. Mild facet arthropathy. No acute finding. Chest X-Ray 08/11/19 18:35 IMPRESSION: 1. Since the prior examination dated 07/11/2027, new finding of right lung base opacity, may be on the basis of pulmonary contusion in view of the given history. Correlation suggested. 2. No evidence of pneumothorax. Head CT 08/11/19 18:35 IMPRESSION: Involutional changes with chronic microvascular ischemia. No acute intracranial imaging findings. EVIDENCE OF ACUTE STROKE: NO. Chest CT 08/11/19 20:09 IMPRESSION: Artifact the patient's arms. Right pleural effusion, smaller than prior. Adjacent airspace disease. The left pleural effusion is resolved. Chronic changes, no adverse change. No acute bony injury is appreciated.. Plan Health Concerns: Immobility from pelvic fracture Plan of Treatment: Short-term rehab at [facility] to maximize recovery from pelvic fracture Monitor atrial fibrillation Goals: To maximize recovery from the pelvic fracture and return home Time Spent: Greater than 30 Minutes Stroke Is this a Stroke Patient?: No Acute Heart Failure - Is this a Heart Failure Patient?: No
[2019-08-16] MEDS: TRAZODONE HCL 50 MG TABLET PO SCH (21:04)
[2019-08-16] MEDS: KETOROLAC TROMETHAMINE INJ/PF 30 MG/1 ML SDV IV PRN (21:04)
[2019-08-16] MEDS: MELATONIN 5 MG TABLET PO SCH (21:04)
--- NOTE | 2019-08-17 06:49 | Progress Note ---
Provider Note Provider Note: The patient was supposed to transfer to [facility] yesterday. There was a delay on the patient should be transferring later today.
[2019-08-17] MEDS: BUSPIRONE HCL 10 MG TABLET PO SCH ×2 (08:48→18:25)
[2019-08-17] MEDS: FUROSEMIDE 40 MG TABLET PO SCH (08:48)
[2019-08-17] MEDS: HYDROCODONE/ACETAMINOPHEN 10-325 MG TABLET PO PRN ×2 (08:52→18:27)
[2019-08-17] MEDS: ALPRAZOLAM 0.25 MG TABLET PO PRN ×2 (08:52→13:25)
[2019-08-17] MEDS: POTASSIUM CHLORIDE 10 MEQ TABLET.ER PO SCH ×2 (09:36→21:32)
[2019-08-17] MEDS: DIVALPROEX SODIUM 250 MG TAB.SR.24H PO SCH ×2 (09:37→21:32)
[2019-08-17] MEDS: DILTIAZEM HCL 120 MG CAP.SR.24H PO SCH (09:37)
[2019-08-17] MEDS: ATENOLOL 50 MG TABLET PO SCH ×2 (09:37→21:33)
[2019-08-17] MEDS: MIDODRINE HCL 5 MG TABLET PO SCH ×3 (09:37→18:23)
[2019-08-17] MEDS: APIXABAN 5 MG TABLET PO SCH ×2 (09:38→18:23)
[2019-08-17] MEDS: VENLAFAXINE HCL 37.5 MG CAP.SR.24H PO SCH (09:39)
[2019-08-17] MEDS: FLUTICASONE/UMECLIDIN/VILANTER 100-62.5-25 MCG/DOSE IH SCH (09:39)
[2019-08-17] MEDS: ACETAMINOPHEN 325 MG TABLET PO PRN (13:27)
--- NOTE | 2019-08-17 13:35 | PDOC PROGRESS REPORT ---
Subjective Progress Note for:: 08/17/19 Subjective:: Patient is transferring to [facility]. Please see the discharge summary dictated yesterday. No new clinical issues as of today. Reason For Visit: AFIB FALL PELVIC FX INTRACTABLE PAIN Physical Exam Vital Signs: Temp Pulse Resp BP Pulse Ox 98.7 F 107 H 18 115/55 L 100 08/17/19 11:22 08/17/19 11:22 08/17/19 11:22 08/17/19 11:22 08/17/19 11:22 Intake & Output 08/16/19 08/17/19 08/18/19 06:59 06:59 06:59 Intake Total 780 896 180 Output Total 1450 400 Balance -670 496 180 Weight 81.6 kg 81.6 kg General appearance: PRESENT: no acute distress, cooperative, well-developed Head exam: PRESENT: atraumatic, normocephalic Respiratory exam: PRESENT: clear to auscultation jojo, symmetrical, unlabored. ABSENT: rales, rhonchi, tachypnea, wheezes Cardiovascular exam: PRESENT: RRR, +S1, +S2. ABSENT: irregular rhythm GI/Abdominal exam: PRESENT: normal bowel sounds, soft. ABSENT: distended, guarding, tenderness Neurological exam: PRESENT: alert, awake, oriented to person, oriented to place, oriented to situation, CN II-XII grossly intact Psychiatric exam: PRESENT: anxious, appropriate affect. ABSENT: agitated Focused psych exam: ABSENT: delusional, paranoid, restlessness Results Laboratory Results: 08/12/19 07:17 08/14/19 04:55 08/11/19 08/11/19 08/12/19 16:04 19:06 01:31 Troponin I < 0.012 < 0.012 < 0.012 NT-Pro-B Natriuret Pep 3420 H 08/12/19 08/12/19 07:17 12:34 Troponin I < 0.012 < 0.012 NT-Pro-B Natriuret Pep Impressions: Hip X-Ray 08/11/19 15:49 IMPRESSION: Fracture of the left superior pubic ramus. The left SAMUEL hardware is in anatomic alignment. There is no periprosthetic fracture. 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 Cervical Spine CT 08/11/19 18:35 IMPRESSION: Degenerative disc disease with spondylosis. Mild facet arthropathy. No acute finding. Chest X-Ray 08/11/19 18:35 IMPRESSION: 1. Since the prior examination dated 07/11/2027, new finding of right lung base opacity, may be on the basis of pulmonary contusion in view of the given history. Correlation suggested. 2. No evidence of pneumothorax. Head CT 08/11/19 18:35 IMPRESSION: Involutional changes with chronic microvascular ischemia. No acute intracranial imaging findings. EVIDENCE OF ACUTE STROKE: NO. Chest CT 08/11/19 20:09 IMPRESSION: Artifact the patient's arms. Right pleural effusion, smaller than prior. Adjacent airspace disease. The left pleural effusion is resolved. Chronic changes, no adverse change. No acute bony injury is appreciated.. Assessment and Plan - Diagnosis (1) Chronic atrial fibrillation with rapid ventricular response Is this a current diagnosis for this admission?: Yes Plan: Initially in RVR on presentation. Currently improved and heart rate is more controlled at this time. Cardizem 120 mg CD and continue atenolol and Eliquis. 08/15/2019 Continue current regimen. Continue anticoagulation. 08/16/2019 Continue current regimen including anticoagulation (2) Pubic ramus fracture Qualifiers: Encounter type: initial encounter Fracture type: closed Laterality: left Qualified Code(s): S32.592A - Other specified fracture of left pubis, initial encounter for closed fracture Is this a current diagnosis for this admission?: Yes Plan: Evaluated by Dr. Soares recommend symptomatic nonoperative management. Pain control. PT OT. Discharge planning working on placement at SNF. COVID screen result pending. 08/15/2019 Nonoperable. Continue PT, OT and pain management. I spoke to the patient's daughter. Their first choice is [facility] which is closest to their home. They refused to go to [place] due to a bad experience with the patient's in the past. 08/16/2019 Transferring to [facility]. Continue physical therapy (3) Recurrent falls Is this a current diagnosis for this admission?: Yes Plan: Rehab at [facility] 08/15/2019 assisted facility for short-term rehab 08/16/2019 Continue rehab at [facility] (4) Chronic pain Qualifiers: Chronic pain type: other chronic pain Qualified Code(s): G89.29 - Other chronic pain Is this a current diagnosis for this admission?: Yes Plan: Cautious with pain control meds given multiple falls. 08/15/2019 Continue current regimen (5) Anxiety Is this a current diagnosis for this admission?: Yes Plan: Xanax prn dose reduced in light of multiple falls. Continue Venlafaxine and buspirone. 08/15/2019 Multiple medications. The patient angers easily. This is likely due to frustration with her current situation. Hopefully as she feels better this will improve. (6) Recurrent right pleural effusion Is this a current diagnosis for this admission?: Yes Plan: Stable when compared to prior imaging. Notably, patient had thoracentesis few months ago which revealed transudative fluid. Patient is not short of breath. No need for repeat thoracentesis. We will continue with Lasix daily. Continue home regimen on Midodrine as she has chronically soft blood pressures. 08/15/2019 As above. Patient was angry and used profanity because she feels that when she has the thoracentesis all of the fluid should be drawn. I used a diagram on her white board to show her that fluid in the recesses of the pulmonary cavity are not easily accessible and anytime anyone has a thoracentesis it is impossible. To get all of the fluid. For now we will continue her current regimen. The exact etiology of the pleural effusion is not known at this time. It is a transudate based on previous studies. 08/16/2019 Recent thoracentesis. Follow-up with primary care provider after discharge from [facility] - Plan Summary Summary: 08/15/2019 I spoke to the patient's daughter. We reviewed the need for SNF as the patient is limited by pain but she is working with physical therapy. She will benefit from more aggressive therapy. - Time Time Spent with patient: Less than 15 minutes Medications reviewed and adjusted accordingly: Yes Anticipated discharge: SNF Within: within 24 hours
[2019-08-17] MEDS: MELATONIN 5 MG TABLET PO SCH (21:32)
[2019-08-17] MEDS: TRAZODONE HCL 50 MG TABLET PO SCH (21:32)
[2019-08-18] MEDS: ALPRAZOLAM 0.25 MG TABLET PO PRN ×2 (05:03→22:29)
[2019-08-18] MEDS: HYDROCODONE/ACETAMINOPHEN 10-325 MG TABLET PO PRN ×2 (05:03→13:43)
[2019-08-18] MEDS: FUROSEMIDE 40 MG TABLET PO SCH (08:20)
[2019-08-18] MEDS: BUSPIRONE HCL 10 MG TABLET PO SCH ×2 (08:21→18:05)
--- NOTE | 2019-08-18 10:07 | PDOC PROGRESS REPORT ---
Subjective Progress Note for:: 08/18/19 Subjective:: The patient is extremely tearful due to the delays in transition to [facility]. This was a difficult decision and she had difficulty agreeing and now the delay is causing significant anxiety. Reason For Visit: AFIB FALL PELVIC FX INTRACTABLE PAIN Physical Exam Vital Signs: Temp Pulse Resp BP Pulse Ox 98.6 F 104 H 16 113/61 97 08/18/19 07:19 08/18/19 07:19 08/18/19 07:19 08/18/19 07:19 08/18/19 07:19 Intake & Output 08/17/19 08/18/19 08/19/19 06:59 06:59 06:59 Intake Total 896 280 Output Total 400 900 Balance 496 -620 Weight 81.6 kg 68.7 kg General appearance: PRESENT: cooperative, mild distress, other - Extremely tearful Head exam: PRESENT: atraumatic, normocephalic Ear exam: PRESENT: normal external ear exam. ABSENT: bleeding, drainage Mouth exam: PRESENT: moist, tongue midline Respiratory exam: PRESENT: clear to auscultation jojo, symmetrical, unlabored. ABSENT: rales, rhonchi, tachypnea, wheezes Cardiovascular exam: PRESENT: RRR, +S1, +S2 GI/Abdominal exam: PRESENT: normal bowel sounds, soft. ABSENT: distended, guarding, tenderness Rectal exam: PRESENT: deferred Neurological exam: PRESENT: alert, awake, oriented to person, oriented to place, oriented to situation Psychiatric exam: PRESENT: depressed, other - Quite tearful this morning. ABSENT: agitated, anxious Results Laboratory Results: 08/12/19 07:17 08/14/19 04:55 08/11/19 08/11/19 08/12/19 16:04 19:06 01:31 Troponin I < 0.012 < 0.012 < 0.012 NT-Pro-B Natriuret Pep 3420 H 08/12/19 08/12/19 07:17 12:34 Troponin I < 0.012 < 0.012 NT-Pro-B Natriuret Pep Impressions: Hip X-Ray 08/11/19 15:49 IMPRESSION: Fracture of the left superior pubic ramus. The left SAMUEL hardware is in anatomic alignment. There is no periprosthetic fracture. 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 Cervical Spine CT 08/11/19 18:35 IMPRESSION: Degenerative disc disease with spondylosis. Mild facet arthropathy. No acute finding. Chest X-Ray 08/11/19 18:35 IMPRESSION: 1. Since the prior examination dated 07/11/2027, new finding of right lung base opacity, may be on the basis of pulmonary contusion in view of the given history. Correlation suggested. 2. No evidence of pneumothorax. Head CT 08/11/19 18:35 IMPRESSION: Involutional changes with chronic microvascular ischemia. No acute intracranial imaging findings. EVIDENCE OF ACUTE STROKE: NO. Chest CT 08/11/19 20:09 IMPRESSION: Artifact the patient's arms. Right pleural effusion, smaller than prior. Adjacent airspace disease. The left pleural effusion is resolved. Chronic changes, no adverse change. No acute bony injury is appreciated.. Assessment and Plan - Diagnosis (1) Chronic atrial fibrillation with rapid ventricular response Is this a current diagnosis for this admission?: Yes Plan: Initially in RVR on presentation. Currently improved and heart rate is more controlled at this time. Cardizem 120 mg CD and continue atenolol and Eliquis. 08/15/2019 Continue current regimen. Continue anticoagulation. 08/16/2019 Continue current regimen including anticoagulation 08/18/2019 Stable for transfer to [facility]. Continue current regimen. (2) Pubic ramus fracture Qualifiers: Encounter type: initial encounter Fracture type: closed Laterality: left Qualified Code(s): S32.592A - Other specified fracture of left pubis, initial encounter for closed fracture Is this a current diagnosis for this admission?: Yes Plan: Evaluated by Dr. Soares recommend symptomatic nonoperative management. Pain con trol. PT OT. Discharge planning working on placement at [facility]. COVID screen result pending. 08/15/2019 Nonoperable. Continue PT, OT and pain management. I spoke to the patient's daughter. Their first choice is [facility] which is closest to their home. They refused to go to [place] due to a bad experience with the patient's in the past. 08/16/2019 Transferring to [facility]. Continue physical therapy 08/18/2019 Transfer to [facility] for ongoing physical therapy to maximize recovery (3) Recurrent falls Is this a current diagnosis for this admission?: Yes Plan: Rehab at [facility] 08/16/2019 Continue rehab at [facility] 08/18/2019 Continue physical therapy (4) Chronic pain Qualifiers: Chronic pain type: other chronic pain Qualified Code(s): G89.29 - Other chronic pain Is this a current diagnosis for this admission?: Yes Plan: Cautious with pain control meds given multiple falls. 08/15/2019 Continue current regimen 08/18/2019 Reasonable control at current regimen (5) Anxiety Is this a current diagnosis for this admission?: Yes Plan: Xanax prn dose reduced in light of multiple falls. Continue Venlafaxine and buspirone. 08/15/2019 Multiple medications. The patient angers easily. This is likely due to frustration with her current situation. Hopefully as she feels better this will improve. 08/18/2019 Has been calm however is quite tearful and anxious today due to the delays in transfer. Hopefully transfer can be accomplished today. (6) Recurrent right pleural effusion Is this a current diagnosis for this admission?: Yes Plan: Stable when compared to prior imaging. Notably, patient had thoracentesis few months ago which revealed transudative fluid. Patient is not short of breath. No need for repeat thoracentesis. We will continue with Lasix daily. Continue home regimen on Midodrine as she has chronically soft blood pressures. 08/15/2019 As above. Patient was angry and used profanity because she feels that when she has the thoracentesis all of the fluid should be drawn. I used a diagram on her white board to show her that fluid in the recesses of the pulmonary cavity are not easily accessible and anytime anyone has a thoracentesis it is impossible. To get all of the fluid. For now we will continue her current regimen. The exact etiology of the pleural effusion is not known at this time. It is a transudate based on previous studies. 08/16/2019 Recent thoracentesis. Follow-up with primary care provider after discharge from [facility] 08/18/2019 Stable. Follow-up with primary care provider after discharge from rehab - Plan Summary Summary: 08/15/2019 I spoke to the patient's daughter. We reviewed the need for SNF as the patient is limited by pain but she is working with physical therapy. She will benefit from more aggressive therapy. 08/18/2019 Transfer was delayed yesterday I believe due to paperwork. I spoke with discharge planning and she is quite confident that the patient will be able to transfer today. There have been no changes since the transfer summary was dictated 2 days ago. The discharge date has been changed to today. - Time Time Spent with patient: Less than 15 minutes Medications reviewed and adjusted accordingly: Yes Anticipated discharge: SNF Within: within 24 hours
[2019-08-18] MEDS: APIXABAN 5 MG TABLET PO SCH ×2 (10:15→18:04)
[2019-08-18] MEDS: DILTIAZEM HCL 120 MG CAP.SR.24H PO SCH (10:15)
[2019-08-18] MEDS: DIVALPROEX SODIUM 250 MG TAB.SR.24H PO SCH ×2 (10:15→22:29)
[2019-08-18] MEDS: ATENOLOL 50 MG TABLET PO SCH ×2 (10:15→22:29)
[2019-08-18] MEDS: POTASSIUM CHLORIDE 10 MEQ TABLET.ER PO SCH ×2 (10:16→22:29)
[2019-08-18] MEDS: MIDODRINE HCL 5 MG TABLET PO SCH ×3 (10:16→18:04)
[2019-08-18] MEDS: VENLAFAXINE HCL 37.5 MG CAP.SR.24H PO SCH (10:16)
[2019-08-18] MEDS: FLUTICASONE/UMECLIDIN/VILANTER 100-62.5-25 MCG/DOSE IH SCH (10:18)
[2019-08-18] MEDS ORDERED: ALPRAZOLAM 0.5 MG TABLET PO ONE (10:30)
[2019-08-18] MEDS: ACETAMINOPHEN 325 MG TABLET PO PRN (13:44)
[2019-08-18] MEDS: MELATONIN 5 MG TABLET PO SCH (22:29)
[2019-08-18] MEDS: ZOLPIDEM TARTRATE 5 MG TABLET PO PRN (22:30)
[2019-08-18] MEDS: TRAZODONE HCL 50 MG TABLET PO SCH (22:30)
[2019-08-19] MEDS: HYDROCODONE/ACETAMINOPHEN 10-325 MG TABLET PO PRN ×2 (07:25→15:31)
[2019-08-19] MEDS: FUROSEMIDE 40 MG TABLET PO SCH (07:49)
[2019-08-19] MEDS: BUSPIRONE HCL 10 MG TABLET PO SCH ×2 (07:50→18:58)
[2019-08-19] MEDS: ALPRAZOLAM 0.25 MG TABLET PO PRN (08:35)
[2019-08-19] MEDS: MIDODRINE HCL 5 MG TABLET PO SCH ×3 (10:19→18:59)
[2019-08-19] MEDS: APIXABAN 5 MG TABLET PO SCH ×2 (10:21→18:58)
[2019-08-19] MEDS: DIVALPROEX SODIUM 250 MG TAB.SR.24H PO SCH ×2 (10:23→21:08)
[2019-08-19] MEDS: ATENOLOL 50 MG TABLET PO SCH ×2 (10:23→21:06)
[2019-08-19] MEDS: POTASSIUM CHLORIDE 10 MEQ TABLET.ER PO SCH ×2 (10:24→21:07)
[2019-08-19] MEDS: DILTIAZEM HCL 120 MG CAP.SR.24H PO SCH (10:24)
[2019-08-19] MEDS: FLUTICASONE/UMECLIDIN/VILANTER 100-62.5-25 MCG/DOSE IH SCH (10:27)
[2019-08-19] MEDS: VENLAFAXINE HCL 37.5 MG CAP.SR.24H PO SCH (10:27)
--- NOTE | 2019-08-19 12:03 | PDOC PROGRESS REPORT ---
Subjective Progress Note for:: 08/19/19 Subjective:: The patient is very frustrated and depressed about the delay in transfer to [facility]. She did report that the slightly higher dose of the anxiolytic medication last night was helpful. Reason For Visit: AFIB FALL PELVIC FX INTRACTABLE PAIN Physical Exam Vital Signs: Temp Pulse Resp BP Pulse Ox 97.9 F 78 16 114/51 L 95 08/19/19 07:21 08/19/19 07:21 08/19/19 07:21 08/19/19 07:21 08/19/19 07:21 Intake & Output 08/18/19 08/19/19 08/20/19 06:59 06:59 06:59 Intake Total 280 260 Output Total 900 300 Balance -620 -40 Weight 68.7 kg 63.3 kg General appearance: PRESENT: cooperative, mild distress, well-developed, well- nourished Head exam: PRESENT: atraumatic, normocephalic Eye exam: PRESENT: conjunctiva pink, EOMI. ABSENT: scleral icterus Ear exam: PRESENT: normal external ear exam. ABSENT: bleeding, drainage Mouth exam: PRESENT: moist, tongue midline Teeth exam: PRESENT: other - Denture Neck exam: ABSENT: carotid bruit, JVD, lymphadenopathy Respiratory exam: PRESENT: clear to auscultation jojo, symmetrical, unlabored. ABSENT: accessory muscle use, prolonged expiratory phas, rales, rhonchi, tachypnea, wheezes Cardiovascular exam: PRESENT: RRR, +S1, +S2. ABSENT: diastolic murmur, irregular rhythm, systolic murmur GI/Abdominal exam: PRESENT: normal bowel sounds, soft. ABSENT: distended, guarding, tenderness Rectal exam: PRESENT: deferred Extremities exam: ABSENT: pedal edema Musculoskeletal exam: PRESENT: normal inspection Neurological exam: PRESENT: alert, awake, oriented to person, oriented to place, oriented to situation, CN II-XII grossly intact. ABSENT: altered Psychiatric exam: PRESENT: flat affect - Very flat despondent affect. ABSENT: agitated, anxious Focused psych exam: ABSENT: delusional, paranoid, restlessness Skin exam: PRESENT: dry, normal color, warm. ABSENT: rash Results Laboratory Results: 08/12/19 07:17 08/14/19 04:55 08/11/19 08/11/19 08/12/19 16:04 19:06 01:31 Troponin I < 0.012 < 0.012 < 0.012 NT-Pro-B Natriuret Pep 3420 H 08/12/19 08/12/19 07:17 12:34 Troponin I < 0.012 < 0.012 NT-Pro-B Natriuret Pep Impressions: Hip X-Ray 08/11/19 15:49 IMPRESSION: Fracture of the left superior pubic ramus. The left SAMUEL hardware is in anatomic alignment. There is no periprosthetic fracture. 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 Cervical Spine CT 08/11/19 18:35 IMPRESSION: Degenerative disc disease with spondylosis. Mild facet arthropathy. No acute finding. Chest X-Ray 08/11/19 18:35 IMPRESSION: 1. Since the prior examination dated 07/11/2027, new finding of right lung base opacity, may be on the basis of pulmonary contusion in view of the given history. Correlation suggested. 2. No evidence of pneumothorax. Head CT 08/11/19 18:35 IMPRESSION: Involutional changes with chronic microvascular ischemia. No acute intracranial imaging findings. EVIDENCE OF ACUTE STROKE: NO. Chest CT 08/11/19 20:09 IMPRESSION: Artifact the patient's arms. Right pleural effusion, smaller than prior. Adjacent airspace disease. The left pleural effusion is resolved. Chronic changes, no adverse change. No acute bony injury is appreciated.. Assessment and Plan - Diagnosis (1) Chronic atrial fibrillation with rapid ventricular response Is this a current diagnosis for this admission?: Yes Plan: Initially in RVR on presentation. Currently improved and heart rate is more controlled at this time. Cardizem 120 mg CD and continue atenolol and Eliquis. 08/15/2019 Continue current regimen. Continue anticoagulation. 08/16/2019 Continue current regimen including anticoagulation 08/18/2019 Stable for transfer to [facility]. Continue current regimen. 08/19/2019 Good rate control. Continue current medication. (2) Pubic ramus fracture Qualifiers: Encounter type: initial encounter Fracture type: closed Laterality: left Qualified Code(s): S32.592A - Other specified fracture of left pubis, initial encounter for closed fracture Is this a current diagnosis for this admission?: Yes Plan: Evaluated by Dr. Soares recommend symptomatic nonoperative management. Pain control. PT OT. Discharge planning working on placement at [facility]. COVID screen result pending. 08/15/2019 Nonoperable. Continue PT, OT and pain management. I spoke to the patient's daughter. Their first choice is [facility] which is closest to their home. They refused to go to [facility] due to a bad experience with the patient's in the past. 08/16/2019 Transferring to [facility]. Continue physical therapy 08/18/2019 Transfer to [facility] and rehab for ongoing physical therapy to maximize recovery 08/19/2019 Non-surgical management. Transferring to [facility] for ongoing physical therapy and to maximize recovery (3) Recurrent falls Is this a current diagnosis for this admission?: Yes Plan: Rehab at [facility] 08/15/2019 [facility] for short-term rehab 08/16/2019 Continue rehab at [facility] 08/18/2019 Continue physical therapy 08/19/2019 Should improve with aggressive physical therapy (4) Chronic pain Qualifiers: Chronic pain type: other chronic pain Qualified Code(s): G89.29 - Other chronic pain Is this a current diagnosis for this admission?: Yes Plan: Cautious with pain control meds given multiple falls. 08/15/2019 Continue current regimen 08/18/2019 Reasonable control at current regimen 08/19/2019 Continue current regimen. Pain medications could have been contributing to the falls. (5) Anxiety Is this a current diagnosis for this admission?: Yes Plan: Xanax prn dose reduced in light of multiple falls. Continue Venlafaxine and buspirone. 08/15/2019 Multiple medications. The patient angers easily. This is likely due to frustration with her current situation. Hopefully as she feels better this will improve. 08/18/2019 Has been calm however is quite tearful and anxious today due to the delays in transfer. Hopefully transfer can be accomplished today. 08/19/2019 Patient very despondent currently. She also gets quite anxious. The 0.5 mg Xanax dose yesterday was helpful. I will increase her as needed dose to 0.5 mg. I will also increase her venlafaxine 37.5 mg twice a day. (6) Recurrent right pleural effusion Is this a current diagnosis for this admission?: Yes Plan: Stable when compared to prior imaging. Notably, patient had thoracentesis few months ago which revealed transudative fluid. Patient is not short of breath. No need for repeat thoracentesis. We will continue with Lasix daily. Continue home regimen on Midodrine as she has chronically soft blood pressures. 08/15/2019 As above. Patient was angry and used profanity because she feels that when she has the thoracentesis all of the fluid should be drawn. I used a diagram on her white board to show her that fluid in the recesses of the pulmonary cavity are not easily accessible and anytime anyone has a thoracentesis it is impossible. To get all of the fluid. For now we will continue her current regimen. The exact etiology of the pleural effusion is not known at this time. It is a transudate based on previous studies. 08/16/2019 Recent thoracentesis. Follow-up with primary care provider after discharge from [facility] 08/18/2019 Stable. Follow-up with primary care provider after discharge from rehab - Plan Summary Summary: 08/15/2019 I spoke to the patient's daughter. We reviewed the need for SNF as the patient is limited by pain but she is working with physical therapy. She will benefit from more aggressive therapy. 08/18/2019 Transfer was delayed yesterday I believe due to paperwork. I spoke with discharge planning and she is quite confident that the patient will be able to transfer today. There have been no changes since the transfer summary was dictated 2 days ago. The discharge date has been changed to today. - Time Time Spent with patient: 15-24 minutes Medications reviewed and adjusted accordingly: Yes Anticipated discharge: SNF Within: within 48 hours
[2019-08-19] MEDS: ALPRAZOLAM 0.5 MG TABLET PO PRN ×2 (15:34→21:05)
[2019-08-19] MEDS: ZOLPIDEM TARTRATE 5 MG TABLET PO PRN (21:04)
[2019-08-19] MEDS: MELATONIN 5 MG TABLET PO SCH (21:07)
[2019-08-19] MEDS: TRAZODONE HCL 50 MG TABLET PO SCH (21:07)
[2019-08-19] MEDS ORDERED: VENLAFAXINE HCL 37.5 MG CAP.SR.24H PO SCH (22:00)
[2019-08-20] MEDS: HYDROCODONE/ACETAMINOPHEN 10-325 MG TABLET PO PRN ×3 (00:37→17:09)
[2019-08-20] MEDS: FUROSEMIDE 40 MG TABLET PO SCH (08:27)
[2019-08-20] MEDS: BUSPIRONE HCL 10 MG TABLET PO SCH ×2 (08:28→17:09)
--- NOTE | 2019-08-20 08:30 | PDOC PROGRESS REPORT ---
Subjective Progress Note for:: 08/20/19 Subjective:: Patient did not sleep well. They woke her up several times regarding her telemetry leads. She reported that she thought someone with pelvic fracture should rest in bed. Reason For Visit: AFIB FALL PELVIC FX INTRACTABLE PAIN Physical Exam Vital Signs: Temp Pulse Resp BP Pulse Ox 98.9 F 83 17 110/53 L 98 08/20/19 08:00 08/20/19 08:00 08/20/19 08:00 08/20/19 08:00 08/20/19 08:00 Intake & Output 08/19/19 08/20/19 08/21/19 06:59 06:59 06:59 Intake Total 260 1310 Output Total 300 1500 Balance -40 -190 Weight 63.3 kg 65.5 kg General appearance: PRESENT: cooperative, mild distress, well-developed Head exam: PRESENT: atraumatic, normocephalic Respiratory exam: PRESENT: clear to auscultation jojo, symmetrical, unlabored. ABSENT: rales, rhonchi, tachypnea, wheezes Cardiovascular exam: PRESENT: RRR, +S1, +S2 GI/Abdominal exam: PRESENT: normal bowel sounds, soft. ABSENT: distended, guarding, tenderness Neurological exam: PRESENT: alert, awake, oriented to person, oriented to place, oriented to situation Psychiatric exam: PRESENT: anxious, depressed Results Laboratory Results: 08/12/19 07:17 08/14/19 04:55 08/11/19 08/11/19 08/12/19 16:04 19:06 01:31 Troponin I < 0.012 < 0.012 < 0.012 NT-Pro-B Natriuret Pep 3420 H 08/12/19 08/12/19 07:17 12:34 Troponin I < 0.012 < 0.012 NT-Pro-B Natriuret Pep Impressions: Hip X-Ray 08/11/19 15:49 IMPRESSION: Fracture of the left superior pubic ramus. The left SAMUEL hardware is in anatomic alignment. There is no periprosthetic fracture. 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 Cervical Spine CT 08/11/19 18:35 IMPRESSION: Degenerative disc disease with spondylosis. Mild facet arthropathy. No acute finding. Chest X-Ray 08/11/19 18:35 IMPRESSION: 1. Since the prior examination dated 07/11/2027, new finding of right lung base opacity, may be on the basis of pulmonary contusion in view of the given history. Correlation suggested. 2. No evidence of pneumothorax. Head CT 08/11/19 18:35 IMPRESSION: Involutional changes with chronic microvascular ischemia. No acute intracranial imaging findings. EVIDENCE OF ACUTE STROKE: NO. Chest CT 08/11/19 20:09 IMPRESSION: Artifact the patient's arms. Right pleural effusion, smaller than prior. Adjacent airspace disease. The left pleural effusion is resolved. Chronic changes, no adverse change. No acute bony injury is appreciated.. Assessment and Plan - Diagnosis (1) Chronic atrial fibrillation with rapid ventricular response Is this a current diagnosis for this admission?: Yes Plan: Initially in RVR on presentation. Currently improved and heart rate is more controlled at this time. Cardizem 120 mg CD and continue atenolol and Eliquis. 08/15/2019 Continue current regimen. Continue anticoagulation. 08/16/2019 Continue current regimen including anticoagulation 08/18/2019 Stable for transfer to [facility]. Continue current regimen. 08/19/2019 Good rate control. Continue current medication. 08/20/2019 Pulse rate has been stable therefore I will discontinue telemetry. I will also change vital signs to every shift as this may help her get better sleep. (2) Pubic ramus fracture Qualifiers: Encounter type: initial encounter Fracture type: closed Laterality: left Qualified Code(s): S32.592A - Other specified fracture of left pubis, initial encounter for closed fracture Is this a current diagnosis for this admission?: Yes Plan: Evaluated by Dr. Soares recommend symptomatic nonoperative management. Pain control. PT OT. Discharge planning working on placement at SNF. COVID screen result pending. 08/15/2019 Nonoperable. Continue PT, OT and pain management. I spoke to the patient's daughter. Their first choice is [facility] which is closest to their home. They refused to go to [place] due to a bad experience with the patient's in the past. 08/16/2019 Transferring to [facility]. Continue physical therapy 08/18/2019 Transfer to [facility] and rehab for ongoing physical therapy to maximize recovery 08/19/2019 Non-surgical management. Transferring to [facility] for ongoing physical therapy and to maximize recovery 08/20/2019 Education was performed about best practices. For nonsurgical pubic ramus fracture he should not just lay in bed. We discussed the benefits of increased strength and mobility and decreased pain versus lying in bed with just increased weakness. I reminded the patient that aggressive physical therapy is the reason she is going to [facility]. (3) Recurrent falls Is this a current diagnosis for this admission?: Yes Plan: Rehab at [facility] 08/15/2019 long-term [facility] for short-term rehab 08/16/2019 Continue rehab at [facility] 08/18/2019 Continue physical therapy 08/19/2019 Should improve with aggressive physical therapy 08/20/2019 As above (4) Chronic pain Qualifiers: Chronic pain type: other chronic pain Qualified Code(s): G89.29 - Other chronic pain Is this a current diagnosis for this admission?: Yes Plan: Cautious with pain control meds given multiple falls. 08/15/2019 Continue current regimen 08/18/2019 Reasonable control at current regimen 08/19/2019 Continue current regimen. Pain medications could have been contributing to the falls. 08/20/2019 Reasonable pain control with current regimen. Careful consideration regarding pain medications and balance issues/fall risk. (5) Anxiety Is this a current diagnosis for this admission?: Yes Plan: Xanax prn dose reduced in light of multiple falls. Continue Venlafaxine and buspirone. 08/15/2019 Multiple medications. The patient angers easily. This is likely due to frustration with her current situation. Hopefully as she feels better this will improve. 08/18/2019 Has been calm however is quite tearful and anxious today due to the delays in transfer. Hopefully transfer can be accomplished today. 08/19/2019 Patient very despondent currently. She also gets quite anxious. The 0.5 mg Xanax dose yesterday was helpful. I will increase her as needed dose to 0.5 mg. I will also increase her venlafaxine 37.5 mg twice a day. 08/20/2019 Xanax has been increased as noted above. I am going to change her venlafaxine to the extended release 75 mg twice daily. (6) Recurrent right pleural effusion Is this a current diagnosis for this admission?: Yes Plan: Stable when compared to prior imaging. Notably, patient had thoracentesis few m onths ago which revealed transudative fluid. Patient is not short of breath. No need for repeat thoracentesis. We will continue with Lasix daily. Continue home regimen on Midodrine as she has chron ically soft blood pressures. 08/15/2019 As above. Patient was angry and used profanity because she feels that when she has the thoracentesis all of the fluid should be drawn. I used a diagram on her white board to show her that fluid in the recesses of the pulmonary cavity are not easily accessible and anytime anyone has a thoracentesis it is impossible. To get all of the fluid. For now we will continue her current regimen. The exact etiology of the pleural effusion is not known at this time. It is a transudate based on previous studies. 08/16/2019 Recent thoracentesis. Follow-up with primary care provider after discharge from [facility] 08/18/2019 Stable. Follow-up with primary care provider after discharge from rehab 08/20/2019 Repeat chest x-ray in 2 to 3 months - Plan Summary Summary: 08/15/2019 I spoke to the patient's daughter. We reviewed the need for SNF as the patient is limited by pain but she is working with physical therapy. She will benefit from more aggressive therapy. 08/18/2019 Transfer was delayed yesterday I believe due to paperwork. I spoke with discharge planning and she is quite confident that the patient will be able to transfer today. There have been no changes since the transfer summary was dictated 2 days ago. The discharge date has been changed to today. - Time Time Spent with patient: Less than 15 minutes Medications reviewed and adjusted accordingly: Yes Anticipated discharge: SNF Within: within 24 hours
[2019-08-20 09:21] LABS: ABSOLUTE BASOPHILS # (AUTO) 0.1 10^3/uL (0.0-0.2); ABSOLUTE EOSINOPHILS # (AUTO) 0.3 10^3/uL (0.0-0.6); ABSOLUTE LYMPHOCYTES (AUTO) 1.3 10^3/uL (0.5-4.7); ABSOLUTE MONOCYTES (AUTO) 0.5 10^3/uL (0.1-1.4); ABSOLUTE NEUT (AUTO) 4.3 10^3/uL (1.7-8.2); BASOPHILS % (AUTO) 0.8 % (0-2); EOSINOPHILS % (AUTO) 5.4 % (0-6); HEMATOCRIT 36.4 % (36.0-47.0); HEMOGLOBIN 12.3 g/dL (12.0-15.5); LYMPHOCYTES % (AUTO) 20.3 % (13-45); MEAN CORPUSCULAR HEMOGLOBIN 26.8 pg (27.0-33.4); MEAN CORPUSCULAR HGB CONC 33.8 g/dL (32.0-36.0); MEAN CORPUSCULAR VOLUME 79 fl (80-97); MONOCYTES % (AUTO) 7.3 % (3-13); PLATELET COUNT 252 10^3/uL (150-450); RED CELL DISTRIBUTION WIDTH 15.3 % (11.5-14.0); SEGMENTED NEUTROPHILS % (AUTO) 66.2 % (42-78); TOTAL CELLS COUNTED % (AUTO) 100 %; WHITE BLOOD COUNT 6.5 10^3/uL (4.0-10.5)
[2019-08-20] MEDS: MIDODRINE HCL 5 MG TABLET PO SCH ×3 (09:24→17:09)
[2019-08-20] MEDS: ATENOLOL 50 MG TABLET PO SCH ×2 (09:25→21:25)
[2019-08-20] MEDS: APIXABAN 5 MG TABLET PO SCH ×2 (09:25→17:10)
[2019-08-20] MEDS: POTASSIUM CHLORIDE 10 MEQ TABLET.ER PO SCH ×2 (09:26→21:25)
[2019-08-20] MEDS: VENLAFAXINE HCL 75 MG CAP.SR.24H PO SCH ×2 (09:27→21:25)
[2019-08-20] MEDS: DILTIAZEM HCL 120 MG CAP.SR.24H PO SCH (09:27)
[2019-08-20] MEDS: DIVALPROEX SODIUM 250 MG TAB.SR.24H PO SCH ×2 (09:28→21:25)
[2019-08-20] MEDS: FLUTICASONE/UMECLIDIN/VILANTER 100-62.5-25 MCG/DOSE IH SCH (09:29)
[2019-08-20 09:38] LABS: ANION GAP 8 (5-19); BLOOD UREA NITROGEN 32 mg/dL (7-20); CALCIUM 9.6 mg/dL (8.4-10.2); CARBON DIOXIDE 27 mmol/L (22-30); CHLORIDE 99 mmol/L (98-107); GLUCOSE 126 mg/dL (75-110); POTASSIUM 4.2 mmol/L (3.6-5.0)
[2019-08-20] MEDS: ALPRAZOLAM 0.5 MG TABLET PO PRN (12:22)
[2019-08-20] MEDS: MELATONIN 5 MG TABLET PO SCH (21:25)
[2019-08-20] MEDS: TRAZODONE HCL 50 MG TABLET PO SCH (21:25)
[2019-08-20] MEDS: ZOLPIDEM TARTRATE 5 MG TABLET PO PRN (21:26)
[2019-08-21] MEDS: HYDROCODONE/ACETAMINOPHEN 10-325 MG TABLET PO PRN (04:15)
[2019-08-21] MEDS: FUROSEMIDE 40 MG TABLET PO SCH (07:41)
[2019-08-21] MEDS: BUSPIRONE HCL 10 MG TABLET PO SCH (07:41)
[2019-08-21 08:47] VITALS: BP 100/50
[2019-08-21] MEDS: APIXABAN 5 MG TABLET PO SCH (09:45)
[2019-08-21] MEDS: MIDODRINE HCL 5 MG TABLET PO SCH (09:45)
[2019-08-21] MEDS: ATENOLOL 50 MG TABLET PO SCH (09:46)
[2019-08-21] MEDS: ALPRAZOLAM 0.5 MG TABLET PO PRN (09:46)
[2019-08-21] MEDS: DIVALPROEX SODIUM 250 MG TAB.SR.24H PO SCH (09:47)
[2019-08-21] MEDS: VENLAFAXINE HCL 75 MG CAP.SR.24H PO SCH (09:48)
[2019-08-21] MEDS: DILTIAZEM HCL 120 MG CAP.SR.24H PO SCH (09:48)
[2019-08-21] MEDS: POTASSIUM CHLORIDE 10 MEQ TABLET.ER PO SCH (09:49)
[2019-08-21] MEDS: FLUTICASONE/UMECLIDIN/VILANTER 100-62.5-25 MCG/DOSE IH SCH (09:50)
--- NOTE | 2019-08-21 11:53 | PDOC TRANSFER SUMMARY ---
Impression - Admit/DC Date/PCP Admission Date/Primary Care Provider: 08/11/19 22:35 EULALIA CHASE, Discharge Date: 08/21/19 - Discharge Diagnosis (1) Chronic atrial fibrillation with rapid ventricular response Is this a current diagnosis for this admission?: Yes (2) Pubic ramus fracture Is this a current diagnosis for this admission?: Yes (3) Recurrent falls Is this a current diagnosis for this admission?: Yes (4) Chronic pain Is this a current diagnosis for this admission?: Yes (5) Anxiety Is this a current diagnosis for this admission?: Yes (6) Recurrent right pleural effusion Is this a current diagnosis for this admission?: Yes - Assessment Summary: 08/15/2019 I spoke to the patient's daughter. We reviewed the need for SNF as the patient is limited by pain but she is working with physical therapy. She will benefit from more aggressive therapy. 08/18/2019 Transfer was delayed yesterday I believe due to paperwork. I spoke with discharge planning and she is quite confident that the patient will be able to transfer today. There have been no changes since the transfer summary was dictated 2 days ago. The discharge date has been changed to today. - Additional Information Resuscitation Status: Full Code Discharge Diet: Cardiac Discharge Activity: Activity As Tolerated, Other - Advance per physical therapy Referrals: [facility] [Outside] Home Medications: Divalproex Sodium [Depakote ER 250 mg Tablet] 250 mg PO Q12 #60 tab.sr.24h 03/29/19 Alprazolam [Xanax] 1 mg PO BIDP PRN 06/08/19 Zolpidem Tartrate [Ambien 5 mg Tablet] 5 mg PO QHS 06/08/19 Buspirone HCl [Buspar 10 mg Tablet] 10 mg PO QPM tablet 06/11/19 Fluticasone/Umeclidin/Vilanter [Trelegy 100-62.5-25 Mcg Ellipta 14 Dose/Dpi] 1 inh IH DAILY 14 Days #1 inhaler 06/11/19 Atenolol [Tenormin 50 mg Tablet] 50 mg PO Q12 #60 tablet 07/12/19 Midodrine HCl [Proamatine 5 mg Tablet] 2.5 mg PO TID #90 tablet 07/12/19 Buspirone HCl [Buspar 10 mg Tablet] 5 mg PO QAM 08/12/19 Diclofenac Sodium 4 gm TP 6XD 08/12/19 Furosemide [Lasix 40 mg Tablet] 40 mg PO QAM 08/12/19 Hydrocodone/Acetaminophen [Lamar 10-325 mg Tablet] 1 tab PO TID 08/12/19 Melatonin 5 mg PO QHS 08/12/19 Potassium Chloride 20 meq PO Q8 08/12/19 Trazodone HCl 100 mg PO DAILY 08/12/19 Venlafaxine HCl ER [Effexor Xr 37.5 mg Cap.sr] 37.5 mg PO DAILY 08/12/19 Acetaminophen [Tylenol 325 mg Tablet] 650 mg PO Q4HP PRN tablet 08/16/19 Alprazolam [Xanax 0.25 mg Tablet] 0.25 mg PO BIDP PRN tablet 08/16/19 Apixaban [Eliquis 5 mg Tablet] 5 mg PO BID tablet 08/16/19 Atenolol [Tenormin 50 mg Tablet] 50 mg PO Q12 tablet 08/16/19 Diltiazem HCl [Cardizem Cd 120 mg Capsule] 120 mg PO DAILY cap.sr.24h 08/16/19 Mag Hydrox/Al Hydrox/Simeth [Maalox Plus Susp 30 Udcup] 30 ml PO Q6HP PRN udc 08/16/19 Midodrine HCl [Proamatine 5 mg Tablet] 2.5 mg PO TID tablet 08/16/19 Zolpidem Tartrate [Ambien 5 mg Tablet] 2.5 mg PO HSP PRN tablet 08/16/19 Phenazopyridine HCl [Pyridium 100 mg Tablet] 100 mg PO Q8 tablet 08/21/19 Venlafaxine HCl ER [Effexor Xr 75 mg Cap.sr] 75 mg PO Q12 cap.sr.24h 08/21/19 History of Present Illiness History of Present Illness: FADI LYNN is a 73 year old female with a past medical history of atrial fibrillation on Eliquis, recurrent bilateral pleural effusion, COPD, anxiety depression, benzodiazepine dependence, obesity, deconditioning and recurrent falls. She presents after a fall to the floor despite the use of a quad cane denying head trauma or loss of consciousness. She is however unable to bear weight with pain to the left groin. She denies chest pain nausea vomiting shortness of breath she denies recent change in medication regiment. She resides alone has exceptional difficulty with transfer from bed to chair or bed to toilet and admits to recurrent falls. In the emergency department she is found to be in A. fib with RVR in the 130s and a nondisplaced left-sided pelvic fracture with intolerable, intractable pain Hospital Course Hospital Course: (1) Chronic atrial fibrillation with rapid ventricular response Is this a current diagnosis for this admission?: Yes Plan: Initially in RVR on presentation. Currently improved and heart rate is more controlled at this time. Cardizem 120 mg CD and continue atenolol and Eliquis. 08/15/2019 Continue current regimen. Continue anticoagulation. 08/16/2019 Continue current medication regimen 08/21/2019 Stable on current regimen. No changes (2) Pubic ramus fracture Qualifiers: Encounter type: initial encounter Fracture type: closed Laterality: left Qualified Code(s): S32.592A - Other specified fracture of left pubis, initial encounter for closed fracture Is this a current diagnosis for this admission?: Yes Plan: Evaluated by Dr. Soares recommend symptomatic nonoperative management. Pain control. PT OT. Discharge planning working on placement at SNF. COVID screen result pending. 08/15/2019 Nonoperable. Continue PT, OT and pain management. I spoke to the patient's daughter. Their first choice is [facility] which is closest to their home. They refused to go to [place] due to a bad experience with the patient's in the past. 08/16/2019 Patient is transferring to [facility] for short-term rehab to include aggressive physical therapy to maximize recovery from her pelvic fracture 08/21/2019 Short-term physical therapy at [facility] (3) Recurrent falls Is this a current diagnosis for this admission?: Yes Plan: Rehab at [facility] 08/15/2019 [facility] 08/21/2019 Transferred to [facility] for physical therapy (4) Chronic pain Qualifiers: Chronic pain type: other chronic pain Qualified Code(s): G89.29 - Other chronic pain Is this a current diagnosis for this admission?: Yes Plan: Cautious with pain control meds given multiple falls. 08/15/2019 Continue current regimen 08/21/2019 I explained to the patient that as her bones heal and as she becomes more active her pain will improve. Try to limit pain medications. (5) Anxiety Is this a current diagnosis for this admission?: Yes Plan: Xanax prn dose reduced in light of multiple falls. Continue Venlafaxine and buspirone. 08/15/2019 Multiple medications. The patient angers easily. This is likely due to frustration with her current situation. Hopefully as she feels better this will improve. 08/21/2019 Continue current medication regimen. Most of her anxiety over the last several days has been due to delay in transfer. It has made her frustrated but now that she is going today she feels better. (6) Recurrent right pleural effusion Is this a current diagnosis for this admission?: Yes Plan: Stable when compared to prior imaging. Notably, patient had thoracentesis few months ago which revealed transudative fluid. Patient is not short of breath. No need for repeat thoracentesis. We will continue with Lasix daily. Continue home regimen on Midodrine as she has chronically soft blood pressures. 08/15/2019 As above. Patient was angry and used profanity because she feels that when she has the thoracentesis all of the fluid should be drawn. I used a diagram on her white board to show her that fluid in the recesses of the pulmonary cavity are not easily accessible and anytime anyone has a thoracentesis it is impossible. To get all of the fluid. For now we will continue her current regimen. The exact etiology of the pleural effusion is not known at this time. It is a transudate based on previous studies. 08/21/2019 Follow-up with primary care as an outpatient Please see the progress notes for the interim between the original discharge jann pfeiffer on August 15 and this updated discharge summary for greater detail. No significant changes at this time. Physical Exam Vital Signs: Temp Pulse Resp BP Pulse Ox 97.7 F 82 16 100/50 L 96 08/21/19 07:41 08/21/19 07:41 08/21/19 07:41 08/21/19 07:41 08/21/19 07:41 Intake & Output 08/20/19 08/21/19 08/22/19 06:59 06:59 06:59 Intake Total 1310 480 Output Total 1500 Balance -190 480 Weight 65.5 kg 60.2 kg General appearance: PRESENT: cooperative, mild distress, well-developed Respiratory exam: PRESENT: clear to auscultation jojo, unlabored. ABSENT: rales, rhonchi, tachypnea, wheezes Cardiovascular exam: PRESENT: RRR, +S1, +S2 GI/Abdominal exam: PRESENT: normal bowel sounds, soft. ABSENT: distended, guarding, tenderness Neurological exam: PRESENT: alert, awake, oriented to person, oriented to place, oriented to situation Psychiatric exam: PRESENT: anxious Results Laboratory Results: WBC 6.5 10^3/uL (4.0-10.5) 08/20/19 08:26 RBC 4.60 10^6/uL (3.72-5.28) 08/20/19 08:26 Hgb 12.3 g/dL (12.0-15.5) 08/20/19 08:26 Hct 36.4 % (36.0-47.0) 08/20/19 08:26 MCV 79 fl (80-97) L 08/20/19 08:26 MCH 26.8 pg (27.0-33.4) L 08/20/19 08:26 MCHC 33.8 g/dL (32.0-36.0) 08/20/19 08:26 RDW 15.3 % (11.5-14.0) H 08/20/19 08:26 Plt Count 252 10^3/uL (150-450) 08/20/19 08:26 Lymph % (Auto) 20.3 % (13-45) 08/20/19 08:26 Rogers % (Auto) 7.3 % (3-13) 08/20/19 08:26 Eos % (Auto) 5.4 % (0-6) 08/20/19 08:26 Baso % (Auto) 0.8 % (0-2) 08/20/19 08:26 Absolute Neuts (auto) 4.3 10^3/uL (1.7-8.2) 08/20/19 08:26 Absolute Lymphs (auto) 1.3 10^3/uL (0.5-4.7) 08/20/19 08:26 Absolute Monos (auto) 0.5 10^3/uL (0.1-1.4) 08/20/19 08:26 Absolute Eos (auto) 0.3 10^3/uL (0.0-0.6) 08/20/19 08:26 Absolute Basos (auto) 0.1 10^3/uL (0.0-0.2) 08/20/19 08:26 Seg Neutrophils % 66.2 % (42-78) 08/20/19 08:26 PT 14.0 SEC (11.4-15.4) 08/11/19 19:06 INR 1.08 08/11/19 19:06 APTT 32.4 SEC (23.5-35.8) 08/11/19 19:06 Sodium 134.3 mmol/L (137-145) L 08/20/19 08:26 Potassium 4.2 mmol/L (3.6-5.0) 08/20/19 08:26 Chloride 99 mmol/L (98-107) 08/20/19 08:26 Carbon Dioxide 27 mmol/L (22-30) 08/20/19 08:26 Anion Gap 8 (5-19) 08/20/19 08:26 BUN 32 mg/dL (7-20) H 08/20/19 08:26 Creatinine 1.20 mg/dL (0.52-1.25) 08/20/19 08:26 Est GFR ( Amer) 53 (>60) L 08/20/19 08:26 Est GFR (MDRD) Non-Af 44 (>60) L 08/20/19 08:26 Glucose 126 mg/dL (75-110) H 08/20/19 08:26 Calcium 9.6 mg/dL (8.4-10.2) 08/20/19 08:26 Magnesium 2.3 mg/dL (1.6-2.3) 08/20/19 08:26 Total Bilirubin 0.5 mg/dL (0.2-1.3) 08/11/19 16:09 Direct Bilirubin 0.0 mg/dL (0.0-0.4) 08/11/19 16:09 Neonat Total Bilirubin Not Reportable 08/11/19 16:09 Neonat Direct Bilirubin Not Reportable 08/11/19 16:09 Neonat Indirect Bili Not Reportable 08/11/19 16:09 AST 29 U/L (14-36) 08/11/19 16:09 ALT 17 U/L (<35) 08/11/19 16:09 Alkaline Phosphatase 94 U/L (38-126) 08/11/19 16:09 Troponin I < 0.012 ng/mL 08/12/19 12:34 NT-Pro-B Natriuret Pep 3420 pg/mL (<450) H 08/11/19 19:06 Total Protein 7.1 g/dL (6.3-8.2) 08/11/19 16:09 Albumin 4.0 g/dL (3.5-5.0) 08/11/19 16:09 Urine Color SHARON 08/11/19 17:07 Urine Appearance SLIGHTLY-CLOUDY 08/11/19 17:07 Urine pH 6.0 (5.0-9.0) 08/11/19 17:07 Ur Specific [place] 1.024 08/11/19 17:07 Urine Protein 30 mg/dL (NEGATIVE) H 08/11/19 17:07 Urine Glucose (UA) NEGATIVE mg/dL (NEGATIVE) 08/11/19 17:07 Urine Ketones TRACE mg/dL (NEGATIVE) H 08/11/19 17:07 Urine Blood SMALL (NEGATIVE) H 08/11/19 17:07 Urine Nitrite NEGATIVE (NEGATIVE) 08/11/19 17:07 Urine Bilirubin SMALL (NEGATIVE) H 08/11/19 17:07 Urine Urobilinogen 4.0 mg/dL (<2.0) H 08/11/19 17:07 Ur Leukocyte Esterase NEGATIVE (NEGATIVE) 08/11/19 17:07 Urine WBC (Auto) 5 /HPF 08/11/19 17:07 Urine RBC (Auto) 7 /HPF 08/11/19 17:07 U Hyaline Cast (Auto) 4 /LPF 08/11/19 17:07 Squamous Epi Cells Auto 13 /HPF 08/11/19 17:07 Amorphous Sediment Auto TRACE /HPF 08/11/19 17:07 Urine Mucus (Auto) RARE /LPF 08/11/19 17:07 Urine Ascorbic Acid NEGATIVE (NEGATIVE) 08/11/19 17:07 COVID-19 Source NASOPHARYNGEAL 08/12/19 23:20 COVID-19 (ARIADNA) NOT DETECTED 08/12/19 23:20 08/11/19 08/11/19 08/12/19 16:04 19:06 01:31 Troponin I < 0.012 < 0.012 < 0.012 NT-Pro-B Natriuret Pep 3420 H 08/12/19 08/12/19 07:17 12:34 Troponin I < 0.012 < 0.012 NT-Pro-B Natriuret Pep Impressions: Hip X-Ray 08/11/19 15:49 IMPRESSION: Fracture of the left superior pubic ramus. The left SAMUEL hardware is in anatomic alignment. There is no periprosthetic fracture. 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 Cervical Spine CT 08/11/19 18:35 IMPRESSION: Degenerative disc disease with spondylosis. Mild facet arthrop athy. No acute finding. Chest X-Ray 08/11/19 18:35 IMPRESSION: 1. Since the prior examination dated 07/11/2027, new finding of right lung base opacity, may be on the basis of pulmonary contusion in view of the given history. Correlation suggested. 2. No evidence of pneumothorax. Head CT 08/11/19 18:35 IMPRESSION: Involutional changes with chronic microvascular ischemia. No acute intracranial imaging findings. EVIDENCE OF ACUTE STROKE: NO. Chest CT 08/11/19 20:09 IMPRESSION: Artifact the patient's arms. Right pleural effusion, smaller than prior. Adjacent airspace disease. The left pleural effusion is resolved. Chronic changes, no adverse change. No acute bony injury is appreciated.. Plan Health Concerns: Immobility from pelvic fracture Plan of Treatment: Short-term rehab at [facility] to maximize recovery from pelvic fracture Monitor atrial fibrillation Goals: To maximize recovery from the pelvic fracture and return home Stroke Is this a Stroke Patient?: No Acute Heart Failure - Is this a Heart Failure Patient?: No
[2019-08-21 12:53] LABS: APPEARANCE,URINE CLEAR; BILIRUBIN,URINE NEGATIVE (NEGATIVE); COLOR,URINE STRAW; GLUCOSE, URINE NEGATIVE (NEGATIVE); KETONES,URINE NEGATIVE (NEGATIVE); PROTEIN,URINE NEGATIVE (NEGATIVE); URINE SPECIFIC GRAVITY 1.009; UROBILINOGEN,URINE NEGATIVE mg/dL (<2.0)
[2019-08-21] MEDS ORDERED: PHENAZOPYRIDINE HCL 100 MG TABLET PO SCH (14:00)
== END 2019-08-21 13:10 | DRG 536 ==
LOC: ER 15:14 → EH 22:35 → 4N 08-12 00:51
PROVIDERS: ADMIT Internal Medicine; ATTEND Hospitalist
DX: S32.592A Other specified fracture of left pubis, initial encounter for closed fracture (principal); I48.11 Longstanding persistent atrial fibrillation; F13.20 Sedative, hypnotic or anxiolytic dependence, uncomplicated; J90 Pleural effusion, not elsewhere classified; J44.9 Chronic obstructive pulmonary disease, unspecified; Z96.642 Presence of left artificial hip joint; R26.89 Other abnormalities of gait and mobility; F17.200 Nicotine dependence, unspecified, uncomplicated; Z82.49 Family history of ischemic heart disease and other diseases of the circulatory system; Z83.3 Family history of diabetes mellitus; E86.0 Dehydration; G89.11 Acute pain due to trauma; G89.29 Other chronic pain; Z79.01 Long term (current) use of anticoagulants; F41.8 Other specified anxiety disorders; E66.9 Obesity, unspecified; E78.5 Hyperlipidemia, unspecified; I10 Essential (primary) hypertension; Z60.2 Problems related to living alone; Z79.51 Long term (current) use of inhaled steroids; Z79.899 Other long term (current) drug therapy; W18.39XA Other fall on same level, initial encounter; Y92.89 Other specified places as the place of occurrence of the external cause; Z91.81 History of falling; Z20.828 Contact with and (suspected) exposure to other viral communicable diseases
CPT/HCPCS: 36415; 70450; 71045; 71260; 72125; 80048; 80053; 81001; 83735; 83880; 84484; 85025; 85610; 85730; 87635; 93005; 93010; 96361; 96374; 99284; C9803; J1885; J2270; J3490; J7030; J7040

== ENCOUNTER 2019-12-04 17:55 | Emergency (ER) | payer MEDICARE ==
--- NOTE | 2019-12-04 18:30 | ER Document Report ---
ED Medical Screen (RME) - General Chief Complaint: Leg Swelling Stated Complaint: LEG PAIN,SWELLING Time Seen by Provider: 12/04/19 18:17 Primary Care Provider: EULALIA MONTANA DO [Primary Care Provider] - Follow up as needed TRAVEL OUTSIDE OF THE [place] IN LAST 30 DAYS: No - HPI Notes: 12/04/19 18:28 74-year-old female to the emergency department with complaints of bilateral leg swelling that began 4 days ago and has progressively gotten worse. Her son says that she has had a history of fluid on her lungs and had to have a thoracentesis earlier in the summer. He states that she has been on Lasix had been doing fine until 4 days ago. The patient states she is a little bit short of breath when she walks around. She also reports left shoulder pain. That is been ongoing since she fell and broke her pelvis in August. She denies any chest pain, nausea vomiting, diaphoresis. They deny a history of congestive heart failure. They are not sure when she last had an echo. She sees Dr. Montana. I performed a brief medical screening exam on the patient determined that the patient needs further evaluation and management by main side provider. I have placed initial orders to help expedite care. - Related Data Allergies/Adverse Reactions: No Known Allergies Allergy (Verified 08/11/19 17:27) Past Medical History - Past Medical History Cardiac Medical History: Reports: Hx Atrial Fibrillation, Hx Hypercholesterolemia, Hx Hypertension Denies: Hx Coronary Artery Disease, Hx Heart Attack Pulmonary Medical History: Reports: Hx Asthma, Hx Bronchitis, Hx COPD, Hx Pneumonia, Hx Respiratory Failure Neurological Medical History: Denies: Hx Cerebrovascular Accident, Hx Seizures Endocrine Medical History: Denies: Hx Diabetes Mellitus Type 1, Hx Diabetes Mellitus Type 2, Hx Hyperthyroidism, Hx Hypothyroidism Renal/ Medical History: Denies: Hx Peritoneal Dialysis GI Medical History: Denies: Hx Cirrhosis, Hx Crohn's Disease, Hx Gas troesophageal Reflux Disease, Hx Hepatitis, Hx Hiatal Hernia, Hx Ulcer, Hx Ulcerative Colitis Musculoskeltal Medical History: Denies Hx Arthritis, Denies Hx Fibromyalgia Skin Medical History: Denies Hx Eczema, Denies Hx Psoriasis Psychiatric Medical History: Reports: Hx Anxiety, Hx Depression Infectious Medical History: Denies: Hx Hepatitis Past Surgical History: Reports: Hx Breast Surgery - bilateral lumpectomy, Hx Hysterectomy, Hx Orthopedic Surgery - Left total hip arthroplasty, Dr. Campbell. Denies: Hx Mastectomy, Hx Open Heart Surgery, Hx Pacemaker - Immunizations Immunizations up to date: Yes Hx Diphtheria, Pertussis, Tetanus Vaccination: No Physical Exam - Vital signs Vitals: Temp Pulse Resp BP Pulse Ox 98.8 F 90 16 124/54 L 94 12/04/19 18:10 12/04/19 18:10 12/04/19 18:10 12/04/19 18:10 12/04/19 18:10 Course - Vital Signs Vital signs: Temp Pulse Resp BP Pulse Ox 98.8 F 90 16 124/54 L 94 12/04/19 18:10 12/04/19 18:10 12/04/19 18:10 12/04/19 18:10 12/04/19 18:10 Doctor's Discharge - Discharge Referrals: EULALIA MONTANA DO [Primary Care Provider] - Follow up as needed
--- NOTE | 2019-12-04 19:29 | RADIOLOGY REPORT (SQ) ---
EXAM DESCRIPTION: CHEST SINGLE VIEW IMAGES COMPLETED DATE/TIME: 12/04/2019 6:14 pm REASON FOR STUDY: leg swelling SOB COMPARISON: 08/11/2019 EXAM PARAMETERS: NUMBER OF VIEWS: One view. TECHNIQUE: Single frontal radiographic view of the chest acquired. RADIATION DOSE: NA LIMITATIONS: None. FINDINGS: LUNGS AND PLEURA: Lungs are hyperinflated. Improved aeration at the right lung base. No opacities, masses or pneumothorax. No pleural effusion. MEDIASTINUM AND HILAR STRUCTURES: No masses. Contour normal. HEART AND VASCULAR STRUCTURES: Heart normal in size. Normal vasculature. BONES: No acute findings. HARDWARE: None in the chest. OTHER: No other significant finding. IMPRESSION: NO ACUTE RADIOGRAPHIC FINDING IN THE CHEST. TECHNICAL DOCUMENTATION: JOB ID: [id number] 2010 [employer]- All Rights Reserved Reading location - IP/workstation name: [email or web address]
[2019-12-04 20:34] LABS: ABSOLUTE EOSINOPHILS # (AUTO) 0.2 10^3/uL (0.0-0.6); ABSOLUTE LYMPHOCYTES (AUTO) 1.8 10^3/uL (0.5-4.7); ABSOLUTE MONOCYTES (AUTO) 0.6 10^3/uL (0.1-1.4); ABSOLUTE NEUT (AUTO) 3.8 10^3/uL (1.7-8.2); BASOPHILS % (AUTO) 0.6 % (0-2); EOSINOPHILS % (AUTO) 2.8 % (0-6); HEMATOCRIT 37.1 % (36.0-47.0); HEMOGLOBIN 12.3 g/dL (12.0-15.5); LYMPHOCYTES % (AUTO) 28.3 % (13-45); MEAN CORPUSCULAR HGB CONC 33.2 g/dL (32.0-36.0); MEAN CORPUSCULAR VOLUME 78 fl (80-97); MONOCYTES % (AUTO) 9.7 % (3-13); PLATELET COUNT 220 10^3/uL (150-450); RED BLOOD COUNT 4.74 10^6/uL (3.72-5.28); RED CELL DISTRIBUTION WIDTH 15.1 % (11.5-14.0); SEGMENTED NEUTROPHILS % (AUTO) 58.6 % (42-78); TOTAL CELLS COUNTED % (AUTO) 100 %; WHITE BLOOD COUNT 6.4 10^3/uL (4.0-10.5)
[2019-12-04 20:52] LABS: ALBUMIN 4.1 g/dL (3.5-5.0); ALKALINE PHOSPHATASE 110 U/L (38-126); ANION GAP 7 (5-19); ASPARTATE AMINO TRANSFERASE 28 U/L (14-36); BILIRUBIN,DIRECT 0.3 mg/dL (0.0-0.4); BILIRUBIN,TOTAL 0.7 mg/dL (0.2-1.3); BLOOD UREA NITROGEN 19 mg/dL (7-20); CALCIUM 9.4 mg/dL (8.4-10.2); CARBON DIOXIDE 36 mmol/L (22-30); CHLORIDE 95 mmol/L (98-107); GLUCOSE 107 mg/dL (75-110); POTASSIUM 4.2 mmol/L (3.6-5.0); TOTAL PROTEIN 7.3 g/dL (6.3-8.2)
[2019-12-04 21:04] LABS: NT PRO BNP 3110 pg/mL (<450)
[2019-12-04 21:05] LABS: TROPONIN I < 0.012 ng/mL
--- NOTE | 2019-12-04 21:30 | ER Document Report ---
ED General - General Chief Complaint: Leg Swelling Stated Complaint: LEG PAIN,SWELLING Time Seen by Provider: 12/04/19 18:17 Primary Care Provider: EULALIA CHASE DO [Primary Care Provider] - Follow up as needed TRAVEL OUTSIDE OF THE [place] IN LAST 30 DAYS: No - HPI Notes: 74-year-old female presents with leg swelling. She states that for the past 4 days her ankles have been "swollen like grapefruits". She reports compliance with her medications, including Lasix and Eliquis. She reports overall she is doing fair. She has some slight shortness of breath with ambulation. Denies shortness of breath currently, denies chest pain. Patient also states that she had a fall August 07, she was diagnosed with a "cracked pelvis", she was transferred to [facility] and then to a fpc. She states she is back at home, currently living with her son-in-law. - Related Data Allergies/Adverse Reactions: No Known Allergies Allergy (Verified 08/11/19 17:27) Past Medical History - General Information source: Patient - Social History Smoking Status: Unknown if Ever Smoked Family History: CAD, COPD, DM, Hypertension, Malignancy - Past Medical History Cardiac Medical History: Reports: Hx Atrial Fibrillation, Hx Hypercholesterolemia, Hx Hypertension Denies: Hx Coronary Artery Disease, Hx Heart Attack Pulmonary Medical History: Reports: Hx Asthma, Hx Bronchitis, Hx COPD, Hx Pneumonia, Hx Respiratory Failure Neurological Medical History: Denies: Hx Cerebrovascular Accident, Hx Seizures Endocrine Medical History: Denies: Hx Diabetes Mellitus Type 1, Hx Diabetes Mellitus Type 2, Hx Hyperthyroidism, Hx Hypothyroidism Renal/ Medical History: Denies: Hx Peritoneal Dialysis GI Medical History: Denies: Hx Cirrhosis, Hx Crohn's Disease, Hx Gastroesophageal Reflux Disease, Hx Hepatitis, Hx Hiatal Hernia, Hx Ulcer, Hx Ulcerative Colitis Musculoskeletal Medical History: Denies Hx Arthritis, Denies Hx Fibromyalgia Skin Medical History: Denies Hx Eczema, Denies Hx Psoriasis Psychiatric Medical History: Reports: Hx Anxiety, Hx Depression Infectious Medical History: Denies: Hx Hepatitis Past Surgical History: Reports: Hx Breast Surgery - bilateral lumpectomy, Hx Hysterectomy, Hx Orthopedic Surgery - Left total hip arthroplasty, Dr. Campbell. Denies: Hx Mastectomy, Hx Open Heart Surgery, Hx Pacemaker - Immunizations Immunizations up to date: Yes Hx Diphtheria, Pertussis, Tetanus Vaccination: No Review of Systems - Review of Systems Constitutional: denies: Fever EENT: No symptoms reported Cardiovascular: Edema. denies: Chest pain Respiratory: denies: Short of breath - Denies currently Gastrointestinal: No symptoms reported Genitourinary: No symptoms reported Skin: No symptoms reported Hematologic/Lymphatic: No symptoms reported Neurological/Psychological: No symptoms reported Physical Exam - Vital signs Vitals: Temp Pulse Resp BP Pulse Ox 98.8 F 90 16 124/54 L 94 12/04/19 18:10 12/04/19 18:10 12/04/19 18:10 12/04/19 18:10 12/04/19 18:10 - General General appearance: Appears well, Alert In distress: None - HEENT Head: Normocephalic, Atraumatic Extraocular movements intact: Yes Pupils: PERRL - Respiratory Chest status: Nontender Breath sounds: Normal. No: Rales - Cardiovascular Rhythm: Regular Heart sounds: Normal auscultation Normal capillary refill: Yes - Abdominal Tenderness: Nontender - Extremities General lower extremity: Nontender, Edema - Bilateral lower extremities - Neurological Neuro grossly intact: Yes Orientation: AAOx4 Notes: Motor and sensation intact lower extremities - Psychological Associated symptoms: Normal affect - Skin Skin Temperature: Warm Course - Re-evaluation Re-evalutation: 74-year-old female here with bilateral lower extremity edema x4 days. On exam she has symmetric edema mid calf and distal. No tenderness. Legs are warm and well-perfused. Motor and sensory intact. Reports compliance with Eliquis, therefore low suspicion for a DVT. Fever this is likely a dependent edema given that is nonpitting, however given her Lasix use will give a small IV dose now. She had a laboratory evaluation done through the triage process. Her BNP appears to be at baseline, troponin is negative. No leukocytosis or left shift. No acute anemia. Electrolytes within normal limits. Creatinine within normal limits. Albumin within normal limits. Chest x-ray is overall read as negative. 12/04/19 23:23 Patient has had good urinary output response. Reexamined her legs, there is evidence of decreased edema. Her son-in-law is at bedside. I updated him on results and work-up from today. I discussed need to have some close PCP follow- up. Return precautions given, patient stable at time of discharge. - Vital Signs Vital signs: Temp Pulse Resp BP Pulse Ox 98.8 F 90 16 124/54 L 94 12/04/19 18:10 12/04/19 18:10 12/04/19 18:10 12/04/19 18:10 12/04/19 18:10 - Laboratory Result Diagrams: 12/04/19 20:04 12/04/19 20:04 Laboratory results interpreted by me: 12/04/19 12/04/19 12/04/19 20:04 20:04 20:04 MCV 78 L MCH 26.0 L RDW 15.1 H Chloride 95 L Carbon Dioxide 36 H Est GFR (MDRD) Non-Af 53 L NT-Pro-B Natriuret Pep 3110 H - Diagnostic Test Radiology reviewed: Image reviewed, Reports reviewed Discharge - Discharge Clinical Impression: Leg edema Condition: Stable Disposition: HOME, SELF-CARE Additional Instructions: Please have close follow-up with your primary care doctor, you may wish to discuss potentially increasing Lasix dosing. Be sure to take all your medications as prescribed. Return to the emergency department for any concerni ng worsening symptoms. Referrals: EULALIA CHASE DO [Primary Care Provider] - Follow up as needed
[2019-12-04] MEDS ORDERED: FUROSEMIDE INJ/PF 20 MG/2 ML SDV IV ONE (22:07)
[2019-12-04 23:56] VITALS: BP 115/54
--- NOTE | 2019-12-05 07:21 | EKG REPORT ---
SEVERITY:- ABNORMAL ECG - ATRIAL FIBRILLATION : Confirmed by: Nikita Dodd MD 05-Dec-2019 07:20:51
== END 2019-12-04 23:41 | disposition home or self-care (01) ==
LOC: ER 17:55
DX: R60.9 Edema, unspecified (principal); I48.91 Unspecified atrial fibrillation; E78.00 Pure hypercholesterolemia, unspecified; I10 Essential (primary) hypertension; Z90.710 Acquired absence of both cervix and uterus; Z79.02 Long term (current) use of antithrombotics/antiplatelets
CPT/HCPCS: 93005; 99285; 96374; 36415; 85025; 80053; 84484; 83880; 71045; 93010; J1940

== ENCOUNTER 2019-12-13 18:42 | Inpatient (IN) | payer MEDICARE ==
--- NOTE | 2019-12-13 20:30 | ER Document Report ---
Entered by MIKIE PHILLIPS SCRIBE 12/13/191958 Acting as scribe for:POLY FISH DO ED General - General Chief Complaint: Fall Injury Stated Complaint: FALL/RIGHT HIP PAIN Time Seen by Provider: 12/13/19 18:58 Primary Care Provider: EULALIA CHASE DO [Primary Care Provider] - Follow up as needed Information source: Patient Notes: This 74 year old female patient presents to the emergency department today with arrival via EMS for a fall. Patient states she was walking to answer her door and it was opened from the other side knocking her down. Patient states she landed on her right hip and reports pain. Patient states she does not remember if she hit her head. EMS administered fentanyl en route to the ED. Patient reports history of Afib and is on eliquis. Patient reports a left hip fracture x4 months ago and uses a walker to ambulate. TRAVEL OUTSIDE OF THE [place] IN LAST 30 DAYS: No - Related Data Allergies/Adverse Reactions: No Known Allergies Allergy (Verified 08/11/19 17:27) Home Medications: atenolol, buspirone, diltiazem, divalproex, eliquis, furosemid e, melatonin, midodrine, trazodone, venlafaxine, zolpidem Past Medical History - General Information source: Patient - Social History Smoking Status: Current Every Day Smoker Cigarette use (# per day): Yes Frequency of alcohol use: None Drug Abuse: None Family History: CAD, COPD, DM, Hypertension, Malignancy - Past Medical History Cardiac Medical History: Reports: Hx Atrial Fibrillation, Hx Hypercholesterolemia, Hx Hypertension Pulmonary Medical History: Reports: Hx Asthma, Hx Bronchitis, Hx COPD, Hx Pneumonia, Hx Respiratory Failure Musculoskeletal Medical History: Psychiatric Medical History: Reports: Hx Anxiety, Hx Depression Traumatic Medical History: Reports: Hx Fractures - L hip Past Surgical History: Reports: Hx Breast Surgery - bilateral lumpectomy, Hx Hysterectomy, Hx Orthopedic Surgery - Left total hip arthroplasty, Dr. Campbell - Immunizations Immunizations up to date: Yes Hx Diphtheria, Pertussis, Tetanus Vaccination: No Review of Systems - Review of Systems Constitutional: No symptoms reported EENT: No symptoms reported Cardiovascular: No symptoms reported Respiratory: No symptoms reported Gastrointestinal: No symptoms reported Genitourinary: No symptoms reported Female Genitourinary: No symptoms reported Musculoskeletal: See HPI, Other - R hip pain Skin: No symptoms reported Hematologic/Lymphatic: No symptoms reported Neurological/Psychological: No symptoms reported -: Yes All other systems reviewed and negative Physical Exam - Vital signs Vitals: Temp Pulse Resp BP Pulse Ox 98.1 F 78 16 94/51 L 96 12/13/19 18:56 12/13/19 18:56 12/13/19 18:56 12/13/19 18:56 12/13/19 18:56 - General Notes: Alert. Elderly female who appears frail. - HEENT Head: Normocephalic, Atraumatic Eyes: Normal Pupils: PERRL Notes: No signs of trauma or injury to the head. No tenderness with palpation to the cervical chain. - Respiratory Respiratory status: No respiratory distress Chest status: Nontender Breath sounds: Normal Chest palpation: Normal - Cardiovascular Rhythm: Regular Heart sounds: Normal auscultation Murmur: No - Abdominal Inspection: Obese Distension: No distension Bowel sounds: Normal Tenderness: Nontender - Extremities General upper extremity: Normal inspection Hip: Tender - R>L. No: Deformity Notes: Trace peripheral edema of the bilateral lower extremities. - Neurological Neuro grossly intact: Yes [place] Coma Scale Eye Opening: Spontaneous [place] Coma Scale Verbal: Oriented [place] Coma Scale Motor: Obeys Commands [place] Coma Scale Total: 15 Speech: Normal - Psychological Associated symptoms: Normal affect, Normal mood - Skin Skin Temperature: Warm Skin Moisture: Dry Skin Color: Normal Course - Re-evaluation Re-evalutation: 12/13/19 21:31 MDM 74 year old female sustained a mechanical fall a short time ago. She injured her right hip. Still convalescing from left hip fracture. She was at home. A difficult historian limits her history. 12/13/19 22:30 I have discussed the pt with Dr. Soares - paulo - and Dr. Jason - hospitalist - and she has graciously agreed to see and admit. - Vital Signs Vital signs: Temp Pulse Resp BP Pulse Ox 98.1 F 78 14 106/69 98 12/13/19 18:56 12/13/19 18:56 12/13/19 22:01 12/13/19 22:01 12/13/19 22:01 - Laboratory Result Diagrams: 12/13/19 20:54 10/07/20 20:54 Laboratory results interpreted by me: 12/13/19 12/13/19 12/13/19 20:54 20:54 20:54 MCV 78 L MCH 26.4 L RDW 15.4 H PT 15.9 H Chloride 94 L Carbon Dioxide 36 H Est GFR (MDRD) Non-Af 52 L - Diagnostic Test Radiology reviewed: Image reviewed, Reports reviewed - EKG Interpretation by Me Rate: Tachycardia Rhythm: A.Fib - A fib wiht RVR Repol Ab no st elevaiton or depression 110 BPM my interpretation. Discharge - Discharge Clinical Impression: Atrial fibrillation with RVR Closed right hip fracture Qualifiers: Encounter type: initial encounter Qualified Code(s): S72.001A - Fracture of unspecified part of neck of right femur, initial encounter for closed fracture Fall Qualifiers: Encounter type: initial encounter Qualified Code(s): W19.XXXA - Unspecified fall, initial encounter Condition: Stable Disposition: ADMITTED INPATIENT Unit Admitted: Surgical Floor Referrals: EULALIA CHASE DO [Primary Care Provider] - Follow up as needed I personally performed the services described in the documentation, reviewed and edited the documentation which was dictated to the scribe in my presence, and it accurately records my words and actions.
--- NOTE | 2019-12-13 20:46 | RADIOLOGY REPORT (SQ) ---
CLINICAL INDICATION: hytnt. TECHNIQUE: A single portable AP view was obtained of the chest at 2004 hours. COMPARISON: December 04, 2019. FINDINGS: The cardiomediastinal silhouette is enlarged but stable. The lungs are grossly clear. No evidence of effusion or pneumothorax. Chronic parenchymal lung change. IMPRESSION: No evidence of active intrathoracic disease. Chronic change, no adverse change
--- NOTE | 2019-12-13 20:47 | RADIOLOGY REPORT (SQ) ---
CLINICAL INDICATION: fall. Pain. TECHNIQUE: Single view(s) were obtained of the right hip. AP pelvis COMPARISON: None. FINDINGS: Mildly impacted acute intertrochanteric fracture. Mild angulation. Osteoarthritis. Patchy sclerosis of the pelvis, presumably due to healing fractures. IMPRESSION: Acute intertrochanteric fracture of right femur.
--- NOTE | 2019-12-13 20:49 | RADIOLOGY REPORT (SQ) ---
EXAM DESCRIPTION: Noncontrast CT head CLINICAL HISTORY: 74 years Female fall/ eloquis TECHNIQUE: Noncontrast CT head. All CT scans at this facility use dose modulation, iterative reconstruction, and/or weight based dosing when appropriate to reduce radiation dose to as low as reasonably achievable. COMPARISON: August 11, 2019 FINDINGS: There is mild cerebral volume loss. Patchy periventricular and white matter hypodensities are nonspecific but in a pattern compatible with chronic microvascular ischemic change. No acute hemorrhage or mass effect. Visualized portions of paranasal sinuses and mastoids are clear. Visualized portions of the calvarium are within normal limits. IMPRESSION: 1. No acute intracranial hemorrhage or mass effect. Findings compatible with chronic microvascular ischemic change are present.
[2019-12-13 21:10] LABS: ABSOLUTE EOSINOPHILS # (AUTO) 0.1 10^3/uL (0.0-0.6); ABSOLUTE LYMPHOCYTES (AUTO) 1.2 10^3/uL (0.5-4.7); ABSOLUTE MONOCYTES (AUTO) 0.6 10^3/uL (0.1-1.4); ABSOLUTE NEUT (AUTO) 5.6 10^3/uL (1.7-8.2); BASOPHILS % (AUTO) 0.4 % (0-2); EOSINOPHILS % (AUTO) 1.4 % (0-6); HEMATOCRIT 36.5 % (36.0-47.0); HEMOGLOBIN 12.4 g/dL (12.0-15.5); LYMPHOCYTES % (AUTO) 16.6 % (13-45); MEAN CORPUSCULAR HEMOGLOBIN 26.4 pg (27.0-33.4); MEAN CORPUSCULAR HGB CONC 34.1 g/dL (32.0-36.0); MEAN CORPUSCULAR VOLUME 78 fl (80-97); MONOCYTES % (AUTO) 7.4 % (3-13); PLATELET COUNT 187 10^3/uL (150-450); RED BLOOD COUNT 4.71 10^6/uL (3.72-5.28); RED CELL DISTRIBUTION WIDTH 15.4 % (11.5-14.0); SEGMENTED NEUTROPHILS % (AUTO) 74.2 % (42-78); TOTAL CELLS COUNTED % (AUTO) 100 %; WHITE BLOOD COUNT 7.5 10^3/uL (4.0-10.5)
[2019-12-13 21:19] LABS: INTERNATIONAL RATION (INR) 1.25; PROTHROMBIN TIME 15.9 SEC (11.4-15.4)
[2019-12-13 21:24] LABS: ALKALINE PHOSPHATASE 105 U/L (38-126); ANION GAP 8 (5-19); ASPARTATE AMINO TRANSFERASE 34 U/L (14-36); BILIRUBIN,DIRECT 0.4 mg/dL (0.0-0.4); BILIRUBIN,TOTAL 0.6 mg/dL (0.2-1.3); BLOOD UREA NITROGEN 18 mg/dL (7-20); CARBON DIOXIDE 36 mmol/L (22-30); CHLORIDE 94 mmol/L (98-107); GLUCOSE 107 mg/dL (75-110); POTASSIUM 3.6 mmol/L (3.6-5.0); TOTAL PROTEIN 7.3 g/dL (6.3-8.2)
[2019-12-13] MEDS ORDERED: ONDANSETRON HCL INJ/PF 4 MG/2 ML SDV IV ONE (21:40)
[2019-12-13] MEDS ORDERED: FENTANYL CITRATE INJ/PF 100 MCG/2 ML AMPUL IV ONE (21:40)
[2019-12-14] MEDS ORDERED: ONDANSETRON HCL INJ/PF 4 MG/2 ML SDV IV PRN (00:10)
[2019-12-14] MEDS ORDERED: ACETAMINOPHEN 650 MG SUPP.RECT PR PRN (00:10)
[2019-12-14] MEDS ORDERED: DILTIAZEM HCL 120 MG CAP.SR.24H PO ONE (00:45)
--- NOTE | 2019-12-14 01:04 | PDOC H&P ---
History of Present Illness Admission Date/PCP: 12/14/19 00:17 EULALIA CHASE DO Patient complains of: fall History of Present Illness: FADI LYNN is a 74 year old female, hx of chronic atrial fribrillation, HTN, HLD, pubic fracture who was brought to the ED today after a fall. 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 She denies hitting her head or LOC. EMS was called and she was brought to the ED. In the ED, XR hip showed an intertrochanteric fracture right. CT head negative. EKG showed chronic a.fib HR 112. CBC and CMP were unremarkable. Dr. Soares was consulted who plan to do a surgery today. Last eliquis intake morning Dec 13, 2019. She was here back in August after a fall from which she sustained a pubic fracture. Dr. Soares saw her back then who did not recommend any surgery. She was eventually discharged to SNF. CODE status confirmed with the patient and she wants to be made DNR. Past Medical History Cardiac Medical History: Reports: Atrial Fibrillation, Hyperlipidema, Hypertension Denies: Coronary Artery Disease, Myocardial Infarction Pulmonary Medical History: Reports: Asthma, Bronchitis, Chronic Obstructive Pulmonary Disease (COPD), Pneumonia, Respiratory Failure Neurological Medical History: Denies: Seizures Endocrine Medical History: Denies: Diabetes Mellitus Type 1, Diabetes Mellitus Type 2, Hyperthyroidism, Hypothyroidism GI Medical History: Denies: Cirrhosis, Crohn's Disease, Gastroesophageal Reflux Disease, Hepatitis, Hiatal Hernia, Ulcerative Colitis Musculoskeltal Medical History: Denies: Arthritis, Fibromyalgia Skin Medical History: Denies: Eczema, Psoriasis Psychiatric Medical History: Reports: Depression Hematology: Reports: Anemia - during pregnancyremote history Denies: Sickle Cell Disease, Bleeding Tendencies Past Surgical History Past Surgical History: Reports: Hysterectomy, Orthopedic Surgery - Left total hip arthroplasty, Dr. Campbell Denies: Amputation, Mastectomy, Pacemaker Social History Smoking Status: Current Every Day Smoker Frequency of Alcohol Use: None Hx Recreational Drug Use: No Drugs: None Hx Prescription Drug Abuse: No - Advance Directive Resuscitation Status: Do Not Resuscitate Family History Family History: CAD, COPD, DM, Hypertension, Malignancy Parental Family History Reviewed: Yes Children Family History Reviewed: Yes Sibling(s) Family History Reviewed.: Yes Medication/Allergy Home Medications: Divalproex Sodium [Depakote ER 250 mg Tablet] 250 mg PO Q12 #60 tab.sr.24h 03/29/19 Alprazolam [Xanax] 1 mg PO BIDP PRN 06/08/19 Zolpidem Tartrate [Ambien 5 mg Tablet] 5 mg PO QHS 06/08/19 Buspirone HCl [Buspar 10 mg Tablet] 10 mg PO QPM tablet 06/11/19 Fluticasone/Umeclidin/Vilanter [Trelegy 100-62.5-25 Mcg Ellipta 14 Dose/Dpi] 1 inh IH DAILY 14 Days #1 inhaler 06/11/19 Atenolol [Tenormin 50 mg Tablet] 50 mg PO Q12 #60 tablet 07/12/19 Midodrine HCl [Proamatine 5 mg Tablet] 2.5 mg PO TID #90 tablet 07/12/19 Buspirone HCl [Buspar 10 mg Tablet] 5 mg PO QAM 08/12/19 Diclofenac Sodium 4 gm TP 6XD 08/12/19 Furosemide [Lasix 40 mg Tablet] 40 mg PO QAM 08/12/19 Hydrocodone/Acetaminophen [[place] 10-325 mg Tablet] 1 tab PO TID 08/12/19 Melatonin 5 mg PO QHS 08/12/19 Potassium Chloride 20 meq PO Q8 08/12/19 Trazodone HCl 100 mg PO DAILY 08/12/19 Venlafaxine HCl ER [Effexor Xr 37.5 mg Cap.sr] 37.5 mg PO DAILY 08/12/19 Acetaminophen [Tylenol 325 mg Tablet] 650 mg PO Q4HP PRN tablet 08/16/19 Alprazolam [Xanax 0.25 mg Tablet] 0.25 mg PO BIDP PRN tablet 08/16/19 Apixaban [Eliquis 5 mg Tablet] 5 mg PO BID tablet 08/16/19 Atenolol [Tenormin 50 mg Tablet] 50 mg PO Q12 tablet 08/16/19 Diltiazem HCl [Cardizem Cd 120 mg Capsule] 120 mg PO DAILY cap.sr.24h 08/16/19 Mag Hydrox/Al Hydrox/Simeth [Maalox Plus Susp 30 Udcup] 30 ml PO Q6HP PRN udc 08/16/19 Midodrine HCl [Proamatine 5 mg Tablet] 2.5 mg PO TID tablet 08/16/19 Zolpidem Tartrate [Ambien 5 mg Tablet] 2.5 mg PO HSP PRN tablet 08/16/19 Phenazopyridine HCl [Pyridium 100 mg Tablet] 100 mg PO Q8 tablet 08/21/19 Venlafaxine HCl ER [Effexor Xr 75 mg Cap.sr] 75 mg PO Q12 cap.sr.24h 08/21/19 Allergies/Adverse Reactions: No Known Allergies Allergy (Verified 08/11/19 17:27) Review of Systems Constitutional: ABSENT: fever(s), headache(s) Eyes: ABSENT: visual disturbances Nose, Mouth, and Throat: ABSENT: headache(s), sore throat Cardiovascular: ABSENT: chest pain, dyspnea on exertion, orthropnea, palp itations Gastrointestinal: ABSENT: abdominal pain, heartburn, hematemesis, hematochezia Genitourinary: ABSENT: dysuria Psychiatric: PRESENT: depression Physical Exam Vital Signs: Temp Pulse Resp BP Pulse Ox 98 F 78 17 106/65 98 12/14/19 00:18 12/13/19 18:56 12/14/19 00:12 12/14/19 00:12 12/14/19 00:12 Intake & Output 12/12/19 12/13/19 12/14/19 06:59 06:59 06:59 Weight 77.4 kg General appearance: PRESENT: no acute distress, cooperative, hard of hearing Head exam: PRESENT: atraumatic, normocephalic Eye exam: PRESENT: EOMI Mouth exam: PRESENT: moist Neck exam: PRESENT: full ROM Respiratory exam: PRESENT: clear to auscultation jojo, symmetrical, unlabored. ABSENT: tachypnea, wheezes Cardiovascular exam: PRESENT: irregular rhythm, +S1, +S2, tachycardia. ABSENT: systolic murmur Pulses: PRESENT: +2 pedal pulses bilateral GI/Abdominal exam: PRESENT: normal bowel sounds, soft. ABSENT: rebound, tenderness Extremities exam: PRESENT: other - limited ROM right leg, shortened right leg Musculoskeletal exam: PRESENT: tenderness Neurological exam: PRESENT: alert, awake, oriented to person, oriented to place Psychiatric exam: PRESENT: flat affect Skin exam: PRESENT: normal color Results Laboratory Results: 12/13/19 20:54 12/13/19 20:54 12/13/19 12/13/19 20:54 20:54 WBC 7.5 RBC 4.71 Hgb 12.4 Hct 36.5 MCV 78 L MCH 26.4 L MCHC 34.1 RDW 15.4 H Plt Count 187 Seg Neutrophils % 74.2 Sodium 137.7 Potassium 3.6 Chloride 94 L Carbon Dioxide 36 H Anion Gap 8 BUN 18 Creatinine 1.04 Est GFR ( Amer) > 60 Glucose 107 Calcium 9.0 Magnesium 1.9 Total Bilirubin 0.6 AST 34 Alkaline Phosphatase 105 Total Protein 7.3 Albumin 4.0 12/13/19 20:54 Troponin I < 0.012 Impressions: Hip/Pelvis X-Ray 12/13/19 19:04 IMPRESSION: Acute intertrochanteric fracture of right femur. Chest X-Ray 12/13/19 19:05 IMPRESSION: No evidence of active intrathoracic disease. Chronic change, no adverse change Head CT 12/13/19 19:06 IMPRESSION: 1. No acute intracranial hemorrhage or mass effect. Findings compatible with chronic microvascular ischemic change are present. Assessment and Plan - Diagnosis (1) Intertrochanteric fracture of right femur Qualifiers: Encounter type: initial encounter Fracture type: closed Is this a current diagnosis for this admission?: Yes Plan: - hx of witnessed fall today - XR hip showed right intertrochanteric fracture - Dr. Soares on board. Hold heparin sq per Dr. Soares - plan for ORIF today - NPO - last eliquis dose Dec 13, 2019 morning - (2) Chronic atrial fibrillation, unspecified Is this a current diagnosis for this admission?: Yes Plan: - HR 90s to 112 - on eliquis 5 mg BID last will hold for planned surgery - on cardizem 120 daily and atenolol 50 mg daily resumed (3) Anxiety and depression Is this a current diagnosis for this admission?: Yes Plan: - denies SI - on buspirone, trazodone, venlafaxine and zolpidem (4) Hyperlipidemia Qualifiers: Hyperlipidemia type: unspecified Qualified Code(s): E78.5 - Hyperlipidemia, unspecified Is this a current diagnosis for this admission?: Yes (5) Fall Qualifiers: Encounter type: subsequent encounter Qualified Code(s): W19.XXXD - Unspecified fall, subsequent encounter Is this a current diagnosis for this admission?: Yes Plan: - history of fall back in August as well - sustained pubic fracture managed conservatively - PT/OT on board - Time Time Spent with patient: 35 or more minutes Medications reviewed and adjusted accordingly: Yes Anticipated Discharge Disposition: Home, Self Care Anticipated Discharge Timeframe: within 48 hours - Inpatient Certification Medical Necessity: Need for Surgery
[2019-12-14] MEDS: HYDROMORPHONE HCL INJ/PF 2 MG/ML AMPULE IV PRN ×2 (02:58→21:33)
[2019-12-14 03:21] LABS: INTERNATIONAL RATION (INR) 1.25; PROTHROMBIN TIME 15.9 SEC (11.4-15.4)
[2019-12-14 03:22] LABS: PARTIAL THROMBOPLASTIN TIME 36.4 SEC (23.5-35.8)
--- NOTE | 2019-12-14 08:34 | ADVANCED CARE ---
- Diagnosis (1) Intertrochanteric fracture of right femur Diagnosis Current: Yes (2) Chronic atrial fibrillation, unspecified Diagnosis Current: Yes (3) Anxiety and depression Diagnosis Current: Yes (4) Hyperlipidemia Diagnosis Current: Yes (5) Fall Diagnosis Current: Yes Attendance: patient Resuscitation Status: Do Not Resuscitate Discussion: I discussed with the patient what her CODE status is and she affirmed that she wants to be DNR. When I asked her if she understands what being put on a DNR means she stated that she understood and she prefers to naturally. I talked to her daughter who is apparently her HCPOA as well and the daughter did not agree with the DNR but she did affirm that she knew that her mom wants to be DNR. The patient is decisional with her care. Document(s) Completed: none Time Spent: >16 min < 30 min
--- NOTE | 2019-12-14 08:58 | EKG REPORT ---
SEVERITY:- ABNORMAL ECG - ATRIAL FIBRILLATION, V-RATE 81-134 BORDERLINE PROLONGED QT INTERVAL : Confirmed by: Lindsey Meng MD 14-Dec-2019 08:57:05
[2019-12-14] MEDS ORDERED: FENTANYL CITRATE INJ/PF 100 MCG/2 ML AMPUL ONE (09:11)
[2019-12-14] MEDS ORDERED: MIDAZOLAM 2 MG/2 ML INJ ONE (09:11)
[2019-12-14] MEDS ORDERED: PROPOFOL INJ 200 MG/20 ML VIAL IV ONE ×2 (09:11→10:09)
[2019-12-14] MEDS ORDERED: EPHEDRINE SULFATE INJ 50 MG/1 ML AMPULE ONE (09:12)
--- NOTE | 2019-12-14 09:13 | PDOC CONSULTATION ---
Consultation Consult Date: 12/14/19 Attending physician:: LAURI COLE Provider Consulted: ELLIOT DIAZ Consult reason:: Displaced right intratrochanteric hip fracture History of Present Illness Admission Date/PCP: 12/14/19 00:17 EULALIA CHASE DO Patient complains of: Right hip pain and inability to ambulate History of Present Illness: FADI LYNN is a 74 year old female with history of atrial fibrillation on Eliquis. She sustained a low-energy fall at home last evening onto her right hip resulting in a displaced right intertrochanteric fracture. She has no other complaints. Past Medical History Cardiac Medical History: Reports: Atrial Fibrillation, Hyperlipidema, Hypertension Denies: Coronary Artery Disease, Myocardial Infarction Pulmonary Medical History: Reports: Asthma, Bronchitis, Chronic Obstructive Pulmonary Disease (COPD), Pneumonia, Respiratory Failure Neurological Medical History: Denies: Seizures Endocrine Medical History: Denies: Diabetes Mellitus Type 1, Diabetes Mellitus Type 2, Hyperthyroidism, Hypothyroidism GI Medical History: Denies: Cirrhosis, Crohn's Disease, Gastroesophageal Reflux Disease, Hepatitis, Hiatal Hernia, Ulcerative Colitis Musculoskeltal Medical History: Denies: Arthritis, Fibromyalgia Skin Medical History: Denies: Eczema, Psoriasis Psychiatric Medical History: Reports: Depression Hematology: Reports: Anemia - during pregnancyremote history Denies: Sickle Cell Disease, Bleeding Tendencies Past Surgical History Past Surgical History: Reports: Hysterectomy, Orthopedic Surgery - Left total hip arthroplasty, Dr. Campbell Denies: Amputation, Mastectomy, Pacemaker Social History Smoking Status: Current Every Day Smoker Frequency of Alcohol Use: None Hx Recreational Drug Use: No Drugs: None Hx Prescription Drug Abuse: No - Advance Directive Resuscitation Status: Do Not Resuscitate Family History Family History: CAD, COPD, DM, Hypertension, Malignancy Parental Family History Reviewed: Yes Children Family History Reviewed: Yes Sibling(s) Family History Reviewed.: Yes Medication/Allergy Home Medications: Divalproex Sodium [Depakote ER 250 mg Tablet] 250 mg PO Q12 #60 tab.sr.24h 03/29/19 Alprazolam [Xanax] 1 mg PO BIDP PRN 06/08/19 Zolpidem Tartrate [Ambien 5 mg Tablet] 5 mg PO QHS 06/08/19 Buspirone HCl [Buspar 10 mg Tablet] 10 mg PO QPM tablet 06/11/19 Fluticasone/Umeclidin/Vilanter [Trelegy 100-62.5-25 Mcg Ellipta 14 Dose/Dpi] 1 inh IH DAILY 14 Days #1 inhaler 06/11/19 Atenolol [Tenormin 50 mg Tablet] 50 mg PO Q12 #60 tablet 07/12/19 Midodrine HCl [Proamatine 5 mg Tablet] 2.5 mg PO TID #90 tablet 07/12/19 Buspirone HCl [Buspar 10 mg Tablet] 5 mg PO QAM 08/12/19 Diclofenac Sodium 4 gm TP 6XD 08/12/19 Furosemide [Lasix 40 mg Tablet] 40 mg PO QAM 08/12/19 Hydrocodone/Acetaminophen [[place] 10-325 mg Tablet] 1 tab PO TID 08/12/19 Melatonin 5 mg PO QHS 08/12/19 Potassium Chloride 20 meq PO Q8 08/12/19 Trazodone HCl 100 mg PO DAILY 08/12/19 Venlafaxine HCl ER [Effexor Xr 37.5 mg Cap.sr] 37.5 mg PO DAILY 08/12/19 Acetaminophen [Tylenol 325 mg Tablet] 650 mg PO Q4HP PRN tablet 08/16/19 Alprazolam [Xanax 0.25 mg Tablet] 0.25 mg PO BIDP PRN tablet 08/16/19 Apixaban [Eliquis 5 mg Tablet] 5 mg PO BID tablet 08/16/19 Atenolol [Tenormin 50 mg Tablet] 50 mg PO Q12 tablet 08/16/19 Diltiazem HCl [Cardizem Cd 120 mg Capsule] 120 mg PO DAILY cap.sr.24h 08/16/19 Mag Hydrox/Al Hydrox/Simeth [Maalox Plus Susp 30 Udcup] 30 ml PO Q6HP PRN udc 08/16/19 Midodrine HCl [Proamatine 5 mg Tablet] 2.5 mg PO TID tablet 08/16/19 Zolpidem Tartrate [Ambien 5 mg Tablet] 2.5 mg PO HSP PRN tablet 08/16/19 Phenazopyridine HCl [Pyridium 100 mg Tablet] 100 mg PO Q8 tablet 08/21/19 Venlafaxine HCl ER [Effexor Xr 75 mg Cap.sr] 75 mg PO Q12 cap.sr.24h 08/21/19 Allergies/Adverse Reactions: No Known Allergies Allergy (Verified 08/11/19 17:27) Review of Systems All systems: reviewed and no additional remarkable complaints except as stated - As per HPI Physical Exam Vital Signs: Temp Pulse Resp BP Pulse Ox 99.1 F 94 17 102/61 100 12/14/19 07:35 12/14/19 07:35 12/14/19 07:35 12/14/19 07:35 12/14/19 07:35 Intake & Output 12/13/19 12/14/19 12/15/19 06:59 06:59 06:59 Weight 77.4 kg General appearance: PRESENT: no acute distress Head exam: PRESENT: atraumatic, normocephalic Eye exam: PRESENT: EOMI, PERRLA Neck exam: PRESENT: full ROM Respiratory exam: PRESENT: clear to auscultation jojo, unlabored Cardiovascular exam: PRESENT: irregular rhythm GI/Abdominal exam: PRESENT: normal bowel sounds, soft. ABSENT: distended, guarding, mass, organolmegaly, rebound, tenderness Rectal exam: PRESENT: deferred Musculoskeletal exam: PRESENT: other - There is normal alignment of the right leg. There is discomfort in the groin with gentle rotation of the hip. The patient is able to dorsiflex and plantarflex the foot. 2+ DP and 1+ PT pulses are present. Sensation is normal to touch. Neurological exam: PRESENT: alert, awake, oriented to person, oriented to place, oriented to time, oriented to situation, CN II-XII grossly intact. ABSENT: motor sensory deficit Psychiatric exam: PRESENT: anxious, depressed Results Laboratory Results: 12/13/19 20:54 12/13/19 20:54 12/13/19 12/13/19 20:54 20:54 WBC 7.5 RBC 4.71 Hgb 12.4 Hct 36.5 MCV 78 L MCH 26.4 L MCHC 34.1 RDW 15.4 H Plt Count 187 Seg Neutrophils % 74.2 Sodium 137.7 Potassium 3.6 Chloride 94 L Carbon Dioxide 36 H Anion Gap 8 BUN 18 Creatinine 1.04 Est GFR ( Amer) > 60 Glucose 107 Calcium 9.0 Magnesium 1.9 Total Bilirubin 0.6 AST 34 Alkaline Phosphatase 105 Total Protein 7.3 Albumin 4.0 12/13/19 20:54 Troponin I < 0.012 Impressions: Hip/Pelvis X-Ray 12/13/19 19:04 IMPRESSION: Acute intertrochanteric fracture of right femur. Chest X-Ray 12/13/19 19:05 IMPRESSION: No evidence of active intrathoracic disease. Chronic change, no adverse change Head CT 12/13/19 19:06 IMPRESSION: 1. No acute intracranial hemorrhage or mass effect. Findings compatible with chronic microvascular ischemic change are present. Assessment & Plan - Diagnosis (1) Atrial fibrillation with RVR Is this a current diagnosis for this admission?: Yes (2) Intertrochanteric fracture of right femur Qualifiers: Encounter type: initial encounter Fracture type: closed Is this a current diagnosis for this admission?: Yes - Time Time Spent: 30 to 50 Minutes Anticipated discharge: SNF Anticipated DC Timeframe: within 72 hours - Plan Summary Plan Summary: The patient's fall resulted in a displaced fracture of the right hip. I have recommended open reduction internal fixation with an intramedullary gamma nail. Risks, benefits, and alternatives were discussed with the patient. An opportunity for questions was provided. All questions were answered to her satisfaction. In particular we discussed the risk of with anesthesia, the risk of infection, the risk of injury to nerves and vessels, the risk of nonuni on and malunion and the possible need for additional surgical procedures. We also discussed the risk of blood loss and the possible need for blood transfusion. The patient expressed understanding and wishes to proceed with surgery.
[2019-12-14] MEDS: ATENOLOL 50 MG TABLET PO SCH ×3 (09:26→17:55)
[2019-12-14] MEDS: MIDODRINE HCL 5 MG TABLET PO SCH ×3 (09:26→17:55)
[2019-12-14] MEDS: VENLAFAXINE HCL 75 MG CAP.SR.24H PO SCH ×2 (09:26→17:56)
[2019-12-14] MEDS: DIVALPROEX SODIUM 250 MG TAB.SR.24H PO SCH ×2 (09:26→17:55)
[2019-12-14] MEDS: TRAZODONE HCL 50 MG TABLET PO SCH (09:26)
[2019-12-14] MEDS: FUROSEMIDE 40 MG TABLET PO SCH (09:26)
[2019-12-14] MEDS ORDERED: CEFAZOLIN INJ 1 GM VIAL ONE (09:34)
--- NOTE | 2019-12-14 11:33 | Operative Report ---
Operative Report DATE OF SURGERY: 12/14/19 PREOPERATIVE DIAGNOSIS: right hip displaced intertrochanteric fracture POSTOPERATIVE DIAGNOSIS: same OPERATION: Open Reduction Internal Fixation with Gamma Nail SURGEON: ELLIOT DIAZ ANESTHESIA: Spinal COMPLICATIONS: none ESTIMATED BLOOD LOSS: minimal PROCEDURE: Indication for Procedure: The patient is a 74 year old woman who sustained a displaced intertrochanteric fracture of the right hip. Description of Procedure: Patient was brought to the operating room where a spinal anesthetic was induced. The patient was placed on the fracture table and all bony prominences were padded. The right lower extremity was sterilely prepped with ChloraPrep and draped in standard fashion. Image intensification was brought in which confirmed anatomic alignment of the fracture. Correct starting point was identified under image intensification. A short incision was performed through skin with Bovie electrocautery through the subcutaneous tissues. Correct starting point on the greater trochanter was identified and a starting reamer was placed. Entry reamer was used. This was followed by a b all-tipped guidewire. Ball-tipped guidewire was placed centrally within the distal canal. Reaming was performed up to a size 13. An 11 mm Keaton gamma nail was placed down the canal. Its position was checked proximally and distally. With the guide for the gamma nail a wire was placed centrally within the femoral head. It was measured and reamed. A 95 mm compression screw was placed centrally within the head and locked dynamically. The wounds were then copiously irrigated. The fascia was closed with 0 Vicryl. The subcutaneous tissue was closed with 2-0 Vicryl. The skin was closed with a subcuticular 3-0 Monocryl suture and over closed with sterile glue. Sterile dressing was then applied. Patient tolerated procedure well without complication was brought recovery in stable condition.
[2019-12-14] MEDS ORDERED: MORPHINE SULFATE 10 MG/ML INJ ONE (11:43)
--- NOTE | 2019-12-14 13:01 | RADIOLOGY REPORT (SQ) ---
EXAM DESCRIPTION: HIP RIGHT AP/LATERAL; NO CHG FLUORO IMAGES COMPLETED DATE/TIME: 12/14/2019 12:39 pm REASON FOR STUDY: ORIF RIGHT HIP ASSISTED WITH FLUORO IN OR COMPARISON: 12/13/2019. FLUOROSCOPY TIME: 1.5 minutes. 4 images saved to PACS. TECHNIQUE: Intra-operative images acquired during surgical procedure to evaluate progress. NUMBER OF IMAGES: 4 images. LIMITATIONS: None. FINDINGS: Images of the hip and femur acquired during the procedure. IMPRESSION: IMAGE(S) OBTAINED DURING PROCEDURE. COMMENT: Quality ID [id number]: Final reports for procedures using fluoroscopy that document radiation exp osure indices, or exposure time and number of fluorographic images (if radiation exposure indices are not available) Please consult full operative report of the attending physician for description of the procedure. TECHNICAL DOCUMENTATION: JOB ID: [id number] 2010 [employer]- All Rights Reserved Reading location - IP/workstation name: [email or web address]
--- NOTE | 2019-12-14 13:01 | RADIOLOGY REPORT (SQ) ---
EXAM DESCRIPTION: HIP RIGHT AP/LATERAL; NO CHG FLUORO IMAGES COMPLETED DATE/TIME: 12/14/2019 12:39 pm REASON FOR STUDY: ORIF RIGHT HIP ASSISTED WITH FLUORO IN OR COMPARISON: 12/13/2019. FLUOROSCOPY TIME: 1.5 minutes. 4 images saved to PACS. TECHNIQUE: Intra-operative images acquired during surgical procedure to evaluate progress. NUMBER OF IMAGES: 4 images. LIMITATIONS: None. FINDINGS: Images of the hip and femur acquired during the procedure. IMPRESSION: IMAGE(S) OBTAINED DURING PROCEDURE. COMMENT: Quality ID [id number]: Final reports for procedures using fluoroscopy that document radiation exp osure indices, or exposure time and number of fluorographic images (if radiation exposure indices are not available) Please consult full operative report of the attending physician for description of the procedure. TECHNICAL DOCUMENTATION: JOB ID: [id number] 2010 [employer]- All Rights Reserved Reading location - IP/workstation name: [email or web address]
[2019-12-14] MEDS: DILTIAZEM HCL 120 MG CAP.SR.24H PO SCH (13:51)
[2019-12-14] MEDS ORDERED: PHENYLEPHRINE HCL INJ/PF 10 MG/1 ML SDV ONE (14:34)
--- NOTE | 2019-12-14 19:29 | EKG REPORT ---
SEVERITY:- ABNORMAL ECG - ATRIAL FIBRILLATION, V-RATE 89-158 REPOLARIZATION ABNORMALITY, PROB RATE RELATED : Confirmed by: Lindsey Meng MD 14-Dec-2019 19:28:43
[2019-12-14] MEDS: MELATONIN 5 MG TABLET PO SCH (21:24)
[2019-12-14] MEDS: ZOLPIDEM TARTRATE 5 MG TABLET PO SCH (21:25)
[2019-12-14] MEDS: BUSPIRONE HCL 10 MG TABLET PO SCH (21:25)
[2019-12-15] MEDS: HYDROMORPHONE HCL INJ/PF 2 MG/ML AMPULE IV PRN ×2 (05:16→10:03)
[2019-12-15 06:53] LABS: ABSOLUTE BASOPHILS # (AUTO) 0.1 10^3/uL (0.0-0.2); ABSOLUTE EOSINOPHILS # (AUTO) 0.2 10^3/uL (0.0-0.6); ABSOLUTE LYMPHOCYTES (AUTO) 0.8 10^3/uL (0.5-4.7); ABSOLUTE MONOCYTES (AUTO) 0.6 10^3/uL (0.1-1.4); ABSOLUTE NEUT (AUTO) 5.8 10^3/uL (1.7-8.2); BASOPHILS % (AUTO) 0.7 % (0-2); EOSINOPHILS % (AUTO) 2.4 % (0-6); LYMPHOCYTES % (AUTO) 11.1 % (13-45); MEAN CORPUSCULAR HEMOGLOBIN 26.3 pg (27.0-33.4); MEAN CORPUSCULAR HGB CONC 33.7 g/dL (32.0-36.0); MEAN CORPUSCULAR VOLUME 78 fl (80-97); MONOCYTES % (AUTO) 7.7 % (3-13); PLATELET COUNT 114 10^3/uL (150-450); RED BLOOD COUNT 3.83 10^6/uL (3.72-5.28); SEGMENTED NEUTROPHILS % (AUTO) 78.1 % (42-78); TOTAL CELLS COUNTED % (AUTO) 100 %; WHITE BLOOD COUNT 7.5 10^3/uL (4.0-10.5)
[2019-12-15 06:54] LABS: HEMOGLOBIN 10.1 g/dL (12.0-15.5)
[2019-12-15 07:19] LABS: ALBUMIN 3.2 g/dL (3.5-5.0); ALKALINE PHOSPHATASE 79 U/L (38-126); ANION GAP 5 (5-19); ASPARTATE AMINO TRANSFERASE 30 U/L (14-36); BILIRUBIN,DIRECT 0.3 mg/dL (0.0-0.4); BILIRUBIN,TOTAL 0.7 mg/dL (0.2-1.3); BLOOD UREA NITROGEN 25 mg/dL (7-20); CALCIUM 8.7 mg/dL (8.4-10.2); CARBON DIOXIDE 36 mmol/L (22-30); CHLORIDE 96 mmol/L (98-107); GLUCOSE 123 mg/dL (75-110); POTASSIUM 4.3 mmol/L (3.6-5.0); TOTAL PROTEIN 5.8 g/dL (6.3-8.2)
--- NOTE | 2019-12-15 08:36 | PDOC PROGRESS REPORT ---
Subjective Progress Note for:: 12/15/19 Subjective:: The patient is resting in bed comfortably. She has no complaints. Reason For Visit: RIGHT INTEROCHANTERIC FRACTURE, CHRONIC ATRAIL Postoperative day #1 status post cephalo-medullary nail for displaced right intertrochanteric fracture Physical Exam Vital Signs: Temp Pulse Resp BP Pulse Ox 99.2 F 103 H 18 115/68 98 12/15/19 00:07 12/15/19 02:00 12/15/19 00:07 12/15/19 00:07 12/15/19 00:07 Intake & Output 12/14/19 12/15/19 12/16/19 06:59 06:59 06:59 Intake Total 750 Output Total 500 Balance 250 Weight 77.4 kg 77.4 kg General appearance: PRESENT: no acute distress, well-developed, well-nourished Neck exam: PRESENT: full ROM Respiratory exam: PRESENT: clear to auscultation jojo. ABSENT: rales, rhonchi, wheezes Musculoskeletal exam: PRESENT: other - The surgical incisions are clean dry and intact. There is no evidence of infection. There is no discomfort with gentle rotation of the hip. The patient has normal active motion and normal sensation. Results Laboratory Results: 12/15/19 06:21 12/15/19 06:21 12/15/19 12/15/19 06:21 06:21 WBC 7.5 RBC 3.83 Hgb 10.1 L D Hct 30.0 L MCV 78 L MCH 26.3 L MCHC 33.7 RDW 15.0 H Plt Count 114 L Seg Neutrophils % 78.1 H Sodium 137.2 Potassium 4.3 Chloride 96 L Carbon Dioxide 36 H Anion Gap 5 BUN 25 H Creatinine 1.18 Est GFR ( Amer) 54 L Glucose 123 H Calcium 8.7 Total Bilirubin 0.7 AST 30 Alkaline Phosphatase 79 Total Protein 5.8 L Albumin 3.2 L 12/13/19 20:54 Troponin I < 0.012 Impressions: Chest X-Ray 12/13/19 19:05 IMPRESSION: No evidence of active intrathoracic disease. Chronic change, no adverse change Head CT 12/13/19 19:06 IMPRESSION: 1. No acute intracranial hemorrhage or mass effect. Findings compatible with chronic microvascular ischemic change are present. Fluoroscopy 12/14/19 00:00 IMPRESSION: IMAGE(S) OBTAINED DURING PROCEDURE. Hip/Pelvis X-Ray 12/14/19 00:00 IMPRESSION: IMAGE(S) OBTAINED DURING PROCEDURE. Assessment & Plan - Diagnosis (1) Atrial fibrillation with RVR Is this a current diagnosis for this admission?: Yes (2) Intertrochanteric fracture of right femur Qualifiers: Encounter type: initial encounter Fracture type: closed Is this a current diagnosis for this admission?: Yes - Time Critical Time spent with patient: 15-24 minutes Anticipated Discharge Disposition: Nursing Home Facility Anticipated Discharge Timeframe: when bed available - Plan Summary Plan Summary: Postoperative day #1 status post cephalo-medullary nail for right hip intertrochanteric fracture SCD/Eliquis for DVT prophylaxis 24 hours of perioperative antibiotics Physical therapy for ambulation training: Weightbearing as tolerated with assist device. Hemoglobin and hematocrit are stable on postoperative day #1. The patient is stable for discharge from orthopedic standpoint. Patient would likely benefit from senior living facility placement. Patient should follow- up in my office 2 weeks following discharge.
[2019-12-15] MEDS: DILTIAZEM HCL 120 MG CAP.SR.24H PO SCH (10:01)
[2019-12-15] MEDS: TRAZODONE HCL 50 MG TABLET PO SCH (10:01)
[2019-12-15] MEDS: DIVALPROEX SODIUM 250 MG TAB.SR.24H PO SCH ×2 (10:02→18:33)
[2019-12-15] MEDS: MIDODRINE HCL 5 MG TABLET PO SCH ×3 (10:02→18:34)
[2019-12-15] MEDS: VENLAFAXINE HCL 75 MG CAP.SR.24H PO SCH ×2 (10:03→18:33)
[2019-12-15] MEDS: ATENOLOL 50 MG TABLET PO SCH ×2 (10:03→18:29)
[2019-12-15] MEDS: FUROSEMIDE 40 MG TABLET PO SCH (10:03)
--- NOTE | 2019-12-15 13:02 | PDOC PROGRESS REPORT ---
Subjective Progress Note for:: 12/15/19 Subjective:: 74 year old female, hx of chronic atrial fribrillation, HTN, HLD, pubic fracture who was brought to the ED today after a fall. 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 She denies hitting her head or LOC. EMS was called and she was brought to the ED. In the ED, XR hip showed an intertrochanteric fracture right. CT head negative. EKG showed chronic a.fib HR 112. CBC and CMP were unremarkable. Dr. Soares was consulted who plan to do a surgery today. Last eliquis intake morning Dec 13, 2019. She was here back in August after a fall from which she sustained a pubic fracture. Dr. Soares saw her back then who did not recommend any surgery. She was eventually discharged to SNF. CODE status confirmed with the patient and she wants to be made DNR. 12/15/[id number]-jnby-old female with history of chronic A. fib admitted after a fall. Found to have intertrochanteric fracture of the right side status post internal fixation and open reduction was done.to srart on eliquis if it is ok with Dr soares Reason For Visit: RIGHT INTEROCHANTERIC FRACTURE, CHRONIC ATRAIL Physical Exam Vital Signs: Temp Pulse Resp BP Pulse Ox 98.6 F 105 H 18 91/41 L 93 12/15/19 11:14 12/15/19 11:14 12/15/19 11:14 12/15/19 11:14 12/15/19 11:14 Intake & Output 12/14/19 12/15/19 12/16/19 06:59 06:59 06:59 Intake Total 750 Output Total 500 Balance 250 Weight 77.4 kg 77.4 kg Results Laboratory Results: 12/15/19 06:21 12/15/19 06:21 12/15/19 12/15/19 06:21 06:21 WBC 7.5 RBC 3.83 Hgb 10.1 L D Hct 30.0 L MCV 78 L MCH 26.3 L MCHC 33.7 RDW 15.0 H Plt Count 114 L Seg Neutrophils % 78.1 H Sodium 137.2 Potassium 4.3 Chloride 96 L Carbon Dioxide 36 H Anion Gap 5 BUN 25 H Creatinine 1.18 Est GFR ( Amer) 54 L Glucose 123 H Calcium 8.7 Total Bilirubin 0.7 AST 30 Alkaline Phosphatase 79 Total Protein 5.8 L Albumin 3.2 L 12/13/19 20:54 Troponin I < 0.012 Impressions: Chest X-Ray 12/13/19 19:05 IMPRESSION: No evidence of active intrathoracic disease. Chronic change, no adverse change Head CT 12/13/19 19:06 IMPRESSION: 1. No acute intracranial hemorrhage or mass effect. Findings compatible with chronic microvascular ischemic change are present. Fluoroscopy 12/14/19 00:00 IMPRESSION: IMAGE(S) OBTAINED DURING PROCEDURE. Hip/Pelvis X-Ray 12/14/19 00:00 IMPRESSION: IMAGE(S) OBTAINED DURING PROCEDURE. Assessment and Plan - Diagnosis (1) Atrial fibrillation with RVR Is this a current diagnosis for this admission?: Yes (2) Intertrochanteric fracture of right femur Qualifiers: Encounter type: initial encounter Fracture type: closed Is this a current diagnosis for this admission?: Yes Plan: - hx of witnessed fall today - XR hip showed right intertrochanteric fracture - Dr. Soares on board. Hold heparin sq per Dr. Soares - plan for ORIF today - NPO - last eliquis dose Dec 13, 2019 morning - 12/15/2019-patient has successful surgery for right intertrochanteric fracture with open reduction internal fixation if it is okay with Dr. Soares will start her back on Eliquis. (3) Chronic atrial fibrillation, unspecified Is this a current diagnosis for this admission?: Yes Plan: - HR 90s to 112 - on eliquis 5 mg BID last will hold for planned surgery - on cardizem 120 daily and atenolol 50 mg daily resumed 12/15/19-Eliquis on hold because of the hip surgery plan is to restart Eliquis from today. (4) Anxiety and depression Is this a current diagnosis for this admission?: Yes Plan: - denies SI - on buspirone, trazodone, venlafaxine and zolpidem (5) Fall Qualifiers: Encounter type: subsequent encounter Qualified Code(s): W19.XXXD - Unspecified fall, subsequent encounter Is this a current diagnosis for this admission?: Yes Plan: - history of fall back in August as well - sustained pubic fracture managed conservatively - PT/OT on board - Time Anticipated Discharge Disposition: [facility] Facility Anticipated Discharge Timeframe: within 72 hours
[2019-12-15] MEDS: APIXABAN 5 MG TABLET PO SCH (18:34)
[2019-12-15] MEDS: NORMAL SALINE 1000 ML 1,000 ML IV PRN (18:34)
[2019-12-15] MEDS: MELATONIN 5 MG TABLET PO SCH (22:18)
[2019-12-15] MEDS: ZOLPIDEM TARTRATE 5 MG TABLET PO SCH (22:18)
[2019-12-15] MEDS: BUSPIRONE HCL 10 MG TABLET PO SCH (22:18)
[2019-12-16] MEDS: HYDROMORPHONE HCL INJ/PF 2 MG/ML AMPULE IV PRN (02:57)
[2019-12-16] MEDS: NORMAL SALINE 1000 ML 1,000 ML IV PRN ×2 (05:00→21:54)
[2019-12-16 07:14] LABS: ABSOLUTE EOSINOPHILS # (AUTO) 0.2 10^3/uL (0.0-0.6); ABSOLUTE LYMPHOCYTES (AUTO) 1.4 10^3/uL (0.5-4.7); ABSOLUTE MONOCYTES (AUTO) 0.9 10^3/uL (0.1-1.4); ABSOLUTE NEUT (AUTO) 4.8 10^3/uL (1.7-8.2); BASOPHILS % (AUTO) 0.4 % (0-2); EOSINOPHILS % (AUTO) 3.1 % (0-6); HEMATOCRIT 26.5 % (36.0-47.0); HEMOGLOBIN 8.9 g/dL (12.0-15.5); MEAN CORPUSCULAR HEMOGLOBIN 26.5 pg (27.0-33.4); MEAN CORPUSCULAR HGB CONC 33.6 g/dL (32.0-36.0); MEAN CORPUSCULAR VOLUME 79 fl (80-97); MONOCYTES % (AUTO) 11.8 % (3-13); RED BLOOD COUNT 3.36 10^6/uL (3.72-5.28); SEGMENTED NEUTROPHILS % (AUTO) 65.7 % (42-78); TOTAL CELLS COUNTED % (AUTO) 100 %; WHITE BLOOD COUNT 7.3 10^3/uL (4.0-10.5)
[2019-12-16 07:30] LABS: ALKALINE PHOSPHATASE 74 U/L (38-126); ASPARTATE AMINO TRANSFERASE 26 U/L (14-36); BILIRUBIN,DIRECT 0.3 mg/dL (0.0-0.4); BILIRUBIN,TOTAL 0.7 mg/dL (0.2-1.3); BLOOD UREA NITROGEN 31 mg/dL (7-20); CALCIUM 8.3 mg/dL (8.4-10.2); CARBON DIOXIDE 35 mmol/L (22-30); CHLORIDE 98 mmol/L (98-107); GLUCOSE 108 mg/dL (75-110); POTASSIUM 3.9 mmol/L (3.6-5.0); TOTAL PROTEIN 5.5 g/dL (6.3-8.2)
[2019-12-16 07:34] LABS: ANION GAP 4 (5-19)
[2019-12-16 08:27] LABS: PLATELET COUNT 91 10^3/uL (150-450)
[2019-12-16] MEDS: TRAZODONE HCL 50 MG TABLET PO SCH (10:17)
[2019-12-16] MEDS: APIXABAN 5 MG TABLET PO SCH ×2 (10:17→17:26)
[2019-12-16] MEDS: MIDODRINE HCL 5 MG TABLET PO SCH ×3 (10:17→17:25)
[2019-12-16] MEDS: DILTIAZEM HCL 120 MG CAP.SR.24H PO SCH (10:17)
[2019-12-16] MEDS: ATENOLOL 50 MG TABLET PO SCH ×2 (10:17→17:25)
[2019-12-16] MEDS: VENLAFAXINE HCL 75 MG CAP.SR.24H PO SCH ×2 (10:17→17:26)
[2019-12-16] MEDS: FUROSEMIDE 40 MG TABLET PO SCH (10:17)
[2019-12-16] MEDS: DIVALPROEX SODIUM 250 MG TAB.SR.24H PO SCH ×2 (10:17→17:26)
--- NOTE | 2019-12-16 10:44 | PDOC PROGRESS REPORT ---
Subjective Progress Note for:: 12/16/19 Subjective:: 74 year old female, hx of chronic atrial fribrillation, HTN, HLD, pubic fracture who was brought to the ED today after a fall. 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 She denies hitting her head or LOC. EMS was called and she was brought to the ED. In the ED, XR hip showed an intertrochanteric fracture right. CT head negative. EKG showed chronic a.fib HR 112. CBC and CMP were unremarkable. Dr. Soares was consulted who plan to do a surgery today. Last eliquis intake morning Dec 13, 2019. She was here back in August after a fall from which she sustained a pubic fracture. Dr. Soares saw her back then who did not recommend any surgery. She was eventually discharged to SNF. CODE status confirmed with the patient and she wants to be made DNR. 12/15/[id number]-abek-old female with history of chronic A. fib admitted after a fall. Found to have intertrochanteric fracture of the right side status post internal fixation and open reduction was done.to srart on eliquis if it is ok with Dr soares 12/16/2019-patient is confused and slightly agitated this morning. Admitted for a right hip fracture status post open reduction and internal fixation. Reason For Visit: RIGHT INTEROCHANTERIC FRACTURE, CHRONIC ATRAIL Physical Exam Vital Signs: Temp Pulse Resp BP Pulse Ox 97.7 F 96 18 100/57 L 93 12/16/19 08:45 12/16/19 07:00 12/16/19 03:29 12/16/19 03:29 12/16/19 03:29 Intake & Output 12/15/19 12/16/19 12/17/19 06:59 06:59 06:59 Intake Total 750 1240 Output Total 500 350 Balance 250 890 Weight 77.4 kg 77.8 kg General appearance: PRESENT: no acute distress, well-developed Head exam: PRESENT: atraumatic Eye exam: PRESENT: PERRLA Mouth exam: PRESENT: moist, tongue midline Teeth exam: PRESENT: poor dentation Respiratory exam: PRESENT: clear to auscultation jojo. ABSENT: rales, rhonchi, wheezes Cardiovascular exam: PRESENT: RRR. ABSENT: diastolic murmur, rubs, systolic murmur GI/Abdominal exam: PRESENT: normal bowel sounds, soft. ABSENT: distended, guarding, mass, organolmegaly, rebound, tenderness Rectal exam: PRESENT: deferred Extremities exam: PRESENT: full ROM. ABSENT: calf tenderness, clubbing, pedal edema Neurological exam: PRESENT: alert Psychiatric exam: PRESENT: appropriate affect, normal mood. ABSENT: homicidal ideation, suicidal ideation Skin exam: PRESENT: dry, intact, warm. ABSENT: cyanosis, rash Results Laboratory Results: 12/16/19 06:51 12/16/19 06:51 12/16/19 12/16/19 06:51 06:51 WBC 7.3 RBC 3.36 L Hgb 8.9 L Hct 26.5 L MCV 79 L MCH 26.5 L MCHC 33.6 RDW 15.0 H Plt Count 91 L Seg Neutrophils % 65.7 Sodium 136.5 L Potassium 3.9 Chloride 98 Carbon Dioxide 35 H Anion Gap 4 L BUN 31 H Creatinine 1.01 Est GFR ( Amer) > 60 Glucose 108 Calcium 8.3 L Total Bilirubin 0.7 AST 26 Alkaline Phosphatase 74 Total Protein 5.5 L Albumin 3.0 L 12/13/19 20:54 Troponin I < 0.012 Impressions: Chest X-Ray 12/13/19 19:05 IMPRESSION: No evidence of active intrathoracic disease. Chronic change, no adverse change Head CT 12/13/19 19:06 IMPRESSION: 1. No acute intracranial hemorrhage or mass effect. Findings compatible with chronic microvascular ischemic change are present. Fluoroscopy 12/14/19 00:00 IMPRESSION: IMAGE(S) OBTAINED DURING PROCEDURE. Hip/Pelvis X-Ray 12/14/19 00:00 IMPRESSION: IMAGE(S) OBTAINED DURING PROCEDURE. Assessment and Plan - Diagnosis (1) Atrial fibrillation with RVR Is this a current diagnosis for this admission?: Yes Plan: 12/16/2019-patient is on Eliquis 5 mg p.o. twice daily at home medication is resumed yesterday. (2) Intertrochanteric fracture of right femur Qualifiers: Encounter type: initial encounter Fracture type: closed Is this a current diagnosis for this admission?: Yes Plan: - hx of witnessed fall today - XR hip showed right intertrochanteric fracture - Dr. Soares on board. Hold heparin sq per Dr. Soares - plan for ORIF today - NPO - last eliquis dose Dec 13, 2019 morning - 12/15/2019-patient has successful surgery for right intertrochanteric fracture with open reduction internal fixation if it is okay with Dr. Soares will start her back on Eliquis. 12/16/19-patient admitted with a fall found to have a right-sided intertrochanteric fracture status post open reduction internal fixation. Physical therapy working with the patient. Patient may need to go to a rehab facility. (3) Chronic atrial fibrillation, unspecified Is this a current diagnosis for this admission?: Yes Plan: - HR 90s to 112 - on eliquis 5 mg BID last will hold for planned surgery - on cardizem 120 daily and atenolol 50 mg daily resumed 12/15/19-Eliquis on hold because of the hip surgery plan is to restart Eliquis from today. (4) Anxiety and depression Is this a current diagnosis for this admission?: Yes Plan: - denies SI - on buspirone, trazodone, venlafaxine and zolpidem (5) Fall Qualifiers: Encounter type: subsequent encounter Qualified Code(s): W19.XXXD - Unspecified fall, subsequent encounter Is this a current diagnosis for this admission?: Yes Plan: - history of fall back in August as well - sustained pubic fracture managed conservatively - PT/OT on board - Time Anticipated Discharge Disposition: Senior Care Facility Anticipated Discharge Timeframe: within 72 hours
[2019-12-16] MEDS: ALPRAZOLAM 0.5 MG TABLET PO PRN (13:52)
[2019-12-16] MEDS: MELATONIN 5 MG TABLET PO SCH (21:55)
[2019-12-16] MEDS: BUSPIRONE HCL 10 MG TABLET PO SCH (21:55)
[2019-12-16] MEDS: ZOLPIDEM TARTRATE 5 MG TABLET PO SCH (21:55)
[2019-12-16] MEDS ORDERED: (PENDING PHARMACY ID) (Melatonin [Melatonin] 5 MG) PO SCH (22:00)
[2019-12-17] MEDS: NORMAL SALINE 1000 ML 1,000 ML IV PRN (06:12)
[2019-12-17 07:10] LABS: ABSOLUTE EOSINOPHILS # (AUTO) 0.2 10^3/uL (0.0-0.6); ABSOLUTE LYMPHOCYTES (AUTO) 0.9 10^3/uL (0.5-4.7); ABSOLUTE MONOCYTES (AUTO) 0.7 10^3/uL (0.1-1.4); ABSOLUTE NEUT (AUTO) 3.9 10^3/uL (1.7-8.2); BASOPHILS % (AUTO) 0.4 % (0-2); EOSINOPHILS % (AUTO) 4.3 % (0-6); HEMATOCRIT 23.6 % (36.0-47.0); HEMOGLOBIN 8.1 g/dL (12.0-15.5); LYMPHOCYTES % (AUTO) 15.6 % (13-45); MEAN CORPUSCULAR HEMOGLOBIN 26.7 pg (27.0-33.4); MEAN CORPUSCULAR HGB CONC 34.3 g/dL (32.0-36.0); MEAN CORPUSCULAR VOLUME 78 fl (80-97); MONOCYTES % (AUTO) 12.2 % (3-13); RED BLOOD COUNT 3.04 10^6/uL (3.72-5.28); SEGMENTED NEUTROPHILS % (AUTO) 67.5 % (42-78); TOTAL CELLS COUNTED % (AUTO) 100 %; WHITE BLOOD COUNT 5.7 10^3/uL (4.0-10.5)
[2019-12-17 07:35] LABS: ALBUMIN 2.7 g/dL (3.5-5.0); ALKALINE PHOSPHATASE 76 U/L (38-126); ASPARTATE AMINO TRANSFERASE 26 U/L (14-36); BILIRUBIN,DIRECT 0.3 mg/dL (0.0-0.4); BILIRUBIN,TOTAL 0.8 mg/dL (0.2-1.3); BLOOD UREA NITROGEN 21 mg/dL (7-20); CALCIUM 8.1 mg/dL (8.4-10.2); GLUCOSE 95 mg/dL (75-110); POTASSIUM 3.4 mmol/L (3.6-5.0); TOTAL PROTEIN 5.1 g/dL (6.3-8.2)
[2019-12-17 07:40] LABS: CARBON DIOXIDE 36 mmol/L (22-30); CHLORIDE 99 mmol/L (98-107)
[2019-12-17 07:41] LABS: ANION GAP 3 (5-19)
[2019-12-17 08:05] LABS: PLATELET COUNT 86 10^3/uL (150-450)
[2019-12-17] MEDS: DILTIAZEM HCL 120 MG CAP.SR.24H PO SCH (09:29)
[2019-12-17] MEDS: TRAZODONE HCL 50 MG TABLET PO SCH (09:29)
[2019-12-17] MEDS: FUROSEMIDE 40 MG TABLET PO SCH (09:29)
[2019-12-17] MEDS: DIVALPROEX SODIUM 250 MG TAB.SR.24H PO SCH ×2 (09:29→17:19)
[2019-12-17] MEDS: MIDODRINE HCL 5 MG TABLET PO SCH ×3 (09:29→17:08)
[2019-12-17] MEDS: APIXABAN 5 MG TABLET PO SCH ×2 (09:29→17:19)
[2019-12-17] MEDS: VENLAFAXINE HCL 75 MG CAP.SR.24H PO SCH ×2 (09:30→17:18)
[2019-12-17] MEDS: ATENOLOL 50 MG TABLET PO SCH ×2 (09:30→17:18)
--- NOTE | 2019-12-17 10:29 | PDOC PROGRESS REPORT ---
Subjective Progress Note for:: 12/17/19 Subjective:: 74 year old female, hx of chronic atrial fribrillation, HTN, HLD, pubic fracture who was brought to the ED today after a fall. 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 She denies hitting her head or LOC. EMS was called and she was brought to the ED. In the ED, XR hip showed an intertrochanteric fracture right. CT head negative. EKG showed chronic a.fib HR 112. CBC and CMP were unremarkable. Dr. Soares was consulted who plan to do a surgery today. Last eliquis intake morning Dec 13, 2019. She was here back in August after a fall from which she sustained a pubic fracture. Dr. Soares saw her back then who did not recommend any surgery. She was eventually discharged to SNF. CODE status confirmed with the patient and she wants to be made DNR. 12/15/[id number]-tgek-old female with history of chronic A. fib admitted after a fall. Found to have intertrochanteric fracture of the right side status post internal fixation and open reduction was done.to srart on eliquis if it is ok with Dr soares 12/16/2019-patient is confused and slightly agitated this morning. Admitted for a right hip fracture status post open reduction and internal fixation. 12/17/2019-patient is complaining of severe constipation. No other complaints. More alert more awake. Blood pressures are improved. Admitted with right hip fracture status post surgery waiting for placement. Reason For Visit: RIGHT INTEROCHANTERIC FRACTURE, CHRONIC ATRAIL Physical Exam Vital Signs: Temp Pulse Resp BP Pulse Ox 97.5 F 84 16 114/56 L 100 12/17/19 08:00 12/17/19 08:00 12/17/19 08:00 12/17/19 08:00 12/17/19 08:00 Intake & Output 12/16/19 12/17/19 12/18/19 06:59 06:59 06:59 Intake Total 1240 2250 Output Total 350 1200 Balance 890 1050 Weight 77.8 kg 77.8 kg General appearance: PRESENT: no acute distress, well-developed Head exam: PRESENT: atraumatic Eye exam: PRESENT: PERRLA Mouth exam: PRESENT: moist, tongue midline Teeth exam: PRESENT: poor dentation Neck exam: ABSENT: carotid bruit, JVD, lymphadenopathy, thyromegaly Respiratory exam: PRESENT: decreased breath sounds Cardiovascular exam: PRESENT: RRR. ABSENT: diastolic murmur, rubs, systolic murmur GI/Abdominal exam: PRESENT: normal bowel sounds, soft. ABSENT: distended, guarding, mass, organolmegaly, rebound, tenderness Rectal exam: PRESENT: deferred Extremities exam: PRESENT: full ROM. ABSENT: calf tenderness, clubbing, pedal edema Neurological exam: PRESENT: alert, awake, oriented to person, oriented to place, oriented to time, oriented to situation, CN II-XII grossly intact. ABSENT: motor sensory deficit Psychiatric exam: PRESENT: appropriate affect, normal mood. ABSENT: homicidal ideation, suicidal ideation Results Laboratory Results: 12/17/19 06:29 12/17/19 06:29 12/17/19 12/17/19 06:29 06:29 WBC 5.7 RBC 3.04 L Hgb 8.1 L Hct 23.6 L MCV 78 L MCH 26.7 L MCHC 34.3 RDW 15.0 H Plt Count 86 L Seg Neutrophils % 67.5 Sodium 138.4 Potassium 3.4 L Chloride 99 Carbon Dioxide 36 H Anion Gap 3 L BUN 21 H Creatinine 0.73 Est GFR ( Amer) > 60 Glucose 95 Calcium 8.1 L Magnesium 1.8 Total Bilirubin 0.8 AST 26 Alkaline Phosphatase 76 Total Protein 5.1 L Albumin 2.7 L 12/13/19 20:54 Troponin I < 0.012 Impressions: Chest X-Ray 12/13/19 19:05 IMPRESSION: No evidence of active intrathoracic disease. Chronic change, no adverse change Head CT 12/13/19 19:06 IMPRESSION: 1. No acute intracranial hemorrhage or mass effect. Findings compatible with chronic microvascular ischemic change are present. Fluoroscopy 12/14/19 00:00 IMPRESSION: IMAGE(S) OBTAINED DURING PROCEDURE. Hip/Pelvis X-Ray 12/14/19 00:00 IMPRESSION: IMAGE(S) OBTAINED DURING PROCEDURE. Assessment and Plan - Diagnosis (1) Atrial fibrillation with RVR Is this a current diagnosis for this admission?: Yes Plan: 12/16/2019-patient is on Eliquis 5 mg p.o. twice daily at home medication is resumed yesterday. 12/17/2019-heart rate is in sinus rhythm. To continue Eliquis 5 mg p.o. twice daily, diltiazem at this time. (2) Intertrochanteric fracture of right femur Qualifiers: Encounter type: initial encounter Fracture type: closed Is this a current diagnosis for this admission?: Yes Plan: - hx of witnessed fall today - XR hip showed right intertrochanteric fracture - Dr. Soares on board. Hold heparin sq per Dr. Soares - plan for ORIF today - NPO - last eliquis dose Dec 13, 2019 morning - 12/15/2019-patient has successful surgery for right intertrochanteric fracture with open reduction internal fixation if it is okay with Dr. Soares will start her back on Eliquis. 12/16/19-patient admitted with a fall found to have a right-sided intertrochanteric fracture status post open reduction internal fixation. Physical therapy working with the patient. Patient may need to go to a rehab facility. 12/17/2019-waiting for placement. Physical therapy requested occupational therapy is requested. (3) Chronic atrial fibrillation, unspecified Is this a current diagnosis for this admission?: Yes Plan: - HR 90s to 112 - on eliquis 5 mg BID last will hold for planned surgery - on cardizem 120 daily and atenolol 50 mg daily resumed 12/15/19-Eliquis on hold because of the hip surgery plan is to restart Eliquis from today. (4) Anxiety and depression Is this a current diagnosis for this admission?: Yes Plan: - denies SI - on buspirone, trazodone, venlafaxine and zolpidem (5) Fall Qualifiers: Encounter type: subsequent encounter Qualified Code(s): W19.XXXD - Unspecified fall, subsequent encounter Is this a current diagnosis for this admission?: Yes Plan: - history of fall back in August as well - sustained pubic fracture managed conservatively - PT/OT on board - Time Anticipated Discharge Disposition: [facility] Facility Anticipated Discharge Timeframe: within 72 hours - 1968
[2019-12-17] MEDS ORDERED: NA PHOS,M-B/NA PHOS,DI-BA (ADULT) 133 ML ENEMA PR ONE (10:30)
[2019-12-17] MEDS ORDERED: MAGNESIUM CITRATE 296 ML BOTTLE PO ONE (10:30)
[2019-12-17] MEDS: ALPRAZOLAM 0.5 MG TABLET PO PRN (13:46)
[2019-12-17] MEDS: BUSPIRONE HCL 10 MG TABLET PO SCH (21:28)
[2019-12-17] MEDS: HYDROMORPHONE HCL INJ/PF 2 MG/ML AMPULE IV PRN (21:28)
[2019-12-17] MEDS: MELATONIN 5 MG TABLET PO SCH (21:28)
[2019-12-18] MEDS: HYDROMORPHONE HCL INJ/PF 2 MG/ML AMPULE IV PRN (03:55)
[2019-12-18] MEDS: DILTIAZEM HCL 120 MG CAP.SR.24H PO SCH (09:18)
[2019-12-18] MEDS: TRAZODONE HCL 50 MG TABLET PO SCH (09:19)
[2019-12-18] MEDS: MIDODRINE HCL 5 MG TABLET PO SCH ×3 (09:19→17:03)
[2019-12-18] MEDS: FUROSEMIDE 40 MG TABLET PO SCH (09:19)
[2019-12-18] MEDS: DIVALPROEX SODIUM 250 MG TAB.SR.24H PO SCH ×2 (09:19→17:04)
[2019-12-18] MEDS: APIXABAN 5 MG TABLET PO SCH ×2 (09:19→17:04)
[2019-12-18] MEDS: VENLAFAXINE HCL 75 MG CAP.SR.24H PO SCH ×2 (09:20→17:03)
[2019-12-18] MEDS: ATENOLOL 50 MG TABLET PO SCH ×2 (09:20→22:55)
--- NOTE | 2019-12-18 10:53 | PDOC PROGRESS REPORT ---
Subjective Progress Note for:: 12/18/19 Subjective:: 74 year old female, hx of chronic atrial fribrillation, HTN, HLD, pubic fracture who was brought to the ED today after a fall. A few hours LAB INTERN, patient was standing near the door when her daughter walked in and bumped into her causing her to fall and land on her right side. She denies hitting her head or LOC. EMS was called and she was brought to the ED. In the ED, XR hip showed an intertrochanteric fracture right. CT head negative. EKG showed chronic a.fib HR 112. CBC and CMP were unremarkable. Dr. Soares was consulted who plan to do a surgery today. Last eliquis intake morning Dec 13, 2019. She was here back in August after a fall from which she sustained a pubic fracture. Dr. Soares saw her back then who did not recommend any surgery. She was eventually discharged to SNF. CODE status confirmed with the patient and she wants to be made DNR. 12/15/[id number]-lseq-old female with history of chronic A. fib admitted after a fall. Found to have intertrochanteric fracture of the right side status post internal fixation and open reduction was done.to srart on eliquis if it is ok with Dr soares 12/16/2019-patient is confused and slightly agitated this morning. Admitted for a right hip fracture status post open reduction and internal fixation. 12/17/2019-patient is complaining of severe constipation. No other complaints. More alert more awake. Blood pressures are improved. Admitted with right hip fracture status post surgery waiting for placement. 12/18/2019 and admitted after a fall found to have right hip fracture. Status post surgery. Waiting for placement. No acute events in the last 24 hours. Reason For Visit: RIGHT INTEROCHANTERIC FRACTURE, CHRONIC ATRAIL Physical Exam Vital Signs: Temp Pulse Resp BP Pulse Ox 97.9 F 85 19 91/49 L 100 12/18/19 08:25 12/18/19 08:23 12/18/19 08:23 12/18/19 08:23 12/18/19 08:23 Intake & Output 12/17/19 12/18/19 12/19/19 06:59 06:59 06:59 Intake Total 2250 958 50 Output Total 1200 750 Balance 1050 208 50 Weight 77.8 kg 80.1 kg 79.9 kg General appearance: PRESENT: no acute distress, cooperative, thin Head exam: PRESENT: atraumatic Eye exam: PRESENT: PERRLA Mouth exam: PRESENT: moist, tongue midline Neck exam: ABSENT: carotid bruit, JVD, lymphadenopathy, thyromegaly Respiratory exam: PRESENT: decreased breath sounds Cardiovascular exam: PRESENT: RRR. ABSENT: diastolic murmur, rubs, systolic murmur GI/Abdominal exam: PRESENT: normal bowel sounds, soft. ABSENT: distended, guarding, mass, organolmegaly, rebound, tenderness Rectal exam: PRESENT: deferred Extremities exam: PRESENT: full ROM. ABSENT: calf tenderness, clubbing, pedal edema Neurological exam: PRESENT: alert, awake, oriented to person, oriented to place, oriented to time, oriented to situation, CN II-XII grossly intact. ABSENT: motor sensory deficit Psychiatric exam: PRESENT: appropriate affect, normal mood. ABSENT: homicidal ideation, suicidal ideation Skin exam: PRESENT: dry, intact, warm. ABSENT: cyanosis, rash Results Laboratory Results: 12/17/19 06:29 12/17/19 06:29 12/13/19 20:54 Troponin I < 0.012 Impressions: Chest X-Ray 12/13/19 19:05 IMPRESSION: No evidence of active intrathoracic disease. Chronic change, no adverse change Head CT 12/13/19 19:06 IMPRESSION: 1. No acute intracranial hemorrhage or mass effect. Findings compatible with chronic microvascular ischemic change are present. Fluoroscopy 12/14/19 00:00 IMPRESSION: IMAGE(S) OBTAINED DURING PROCEDURE. Hip/Pelvis X-Ray 12/14/19 00:00 IMPRESSION: IMAGE(S) OBTAINED DURING PROCEDURE. Assessment and Plan - Diagnosis (1) Atrial fibrillation with RVR Is this a current diagnosis for this admission?: Yes Plan: 12/16/2019-patient is on Eliquis 5 mg p.o. twice daily at home medication is resumed yesterday. 12/17/2019-heart rate is in sinus rhythm. To continue Eliquis 5 mg p.o. twice daily, diltiazem at this time. 12/18/19-patient has history of chronic atrial fibrillation on Eliquis 5 mg p.o. twice a day. She is also on Cardizem. Heart rate in the 80s. Plan is to continue the present management at this time. (2) Intertrochanteric fracture of right femur Qualifiers: Encounter type: initial encounter Fracture type: closed Is this a current diagnosis for this admission?: Yes Plan: - hx of witnessed fall today - XR hip showed right intertrochanteric fracture - Dr. Soares on board. Hold heparin sq per Dr. Soares - plan for ORIF today - NPO - last eliquis dose Dec 13, 2019 morning - 12/15/2019-patient has successful surgery for right intertrochanteric fracture with open reduction internal fixation if it is okay with Dr. Soares will start her back on Eliquis. 12/16/19-patient admitted with a fall found to have a right-sided intertrochanteric fracture status post open reduction internal fixation. Physical therapy working with the patient. Patient may need to go to a rehab facility. 12/17/2019-waiting for placement. Physical therapy requested occupational therapy is requested. 12/18/2019-patient admitted for a right hip intertrochanteric fracture status post surgery. Waiting for placement. (3) Chronic atrial fibrillation, unspecified Is this a current diagnosis for this admission?: Yes Plan: - HR 90s to 112 - on eliquis 5 mg BID last will hold for planned surgery - on cardizem 120 daily and atenolol 50 mg daily resumed 12/15/19-Eliquis on hold because of the hip surgery plan is to restart Eliquis from today. (4) Anxiety and depression Is this a current diagnosis for this admission?: Yes Plan: - denies SI - on buspirone, trazodone, venlafaxine and zolpidem (5) Fall Qualifiers: Encounter type: subsequent encounter Qualified Code(s): W19.XXXD - Unspecified fall, subsequent encounter Is this a current diagnosis for this admission?: Yes Plan: - history of fall back in August as well - sustained pubic fracture managed conservatively - PT/OT on board - Time Anticipated Discharge Disposition: Long Term Facility Anticipated Discharge Timeframe: within 48 hours
[2019-12-18] MEDS: ALPRAZOLAM 0.5 MG TABLET PO PRN ×2 (13:17→22:55)
--- NOTE | 2019-12-18 13:56 | PDOC DISCHARGE SUMMARY ---
Impression - Admit/DC Date/PCP Admission Date/Primary Care Provider: 12/14/19 00:17 EULALIA CHASE, Discharge Date: 12/18/19 - Discharge Diagnosis (1) Atrial fibrillation with RVR Is this a current diagnosis for this admission?: Yes (2) Intertrochanteric fracture of right femur Is this a current diagnosis for this admission?: Yes (3) Chronic atrial fibrillation, unspecified Is this a current diagnosis for this admission?: Yes (4) Anxiety and depression Is this a current diagnosis for this admission?: Yes (5) Fall Is this a current diagnosis for this admission?: Yes - Assessment Summary: (1) Atrial fibrillation with RVR Is this a current diagnosis for this admission?: Yes Plan: 12/16/2019-patient is on Eliquis 5 mg p.o. twice daily at home medication is resumed yesterday. 12/17/2019-heart rate is in sinus rhythm. To continue Eliquis 5 mg p.o. twice daily, diltiazem at this time. 12/18/19-patient has history of chronic atrial fibrillation on Eliquis 5 mg p.o. twice a day. She is also on Cardizem. Heart rate in the 80s. Plan is to continue the present management at this time. 12/18/2019-patient is accepted to rehab facility she is leaving today. (2) Intertrochanteric fracture of right femur Qualifiers: Encounter type: initial encounter Fracture type: closed Is this a current diagnosis for this admission?: Yes Plan: - hx of witnessed fall today - XR hip showed right intertrochanteric fracture - Dr. Soares on board. Hold heparin sq per Dr. Soares - plan for ORIF today - NPO - last eliquis dose Dec 13, 2019 morning - 12/15/2019-patient has successful surgery for right intertrochanteric fracture with open reduction internal fixation if it is okay with Dr. Soares will start her back on Eliquis. 12/16/19-patient admitted with a fall found to have a right-sided intertrochanteric fracture status post open reduction internal fixation. Physical therapy working with the patient. Patient may need to go to a rehab facility. 12/17/2019-waiting for placement. Physical therapy requested occupational therapy is requested. 12/18/2019-patient admitted for a right hip intertrochanteric fracture status post surgery. Waiting for placement. 12/18/2019-patient admitted with a right hip fracture status post surgery and she was accepted to rehab facility to continue physical therapy. (3) Chronic atrial fibrillation, unspecified Is this a current diagnosis for this admission?: Yes Plan: - HR 90s to 112 - on eliquis 5 mg BID last will hold for planned surgery - on cardizem 120 daily and atenolol 50 mg daily resumed 12/15/19-Eliquis on hold because of the hip surgery plan is to restart Eliquis from today. (4) Anxiety and depression Is this a current diagnosis for this admission?: Yes Plan: - denies SI - on buspirone, trazodone, venlafaxine (5) Fall Qualifiers: Encounter type: subsequent encounter Qualified Code(s): W19.XXXD - Unspecified fall, subsequent encounter Is this a current diagnosis for this admission?: Yes Plan: - history of fall back in August as well - sustained pubic fracture managed conservatively - PT/OT on board - Additional Information Resuscitation Status: Do Not Resuscitate Discharge Diet: Cardiac Discharge Activity: Activity As Tolerated Referrals: ELLIOT SOARES MD [ACTIVE STAFF] - Prescriptions: Tramadol HCl [Ultram 50 mg Tablet] 50 mg PO Q6HP PRN 3 Days #10 tablet PRN Reason: Home Medications: Divalproex Sodium [Depakote ER 250 mg Tablet] 250 mg PO Q12 #60 tab.sr.24h 03/29/19 Buspirone HCl [Buspar 10 mg Tablet] 10 mg PO QPM tablet 06/11/19 Buspirone HCl [Buspar 10 mg Tablet] 5 mg PO QAM 08/12/19 Furosemide [Lasix 40 mg Tablet] 40 mg PO QAM 08/12/19 Trazodone HCl 100 mg PO DAILY 08/12/19 Apixaban [Eliquis 5 mg Tablet] 5 mg PO BID tablet 08/16/19 Diltiazem HCl [Cardizem Cd 120 mg Capsule] 120 mg PO DAILY cap.sr.24h 08/16/19 Atenolol [Tenormin 50 mg Tablet] 25 mg PO QHS 12/14/19 Venlafaxine HCl ER [Effexor Xr 75 mg Cap.sr] 75 mg PO DAILY 12/14/19 Apixaban [Eliquis 5 mg Tablet] 5 mg PO BID tablet 12/18/19 Atenolol [Tenormin 50 mg Tablet] 50 mg PO BID tablet 12/18/19 Buspirone HCl [Buspar 10 mg Tablet] 10 mg PO QHS tablet 12/18/19 Diltiazem HCl [Cardizem Cd 120 mg Capsule] 120 mg PO DAILY cap.sr.24h 12/18/19 Divalproex Sodium [Depakote ER 250 mg Tablet] 250 mg PO BID tab.sr.24h 12/18/19 Furosemide [Lasix 40 mg Tablet] 40 mg PO DAILY tablet 12/18/19 Midodrine HCl [Proamatine 5 mg Tablet] 2.5 mg PO TID tablet 12/18/19 Tramadol HCl [Ultram 50 mg Tablet] 50 mg PO Q6HP PRN 3 Days #10 tablet 12/18/19 History of Present Illiness History of Present Illness: FADI LYNN is a 74 year old female 74 year old female, hx of chronic atrial fribrillation, HTN, HLD, pubic fracture who was brought to the ED today after a fall. 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 She denies hitting her head or LOC. EMS was called and she was brought to the ED. In the ED, XR hip showed an intertrochanteric fracture right. CT head negative. EKG showed chronic a.fib HR 112. CBC and CMP were unremarkable. Dr. Soares was consulted who plan to do a surgery today. Last eliquis intake morning Dec 13, 2019. She was here back in August after a fall from which she sustained a pubic fracture. Dr. Soares saw her back then who did not recommend any surgery. She was eventually discharged to SNF. CODE status confirmed with the patient and she wants to be made DNR. Hospital Course Hospital Course: 74 year old female, hx of chronic atrial fribrillation, HTN, HLD, pubic fracture who was brought to the ED today after a fall. 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 She denies hitting her head or LOC. EMS was called and she was brought to the ED. In the ED, XR hip showed an intertrochanteric fracture right. CT head negative. EKG showed chronic a.fib HR 112. CBC and CMP were unremarkable. Dr. Soares was consulted who plan to do a surgery today. Last eliquis intake morning Dec 13, 2019. She was here back in August after a fall from which she sustained a pubic fracture. Dr. Soares saw her back then who did not recommend any surgery. She was eventually discharged to SNF. CODE status confirmed with the patient and she wants to be made DNR. 12/15/[id number]-lwdr-old female with history of chronic A. fib admitted after a fall. Found to have intertrochanteric fracture of the right side status post internal fixation and open reduction was done.to srart on eliquis if it is ok with Dr soares 12/16/2019-patient is confused and slightly agitated this morning. Admitted for a right hip fracture status post open reduction and internal fixation. 12/17/2019-patient is complaining of severe constipation. No other complaints. More alert more awake. Blood pressures are improved. Admitted with right hip fracture status post surgery waiting for placement. 12/18/2019 and admitted after a fall found to have right hip fracture. Status post surgery. Waiting for placement. No acute events in the last 24 hours. Physical Exam Vital Signs: Temp Pulse Resp BP Pulse Ox 97.9 F 85 19 91/49 L 100 12/18/19 08:25 12/18/19 08:23 12/18/19 08:23 12/18/19 08:23 12/18/19 08:23 Intake & Output 12/17/19 12/18/19 12/19/19 06:59 06:59 06:59 Intake Total 2250 958 50 Output Total 1200 750 Balance 1050 208 50 Weight 77.8 kg 80.1 kg 79.9 kg General appearance: PRESENT: no acute distress, cooperative, well-developed Head exam: PRESENT: atraumatic Eye exam: PRESENT: PERRLA Ear exam: PRESENT: normal external ear exam Mouth exam: PRESENT: neck supple Teeth exam: PRESENT: poor dentation Neck exam: ABSENT: carotid bruit, JVD, lymphadenopathy, thyromegaly Respiratory exam: PRESENT: decreased breath sounds Cardiovascular exam: PRESENT: RRR. ABSENT: diastolic murmur, rubs, systolic murmur GI/Abdominal exam: PRESENT: normal bowel sounds, soft. ABSENT: distended, guarding, mass, organolmegaly, rebound, tenderness Rectal exam: PRESENT: deferred Extremities exam: PRESENT: full ROM. ABSENT: calf tenderness, clubbing, pedal edema Neurological exam: PRESENT: alert, awake, oriented to person, oriented to place, oriented to time, oriented to situation, CN II-XII grossly intact. ABSENT: motor sensory deficit Psychiatric exam: PRESENT: appropriate affect, normal mood. ABSENT: homicidal ideation, suicidal ideation Results Laboratory Results: WBC 5.7 10^3/uL (4.0-10.5) 12/17/19 06:29 RBC 3.04 10^6/uL (3.72-5.28) L 12/17/19 06:29 Hgb 8.1 g/dL (12.0-15.5) L 12/17/19 06:29 Hct 23.6 % (36.0-47.0) L 12/17/19 06:29 MCV 78 fl (80-97) L 12/17/19 06:29 MCH 26.7 pg (27.0-33.4) L 12/17/19 06: MCHC 34.3 g/dL (32.0-36.0) 12/17/19 06:29 RDW 15.0 % (11.5-14.0) H 12/17/19 06:29 Plt Count 86 10^3/uL (150-450) L 12/17/19 06:29 Lymph % (Auto) 15.6 % (13-45) 12/17/19 06:29 [place] % (Auto) 12.2 % (3-13) 12/17/19 06:29 Eos % (Auto) 4.3 % (0-6) 12/17/19 06:29 Baso % (Auto) 0.4 % (0-2) 12/17/19 06:29 Absolute Neuts (auto) 3.9 10^3/uL (1.7-8.2) 12/17/19 06:29 Absolute Lymphs (auto) 0.9 10^3/uL (0.5-4.7) 12/17/19 06:29 Absolute Monos (auto) 0.7 10^3/uL (0.1-1.4) 12/17/19 06:29 Absolute Eos (auto) 0.2 10^3/uL (0.0-0.6) 12/17/19 06:29 Absolute Basos (auto) 0.0 10^3/uL (0.0-0.2) 12/17/19 06:29 Seg Neutrophils % 67.5 % (42-78) 12/17/19 06:29 PT 15.9 SEC (11.4-15.4) H 12/14/19 02:35 INR 1.25 12/14/19 02:35 APTT 36.4 SEC (23.5-35.8) H 12/14/19 02:35 Sodium 138.4 mmol/L (137-145) 12/17/19 06:29 Potassium 3.4 mmol/L (3.6-5.0) L 12/17/19 06:29 Chloride 99 mmol/L (98-107) 12/17/19 06:29 Carbon Dioxide 36 mmol/L (22-30) H 12/17/19 06:29 Anion Gap 3 (5-19) L 12/17/19 06:29 BUN 21 mg/dL (7-20) H 12/17/19 06:29 Creatinine 0.73 mg/dL (0.52-1.25) 12/17/19 06:29 Est GFR ( Amer) > 60 (>60) 12/17/19 06:29 Est GFR (MDRD) Non-Af > 60 (>60) 12/17/19 06:29 Glucose 95 mg/dL (75-110) 12/17/19 06:29 Calcium 8.1 mg/dL (8.4-10.2) L 12/17/19 06:29 Magnesium 1.8 mg/dL (1.6-2.3) 12/17/19 06:29 Total Bilirubin 0.8 mg/dL (0.2-1.3) 12/17/19 06:29 Direct Bilirubin 0.3 mg/dL (0.0-0.4) 12/17/19 06:29 Neonat Total Bilirubin Not Reportable 12/17/19 06:29 Neonat Direct Bilirubin Not Reportable 12/17/19 06:29 Neonat Indirect Bili Not Reportable 12/17/19 06:29 AST 26 U/L (14-36) 12/17/19 06:29 ALT 12 U/L (<35) 12/17/19 06:29 Alkaline Phosphatase 76 U/L (38-126) 12/17/19 06:29 Troponin I < 0.012 ng/mL 12/13/19 20:54 Total Protein 5.1 g/dL (6.3-8.2) L 12/17/19 06:29 Albumin 2.7 g/dL (3.5-5.0) L 12/17/19 06:29 Valproic Acid 52.0 ug/mL (50.0-120.0) 12/13/19 20:54 COVID-19 Source See comment 12/15/19 12:40 COVID-19 (ARIADNA) Not Detected (Not Detect) 12/15/19 12:40 12/13/19 20:54 Troponin I < 0.012 Impressions: Hip/Pelvis X-Ray 12/13/19 19:04 IMPRESSION: Acute intertrochanteric fracture of right femur. Chest X-Ray 12/13/19 19:05 IMPRESSION: No evidence of active intrathoracic disease. Chronic change, no adverse change Head CT 12/13/19 19:06 IMPRESSION: 1. No acute intracranial hemorrhage or mass effect. Findings compatible with chronic microvascular ischemic change are present. Fluoroscopy 12/14/19 00:00 IMPRESSION: IMAGE(S) OBTAINED DURING PROCEDURE. Hip/Pelvis X-Ray 12/14/19 00:00 IMPRESSION: IMAGE(S) OBTAINED DURING PROCEDURE. Plan Time Spent: Greater than 30 Minutes Stroke Is this a Stroke Patient?: No Acute Heart Failure Is this a Heart Failure Patient?: No
[2019-12-18] MEDS: TRAMADOL HCL 50 MG TABLET PO PRN ×2 (16:17→22:53)
[2019-12-18] MEDS: BUSPIRONE HCL 10 MG TABLET PO SCH (22:53)
[2019-12-18] MEDS: MELATONIN 5 MG TABLET PO SCH (22:53)
[2019-12-19 08:11] LABS: ABSOLUTE EOSINOPHILS # (AUTO) 0.3 10^3/uL (0.0-0.6); ABSOLUTE MONOCYTES (AUTO) 0.7 10^3/uL (0.1-1.4); ABSOLUTE NEUT (AUTO) 2.6 10^3/uL (1.7-8.2); BASOPHILS % (AUTO) 0.8 % (0-2); HEMATOCRIT 25.4 % (36.0-47.0); HEMOGLOBIN 8.6 g/dL (12.0-15.5); LYMPHOCYTES % (AUTO) 22.1 % (13-45); MEAN CORPUSCULAR HEMOGLOBIN 26.3 pg (27.0-33.4); MEAN CORPUSCULAR VOLUME 77 fl (80-97); MONOCYTES % (AUTO) 14.8 % (3-13); PLATELET COUNT 123 10^3/uL (150-450); RED BLOOD COUNT 3.28 10^6/uL (3.72-5.28); RED CELL DISTRIBUTION WIDTH 15.1 % (11.5-14.0); SEGMENTED NEUTROPHILS % (AUTO) 56.3 % (42-78); TOTAL CELLS COUNTED % (AUTO) 100 %; WHITE BLOOD COUNT 4.7 10^3/uL (4.0-10.5)
[2019-12-19 08:34] LABS: ALBUMIN 2.8 g/dL (3.5-5.0); ALKALINE PHOSPHATASE 77 U/L (38-126); ANION GAP 6 (5-19); ASPARTATE AMINO TRANSFERASE 30 U/L (14-36); BILIRUBIN,DIRECT 0.5 mg/dL (0.0-0.4); BILIRUBIN,TOTAL 1.2 mg/dL (0.2-1.3); BLOOD UREA NITROGEN 20 mg/dL (7-20); CALCIUM 8.2 mg/dL (8.4-10.2); CARBON DIOXIDE 37 mmol/L (22-30); CHLORIDE 91 mmol/L (98-107); GLUCOSE 94 mg/dL (75-110); POTASSIUM 3.2 mmol/L (3.6-5.0); TOTAL PROTEIN 5.4 g/dL (6.3-8.2)
[2019-12-19] MEDS: TRAMADOL HCL 50 MG TABLET PO PRN (08:42)
[2019-12-19] MEDS: MIDODRINE HCL 5 MG TABLET PO SCH (09:50)
[2019-12-19] MEDS: DIVALPROEX SODIUM 250 MG TAB.SR.24H PO SCH (09:50)
[2019-12-19] MEDS: APIXABAN 5 MG TABLET PO SCH (09:50)
[2019-12-19] MEDS: DILTIAZEM HCL 120 MG CAP.SR.24H PO SCH (09:54)
[2019-12-19] MEDS: VENLAFAXINE HCL 75 MG CAP.SR.24H PO SCH (09:54)
[2019-12-19] MEDS: ATENOLOL 50 MG TABLET PO SCH (09:55)
[2019-12-19] MEDS: TRAZODONE HCL 50 MG TABLET PO SCH (09:58)
[2019-12-19] MEDS: FUROSEMIDE 40 MG TABLET PO SCH (09:59)
[2019-12-19 11:06] VITALS: BP 102/61
[2019-12-19] MEDS: ALPRAZOLAM 0.5 MG TABLET PO PRN (12:41)
== END 2019-12-19 15:10 | DRG 481 ==
LOC: ER 18:42 → EH 12-14 00:17 → 4S 12-14 01:32
PROVIDERS: ADMIT Internal Medicine; ATTEND Internal Medicine
PROC: 0QS604Z Reposition Right Upper Femur with Internal Fixation Device, Open Approach (ICD-10-PCS; principal; 2019-12-14 09:30)
DX: S72.141A Displaced intertrochanteric fracture of right femur, initial encounter for closed fracture (principal); I48.20 Chronic atrial fibrillation, unspecified; F32.9 Major depressive disorder, single episode, unspecified; F41.9 Anxiety disorder, unspecified; I10 Essential (primary) hypertension; E78.5 Hyperlipidemia, unspecified; W03.XXXA Other fall on same level due to collision with another person, initial encounter; F17.210 Nicotine dependence, cigarettes, uncomplicated; Z66 Do not resuscitate; Z03.818 Encounter for observation for suspected exposure to other biological agents ruled out; Z79.899 Other long term (current) drug therapy; Z79.01 Long term (current) use of anticoagulants; Z96.642 Presence of left artificial hip joint; Z82.49 Family history of ischemic heart disease and other diseases of the circulatory system; Z83.3 Family history of diabetes mellitus; Z80.9 Family history of malignant neoplasm, unspecified
CPT/HCPCS: 01230; 36415; 70450; 71045; 80053; 80164; 83735; 84484; 85025; 85610; 85730; 87635; 93005; 93010; 96374; 96375; 99285; C1713; C1769; C9803; J0690; J1170; J2250; J2270; J2370; J2405; J2704; J3010; J3490; J7030